=== PATIENT | male | born 1945 | race Caucasian/White ===

== ENCOUNTER 2017-09-19 03:04 | Emergency (ER) | payer MEDICARE, OTHER, SELFPAY ==
[2017-09-19 03:50] VITALS: BP 153/66; PULSE 75; RESP 16; TEMP 36.3; O2SAT 93
--- NOTE | 2017-09-19 04:20 | DI.RAD.S_ITS ---
PROCEDURE: XR ACUTE ABDOMEN SERIES INDICATIONS: constipation abdominal pain TECHNIQUE: One view chest and two views of the abdomen were acquired. COMPARISON: [facility], CHEST 2 VIEW, 12/18/2016, 10:14. [facility], , CHEST 1 VIEW, 12/16/2016, 21:53. FINDINGS: Surgical changes and devices: None. Chest: Lungs are clear. Scattered scarring/atelectasis which appears unchanged Heart size is normal. No pleural effusions. No pneumoperitoneum. Abdomen: Bowel gas pattern is nonobstructive however there is a moderate to large amount of stool. No suspicious calcifications. Visualized solid organ contours appear normal. Bones: No suspicious bony lesions. Thoracolumbar compression fractures as before IMPRESSION: Moderate to large amount of stool. No bowel obstruction. Dictated by: Jhonny Ochoa M.D. on 09/19/2017 at 7:36 Approved by: Jhonny Ochoa M.D. on 09/19/2017 at 7:39
[2017-09-19] MEDS: SODIUM CHLORIDE 0.9% 1,000 ML 1000 ML IV (04:30)
[2017-09-19 04:46] VITALS: BP 153/66; PULSE 75; RESP 16; TEMP 36.3; O2SAT 93
[2017-09-19 05:04] LABS: Add Manual Diff / Slide Review NO; Basophils Percent Auto 0.6 % (0-2); Eosinophils Percent Auto 2.8 % (2-4); Hematocrit 32.1 % (41-53); Lymphocytes Percent Auto 26.6 % (25-40); Mean Corpuscular HGB Conc 34.2 % (30-36); Mean Corpuscular Volume 102.4 fL (80-100); Monocytes Percent Auto 9.5 % (3-14); Neutrophils Absolute Auto 4400 /uL (3000-5900); Neutrophils Percent Auto 60.5 % (50-75); Platelet Count 168 X10^3/uL (150-400); Red Blood Cell Count 3.14 X10^6/uL (4.5-5.9); Red Cell Distribution Width 12.9 % (11.6-14.8); White Blood Cell Count 7.2 X10^3/uL (4.5-11.0)
[2017-09-19 05:16] LABS: Alanine Aminotransferase 14 IU/L (21-72); Albumin 4.2 g/dL (3.5-5.0); Albumin Globulin Ratio 1.5 (1.0-2.8); Alkaline Phosphatase 59 U/L (38-126); Aspartate Aminotransferase 24 IU/L (17-59); BUN Creatinine Ratio 18.3 (6-22); Bilirubin Total 0.6 mg/dL (0.2-1.3); Calcium 8.8 mg/dL (8.4-10.2); Estimated Glomerular Filt Rate 37.3 mL/min (>60); Globulin 2.8 g/dL (1.7-4.1); Glucose 103 mg/dL (80-110); HEMOLYSIS 17 (0-50); Lipase 240 U/L (23-300); Potassium 4.3 mmol/L (3.4-5.1); Sodium 139 mmol/L (137-145)
[2017-09-19 05:39] VITALS: BP 135/57; PULSE 61; RESP 21; O2SAT 93
--- NOTE | 2017-09-19 07:17 | ED_ITS ---
HPI - Abdominal Pain General Chief Complaint: Toxicology Problem Stated Complaint: THINKS HE HAS LEAD POISOINING Time Seen by Provider: 09/19/17 04:12 Source: patient and RN notes reviewed Mode of arrival: ambulatory Limitations: no limitations History of Present Illness HPI narrative: Patient is a 71-year-old male who is quite convinced that he has blood poisoning. He has been eating and melting lead over the past 1-2 months he has melted at least 100 lb and in healing it. He says since he started doing this his blood pressure scar rocket it. It was previously controlled on 1 medication and is now requiring multiple including hydralazine which has been doubled and tripled over the past 6 weeks. He also has some abdominal constipation but he is also on narcotic medications. His last bowel movement was 3 days ago. MD complaint: abdominal pain Related Data Home Medications Medication Instructions Recorded Confirmed azithromycin [Zithromax Z-Jeremy] 250 mg PO Q DAY #0 12/16/16 dapsone 50 mg PO BID #0 12/16/16 docusate sodium [Colace] 100 mg PO BID #0 12/16/16 metoprolol tartrate 12.5 mg PO BID #0 12/16/16 montelukast 10 mg PO Q DAY #0 12/16/16 pantoprazole [Protonix] 40 mg PO BID #0 12/16/16 pramipexole [Mirapex] 0.125 mg PO Q DAY PRN PRN #0 12/16/16 prednisone 5 mg PO Q DAY #0 12/16/16 selegiline HCl [Eldepryl] 5 mg PO BID #0 12/16/16 sennosides [senna] 2 tab PO Q DAY #0 12/16/16 tamsulosin [Flomax] 0.4 mg PO Q DAY #0 12/16/16 valacyclovir 500 mg PO Q DAY #0 12/16/16 aspirin 81 mg PO QDAY #0 12/17/16 calcitriol [Rocaltrol] 0.25 mcg PO QDAY #0 12/17/16 carbidopa-levodopa 1 tab PO TID #0 12/17/16 clobetasol [Temovate] 1 bradley TOPICAL PRN PRN #0 12/17/16 diltiazem HCl [Cartia XT] 120 mg PO QDAY #0 12/17/16 morphine 10 mg PO Q4HP PRN #0 12/17/16 ondansetron HCl 4 mg PO TIDP PRN #0 12/17/16 oxycodone [Roxicodone] 10 mg PO BIDP PRN #0 12/17/16 polyethylene glycol 3350 [Miralax] 17 gm PO QDAYP PRN #0 12/17/16 fluticasone-salmeterol [Advair HFA] 1 puff INH BID #0 12/19/16 Previous Rx's Medication Instructions Recorded amoxicillin-pot clavulanate 875 mg PO BID #20 tab 12/21/16 [Augmentin] prednisone 10 mg PO QAM #20 tab 12/21/16 Allergies Allergy/AdvReac Type Severity Reaction Status Date / Time bacitracin [BACITRACIN] Allergy Unknown SKIN Verified 09/19/17 03:57 IRRITATION chlorhexidine [CHLORHEXIDINE] Allergy Unknown SKIN Verified 09/19/17 03:57 IRRITATION rifampin [RIFAMPIN] Allergy Unknown HIVES Verified 09/19/17 03:57 acetaminophen [ACETAMINOPHEN] AdvReac Unknown ABD PAIN Verified 09/19/17 03:57 diphenhydramine AdvReac Unknown EXTREME Verified 09/19/17 03:57 [From BENADRYL] SEDATION Review of Systems Review of Systems All systems reviewed & are unremarkable except as noted in HPI and below Constitutional Denies chills, Denies fever(s), Denies lethargy and Denies weakness Cardiovascular Reports as per HPI, Denies chest pain, Denies irregular heart rhythm, Denies lightheadedness, Denies palpitations, Denies dyspnea, Denies dyspnea on exertion and Denies orthopnea Respiratory Denies cough, Denies dyspnea, Denies dyspnea on exertion and Denies wheezing Gastrointestinal Gastrointestinal: Denies abdominal pain, Denies change in bowel habits, Reports constipation, Denies diarrhea, Denies nausea and Denies vomiting Musculoskeletal Denies back pain, Denies muscle weakness, Denies numbness and Denies tingling Neurologic Denies numbness, Denies tingling and Denies weakness Endocrine Denies palpitations Allergic/Immunologic Denies wheezing PFSH Medical History Parkinson disease (Acute) Surgical History H/O stem cell transplant (Acute) Social History Smoking Status: Never smoker Exam Const General: cooperative and well developed Nutritional Appearance: well nourished Orientation: alert, awake, oriented x3 and not confused Resp Effort & Inspection: normal respiratory effort, able to speak in complete sentences, no respiratory distress and no use of accessory muscles Auscultation: clear to auscultation bilaterally, no rales, no rhonchi and no wheezes Cardio Rate: regular rate Rhythm: regular rhythm Heart Sounds: no click, no gallops, no murmurs and no rubs Pulses: normal peripheral pulses GI Inspection: normal to inspection Palpation: soft Percussion: normal to percussion Auscultation: normal bowel sounds Skin General: no rashes or lesions noted, No jaundice and No petechiae Neuro Other: Parkinsonian like movement Extrem General: full ROM, no clubbing, cyanosis or edema, no pedal edema and no calf tenderness MDM - Abdominal Pain MDM Narrative Medical decision making narrative: Is possible patient has on blood poisoning recently does have lead exposure. It has been ongoing for about 6 weeks no acute changes in his symptoms. His blood pressure initially he thought was high with a systolic of 150 has come down to under 120 in the ER. He understands that the lead level will not come back until next week it is a send out to [place]. He says he will discuss [facility] I recommended she call to see if they do the test. Lab Data Attestation: I reviewed the patient's lab results. Result diagrams: 09/19/17 04:35 09/19/17 04:35 Lab Results 09/19/17 09/19/17 Range/Units 04:35 04:35 WBC 7.2 (4.5-11.0) X10^3/uL RBC 3.14 L (4.5-5.9) X10^6/uL Hgb 11.0 L (13.5-17.5) g/dL Hct 32.1 L (41-53) % MCV 102.4 H (80-100) fL MCH 35.0 H (26-34) PG MCHC 34.2 (30-36) % RDW 12.9 (11.6-14.8) % Plt Count 168 (150-400) X10^3/uL Neut % (Auto) 60.5 (50-75) % Lymph % (Auto) 26.6 (25-40) % Greene % (Auto) 9.5 (3-14) % Eos % (Auto) 2.8 (2-4) % Baso % (Auto) 0.6 (0-2) % Neut # (Auto) 4400 (1225-8074) /uL Sodium 139 (137-145) mmol/L Potassium 4.3 (3.4-5.1) mmol/L Chloride 101.0 (98-107) mmol/L Carbon Dioxide 27.0 (22-32) mmol/L BUN 33.0 H (9-20) mg/dL Creatinine 1.80 H (0.66-1.25) mg/dL Estimated GFR 37.3 L (>60) mL/min BUN/Creatinine Ratio 18.3 (6-22) Glucose 103 (80-110) mg/dL Calcium 8.8 (8.4-10.2) mg/dL Total Bilirubin 0.6 (0.2-1.3) mg/dL AST 24 (17-59) IU/L ALT 14 L (21-72) IU/L Alkaline Phosphatase 59 (38-126) U/L Total Protein 7.0 (6.3-8.2) g/dL Albumin 4.2 (3.5-5.0) g/dL Globulin 2.8 (1.7-4.1) g/dL Albumin/Globulin Ratio 1.5 (1.0-2.8) Lipase 240 (23-300) U/L Imaging Data Abdominal x-ray: Attestation: I personally reviewed and interpreted this imaging study as follows: My impression: No acute process Course Orders Ordered: ED Orders 09/19/17 04:20 XR acute abdomen series Stat 09/19/17 04:35 Complete Blood Count AUTO DIFF Stat Comprehensive Metabolic Panel Stat Lead Stat Lipase Stat Sodium Chloride (Normal Saline 0.9%) 1,000 mls @ 1,000 mls/hr IV CONT BALDO Last Infusion: 09/19/17 06:03 Dose: 1,000 mls/hr Admin: 09/19/17 04:30 Dose: 1,000 mls/hr Last Vital Signs Temp 97.4 F L 09/19/17 04:46 Pulse 61 09/19/17 05:39 Resp 21 09/19/17 05:39 BP 135/57 H 09/19/17 05:39 Pulse Ox 93 09/19/17 05:39 Discharge Plan Departure Patient Disposition: Home, Self-Care Clinical Impression: Lead exposure, Constipation Instructions: DI for Lead Poisoning -- Adults Activity Restrictions/Additional Instructions: *You have been diagnosed with possible lead poisoning *What to do: lead level is a send out. Result won't be back until next week. If it is elevated we will call you. *Take medications as directed *Follow up with your primary care provider in 2-3 days *Return to ER if you should have any new, worsening or concerning symptoms Prescriptions: No Action valacyclovir 500 MG tablet 500 mg PO Q DAY Qty: 0 RF: 0 prednisone 5 MG tablets,dose pack 5 mg PO Q DAY Qty: 0 RF: 0 azithromycin [Zithromax Z-Jeremy] 250 MG tablet 250 mg PO Q DAY Qty: 0 RF: 0 dapsone 25 MG tablet 50 mg PO BID Qty: 0 RF: 0 montelukast 10 MG tablet 10 mg PO Q DAY Qty: 0 RF: 0 pantoprazole [Protonix] 40 MG tablet,delayed release (DR/EC) 40 mg PO BID Qty: 0 RF: 0 selegiline HCl [Eldepryl] 5 MG capsule 5 mg PO BID Qty: 0 RF: 0 metoprolol tartrate 25 MG tablet 12.5 mg PO BID Qty: 0 RF: 0 tamsulosin [Flomax] 0.4 MG capsule,extended release 24hr 0.4 mg PO Q DAY Qty: 0 RF: 0 pramipexole [Mirapex] 0.125 MG tablet 0.125 mg PO Q DAY PRN PRNQty: 0 RF: 0 sennosides [senna] 8.6 MG tablet 2 tab PO Q DAY Qty: 0 RF: 0 docusate sodium [Colace] 100 MG capsule 100 mg PO BID Qty: 0 RF: 0 carbidopa-levodopa 25 MG/100 MG tablet extended release 1 tab PO TID Qty: 0 RF: 0 calcitriol [Rocaltrol] 0.25 MCG capsule 0.25 mcg PO QDAY Qty: 0 RF: 0 aspirin 81 MG tablet,chewable 81 mg PO QDAY Qty: 0 RF: 0 diltiazem HCl [Cartia XT] 120 MG capsule,extended release 24hr 120 mg PO QDAY Qty: 0 RF: 0 clobetasol [Temovate] 0.05 % cream 1 bradley Topical PRN PRNQty: 0 RF: 0 oxycodone [Roxicodone] 5 MG tablet 10 mg PO BIDP PRNQty: 0 RF: 0 morphine 20 MG/5 ML solution 10 mg PO Q4HP PRNQty: 0 RF: 0 ondansetron HCl 4 MG tablet 4 mg PO TIDP PRNQty: 0 RF: 0 polyethylene glycol 3350 [Miralax] 119 GM powder 17 gm PO QDAYP PRNQty: 0 RF: 0 fluticasone-salmeterol [Advair HFA] 230 MCG/21 MCG HFA aerosol inhaler 1 puff INH BID Qty: 0 RF: 0 amoxicillin-pot clavulanate [Augmentin] 875 MG/125 MG tablet 875 mg PO BID Qty: 20 RF: 0 prednisone 10 MG tablet 10 mg PO QAM Qty: 20 RF: 0
[2017-09-19 07:22] VITALS: BP 129/61; PULSE 66; RESP 16; O2SAT 100
--- NOTE | 2017-09-22 16:35 | PC.NURSE ---
Pt called to f/u on his Lead level taken during this visit. Lead level was 2, (normal < 5). Encouraged to f/u w/ pcp as previously scheduled and planned and return for any needs or concerns.
== END 2017-09-19 07:39 | disposition home or self-care (01) ==
PROVIDERS: Emergency Provider Emergency Medicine
DX: K59.00 Constipation, unspecified (principal); Z77.011 Contact with and (suspected) exposure to lead
CPT/HCPCS: 36591; 74022; 80053; 83655; 83690; 85025; 99283; 99284

== ENCOUNTER 2018-01-18 09:16 | Emergency (ER) | payer MEDICARE, OTHER, SELFPAY ==
[2018-01-18] VITALS (7 sets, daily range): BP systolic 80–122; BP diastolic 43–58; PULSE 62–88; RESP 14–24; TEMP 36.3; O2SAT 96–99; BMI 26.5
--- NOTE | 2018-01-18 09:37 | ED_ITS ---
HPI - Weakness General Chief complaint: Weakness Stated complaint: weakness/hasn't been sleeping Time Seen by Provider: 01/18/18 09:36 Source: patient Mode of arrival: ambulatory Limitations: no limitations History of Present Illness HPI Narrative: Patient is a 72-year-old male with a history of leukemia and a distant history of a stem-cell transplant. Also has a history of multiple pneumonias and ?kidney issues ?also has a history of Parkinson's disease. Patient states that for the past several weeks/months he has had problems sleeping. Has discussed this with his primary doctor who is his oncologist down at the [facility]. Patient states that he was given a prescription for a sleep aid however secondary to issues with related to his other medications this had to be a ?hard prescription ?the patient's who is at bedside has an e-mail from their primary care doctor stating that there was a prescription for sonata that was placed however it can only be picked up in [place] and they have not had a chance to go down to [place] to pick it up. Patient states that last evening he again had problems sleeping. He states that he was downstairs in the kitchen and states that he lost his balance and fell. Did not hit his head. No loss of consciousness. He states that again during the evening he fell in his bathroom. Again did not hit his head had no loss of consciousness. Has multiple skin tears on his upper extremities. Denies any other pain. Related Data Home Medications Medication Instructions Recorded Confirmed azithromycin [Zithromax Z-Jeremy] 250 mg PO Q DAY #0 12/16/16 dapsone 50 mg PO BID #0 12/16/16 docusate sodium [Colace] 100 mg PO BID #0 12/16/16 metoprolol tartrate 12.5 mg PO BID #0 12/16/16 montelukast 10 mg PO Q DAY #0 12/16/16 pantoprazole [Protonix] 40 mg PO BID #0 12/16/16 pramipexole [Mirapex] 0.125 mg PO Q DAY PRN PRN #0 12/16/16 prednisone 5 mg PO Q DAY #0 12/16/16 selegiline HCl [Eldepryl] 5 mg PO BID #0 12/16/16 sennosides [senna] 2 tab PO Q DAY #0 12/16/16 tamsulosin [Flomax] 0.4 mg PO Q DAY #0 12/16/16 valacyclovir 500 mg PO Q DAY #0 12/16/16 aspirin 81 mg PO QDAY #0 12/17/16 calcitriol [Rocaltrol] 0.25 mcg PO QDAY #0 12/17/16 carbidopa-levodopa 1 tab PO TID #0 12/17/16 clobetasol [Temovate] 1 bradley TOPICAL PRN PRN #0 12/17/16 diltiazem HCl [Cartia XT] 120 mg PO QDAY #0 12/17/16 morphine 10 mg PO Q4HP PRN #0 12/17/16 ondansetron HCl 4 mg PO TIDP PRN #0 12/17/16 oxycodone [Roxicodone] 10 mg PO BIDP PRN #0 12/17/16 polyethylene glycol 3350 [Miralax] 17 gm PO QDAYP PRN #0 12/17/16 fluticasone-salmeterol [Advair HFA] 1 puff INH BID #0 12/19/16 Previous Rx's Medication Instructions Recorded amoxicillin-pot clavulanate 875 mg PO BID #20 tab 12/21/16 [Augmentin] prednisone 10 mg PO QAM #20 tab 12/21/16 zaleplon 5 mg PO .qhs PRN #7 cap 01/18/18 Allergies Allergy/AdvReac Type Severity Reaction Status Date / Time bacitracin [BACITRACIN] Allergy Unknown SKIN Verified 01/18/18 09:27 IRRITATION chlorhexidine [CHLORHEXIDINE] Allergy Unknown SKIN Verified 01/18/18 09:27 IRRITATION rifampin [RIFAMPIN] Allergy Unknown HIVES Verified 01/18/18 09:27 acetaminophen [ACETAMINOPHEN] AdvReac Unknown ABD PAIN Verified 01/18/18 09:27 diphenhydramine AdvReac Unknown EXTREME Verified 01/18/18 09:27 [From BENADRYL] SEDATION Review of Systems Constitutional Reports fatigue, Denies fever(s), Reports frequent falls, Reports lethargy and Reports malaise ENT Ears, Nose, Mouth, and Throat: Denies vertigo and Reports dizziness Cardiovascular Denies chest pain and Reports dyspnea (States that he always has problems breathing and is at his baseline) Respiratory Reports dyspnea (States that he always has problems breathing and is at his baseline) Gastrointestinal Gastrointestinal: Denies change in bowel habits, Denies cramping, Denies nausea and Denies vomiting Genitourinary Denies dysuria Musculoskeletal Reports abnormal gait, Denies myalgias and Denies arthralgias Integumentary/Breasts Comments: Multiple skin tears on his upper extremities Neurologic Reports abnormal gait, Denies confusion, Denies vertigo, Reports dizziness and Reports frequent falls Comments: Baseline Parkinson's tremor Psychiatric Denies confusion Endocrine Reports fatigue [facility] Medical History Parkinson disease (Acute) CLL (chronic lymphocytic leukemia) (Acute) Surgical History H/O stem cell transplant (Acute) Social History Smoking Status: Never smoker Exam Initial Vital Signs Initial Vital Signs: Vital Signs Temperature 97.4 F L 01/18/18 09:23 Pulse Rate 88 01/18/18 09:23 Respiratory Rate 14 01/18/18 09:23 Blood Pressure 80/43 L 01/18/18 09:23 Pulse Oximetry 97 01/18/18 09:23 Const General: cooperative, comfortable, well developed, well groomed and No acute distress Orientation: alert, awake and oriented x3 HENMT Head: normal to inspection and normocephalic Resp Effort & Inspection: normal respiratory effort Auscultation: clear to auscultation bilaterally Cardio Rate: regular rate Rhythm: regular rhythm Pulses: radial pulses present GI Inspection: non-distended Palpation: soft, No firm and No tender Back/Spine/Pelvis Back: No CVA tenderness Cervical Spine: cervical ROM normal, No cervical muscular tenderness and No step off deformity Thoracic/Lumbar Spine: thoracic and lumbar spine normal to inspection Skin Other: Patient with multiple skin tears mainly located on his right elbow which were all superficial. Has skin tears on the back of his right hand 1 of which is approximately 4 cm in length and does require suturing. Patient also with a skin tear superficial on his left elbow. Neuro General: alert, awake and oriented x3 Extrem Other: No gross deformities. Moves all 4 extremities Psych Appearance: grossly normal and well kempt Course Orders Ordered: ED Orders 01/18/18 09:31 EKG-12 Lead Stat 01/18/18 09:41 B Type Natriuretic Peptide Stat Complete Blood Count AUTO DIFF Stat Comprehensive Metabolic Panel Stat Lactate (Lactic Acid) Stat Lipase Stat Partial Thromboplastin Time Stat Procalcitonin Stat Prothrombin Time INR Stat Troponin I Stat 01/18/18 09:46 XR chest 1V Stat 01/18/18 10:20 Blood Culture Stat Discontinued Medications Sodium Chloride (Normal Saline 0.9%) 1,000 mls @ 500 mls/hr IV BOLUS ONE Stop: 01/18/18 11:36 Last Admin: 01/18/18 09:47 Dose: 500 mls/hr Sodium Chloride (Normal Saline 0.9%) 1,000 mls @ 1,000 mls/hr IV BOLUS ONE Stop: 01/18/18 10:45 Last Admin: 01/18/18 09:48 Dose: Vital Signs - 8 hr 01/18/18 09:23 01/18/18 09:35 01/18/18 10:00 Temperature 97.4 F L Pulse Rate 88 68 65 Pulse Rate [Orthostatic Lying] Pulse Rate [Orthostatic Sitting] Pulse Rate [Orthostatic Standing] Respiratory Rate 14 24 22 Blood Pressure 80/43 L Blood Pressure [Left Arm] 104/47 L 107/51 L Blood Pressure [Orthostatic Lying] Blood Pressure [Orthostatic Sitting] Blood Pressure [Orthostatic Standing] Pulse Oximetry 97 96 97 01/18/18 11:17 01/18/18 12:00 01/18/18 12:29 Temperature Pulse Rate 73 64 Pulse Rate [Orthostatic Lying] 62 Pulse Rate [Orthostatic Sitting] 64 Pulse Rate [Orthostatic Standing] 63 Respiratory Rate 20 18 Blood Pressure Blood Pressure [Left Arm] 92/46 L 105/48 L Blood Pressure [Orthostatic Lying] 102/57 L Blood Pressure [Orthostatic Sitting] 95/52 L Blood Pressure [Orthostatic Standing] 93/58 L Pulse Oximetry 98 MDM - Weakness Lab Data Attestation: I reviewed the patient's lab results. Result diagrams: 01/18/18 09:41 01/18/18 09:41 Lab Results 01/18/18 01/18/18 01/18/18 Range/Units 09:41 09:41 09:41 WBC 8.3 (4.5-11.0) X10^3/uL RBC 3.27 L (4.5-5.9) X10^6/uL Hgb 10.9 L (13.5-17.5) g/dL Hct 33.0 L (41-53) % MCV 100.9 H (80-100) fL MCH 33.3 (26-34) PG MCHC 33.0 (30-36) % RDW 13.4 (11.6-14.8) % Plt Count 194 (150-400) X10^3/uL Neut % (Auto) 71.8 (50-75) % Lymph % (Auto) 17.4 L (25-40) % Baker % (Auto) 8.5 (3-14) % Eos % (Auto) 1.7 L (2-4) % Baso % (Auto) 0.6 (0-2) % Neut # (Auto) 6000 H (5636-1851) /uL PT 11.0 (10.1-12.7) SECONDS INR 1.0 (0.9-1.3) APTT 30 (26.4-36.2) SECONDS Sodium Cancelled Potassium Cancelled Chloride Cancelled Carbon Dioxide Cancelled BUN Cancelled Creatinine Cancelled Estimated GFR Cancelled BUN/Creatinine Ratio Cancelled Glucose Cancelled Lactate (0.7-2.1) mmol/L Calcium Cancelled Total Bilirubin Cancelled AST Cancelled ALT Cancelled Alkaline Phosphatase Cancelled Troponin I Cancelled B-Natriuretic Peptide 123.0 H (<100) Total Protein Cancelled Albumin Cancelled Globulin Cancelled Albumin/Globulin Ratio Cancelled Lipase (23-300) U/L Procalcitonin (<0.5) ng/mL 01/18/18 01/18/18 01/18/18 Range/Units 09:41 09:41 09:41 WBC (4.5-11.0) X10^3/uL RBC (4.5-5.9) X10^6/uL Hgb (13.5-17.5) g/dL Hct (41-53) % MCV (80-100) fL MCH (26-34) PG MCHC (30-36) % RDW (11.6-14.8) % Plt Count (150-400) X10^3/uL Neut % (Auto) (50-75) % Lymph % (Auto) (25-40) % Baker % (Auto) (3-14) % Eos % (Auto) (2-4) % Baso % (Auto) (0-2) % Neut # (Auto) (1225-8031) /uL PT (10.1-12.7) SECONDS INR (0.9-1.3) APTT (26.4-36.2) SECONDS Sodium 140 Potassium 4.8 Chloride 104 Carbon Dioxide 25 BUN 37 H Creatinine 1.90 H Estimated GFR 34.9 L BUN/Creatinine Ratio 19.5 Glucose 104 Lactate 1.4 (0.7-2.1) mmol/L Calcium 8.8 Total Bilirubin 0.4 AST 63 H ALT 25 Alkaline Phosphatase 169 H Troponin I 0.030 B-Natriuretic Peptide (<100) Total Protein 6.9 Albumin 4.2 Globulin 2.7 Albumin/Globulin Ratio 1.6 Lipase 262 (23-300) U/L Procalcitonin < 0.05 (<0.5) ng/mL Imaging Data Chest x-ray: Radiologist's impression: [address] [address] XRay Report Signed Patient: Eleno Sol JMR#: [id number] : 5Acct:[id number] Age/Sex: 72 / MDate of Service: 01/18/18 Loc: ED Accession Number: [id number] Procedure: XR chest 1V Ordering Provider: Eleno Juares D.O. PROCEDURE: XR CHEST 1V INDICATIONS: suspected sepsis TECHNIQUE: One view of the chest was acquired. COMPARISON: [facility], CHEST 2 VIEW, 12/18/2016, 10:14. [facility], CHEST 1 VIEW, 12/16/2016, 21:53. FINDINGS: Surgical changes and devices: None. Lungs and pleura: No pleural effusions or pneumothorax. Lungs are abnormal with reduced inspiratory volume, no pneumonia found.. Mediastinum: Mediastinal contours appear normal. Heart size is normal. Bones and chest wall: No suspicious bony lesions. Overlying soft tissues appear unremarkable. IMPRESSION: Reduced inspiratory volume but no pneumonia found when this is taken into account. Dictated by: Vishal Junior M.D. on 01/18/2018 at 10:26 Approved by: Vishal Junior M.D. on 01/18/2018 at 10:26 ECG Data Attestation: I personally reviewed and interpreted this ECG as follows: Prior ECG tracings: available for review Interpretation: Previous EKG dated 12/2016 Sinus rhythm EKG dated today Sinus rhythm Ventricular rate is 76 Normal axis Normal QRS Normal QTC No ST T wave changes Unchanged from prior EKG MDM Narrative Medical decision making narrative: Patient's electrolytes unremarkable. Was alert and oriented x3. No emergent process found on chest x-ray or on labs or on his EKG. It appears that normally patient is very mobile at home and able to work outside and mow the grass however he does state that for the past 7-10 days he has only been able to sleep about 1 hr at night. I feel that his fatigue that has been progressing over this period of time is most likely secondary to his lack of sleep. He also has increased his Parkinson's disease medicines over the past couple days. He has been unable to obtain the prescription for the sonata that was prescribed by his primary doctor. Had a discussion with the patient and his regarding his symptoms. Feel that there is no need for an acute admission to the hospital. Will fill his prescription for sonata for the next couple days. He was given extensive instructions regarding this medication. He was instructed that he needed to be very careful at night this medicine does make him drowsy and that he needs to try to avoid falling at all cost especially given his other medical problems. Was also instructed that this evening he should take the pill just prior to going to sleep until he does exactly how his body reacts this medication. Patient also understands that there could be interactions with this medicine with his other medications. He understands that he could have the same reaction with this medicine that he did with the Ambien. He was given return precautions. He expressed understanding and agreement with plan. Discharge Plan Departure Patient Disposition: Home Clinical Impression: Fatigue, Parkinson disease, Insomnia Instructions: Insomnia (Alternative Therapy), DI for Insomnia Activity Restrictions/Additional Instructions: Recommend that tomorrow you contact your primary care doctor to discuss the symptoms that brought you to the emergency department today. Be sure you take care with taking the medication for sleep. This medication does make you drowsy. Return to the emergency department for any new or worsening symptoms Prescriptions: New zaleplon 5 mg capsule 5 mg PO .qhs PRN (Reason: insomnia) Qty: 7 RF: 0 No Action valacyclovir 500 MG tablet 500 mg PO Q DAY Qty: 0 RF: 0 prednisone 5 MG tablets,dose pack 5 mg PO Q DAY Qty: 0 RF: 0 azithromycin [Zithromax Z-Jeremy] 250 MG tablet 250 mg PO Q DAY Qty: 0 RF: 0 dapsone 25 MG tablet 50 mg PO BID Qty: 0 RF: 0 montelukast 10 MG tablet 10 mg PO Q DAY Qty: 0 RF: 0 pantoprazole [Protonix] 40 MG tablet,delayed release (DR/EC) 40 mg PO BID Qty: 0 RF: 0 selegiline HCl [Eldepryl] 5 MG capsule 5 mg PO BID Qty: 0 RF: 0 metoprolol tartrate 25 MG tablet 12.5 mg PO BID Qty: 0 RF: 0 tamsulosin [Flomax] 0.4 MG capsule,extended release 24hr 0.4 mg PO Q DAY Qty: 0 RF: 0 pramipexole [Mirapex] 0.125 MG tablet 0.125 mg PO Q DAY PRN PRNQty: 0 RF: 0 sennosides [senna] 8.6 MG tablet 2 tab PO Q DAY Qty: 0 RF: 0 docusate sodium [Colace] 100 MG capsule 100 mg PO BID Qty: 0 RF: 0 carbidopa-levodopa 25 MG/100 MG tablet extended release 1 tab PO TID Qty: 0 RF: 0 calcitriol [Rocaltrol] 0.25 MCG capsule 0.25 mcg PO QDAY Qty: 0 RF: 0 aspirin 81 MG tablet,chewable 81 mg PO QDAY Qty: 0 RF: 0 diltiazem HCl [Cartia XT] 120 MG capsule,extended release 24hr 120 mg PO QDAY Qty: 0 RF: 0 clobetasol [Temovate] 0.05 % cream 1 bradley Topical PRN PRNQty: 0 RF: 0 oxycodone [Roxicodone] 5 MG tablet 10 mg PO BIDP PRNQty: 0 RF: 0 morphine 20 MG/5 ML solution 10 mg PO Q4HP PRNQty: 0 RF: 0 ondansetron HCl 4 MG tablet 4 mg PO TIDP PRNQty: 0 RF: 0 polyethylene glycol 3350 [Miralax] 119 GM powder 17 gm PO QDAYP PRNQty: 0 RF: 0 fluticasone-salmeterol [Advair HFA] 230 MCG/21 MCG HFA aerosol inhaler 1 puff INH BID Qty: 0 RF: 0 amoxicillin-pot clavulanate [Augmentin] 875 MG/125 MG tablet 875 mg PO BID Qty: 20 RF: 0 prednisone 10 MG tablet 10 mg PO QAM Qty: 20 RF: 0
--- NOTE | 2018-01-18 09:46 | DI.RAD.S_ITS ---
PROCEDURE: XR CHEST 1V INDICATIONS: suspected sepsis TECHNIQUE: One view of the chest was acquired. COMPARISON: [facility], CHEST 2 VIEW, 12/18/2016, 10:14. [facility], , CHEST 1 VIEW, 12/16/2016, 21:53. FINDINGS: Surgical changes and devices: None. Lungs and pleura: No pleural effusions or pneumothorax. Lungs are abnormal with reduced inspiratory volume, no pneumonia found.. Mediastinum: Mediastinal contours appear normal. Heart size is normal. Bones and chest wall: No suspicious bony lesions. Overlying soft tissues appear unremarkable. IMPRESSION: Reduced inspiratory volume but no pneumonia found when this is taken into account. Dictated by: Vishal Junior M.D. on 01/18/2018 at 10:26 Approved by: Vishal Junior M.D. on 01/18/2018 at 10:26
[2018-01-18] MEDS: SODIUM CHLORIDE 0.9% 1,000 ML 500 ML IV (09:47)
[2018-01-18 09:54] LABS: Add Manual Diff / Slide Review NO; Basophils Percent Auto 0.6 % (0-2); Eosinophils Percent Auto 1.7 % (2-4); Hemoglobin 10.9 g/dL (13.5-17.5); Lymphocytes Percent Auto 17.4 % (25-40); Mean Corpuscular Hemoglobin 33.3 PG (26-34); Mean Corpuscular Volume 100.9 fL (80-100); Monocytes Percent Auto 8.5 % (3-14); Neutrophils Absolute Auto 6000 /uL (3000-5900); Neutrophils Percent Auto 71.8 % (50-75); Platelet Count 194 X10^3/uL (150-400); Red Blood Cell Count 3.27 X10^6/uL (4.5-5.9); Red Cell Distribution Width 13.4 % (11.6-14.8); White Blood Cell Count 8.3 X10^3/uL (4.5-11.0)
[2018-01-18 10:09] LABS: PTT Partial Thromboplastin Tim 30 SECONDS (26.4-36.2)
[2018-01-18 10:10] LABS: Lactate (Lactic Acid) 1.4 mmol/L (0.7-2.1)
[2018-01-18 10:13] LABS: Alanine Aminotransferase 25 IU/L (21-72); Albumin 4.2 g/dL (3.5-5.0); Albumin Globulin Ratio 1.6 (1.0-2.8); Alkaline Phosphatase 169 U/L (38-126); Aspartate Aminotransferase 63 IU/L (17-59); BUN Creatinine Ratio 19.5 (6-22); Bilirubin Total 0.4 mg/dL (0.2-1.3); Blood Urea Nitrogen 37 mg/dL (9-20); Calcium 8.8 mg/dL (8.4-10.2); Carbon Dioxide 25 mmol/L (22-32); Chloride 104 mmol/L (98-107); Estimated Glomerular Filt Rate 34.9 mL/min (>60); Globulin 2.7 g/dL (1.7-4.1); Glucose 104 mg/dL (80-110); HEMOLYSIS < 15 (0-50); Lipase 262 U/L (23-300); Potassium 4.8 mmol/L (3.4-5.1); Sodium 140 mmol/L (137-145); Total Protein 6.9 g/dL (6.3-8.2)
[2018-01-18 10:32] LABS: Procalcitonin < 0.05 ng/mL (<0.5)
== END 2018-01-18 13:20 | disposition home or self-care (01) ==
PROVIDERS: Emergency Provider Emergency Medicine
DX: G20 Parkinson's disease (principal); R53.83 Other fatigue; G47.00 Insomnia, unspecified
CPT/HCPCS: 36415; 36591; 71045; 80053; 83605; 83690; 83880; 84145; 84484; 85025; 85610; 85730; 87040; 93005; 93010; 96360; 96361; 99283; 99285

== ENCOUNTER 2018-07-10 09:12 | Emergency (ER) | payer MEDICARE, OTHER, SELFPAY ==
[2018-07-10] VITALS (10 sets, daily range): BP systolic 112–152; BP diastolic 39–78; PULSE 80–97; RESP 16–30; TEMP 37.4; O2SAT 89–99
--- NOTE | 2018-07-10 09:53 | DI.RAD.S_ITS ---
PROCEDURE: XR CHEST 2V INDICATIONS: cough sob TECHNIQUE: 2 views of the chest were acquired. COMPARISON: [facility], , CHEST 2 VIEW, 12/18/2016, 10:14. [facility], , CHEST 1 VIEW, 12/16/2016, 21:53. [facility], , XR CHEST 1V, 01/18/2018, 9:59. FINDINGS: Surgical changes and devices: None. Lungs and pleura: Again noted is mild chronic interstitial pulmonary fibrosis. No focal acute airspace consolidation. No pleural fluid. Mediastinum: Mediastinal contours are normal. Heart size is normal. Bones and chest wall: No suspicious acute bony abnormalities. There are 2 chronic compression fractures, involving approximately T11 and L1. Soft tissues appear unremarkable. IMPRESSION: 1. Stable chronic interstitial lung disease. 2. No acute pulmonary infiltrates. 3. Chronic osteoporotic compression fractures. Dictated by: Tu Bustillo M.D. on 07/10/2018 at 10:24 Approved by: Tu Bustillo M.D. on 07/10/2018 at 10:26
--- NOTE | 2018-07-10 10:10 | ED_ITS ---
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 He has since had complications including pulmonary fibrosis requiring oxygen, fungal pneumonia, CMV pneumonia and finally diagnosed with cryptogenic organizing pneumonia and treated with prednisone which he is still on and being tapered off of slowly. He is on oxygen but typically only at nighttime when he feels short of breath and wheezing. Over the last 3 days he has noticed increased shortness of breath and requiring 3 L of oxygen which is very atypical for him. He feels like he may have pneumonia again. He denies any fever. His no chills. He does have shakes but has Parkinson's he has not noted a change in that. MD Complaint: shortness of breath Severity: moderate Consistency/Duration: constant Relieving factors: oxygen Treatment prior to arrival: oxygen Related Data Home oxygen amount: as needed at night Home Medications Medication Instructions Recorded Confirmed dapsone 50 mg PO BID #0 12/16/16 07/10/18 docusate sodium [Colace] 100 mg PO BID #0 12/16/16 07/10/18 montelukast 10 mg PO BEDTIME #0 12/16/16 07/10/18 pantoprazole [Protonix] 40 mg PO BID #0 12/16/16 07/10/18 pramipexole [Mirapex] 0.125 mg PO BEDTIME #0 12/16/16 07/10/18 sennosides [senna] 17.2 tab PO BEDTIME #0 12/16/16 07/10/18 tamsulosin [Flomax] 0.4 mg PO BEDTIME #0 12/16/16 07/10/18 calcitriol [Rocaltrol] 0.25 mcg PO DAILY #0 12/17/16 07/10/18 carbidopa-levodopa 1 tab PO DIRECTED #0 12/17/16 07/10/18 clobetasol [Temovate] 1 bradley TOPICAL PRN PRN #0 12/17/16 07/10/18 morphine 10 mg PO Q4HP PRN #0 12/17/16 07/10/18 polyethylene glycol 3350 [Miralax] 17 gm PO DAILY PRN #0 12/17/16 07/10/18 Advair HFA 1 puff INH BID #0 12/19/16 07/10/18 albuterol sulfate 2 puff INHALATION Q4H PRN 01/19/18 07/10/18 fluorouracil [Efudex] 1 applic TOPICAL BID PRN 01/19/18 07/10/18 nystatin 5 ml PO Q6H PRN 01/19/18 07/10/18 selegiline HCl 5 mg PO BID 01/19/18 07/10/18 amitriptyline 10 mg PO BEDTIME 07/10/18 07/10/18 azithromycin 250 mg PO MOWEFR 07/10/18 07/10/18 fluocinonide See Rx Instructions .ROUTE .COMPLEX 07/10/18 07/10/18 furosemide 20 mg PO BID 07/10/18 07/10/18 guaifenesin 200 mg PO Q4H PRN 07/10/18 07/10/18 hydrocortisone 1 applic TOPICAL BID PRN 07/10/18 07/10/18 ketoconazole 1 applic TOPICAL PRN PRN 07/10/18 07/10/18 loratadine 10 mg PO DAILY PRN 07/10/18 07/10/18 metoprolol succinate 50 mg PO BEDTIME 07/10/18 07/10/18 mupirocin 1 applic TOPICAL BID PRN 07/10/18 07/10/18 nifedipine 30 mg PO QAM 07/10/18 07/10/18 oxycodone 10 mg PO 1-2XD PRN 07/10/18 07/10/18 prednisone 25 mg PO DAILY 07/10/18 07/10/18 prochlorperazine maleate 10 mg PO QID PRN 07/10/18 07/10/18 valacyclovir 500 mg PO BEDTIME 07/10/18 07/10/18 Allergies Allergy/AdvReac Type Severity Reaction Status Date / Time diltiazem Allergy Intermediate Hives Verified 01/19/18 15:33 bacitracin [BACITRACIN] Allergy Unknown SKIN Verified 01/18/18 09:27 IRRITATION chlorhexidine [CHLORHEXIDINE] Allergy Unknown SKIN Verified 01/18/18 09:27 IRRITATION rifampin [RIFAMPIN] Allergy Unknown HIVES Verified 01/18/18 09:27 acetaminophen [ACETAMINOPHEN] AdvReac Unknown ABD PAIN Verified 01/18/18 09:27 diphenhydramine AdvReac Unknown EXTREME Verified 01/18/18 09:27 [From BENADRYL] SEDATION Review of Systems Review of Systems ROS Unobtainable: All systems reviewed & are unremarkable except as noted in HPI and below Constitutional Denies chills, Denies fever(s), Denies lethargy and Denies weakness Cardiovascular Denies chest pain, Denies irregular heart rhythm, Denies lightheadedness, Denies palpitations and Denies orthopnea Respiratory Reports as per HPI Gastrointestinal Gastrointestinal: Denies abdominal pain, Denies change in bowel habits, Denies diarrhea, Denies nausea and Denies vomiting Musculoskeletal Denies back pain, Denies muscle weakness, Denies numbness and Denies tingling Integumentary/Breasts Denies pruritus, Denies erythema, Denies rash and Denies wounds Neurologic Denies numbness, Denies tingling and Denies weakness Endocrine Denies palpitations PFSH Medical History Parkinson disease (Chronic) CMV pneumonia (Acute) Chronic nbmgk-dykbue-erhe disease (Chronic) Cryptogenic organizing pneumonia (Resolved) CLL (chronic lymphocytic leukemia) (Acute) Surgical History H/O stem cell transplant (Acute) Social History Smoking Status: Never smoker Social History Smoking Status: Never smoker Exam Initial Vital Signs Initial Vital Signs: Vital Signs Temperature 99.3 F 07/10/18 09:15 Pulse Rate 82 07/10/18 09:15 Respiratory Rate 20 07/10/18 09:15 Blood Pressure 112/54 L 07/10/18 09:15 Pulse Oximetry 89 L 07/10/18 09:15 GENERAL: Cushingoid appearance, alert oriented x4 no acute distress HEENT: Head atraumatic,EOMI, pupils reactive, face symmetric, [moist] mucous membranes CARDIOVASCULAR: Regular rate and rhythm without murmurs, rubs or gallops. RESPIRATORY: Decreased breath sounds bilaterally no conversational dyspnea on 3 L mild rales at bases ABDOMEN: Soft, nontender. Normoactive bowel sounds all 4 quadrants. No guarding or rebound. EXTREMITIES: Normal range of motion, no clubbing or edema. Neurovascularly intact NEUROLOGICAL: Alert and oriented x4.Normal gait and speech. Cranial nerves II through XII grossly intact. Resting tremors no gross deficits SKIN: Warm, dry, no laceration, no petechiae, no rashes or lesions. Course Orders Ordered: ED Orders 07/10/18 10:50 B Type Natriuretic Peptide Stat Blood Culture Stat Complete Blood Count AUTO DIFF Stat Comprehensive Metabolic Panel Stat Lactate (Lactic Acid) Stat Partial Thromboplastin Time Stat Procalcitonin Stat Prothrombin Time INR Stat 07/10/18 12:45 Influenza A and B by PCR Rapid Stat Respiratory Panel (Film Array) Stat 07/10/18 13:39 CT chest wo con Stat 07/10/18 15:06 Lactate (Lactic Acid) Stat 07/10/18 17:15 Sputum Culture Stat Sodium Chloride (Normal Saline 0.9%) 1,000 mls @ 150 mls/hr IV CONT BALDO Last Infusion: 07/10/18 15:07 Dose: 0 mls/hr Admin: 07/10/18 11:00 Dose: 150 mls/hr Discontinued Medications Albuterol/Ipratropium (Duoneb) 3 ml INH NOW ONE Stop: 07/10/18 11:22 Last Admin: 07/10/18 11:34 Dose: 3 ml Levofloxacin (Levaquin) 750 mg in 150 mls @ 100 mls/hr IV NOW ONE Stop: 07/10/18 16:27 Last Infusion: 07/10/18 17:10 Dose: 0 mls/hr Admin: 07/10/18 15:07 Dose: 100 mls/hr Sodium Chloride (Normal Saline 0.9%) 1,000 mls @ 1,000 mls/hr IV BOLUS ONE Stop: 07/10/18 16:42 Last Infusion: 07/10/18 17:57 Dose: 0 mls/hr Admin: 07/10/18 15:54 Dose: 1,000 mls/hr Methylprednisolone (Solu-Medrol 125 Mg Vial) 125 mg IV NOW ONE Stop: 07/10/18 11:22 Last Admin: 07/10/18 11:29 Dose: 125 mg Morphine Sulfate (Morphine) 2 mg IV NOW ONE Stop: 07/10/18 11:23 Last Admin: 07/10/18 17:53 Dose: Not Given Voriconazole (Vfend) 200 mg PO NOW ONE Stop: 07/10/18 17:16 Last Admin: 07/10/18 17:53 Dose: 200 mg Consultations Consultation #1: Zeenat, practitioner in pulmonology Clinic at [facility] is quite familiar with patient. Recommend CT to look for new pneumonia or brvor-zlwzjw-xrrd inflammation. Time: 13:22 Consultation #2: Dr. engel commercial designer [facility] updated on patient's symptoms and test results. At this time if appearing well will arrange for close outpatient follow-up. Recommend p.o. Levaquin and p.o. voriconazole. Dr. engel again updated on patient's rising lactic acid and my concern for sepsis in need for inpatient hospitalization. I recommend admitting to Dr López Consultation #3: Dr. López, [facility] happily accepts patient for transfer. Time: 18:37 Vital Signs - 8 hr 07/10/18 11:32 07/10/18 11:35 07/10/18 12:35 Pulse Rate 81 80 90 Respiratory Rate 16 23 27 H Blood Pressure [Left Arm] 116/39 L 126/52 L Pulse Oximetry 99 99 99 07/10/18 13:50 07/10/18 16:46 07/10/18 16:53 Pulse Rate 89 94 H Respiratory Rate 30 H 25 H Blood Pressure [Left Arm] 141/60 H 145/75 H Pulse Oximetry 97 98 MDM - SOB/Dyspnea Medical Records Attestation: I reviewed the patient's medical records. Lab Data Attestation: I reviewed the patient's lab results. Result diagrams: 07/10/18 10:50 07/10/18 10:50 Lab Results 07/10/18 07/10/18 07/10/18 Range/Units 10:50 10:50 10:50 WBC 10.5 (4.5-11.0) X10^3/uL RBC 2.80 L (4.5-5.9) X10^6/uL Hgb 9.7 L (13.5-17.5) g/dL Hct 29.2 L (41-53) % MCV 104.3 H (80-100) fL MCH 34.8 H (26-34) PG MCHC 33.4 (30-36) % RDW 14.0 (11.6-14.8) % Plt Count 136 L (150-400) X10^3/uL Neut % (Auto) Not Reportable Lymph % (Auto) Not Reportable Burke % (Auto) Not Reportable Eos % (Auto) Not Reportable Baso % (Auto) Not Reportable Lymph # (Auto) Not Reportable Burke # (Auto) Not Reportable Baso # (Auto) Not Reportable Total Counted 100 Seg Neutrophils % 80.0 H (38-70) % Band Neutrophils % 4.0 (3-7) % Lymphocytes % (Manual) 6.0 L (25-45) % Atypical Lymphs % 1.0 H ( - 0) % Monocytes % (Manual) 4.0 (2-11) % Eosinophils % (Manual) 2.0 (2-4) % Metamyelocytes % 1.0 H (-0) % Myelocytes % 2.0 H (-0) % Neutrophils # (Manual) 8820 H (0174-3620) /uL RBC Morphology See below Anisocytosis 1+ H Macrocytosis 1+ H PT 11.1 (10.1-12.7) SECONDS INR 1.0 (0.9-1.3) APTT 28 D (26.4-36.2) SECONDS Sodium (137-145) mmol/L Potassium (3.4-5.1) mmol/L Chloride (98-107) mmol/L Carbon Dioxide (22-32) mmol/L BUN (9-20) mg/dL Creatinine (0.66-1.25) mg/dL Estimated GFR (>60) mL/min BUN/Creatinine Ratio (6-22) Glucose (80-110) mg/dL Lactate (0.7-2.1) mmol/L Calcium (8.4-10.2) mg/dL Total Bilirubin (0.2-1.3) mg/dL AST (17-59) IU/L ALT (21-72) IU/L Alkaline Phosphatase (38-126) U/L B-Natriuretic Peptide (<100) Total Protein (6.3-8.2) g/dL Albumin (3.5-5.0) g/dL Globulin (1.7-4.1) g/dL Albumin/Globulin Ratio (1.0-2.8) Procalcitonin 0.06 (<0.5) ng/mL Chlamy pneumoniae PCR (Not Detect) Adenovirus (PCR) (Not Detect) B.parapertussis DNA PCR (Not Detect) Coronavirus OC43 (PCR) (Not Detect) Coronavirus HKU1 (PCR) (Not Detect) Coronavirus 229E (PCR) (Not Detect) Coronavirus NL63 (PCR) (Not Detect) Human Metapneumovir PCR (Not Detect) Influenza Type A (PCR) (Not Detect) Influenza Type B (PCR) (Not Detect) Influenza A & B (PCR) (Negative) M. pneumoniae (PCR) (Not Detect) Parainfluenza 1 (PCR) (Not Detect) Parainfluenza 2 (PCR) (Not Detect) Parainfluenza 3 (PCR) (Not Detect) Parainfluenza 4 (PCR) (Not Detect) RSV (PCR) (Not Detect) Entero/Rhino (PCR) (Not Detect) 07/10/18 07/10/18 07/10/18 Range/Units 10:50 10:50 10:50 WBC (4.5-11.0) X10^3/uL RBC (4.5-5.9) X10^6/uL Hgb (13.5-17.5) g/dL Hct (41-53) % MCV (80-100) fL MCH (26-34) PG MCHC (30-36) % RDW (11.6-14.8) % Plt Count (150-400) X10^3/uL Neut % (Auto) Lymph % (Auto) Burke % (Auto) Eos % (Auto) Baso % (Auto) Lymph # (Auto) Burke # (Auto) Baso # (Auto) Total Counted Seg Neutrophils % (38-70) % Band Neutrophils % (3-7) % Lymphocytes % (Manual) (25-45) % Atypical Lymphs % ( - 0) % Monocytes % (Manual) (2-11) % Eosinophils % (Manual) (2-4) % Metamyelocytes % (-0) % Myelocytes % (-0) % Neutrophils # (Manual) (8125-3435) /uL RBC Morphology Anisocytosis Macrocytosis PT (10.1-12.7) SECONDS INR (0.9-1.3) APTT (26.4-36.2) SECONDS Sodium 137 (137-145) mmol/L Potassium 4.0 (3.4-5.1) mmol/L Chloride 94 L (98-107) mmol/L Carbon Dioxide 30 (22-32) mmol/L BUN 32 H (9-20) mg/dL Creatinine 1.80 H (0.66-1.25) mg/dL Estimated GFR 37.2 L (>60) mL/min BUN/Creatinine Ratio 17.8 (6-22) Glucose 153 H (80-110) mg/dL Lactate 3.0 H (0.7-2.1) mmol/L Calcium 9.2 (8.4-10.2) mg/dL Total Bilirubin 0.7 (0.2-1.3) mg/dL AST 21 (17-59) IU/L ALT 15 L (21-72) IU/L Alkaline Phosphatase 73 (38-126) U/L B-Natriuretic Peptide < 100 (<100) Total Protein 6.8 (6.3-8.2) g/dL Albumin 4.2 (3.5-5.0) g/dL Globulin 2.6 (1.7-4.1) g/dL Albumin/Globulin Ratio 1.6 (1.0-2.8) Procalcitonin (<0.5) ng/mL Chlamy pneumoniae PCR (Not Detect) Adenovirus (PCR) (Not Detect) B.parapertussis DNA PCR (Not Detect) Coronavirus OC43 (PCR) (Not Detect) Coronavirus HKU1 (PCR) (Not Detect) Coronavirus 229E (PCR) (Not Detect) Coronavirus NL63 (PCR) (Not Detect) Human Metapneumovir PCR (Not Detect) Influenza Type A (PCR) (Not Detect) Influenza Type B (PCR) (Not Detect) Influenza A & B (PCR) (Negative) M. pneumoniae (PCR) (Not Detect) Parainfluenza 1 (PCR) (Not Detect) Parainfluenza 2 (PCR) (Not Detect) Parainfluenza 3 (PCR) (Not Detect) Parainfluenza 4 (PCR) (Not Detect) RSV (PCR) (Not Detect) Entero/Rhino (PCR) (Not Detect) 07/10/18 07/10/18 07/10/18 Range/Units 12:45 12:45 15:06 WBC (4.5-11.0) X10^3/uL RBC (4.5-5.9) X10^6/uL Hgb (13.5-17.5) g/dL Hct (41-53) % MCV (80-100) fL MCH (26-34) PG MCHC (30-36) % RDW (11.6-14.8) % Plt Count (150-400) X10^3/uL Neut % (Auto) Lymph % (Auto) Burke % (Auto) Eos % (Auto) Baso % (Auto) Lymph # (Auto) Burke # (Auto) Baso # (Auto) Total Counted Seg Neutrophils % (38-70) % Band Neutrophils % (3-7) % Lymphocytes % (Manual) (25-45) % Atypical Lymphs % ( - 0) % Monocytes % (Manual) (2-11) % Eosinophils % (Manual) (2-4) % Metamyelocytes % (-0) % Myelocytes % (-0) % Neutrophils # (Manual) (1339-0654) /uL RBC Morphology Anisocytosis Macrocytosis PT (10.1-12.7) SECONDS INR (0.9-1.3) APTT (26.4-36.2) SECONDS Sodium (137-145) mmol/L Potassium (3.4-5.1) mmol/L Chloride (98-107) mmol/L Carbon Dioxide (22-32) mmol/L BUN (9-20) mg/dL Creatinine (0.66-1.25) mg/dL Estimated GFR (>60) mL/min BUN/Creatinine Ratio (6-22) Glucose (80-110) mg/dL Lactate 4.5 H (0.7-2.1) mmol/L Calcium (8.4-10.2) mg/dL Total Bilirubin (0.2-1.3) mg/dL AST (17-59) IU/L ALT (21-72) IU/L Alkaline Phosphatase (38-126) U/L B-Natriuretic Peptide (<100) Total Protein (6.3-8.2) g/dL Albumin (3.5-5.0) g/dL Globulin (1.7-4.1) g/dL Albumin/Globulin Ratio (1.0-2.8) Procalcitonin (<0.5) ng/mL Chlamy pneumoniae PCR Not detected (Not Detect) Adenovirus (PCR) Not detected (Not Detect) B.parapertussis DNA PCR Not detected (Not Detect) Coronavirus OC43 (PCR) Not detected (Not Detect) Coronavirus HKU1 (PCR) Not detected (Not Detect) Coronavirus 229E (PCR) Not detected (Not Detect) Coronavirus NL63 (PCR) Not detected (Not Detect) Human Metapneumovir PCR Not detected (Not Detect) Influenza Type A (PCR) Not detected (Not Detect) Influenza Type B (PCR) Not detected (Not Detect) Influenza A & B (PCR) Negative (Negative) M. pneumoniae (PCR) Not detected (Not Detect) Parainfluenza 1 (PCR) Not detected (Not Detect) Parainfluenza 2 (PCR) Not detected (Not Detect) Parainfluenza 3 (PCR) Not detected (Not Detect) Parainfluenza 4 (PCR) Not detected (Not Detect) RSV (PCR) Not detected (Not Detect) Entero/Rhino (PCR) Not detected (Not Detect) Urine Dip Bedside Urine Glucose Negative Bedside Urine Bilirubin - Negative Bedside Urine Ketone - Negative Urine Specific [place] 1.015 Bedside Urine Occult Blood - Negative Bedside Urine pH 6.0 Bedside Urine Protein - Negative Bedside Urine Urobilinogen - Negative Bedside Urine Nitrite - Negative Bedside Urine Leukocytes - Negative Esterase Imaging Data Chest x-ray: Radiologist's impression: PROCEDURE: XR CHEST 2V INDICATIONS: cough sob TECHNIQUE: 2 views of the chest were acquired. COMPARISON: [facility], , CHEST 2 VIEW, 12/18/2016, 10:14. [facility], CHEST 1 VIEW, 12/16/2016, 21:53. [facility], XR CHEST 1V, 01/18/2018, 9:59. FINDINGS: Surgical changes and devices: None. Lungs and pleura: Again noted is mild chronic interstitial pulmonary fibrosis. No focal acute airspace consolidation. No pleural fluid. Mediastinum: Mediastinal contours are normal. Heart size is normal. Bones and chest wall: No suspicious acute bony abnormalities. There are 2 chronic compression fractures, involving approximately T11 and L1. Soft tissues appear unremarkable. IMPRESSION: 1. Stable chronic interstitial lung disease. 2. No acute pulmonary infiltrates. 3. Chronic osteoporotic compression fractures. Dictated by: Tu Bustillo M.D. on 07/10/2018 at 10:24 CT scan - chest: Radiologist's impression: PROCEDURE: CT CHEST WO CON INDICATIONS: chronic lung diseas worse hypoxia TECHNIQUE: Noncontrast 5 mm thick sections acquired from the pulmonary apices to the posterior costophrenic angles. 7 mm thick coronal and sagittal MIP reformats were then acquired. For radiation dose reduction, the following was used: automated exposure control, adjustment of mA and/or kV according to patient size. COMPARISON: None. FINDINGS: Image quality: Excellent. Lungs and pleura: No acute air space opacities. Mild multifocal scarring. Subpleural nodules within the right upper lobe posteriorly, measuring 5 mm, 9 mm, and 11 mm. Central right apical nodule measuring 8 mm. 6 mm diameter nodule within the right upper lobe laterally. Ill-defined ground glass nodule within the left upper lobe posterior limb measuring 13 mm with a central solid component measuring 7 mm. 9 mm diameter nodule within the left apex posteriorly. No pleural effusions or pneumothorax. Central and peripheral airways are patent and normal in caliber. Mediastinum: Heart size is normal. There is calcification of the coronary vasculature. No pericardial effusion. No mediastinal adenopathy by size criteria. Thoracic aorta and central pulmonary arteries are normal in size. Esophagus is normal in caliber. No hiatal hernia. Bones and chest wall: No suspicious bony lesions. No vertebral body compression fractures. No axillary or supraclavicular adenopathy by size criteria. Thyroid gland demonstrates a 12 mm diameter nodule within the right lobe. Abdomen: Visualized upper abdominal solid organs and bowel loops appear normal in the absence of contrast. IMPRESSION: 1. Coronary artery disease. 2. Mild multifocal scarring. 3. Multifocal bilateral pulmonary nodules; followup is recommended as below. 4. Right thyroid nodule, which could be further assessed with ultrasound, if clinically indicated. Fleischner Society criteria for SOLID lung nodule followup. Nodule size (mm)Low-risk patientHigh-risk patient<6 (single or multiple)No routine followup.Optional CT at 12 months. 6-8 (single or multiple)CT at 6-12 months, then optional CT at 18-24 mo.CT at 6-12 months, then CT at 18-24 months. >8 (single)CT, PET-CT, or biopsy at 3 months. Same as for low-risk pts. >8 (multiple)CT at 3-6 months, then optional CT at 18-24 mo.CT at 3-6 months, then CT at 18-24 months. Recommendations do not apply to lung cancer screening, patients with immunosuppression, or patients with known primary cancer. Dictated by: López Gonzales M.D. on 07/10/2018 at 13:44 ECG Data Attestation: I personally reviewed and interpreted this ECG as follows: Prior ECG tracings: available for review Interpretation: Sinus rhythm rate [address] changes or T-wave inversions similar to prior EKG MDM Narrative Medical decision making narrative: Chest x-ray and chest CT were sent to [facility] in reviewed by physicians there. Compared to previous scans as it does appear patient has upper lobe pneumonia which would explain his is increased shortness of breath and cough of id this time has patient looks well Dr. engel, commercial designer who is quite familiar with the patient, recommend outpatient treatment with Levaquin in voriconazole. She is aware along sick at 3.0. Patient received 1 L of IV fluids he continues to remain normotensive and fall. However repeat lactic acid shows 4.5 which is increased. He does have p roductive sputum still requiring 3 L of oxygen. Patient is quite immunocompromised with complicated history, at this time with increasing lactic acid I do not feel comfortable sending patient home with antibiotics and antifungal medication. I think he needs to be inpatient closely watched. I have updated doctor maren is on test results and my recommendations. At this time she recommends admitting to hospitalist. And she will consult as needed. Currently waiting for [facility] to return phone call. 7pm repeat lactic acid pending. Discharge Plan Departure Patient Disposition: [facility] Clinical Impression: Lmhms-[id number]-dknt disease Sepsis Qualifiers: Sepsis type: sepsis due to unspecified organism Qualified Code(s): A41.9 - Sepsis, unspecified organism Pneumonia Qualifiers: Pneumonia type: due to unspecified organism Laterality: left Lung location: upper lobe of lung Qualified Code(s): J18.1 - Lobar pneumonia, unspecified organism Prescriptions: No Action dapsone 25 MG tablet 50 mg PO BID Qty: 0 RF: 0 montelukast 10 MG tablet 10 mg PO BEDTIME Qty: 0 RF: 0 pantoprazole [Protonix] 40 MG tablet,delayed release (DR/EC) 40 mg PO BID Qty: 0 RF: 0 tamsulosin [Flomax] 0.4 MG capsule,extended release 24hr 0.4 mg PO BEDTIME Qty: 0 RF: 0 pramipexole [Mirapex] 0.125 MG tablet 0.125 mg PO BEDTIME Qty: 0 RF: 0 sennosides [senna] 8.6 MG tablet 17.2 tab PO BEDTIME Qty: 0 RF: 0 docusate sodium [Colace] 100 MG capsule 100 mg PO BID Qty: 0 RF: 0 carbidopa-levodopa 25 MG/100 MG tablet extended release 1 tab PO DIRECTED Qty: 0 RF: 0 calcitriol [Rocaltrol] 0.25 MCG capsule 0.25 mcg PO DAILY Qty: 0 RF: 0 clobetasol [Temovate] 0.05 % cream 1 bradley Topical PRN PRN (Reason: as directed) Qty: 0 RF: 0 morphine 20 MG/5 ML solution 10 mg PO Q4HP PRN (Reason: Pain, Severe) Qty: 0 RF: 0 polyethylene glycol 3350 [Miralax] 119 GM powder 17 gm PO DAILY PRN (Reason: Constipation) Qty: 0 RF: 0 Advair HFA 230 MCG/21 MCG HFA aerosol inhaler 1 puff INH BID Qty: 0 RF: 0 nystatin 100,000 unit/mL Suspension 5 ml PO Q6H PRN (Reason: thrush) RF: 0 fluorouracil [Efudex] 5 % Cream 1 applic TOPICAL BID PRN (Reason: skin changes) RF: 0 selegiline HCl 5 mg Tablet 5 mg PO BID RF: 0 albuterol sulfate 90 mcg/actuation Hfa Aerosol Inhaler 2 puff INHALATION Q4H PRN (Reason: Shortness Of Breath) RF: 0 metoprolol succinate 50 mg tablet extended release 24 hr 50 mg PO BEDTIME RF: 0 nifedipine 30 mg tablet extended release 30 mg PO QAM RF: 0 prochlorperazine maleate 10 mg tablet 10 mg PO QID PRN (Reason: Nausea And Vomiting) RF: 0 valacyclovir 500 mg tablet 500 mg PO BEDTIME RF: 0 amitriptyline 10 mg tablet 10 mg PO BEDTIME RF: 0 hydrocortisone 2.5 % cream 1 applic topical BID PRN (Reason: skin) RF: 0 furosemide 20 mg tablet 20 mg PO BID RF: 0 fluocinonide 0.05 % solution See Rx Instructions .ROUTE .COMPLEX RF: 0 oxycodone 10 mg tablet 10 mg PO 1-2XD PRN (Reason: chronic pain) RF: 0 azithromycin 250 mg tablet 250 mg PO MOWEFR RF: 0 ketoconazole 2 % shampoo 1 applic topical PRN PRN (Reason: as directed) RF: 0 prednisone 5 mg tablet 25 mg PO DAILY RF: 0 mupirocin 2 % Ointment 1 applic TOPICAL BID PRN (Reason: skin) RF: 0 loratadine 10 mg Tablet 10 mg PO DAILY PRN (Reason: Allergy Symptoms) RF: 0 guaifenesin 200 mg/5 mL Liquid 200 mg PO Q4H PRN (Reason: Congestion) RF: 0
[2018-07-10] MEDS: SODIUM CHLORIDE 0.9% 1,000 ML 150 ML IV (11:00)
[2018-07-10 11:12] LABS: Hematocrit 29.2 % (41-53); Hemoglobin 9.7 g/dL (13.5-17.5); Mean Corpuscular HGB Conc 33.4 % (30-36); Mean Corpuscular Hemoglobin 34.8 PG (26-34); Mean Corpuscular Volume 104.3 fL (80-100); Platelet Count 136 X10^3/uL (150-400); White Blood Cell Count 10.5 X10^3/uL (4.5-11.0)
[2018-07-10 11:18] LABS: Prothrombin Time 11.1 SECONDS (10.1-12.7)
[2018-07-10 11:19] LABS: Add Manual Diff / Slide Review YES
[2018-07-10 11:21] LABS: PTT Partial Thromboplastin Tim 28 SECONDS (26.4-36.2)
[2018-07-10 11:24] LABS: Alanine Aminotransferase 15 IU/L (21-72); Albumin 4.2 g/dL (3.5-5.0); Albumin Globulin Ratio 1.6 (1.0-2.8); Alkaline Phosphatase 73 U/L (38-126); Aspartate Aminotransferase 21 IU/L (17-59); BUN Creatinine Ratio 17.8 (6-22); Bilirubin Total 0.7 mg/dL (0.2-1.3); Blood Urea Nitrogen 32 mg/dL (9-20); Calcium 9.2 mg/dL (8.4-10.2); Carbon Dioxide 30 mmol/L (22-32); Chloride 94 mmol/L (98-107); Estimated Glomerular Filt Rate 37.2 mL/min (>60); Globulin 2.6 g/dL (1.7-4.1); Glucose 153 mg/dL (80-110); HEMOLYSIS < 15 (0-50); Sodium 137 mmol/L (137-145); Total Protein 6.8 g/dL (6.3-8.2)
[2018-07-10] MEDS: methylPREDNISolone 125 MG/2 ML VIAL IV (11:29)
[2018-07-10 11:32] LABS: B Type Natriuretic Peptide < 100 (<100)
[2018-07-10] MEDS: ALBUTEROL/IPRATROPIUM 3 ML AMPUL INH (11:34)
[2018-07-10 11:40] LABS: Neutrophils Absolute Manual 8820 /uL (3000-5900); Procalcitonin 0.06 ng/mL (<0.5); Total Cells Counted 100
[2018-07-10 11:42] LABS: Anisocytosis 1+; Macrocytosis 1+
[2018-07-10 13:07] LABS: Influenza A and B by PCR Rapid Negative (Negative)
--- NOTE | 2018-07-10 13:39 | DI.CT.S_ITS ---
PROCEDURE: CT CHEST WO CON INDICATIONS: chronic lung diseas worse hypoxia TECHNIQUE: Noncontrast 5 mm thick sections acquired from the pulmonary apices to the posterior costophrenic angles. 7 mm thick coronal and sagittal MIP reformats were then acquired. For radiation dose reduction, the following was used: automated exposure control, adjustment of mA and/or kV according to patient size. COMPARISON: None. FINDINGS: Image quality: Excellent. Lungs and pleura: No acute air space opacities. Mild multifocal scarring. Subpleural nodules within the right upper lobe posteriorly, measuring 5 mm, 9 mm, and 11 mm. Central right apical nodule measuring 8 mm. 6 mm diameter nodule within the right upper lobe laterally. Ill-defined ground glass nodule within the left upper lobe posterior limb measuring 13 mm with a central solid component measuring 7 mm. 9 mm diameter nodule within the left apex posteriorly. No pleural effusions or pneumothorax. Central and peripheral airways are patent and normal in caliber. Mediastinum: Heart size is normal. There is calcification of the coronary vasculature. No pericardial effusion. No mediastinal adenopathy by size criteria. Thoracic aorta and central pulmonary arteries are normal in size. Esophagus is normal in caliber. No hiatal hernia. Bones and chest wall: No suspicious bony lesions. No vertebral body compression fractures. No axillary or supraclavicular adenopathy by size criteria. Thyroid gland demonstrates a 12 mm diameter nodule within the right lobe. Abdomen: Visualized upper abdominal solid organs and bowel loops appear normal in the absence of contrast. IMPRESSION: 1. Coronary artery disease. 2. Mild multifocal scarring. 3. Multifocal bilateral pulmonary nodules; followup is recommended as below. 4. Right thyroid nodule, which could be further assessed with ultrasound, if clinically indicated. Fleischner Society criteria for SOLID lung nodule followup. Nodule size (mm)Low-risk patientHigh-risk patient<6 (single or multiple)No routine followup.Optional CT at 12 months. 6-8 (single or multiple)CT at 6-12 months, then optional CT at 18-24 mo.CT at 6-12 months, then CT at 18-24 months. >8 (single)CT, PET-CT, or biopsy at 3 months. Same as for low-risk pts. >8 (multiple)CT at 3-6 months, then optional CT at 18-24 mo.CT at 3-6 months, then CT at 18-24 months. Recommendations do not apply to lung cancer screening, patients with immunosuppression, or patients with known primary cancer. Dictated by: López Gonzales M.D. on 07/10/2018 at 13:44 Approved by: López Gonzales M.D. on 07/10/2018 at 13:47
[2018-07-10 14:20] LABS: Adenovirus Not Detected (Not Detect); Bordetella pertussis Not Detected (Not Detect); Chlamydophila pneumoniae Not Detected (Not Detect); Coronavirus 229E Not Detected (Not Detect); Coronavirus HKU1 Not Detected (Not Detect); Coronavirus NL 63 Not Detected (Not Detect); Coronavirus OC43 Not Detected (Not Detect); Human Metapneumovirus Not Detected (Not Detect); Human Rhinovirus/Enterovirus Not Detected (Not Detect); Influenza A Not Detected (Not Detect); Influenza B Not Detected (Not Detect); Mycoplasma pneumoniae Not Detected (Not Detect); Parainfluenza Virus 1 Not Detected (Not Detect); Parainfluenza Virus 2 Not Detected (Not Detect); Parainfluenza Virus 3 Not Detected (Not Detect); Parainfluenza Virus 4 Not Detected (Not Detect); Respiratory Syncytial Virus Not Detected (Not Detect)
[2018-07-10] MEDS: levoFLOXacin 750 MG/150 ML PIGGYBACK 100 MG IV (15:07)
[2018-07-10 15:30] LABS: Reflexed Lactate in 2 Hours Y
[2018-07-10 15:32] LABS: Lactate (Lactic Acid) 4.5 mmol/L (0.7-2.1)
[2018-07-10] MEDS: SODIUM CHLORIDE 0.9% 1,000 ML 1000 ML IV (15:54)
[2018-07-10] MEDS: VORICONAZOLE 200 MG TABLET PO (17:53)
[2018-07-10 19:10] LABS: Reflexed Lactate in 2 Hours Y
[2018-07-10] MEDS: SODIUM CHLORIDE 0.9% 1,000 ML 200 ML IV (19:21)
[2018-07-10 19:55] LABS: Lactate (Lactic Acid) 2.1 mmol/L (0.7-2.1)
== END 2018-07-10 19:55 | disposition short-term general hospital (02) ==
PROVIDERS: Emergency Provider Emergency Medicine
DX: D89.813 Graft-versus-host disease, unspecified (principal)
CPT/HCPCS: 36415; 36591; 71046; 71250; 80053; 81003; 83605; 83880; 84145; 85025; 85610; 85730; 87040; 87070; 87205; 87400; 87633; 93005; 93010; 94640; 96361; 96365; 96366; 96375; 99285; J1956; J2930

== ENCOUNTER 2018-07-15 09:05 | Emergency (ER) | payer MEDICARE, OTHER, SELFPAY ==
[2018-07-15] VITALS (19 sets, daily range): BP systolic 92–133; BP diastolic 41–81; PULSE 76–103; RESP 10–40; TEMP 0–37.4; O2SAT 88–100
--- NOTE | 2018-07-15 09:13 | ED_ITS ---
HPI - SOB/Dyspnea General Chief Complaint: Shortness of Breath/Dyspnea Stated Complaint: sob Time Seen by Provider: 07/15/18 09:10 Source: patient Mode of arrival: EMS Limitations: no limitations History of Present Illness 72-year-old male here in this emergency department a couple days ago with complicated medical history. Was transported to the [facility] secondary to presumed sepsis from a pneumonia. Patient returns again today for worsening shortness of breath. He was just discharged from [facility] 3 days ago. It is difficult to obtain an exact history of how long he has been short of breath. He states that it has been going on for ?some time now ?it appears that before this morning he was at his baseline shortness of breath but then he states that he got up to go to the bathroom and became a cutely short of breath. Patient feels like it was brought on by anxiety. Unknown as to why he was anxious. It does appear that he has had some problems urinating over the past couple days. He was receiving nebulizer treatments upon my evaluation he states that he feels like these are improving his symptoms. He is currently being treated for a fungal pneumonia. His medication list from discharge from [facility] has azithromycin and Levaquin and Voriconazole. Related Data Home Medications Medication Instructions Recorded Confirmed dapsone 50 mg PO BID #0 12/16/16 07/15/18 montelukast 10 mg PO QPM #0 12/16/16 07/15/18 pantoprazole [Protonix] 40 mg PO BID #0 12/16/16 07/15/18 pramipexole [Mirapex] 0.125 mg PO BEDTIME #0 12/16/16 07/15/18 sennosides [senna] 17.2 tab PO BEDTIME #0 12/16/16 07/15/18 tamsulosin [Flomax] 0.4 mg PO BEDTIME #0 12/16/16 07/15/18 calcitriol [Rocaltrol] 0.25 mcg PO DAILY #0 12/17/16 07/15/18 carbidopa-levodopa 1 - 2 tab PO TID #0 12/17/16 07/15/18 clobetasol [Temovate] 1 bradley TOPICAL PRN PRN #0 12/17/16 07/15/18 polyethylene glycol 3350 [Miralax] 17 gm PO DAILY PRN #0 12/17/16 07/15/18 Advair HFA 1 puff INH BID #0 12/19/16 07/15/18 albuterol sulfate 2 puff INHALATION Q4H PRN 01/19/18 07/15/18 fluorouracil [Efudex] 1 applic TOPICAL BID PRN 01/19/18 07/15/18 selegiline HCl 5 mg PO BID 01/19/18 07/15/18 amitriptyline 10 mg PO BEDTIME 07/10/18 07/15/18 azithromycin 250 mg PO MOWEFR 07/10/18 07/15/18 furosemide 40 mg PO QAM 07/10/18 07/15/18 loratadine 10 mg PO DAILY PRN 07/10/18 07/15/18 metoprolol succinate 50 mg PO BEDTIME 07/10/18 07/15/18 mupirocin 1 applic TOPICAL BID PRN 07/10/18 07/15/18 nifedipine 30 mg PO QAM 07/10/18 07/15/18 oxycodone 10 mg PO 1-2XD PRN MDD 20 mg 07/10/18 07/15/18 prednisone 40 mg PO DAILY 07/10/18 07/15/18 prochlorperazine maleate 10 mg PO QID PRN 07/10/18 07/15/18 valacyclovir 500 mg PO BEDTIME 07/10/18 07/15/18 fluoride (sodium) 1 applic DENTAL BEDTIME 07/15/18 07/15/18 hydrocortisone 1 applic TOPICAL TID PRN 07/15/18 07/15/18 levofloxacin 750 mg PO Q OTHER DAY 07/15/18 07/15/18 voriconazole 300 mg PO Q12H 07/15/18 07/15/18 Allergies Allergy/AdvReac Type Severity Reaction Status Date / Time diltiazem Allergy Intermediate Hives Verified 07/15/18 09:17 bacitracin [BACITRACIN] Allergy Unknown SKIN Verified 07/15/18 09:17 IRRITATION chlorhexidine [CHLORHEXIDINE] Allergy Unknown SKIN Verified 07/15/18 09:17 IRRITATION rifampin [RIFAMPIN] Allergy Unknown HIVES Verified 07/15/18 09:17 acetaminophen [ACETAMINOPHEN] AdvReac Unknown ABD PAIN Verified 07/15/18 09:17 diphenhydramine AdvReac Unknown EXTREME Verified 07/15/18 09:17 [From BENADRYL] SEDATION Review of Systems Review of Systems ROS Unobtainable: All systems reviewed & are unremarkable except as noted in HPI and below Constitutional Denies fatigue Cardiovascular Denies chest pain and Reports dyspnea Respiratory Reports chest congestion, Reports dyspnea and Reports wheezing Gastrointestinal Gastrointestinal: Denies abdominal pain, Denies nausea and Denies vomiting Genitourinary Comments: Decreased urine output Musculoskeletal Denies myalgias and Denies arthralgias Comments: Bilateral edema Integumentary/Breasts Denies rash Neurologic Denies behavioral changes Psychiatric Denies behavioral changes Endocrine Denies fatigue Hematologic/Lymphatic Denies easy bleeding and Denies easy bruising Allergic/Immunologic Reports wheezing PFSH Medical History Parkinson disease (Chronic) CLL (chronic lymphocytic leukemia) (Acute) CMV pneumonia (Acute) Chronic [id number] disease (Chronic) Cryptogenic organizing pneumonia (Resolved) Social History Smoking Status: Never smoker Exam Initial Vital Signs Initial Vital Signs: Vital Signs Pulse Rate 86 07/15/18 09:00 Respiratory Rate 40 H 07/15/18 09:00 Blood Pressure 98/69 07/15/18 09:00 Pulse Oximetry 88 L 07/15/18 09:00 Const General: in distress, diaphoretic and ill appearing Orientation: alert, awake and oriented x3 HENMT Head: normal to inspection and normocephalic Neck Neck: No tracheal deviation Resp Effort & Inspection: cough, labored, respiratory distress, no retractions and tachypneic Auscultation: rhonchi and wheezes Cardio Rate: regular rate Pulses: radial pulses present GI Palpation: soft Skin Lesions: no lesions Rashes: no rashes Neuro General: alert, awake and oriented x3 Cognition: normal cognition Speech: speech normal Extrem General: normal to inspection, capillary refill normal and edema Psych Appearance: grossly normal and well kempt Scores GCS Silex coma scale eye opening: Spontaneous Silex coma scale verbal response: Orientated Silex coma scale motor response: Obey commands Carlin coma scale total score: 15 Course Orders Ordered: ED Orders 07/15/18 09:12 XR chest 1V Stat EKG-12 Lead Stat RT Consult Eval and Treat Now 07/15/18 09:20 B Type Natriuretic Peptide Stat Basic Metabolic Panel Stat Complete Blood Count AUTO DIFF Stat Comprehensive Metabolic Panel Stat Lactate (Lactic Acid) Stat Lipase Stat Procalcitonin Stat Troponin I Stat 07/15/18 09:35 Arterial Blood Gas Stat 07/15/18 09:42 Influenza A and B by PCR Rapid Stat Sputum Culture Stat 07/15/18 12:34 Arterial Blood Gas Stat Albuterol (Ventolin) 2.5 mg INH NOW PRN PRN Reason: Shortness Of Breath Or Wheezing Last Admin: 07/15/18 09:50 Dose: 2.5 mg Admin: 07/15/18 09:46 Dose: 2.5 mg Admin: 07/15/18 09:45 Dose: 2.5 mg Levofloxacin (Levaquin) 750 mg in 150 mls @ 100 mls/hr IV NOW ONE Stop: 07/15/18 13:47 Last Admin: 07/15/18 12:52 Dose: 100 mls/hr Sodium Chloride (Normal Saline 0.9%) 1,000 mls @ 100 mls/hr IV CONT BALDO Discontinued Medications Albuterol (Ventolin) 2.5 mg INH NOW ONE Stop: 07/15/18 09:11 Last Admin: 07/15/18 09:18 Dose: 2.5 mg Albuterol/Ipratropium (Duoneb) 3 ml INH NOW ONE Stop: 07/15/18 09:18 Last Admin: 07/15/18 09:18 Dose: 3 ml Aspirin (Aspirin Supp) 600 mg TX NOW ONE Stop: 07/15/18 12:19 Last Admin: 07/15/18 12:52 Dose: 600 mg Sodium Chloride (Normal Saline 0.9%) 1,000 mls @ 125 mls/hr IV CONT BALDO Last Infusion: 07/15/18 12:52 Dose: 0 mls/hr Admin: 07/15/18 09:32 Dose: 125 mls/hr Sodium Bicarbonate (Sodium Bicarbonate 8.4% Syringe) 50 meq IV NOW ONE Stop: 07/15/18 12:57 Last Admin: 07/15/18 13:09 Dose: 50 meq Vital Signs - 8 hr 07/15/18 09:00 07/15/18 09:19 07/15/18 09:21 Temperature Pulse Rate 86 85 85 Respiratory Rate 40 H 18 18 Blood Pressure 98/69 Blood Pressure [Right Arm] Pulse Oximetry 88 L 96 96 07/15/18 09:22 07/15/18 09:30 07/15/18 09:39 Temperature Pulse Rate 84 84 88 Respiratory Rate 30 H 32 H 26 H Blood Pressure Blood Pressure [Right Arm] 96/41 L 122/41 L 122/41 L Pulse Oximetry 97 98 07/15/18 10:05 07/15/18 10:16 07/15/18 10:30 Temperature 99.4 F Pulse Rate 84 86 85 Respiratory Rate 37 H 27 H 23 Blood Pressure Blood Pressure [Right Arm] 112/58 L 102/47 L 96/55 L Pulse Oximetry 96 98 07/15/18 11:00 07/15/18 11:30 07/15/18 12:00 Temperature Pulse Rate 76 76 77 Respiratory Rate 13 10 L 11 L Blood Pressure Blood Pressure [Right Arm] 95/46 L 99/59 L 98/47 L Pulse Oximetry 96 97 97 07/15/18 12:05 07/15/18 12:32 Temperature Pulse Rate 76 103 H Respiratory Rate 15 14 Blood Pressure Blood Pressure [Right Arm] 98/47 L 133/81 Pulse Oximetry 95 98 MDM - SOB/Dyspnea Medical Records Attestation: I reviewed the patient's medical records. Lab Data Attestation: I reviewed the patient's lab results. Result diagrams: 07/15/18 09:20 07/15/18 09:20 Lab Results 07/15/18 07/15/18 07/15/18 Range/Units 09:20 09:20 09:20 WBC 16.4 H (4.5-11.0) X10^3/uL RBC 2.65 L (4.5-5.9) X10^6/uL Hgb 9.0 L (13.5-17.5) g/dL Hct 27.8 L (41-53) % MCV 105.0 H (80-100) fL MCH 33.9 (26-34) PG MCHC 32.3 (30-36) % RDW 14.5 (11.6-14.8) % Plt Count 237 (150-400) X10^3/uL Neut % (Auto) Not Reportable Lymph % (Auto) Not Reportable [place] % (Auto) Not Reportable Eos % (Auto) Not Reportable Baso % (Auto) Not Reportable Lymph # (Auto) Not Reportable [place] # (Auto) Not Reportable Baso # (Auto) Not Reportable Total Counted 100 Seg Neutrophils % 90.0 H (38-70) % Band Neutrophils % 4.0 (3-7) % Lymphocytes % (Manual) 3.0 L (25-45) % Atypical Lymphs % 1.0 H ( - 0) % Monocytes % (Manual) 2.0 (2-11) % Neutrophils # (Manual) 79352 H (1699-4307) /uL RBC Morphology Not Reportable Polychromasia 1+ H Macrocytosis 2+ H ABG pH (7.35-7.45) ABG pCO2 (35-45) mmHg ABG pO2 (80-100) mmHg ABG HCO3 (22-26) mmol/L ABG Total CO2 (21-31) mmol/L ABG O2 Saturation (95-100) % ABG Base Excess (-2-2) mmol/L FiO2 Sodium 134 L (137-145) mmol/L Potassium 6.4 H* D (3.4-5.1) mmol/L Chloride 94 L (98-107) mmol/L Carbon Dioxide 22 (22-32) mmol/L BUN 93 H (9-20) mg/dL Creatinine 4.60 H (0.66-1.25) mg/dL Estimated GFR 12.6 L (>60) mL/min BUN/Creatinine Ratio 20.2 (6-22) Glucose 86 (80-110) mg/dL Lactate (0.7-2.1) mmol/L Calcium 8.8 (8.4-10.2) mg/dL Total Bilirubin 0.7 (0.2-1.3) mg/dL AST 36 (17-59) IU/L ALT 17 L (21-72) IU/L Alkaline Phosphatase 74 (38-126) U/L Troponin I (0.01-0.034) ng/mL B-Natriuretic Peptide 134 H (<100) Total Protein 7.1 (6.3-8.2) g/dL Albumin 4.4 (3.5-5.0) g/dL Globulin 2.7 (1.7-4.1) g/dL Albumin/Globulin Ratio 1.6 (1.0-2.8) Lipase 117 (23-300) U/L Procalcitonin 0.45 (<0.5) ng/mL Influenza A & B (PCR) (Negative) 07/15/18 07/15/18 07/15/18 Range/Units 09:20 09:20 09:35 WBC (4.5-11.0) X10^3/uL RBC (4.5-5.9) X10^6/uL Hgb (13.5-17.5) g/dL Hct (41-53) % MCV (80-100) fL MCH (26-34) PG MCHC (30-36) % RDW (11.6-14.8) % Plt Count (150-400) X10^3/uL Neut % (Auto) Lymph % (Auto) [place] % (Auto) Eos % (Auto) Baso % (Auto) Lymph # (Auto) [place] # (Auto) Baso # (Auto) Total Counted Seg Neutrophils % (38-70) % Band Neutrophils % (3-7) % Lymphocytes % (Manual) (25-45) % Atypical Lymphs % ( - 0) % Monocytes % (Manual) (2-11) % Neutrophils # (Manual) (2064-8031) /uL RBC Morphology Polychromasia Macrocytosis ABG pH 7.23 L* (7.35-7.45) ABG pCO2 56.6 H (35-45) mmHg ABG pO2 135 H (80-100) mmHg ABG HCO3 24 (22-26) mmol/L ABG Total CO2 25 (21-31) mmol/L ABG O2 Saturation 98 (95-100) % ABG Base Excess -4.0 L (-2-2) mmol/L FiO2 52 Sodium (137-145) mmol/L Potassium (3.4-5.1) mmol/L Chloride (98-107) mmol/L Carbon Dioxide (22-32) mmol/L BUN (9-20) mg/dL Creatinine (0.66-1.25) mg/dL Estimated GFR (>60) mL/min BUN/Creatinine Ratio (6-22) Glucose (80-110) mg/dL Lactate 3.2 H (0.7-2.1) mmol/L Calcium (8.4-10.2) mg/dL Total Bilirubin (0.2-1.3) mg/dL AST (17-59) IU/L ALT (21-72) IU/L Alkaline Phosphatase (38-126) U/L Troponin I 0.044 H (0.01-0.034) ng/mL B-Natriuretic Peptide (<100) Total Protein (6.3-8.2) g/dL Albumin (3.5-5.0) g/dL Globulin (1.7-4.1) g/dL Albumin/Globulin Ratio (1.0-2.8) Lipase (23-300) U/L Procalcitonin (<0.5) ng/mL Influenza A & B (PCR) (Negative) 07/15/18 Range/Units 09:42 WBC (4.5-11.0) X10^3/uL RBC (4.5-5.9) X10^6/uL Hgb (13.5-17.5) g/dL Hct (41-53) % MCV (80-100) fL MCH (26-34) PG MCHC (30-36) % RDW (11.6-14.8) % Plt Count (150-400) X10^3/uL Neut % (Auto) Lymph % (Auto) [place] % (Auto) Eos % (Auto) Baso % (Auto) Lymph # (Auto) [place] # (Auto) Baso # (Auto) Total Counted Seg Neutrophils % (38-70) % Band Neutrophils % (3-7) % Lymphocytes % (Manual) (25-45) % Atypical Lymphs % ( - 0) % Monocytes % (Manual) (2-11) % Neutrophils # (Manual) (5538-3657) /uL RBC Morphology Polychromasia Macrocytosis ABG pH (7.35-7.45) ABG pCO2 (35-45) mmHg ABG pO2 (80-100) mmHg ABG HCO3 (22-26) mmol/L ABG Total CO2 (21-31) mmol/L ABG O2 Saturation (95-100) % ABG Base Excess (-2-2) mmol/L FiO2 Sodium (137-145) mmol/L Potassium (3.4-5.1) mmol/L Chloride (98-107) mmol/L Carbon Dioxide (22-32) mmol/L BUN (9-20) mg/dL Creatinine (0.66-1.25) mg/dL Estimated GFR (>60) mL/min BUN/Creatinine Ratio (6-22) Glucose (80-110) mg/dL Lactate (0.7-2.1) mmol/L Calcium (8.4-10.2) mg/dL Total Bilirubin (0.2-1.3) mg/dL AST (17-59) IU/L ALT (21-72) IU/L Alkaline Phosphatase (38-126) U/L Troponin I (0.01-0.034) ng/mL B-Natriuretic Peptide (<100) Total Protein (6.3-8.2) g/dL Albumin (3.5-5.0) g/dL Globulin (1.7-4.1) g/dL Albumin/Globulin Ratio (1.0-2.8) Lipase (23-300) U/L Procalcitonin (<0.5) ng/mL Influenza A & B (PCR) Negative (Negative) ABG Data ABG results: PH 7.225 PCO2 56.6 PO2 135 Base excess -4 Bicarb 23.5 Oxygen saturation 98% Attestation: I personally reviewed and interpreted this ABG as follows: Interpretation: Respiratory acidosis Imaging Data Chest x-ray: Radiologist's impression: [address] [address] XRay Report Signed Patient: Eleno Sol PETE#: [id number] : 5Acct:[id number] Age/Sex: 72 / MDate of Service: 07/15/18 Loc: ED Accession Number: [id number] Procedure: XR chest 1V Ordering Provider: Eleno Juares D.O. PROCEDURE: XR CHEST 1V INDICATIONS: Shortness of breath TECHNIQUE: One view of the chest was acquired. COMPARISON: [facility], CR, XR CHEST 2V, 07/10/2018, 10:01. [facility], CR, XR CHEST 1V, 01/18/2018, 9:59. FINDINGS: Surgical changes and devices: None. Lungs and pleura: Moderate patchy bilateral perihilar density. No pleural effusions or pneumothorax. Mediastinum: Mediastinal contours appear normal. Heart size is normal. Bones and chest wall: No suspicious bony lesions. Overlying soft tissues appear unremarkable. IMPRESSION: Moderate atypical pneumonia. Dictated by: López Gonzales M.D. on 07/15/2018 at 9:42 Approved by: López Gonzales M.D. on 07/15/2018 at 9:42 ECG Data Attestation: I personally reviewed and interpreted this ECG as follows: Prior ECG tracings: not available for review Interpretation: Sinus rhythm Ventricular rate 89 Occasional PAC Normal QRS Normal QTC Nonspecific ST T wave changes MDM Narrative Medical decision making narrative: Patient reported improvement in his respiratory status after nebulizer treatments however clinically he was still tachypneic and retracting in seem to have quite a bit of discomfort and a prolonged expiratory phase. We attempted high-flow nasal cannula to see if this did not improve his symptoms however he did not tolerate it. We did place him on BiPAP. He seemed to tolerate this very well. He actually became less distressed with his respirations. He actually slept for a while. His states that this seemed to be the most comfortable he has been in several weeks. He was acidotic on his ABG. Repeat ABG shows an improved CO2 to 44 however his pH remained 7.2, PO2 62, base excess -9, bicarb 18, O2 86%. This was on 30% FiO2. His FiO2 was increased. Given his persistent acidosis he was given bicarb. I discussed the case with and then with and Dr. Reid at the [facility]. He was given his Levaquin here in the emergency department. Had other abnormalities today. Potassium was elevated. A repeat BMP was ordered after his nebulizer treatments. He had no EKG changes consistent with hyperkalemia. Does have a elevation in his creatinine today. This could be secondary to outlet obstruction has he stated that he was unable to urinate for the past several hours when a Laurent was placed here in the emergency department we got greater than 600 cc of urine output. Also has a slight elevation in his troponin. He was never complaining of any chest pain in his EKG was negative for ST elevation ID. He was given rectal aspirin. Given his chronic medical problems will transport to [facility]. Dr. Reid will accept. Discussed the transport with the patient and his . They both expressed understanding and agreement. Patient is stable for transport. Discharge Plan Departure Patient Disposition: [facility] Clinical Impression: Acute respiratory distress, Parkinson's disease, Hyperkalemia, Acute kidney injury, Hypoxia Pneumonia Qualifiers: Pneumonia type: due to unspecified organism Laterality: unspecified laterality Lung location: unspecified part of lung Qualified Code(s): J18.9 - Pneumonia, unspecified organism Prescriptions: No Action dapsone 25 MG tablet 50 mg PO BID Qty: 0 RF: 0 montelukast 10 MG tablet 10 mg PO QPM Qty: 0 RF: 0 pantoprazole [Protonix] 40 MG tablet,delayed release (DR/EC) 40 mg PO BID Qty: 0 RF: 0 tamsulosin [Flomax] 0.4 MG capsule,extended release 24hr 0.4 mg PO BEDTIME Qty: 0 RF: 0 pramipexole [Mirapex] 0.125 MG tablet 0.125 mg PO BEDTIME Qty: 0 RF: 0 sennosides [senna] 8.6 MG tablet 17.2 tab PO BEDTIME Qty: 0 RF: 0 carbidopa-levodopa 25 MG/100 MG tablet extended release 1 - 2 tab PO TID Qty: 0 RF: 0 calcitriol [Rocaltrol] 0.25 MCG capsule 0.25 mcg PO DAILY Qty: 0 RF: 0 clobetasol [Temovate] 0.05 % cream 1 bradley Topical PRN PRN (Reason: as directed) Qty: 0 RF: 0 polyethylene glycol 3350 [Miralax] 119 GM powder 17 gm PO DAILY PRN (Reason: Constipation) Qty: 0 RF: 0 Advair HFA 230 MCG/21 MCG HFA aerosol inhaler 1 puff INH BID Qty: 0 RF: 0 fluorouracil [Efudex] 5 % Cream 1 applic TOPICAL BID PRN (Reason: skin changes) RF: 0 selegiline HCl 5 mg Tablet 5 mg PO BID RF: 0 albuterol sulfate 90 mcg/actuation Hfa Aerosol Inhaler 2 puff INHALATION Q4H PRN (Reason: Shortness Of Breath) RF: 0 hydrocortisone 1 % Cream 1 applic TOPICAL TID PRN (Reason: skin) RF: 0 levofloxacin 750 mg Tablet 750 mg PO Q OTHER DAY RF: 0 fluoride (sodium) 1.1 % Gel 1 applic Dental BEDTIME RF: 0 voriconazole 200 mg Tablet 300 mg PO Q12H RF: 0 metoprolol succinate 50 mg tablet extended release 24 hr 50 mg PO BEDTIME RF: 0 nifedipine 30 mg tablet extended release 30 mg PO QAM RF: 0 prochlorperazine maleate 10 mg tablet 10 mg PO QID PRN (Reason: Nausea And Vomiting) RF: 0 valacyclovir 500 mg tablet 500 mg PO BEDTIME RF: 0 amitriptyline 10 mg tablet 10 mg PO BEDTIME RF: 0 furosemide 20 mg tablet 40 mg PO QAM RF: 0 oxycodone 10 mg tablet 10 mg PO 1-2XD MDD 20 mg PRN (Reason: chronic pain) RF: 0 azithromycin 250 mg tablet 250 mg PO MOWEFR RF: 0 prednisone 5 mg tablet 40 mg PO DAILY RF: 0 mupirocin 2 % Ointment 1 applic TOPICAL BID PRN (Reason: skin) RF: 0 loratadine 10 mg Tablet 10 mg PO DAILY PRN (Reason: Allergy Symptoms) RF: 0
[2018-07-15] MEDS: ALBUTEROL/IPRATROPIUM 3 ML AMPUL INH (09:18)
[2018-07-15] MEDS: ALBUTEROL 2.5 MG/3 ML NEB (ADULT) INH ×4 (09:18→09:50)
[2018-07-15] MEDS: SODIUM CHLORIDE 0.9% 1,000 ML 125 ML IV (09:32)
[2018-07-15 09:40] LABS: Add Manual Diff / Slide Review YES; Hematocrit 27.8 % (41-53); Mean Corpuscular HGB Conc 32.3 % (30-36); Mean Corpuscular Hemoglobin 33.9 PG (26-34); Platelet Count 237 X10^3/uL (150-400); Red Blood Cell Count 2.65 X10^6/uL (4.5-5.9); Red Cell Distribution Width 14.5 % (11.6-14.8); White Blood Cell Count 16.4 X10^3/uL (4.5-11.0)
[2018-07-15 09:41] LABS: Lactate (Lactic Acid) 3.2 mmol/L (0.7-2.1)
[2018-07-15 09:44] LABS: Alanine Aminotransferase 17 IU/L (21-72); Albumin 4.4 g/dL (3.5-5.0); Albumin Globulin Ratio 1.6 (1.0-2.8); Alkaline Phosphatase 74 U/L (38-126); Aspartate Aminotransferase 36 IU/L (17-59); BUN Creatinine Ratio 20.2 (6-22); Bilirubin Total 0.7 mg/dL (0.2-1.3); Blood Urea Nitrogen 93 mg/dL (9-20); Calcium 8.8 mg/dL (8.4-10.2); Carbon Dioxide 22 mmol/L (22-32); Chloride 94 mmol/L (98-107); Estimated Glomerular Filt Rate 12.6 mL/min (>60); Globulin 2.7 g/dL (1.7-4.1); Glucose 86 mg/dL (80-110); HEMOLYSIS < 15 (0-50); Lipase 117 U/L (23-300); Sodium 134 mmol/L (137-145); Total Protein 7.1 g/dL (6.3-8.2)
[2018-07-15 09:52] LABS: Potassium 6.4 mmol/L (3.4-5.1)
[2018-07-15 09:53] LABS: Troponin I 0.044 ng/mL (0.01-0.034)
[2018-07-15 09:54] LABS: B Type Natriuretic Peptide 134 (<100)
[2018-07-15 09:58] LABS: Macrocytosis 2+; Neutrophils Absolute Manual 15416 /uL (3000-5900); Polychromasia 1+; Total Cells Counted 100
[2018-07-15 10:02] LABS: Procalcitonin 0.45 ng/mL (<0.5)
[2018-07-15 10:03] LABS: Influenza A and B by PCR Rapid Negative (Negative)
--- NOTE | 2018-07-15 11:08 | PC.NURSE ---
bipap settings 14/9 rate 23, fio2 30%,
[2018-07-15 11:44] LABS: HCO3 ABG 24 mmol/L (22-26); Oxygen Saturation ABG 98 % (95-100); PCO2 ABG 56.6 mmHg (35-45); PO2 ABG 135 mmHg (80-100); TCO2 ABG 25 mmol/L (21-31); pH ABG 7.23 (7.35-7.45)
[2018-07-15 11:46] LABS: Fractionated Inspired Oxygen 52
[2018-07-15] MEDS: ASPIRIN SUPP 600 MG SUPP.RECT PR (12:52)
[2018-07-15] MEDS: levoFLOXacin 750 MG/150 ML PIGGYBACK 100 MG IV (12:52)
[2018-07-15] MEDS: SODIUM BICARB 8.4% SYRINGE 50 MEQ IV (13:09)
[2018-07-15 13:32] LABS: Reflexed Lactate in 2 Hours Y
[2018-07-15 13:52] LABS: Fractionated Inspired Oxygen 30; HCO3 ABG 18 mmol/L (22-26); Oxygen Saturation ABG 86 % (95-100); PCO2 ABG 44.5 mmHg (35-45); PO2 ABG 62 mmHg (80-100); TCO2 ABG 20 mmol/L (21-31); pH ABG 7.22 (7.35-7.45)
--- NOTE | 2018-07-15 14:26 | PC.NURSE ---
1300 fio2 increased to 40%, rate 28.
[2018-07-15] MEDS: MORPHINE 4 MG/ML INJ IV (14:43)
[2018-07-15 15:35] LABS: Lactate 2HR (Lactic Acid Rflx) 1.7 mmol/L (0.7-2.1)
[2018-07-15 15:36] LABS: BUN Creatinine Ratio 21.1 (6-22); Blood Urea Nitrogen 97 mg/dL (9-20); Carbon Dioxide 21 mmol/L (22-32); Chloride 95 mmol/L (98-107); Estimated Glomerular Filt Rate 12.6 mL/min (>60); Glucose 132 mg/dL (80-110); HEMOLYSIS < 15 (0-50); Sodium 133 mmol/L (137-145)
[2018-07-15 15:41] LABS: Potassium 5.4 mmol/L (3.4-5.1)
== END 2018-07-15 15:29 | disposition short-term general hospital (02) ==
PROVIDERS: Emergency Provider Emergency Medicine
DX: J18.9 Pneumonia, unspecified organism (principal); G20 Parkinson's disease; E87.5 Hyperkalemia; N17.9 Acute kidney failure, unspecified
CPT/HCPCS: 36415; 36591; 36600; 71045; 80048; 80053; 82805; 83605; 83690; 83880; 84145; 84484; 85025; 87070; 87205; 87400; 93005; 93010; 94640; 94660; 96361; 96365; 96366; 96375; 99285; J1956; J2270; J7613

== ENCOUNTER 2018-09-20 17:02 | Emergency (ER) | payer MEDICARE, OTHER, SELFPAY ==
[2018-07-15 14:30] VITALS: PULSE 81; RESP 31; O2SAT 98
--- NOTE | 2018-09-20 17:19 | DI.RAD.S_ITS ---
PROCEDURE: XR ANKLE LT MIN 3V INDICATIONS: large laceration from 90# studded snow tire falling on leg TECHNIQUE: 3 views of the ankle were acquired. COMPARISON: None. FINDINGS: Bones: No fractures or dislocations. Ankle mortise is normally aligned. No suspicious bony lesions. Soft tissues: Soft tissue injury with bandaging material can be seen. No radiopaque foreign bodies are seen. IMPRESSION: Soft tissue injury, without an acute bony abnormality identified. Dictated by: Fab Vital M.D. on 09/20/2018 at 16:50 Approved by: Fab Vital M.D. on 09/20/2018 at 16:51
[2018-09-20 17:21] VITALS: BP 150/64; PULSE 78; RESP 19; TEMP 36.7; O2SAT 91
--- NOTE | 2018-09-20 18:08 | ED_ITS ---
HPI - Wound/Laceration General Chief Complaint: Wound/Laceration Stated Complaint: Deep cut on lt ankle Time Seen by Provider: 09/20/18 18:07 Source: patient Mode of arrival: ambulatory Limitations: no limitations History of Present Illness HPI narrative: 72-year-old male here for evaluation of a laceration to his left leg. He was lifting car tires when 1 of them fell and hit his leg. He bandaged it. Last tetanus shot was 2014. Came to the emergency department for evaluation Related Data Home Medications Medication Instructions Recorded Confirmed dapsone 50 mg PO BID #0 12/16/16 07/15/18 montelukast 10 mg PO QPM #0 12/16/16 07/15/18 pantoprazole [Protonix] 40 mg PO BID #0 12/16/16 07/15/18 pramipexole [Mirapex] 0.125 mg PO BEDTIME #0 12/16/16 07/15/18 sennosides [senna] 17.2 tab PO BEDTIME #0 12/16/16 07/15/18 tamsulosin [Flomax] 0.4 mg PO BEDTIME #0 12/16/16 07/15/18 calcitriol [Rocaltrol] 0.25 mcg PO DAILY #0 12/17/16 07/15/18 carbidopa-levodopa 1 - 2 tab PO TID #0 12/17/16 07/15/18 clobetasol [Temovate] 1 bradley TOPICAL PRN PRN #0 12/17/16 07/15/18 polyethylene glycol 3350 [Miralax] 17 gm PO DAILY PRN #0 12/17/16 07/15/18 Advair HFA 1 puff INH BID #0 12/19/16 07/15/18 albuterol sulfate 2 puff INHALATION Q4H PRN 01/19/18 07/15/18 fluorouracil [Efudex] 1 applic TOPICAL BID PRN 01/19/18 07/15/18 selegiline HCl 5 mg PO BID 01/19/18 07/15/18 amitriptyline 10 mg PO BEDTIME 07/10/18 07/15/18 azithromycin 250 mg PO MOWEFR 07/10/18 07/15/18 furosemide 40 mg PO QAM 07/10/18 07/15/18 loratadine 10 mg PO DAILY PRN 07/10/18 07/15/18 metoprolol succinate 50 mg PO BEDTIME 07/10/18 07/15/18 mupirocin 1 applic TOPICAL BID PRN 07/10/18 07/15/18 nifedipine 30 mg PO QAM 07/10/18 07/15/18 oxycodone 10 mg PO 1-2XD PRN MDD 20 mg 07/10/18 07/15/18 prednisone 40 mg PO DAILY 07/10/18 07/15/18 prochlorperazine maleate 10 mg PO QID PRN 07/10/18 07/15/18 valacyclovir 500 mg PO BEDTIME 07/10/18 07/15/18 fluoride (sodium) 1 applic DENTAL BEDTIME 07/15/18 07/15/18 hydrocortisone 1 applic TOPICAL TID PRN 07/15/18 07/15/18 levofloxacin 750 mg PO Q OTHER DAY 07/15/18 07/15/18 voriconazole 300 mg PO Q12H 07/15/18 07/15/18 Allergies Allergy/AdvReac Type Severity Reaction Status Date / Time diltiazem Allergy Intermediate Hives Verified 09/20/18 17:29 bacitracin [BACITRACIN] Allergy Unknown SKIN Verified 09/20/18 17:29 IRRITATION chlorhexidine [CHLORHEXIDINE] Allergy Unknown SKIN Verified 09/20/18 17:29 IRRITATION rifampin [RIFAMPIN] Allergy Unknown HIVES Verified 09/20/18 17:29 acetaminophen [ACETAMINOPHEN] AdvReac Unknown ABD PAIN Verified 09/20/18 17:29 diphenhydramine AdvReac Unknown EXTREME Verified 09/20/18 17:29 [From BENADRYL] SEDATION Review of Systems Constitutional Denies fever(s) Cardiovascular Denies chest pain and Denies dyspnea Respiratory Denies dyspnea Gastrointestinal Gastrointestinal: Denies abdominal pain Musculoskeletal Comments: No knee or ankle pain Integumentary/Breasts Comments: Laceration to left santiago Neurologic Denies confusion Psychiatric Denies confusion Hematologic/Lymphatic Comments: Not on blood thinners [facility] Medical History Parkinson disease (Chronic) CLL (chronic lymphocytic leukemia) (Acute) CMV pneumonia (Acute) Chronic 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) Social History Smoking Status: Never smoker Exam Initial Vital Signs Initial Vital Signs: Vital Signs Temperature 98.0 F 09/20/18 17:21 Pulse Rate 78 09/20/18 17:21 Respiratory Rate 19 09/20/18 17:21 Blood Pressure 150/64 H 09/20/18 17:21 Pulse Oximetry 91 09/20/18 17:21 Const General: cooperative, comfortable, well developed, well groomed and No acute distress Orientation: alert, awake and oriented x3 Resp Effort & Inspection: normal respiratory effort Cardio Rate: regular rate Pulses: dorsalis pedis present on the left Skin Other: 8 cm laceration to the anterior aspect of the left santiago. Neuro General: alert, awake and oriented x3 Extrem General: normal to inspection and capillary refill normal Other: Full range of motion left knee and left ankle. Psych Appearance: grossly normal Procedures Laceration Repair Laceration 1: Site: lower extremity Side (If applicable): left Size (cm): 8 Description: flap and other (?L? shaped) Depth: simple, single layer Local Anesthetic: lidocaine 1% and with epi Amount of anesthesia used (mL): 8 Pre-repair: wound explored, irrigated extensively and deep structures intact Skin layer closed with: nylon Size (cm): 4-0 Number of sutures: 12 Technique: simple, interrupted Course Orders Ordered: ED Orders 09/20/18 17:19 XR ankle LT min 3V Stat Vital Signs - 8 hr 09/20/18 17:21 Temperature 98.0 F Pulse Rate 78 Respiratory Rate 19 Blood Pressure 150/64 H Pulse Oximetry 91 MDM - Wound/Laceration Imaging Data X-ray: Radiologist's impression: [address] [address] XRay Report Signed Patient: Eleno Sol JMR#: [id number] : 5Acct:[id number] Age/Sex: 72 / MDate of Service: 09/20/18 Loc: ED Accession Number: [id number] Procedure: XR ankle LT min 3V Ordering Provider: Nguyen Gonzalez D.O. PROCEDURE: XR ANKLE LT MIN 3V INDICATIONS: large laceration from 90# studded snow tire falling on leg TECHNIQUE: 3 views of the ankle were acquired. COMPARISON: None. FINDINGS: Bones: No fractures or dislocations. Ankle mortise is normally aligned. No suspicious bony lesions. Soft tissues: Soft tissue injury with bandaging material can be seen. No radiopaque foreign bodies are seen. IMPRESSION: Soft tissue injury, without an acute bony abnormality identified. Dictated by: Fab Vital M.D. on 09/20/2018 at 16:50 Approved by: Fab Vital M.D. on 09/20/2018 at 16:51 [facility] Narrative Medical decision making narrative: He is up-to-date on his tetanus. Wound was closed as described above. Patient was given care instructions return precautio ns. He expressed understanding and agreement plan. Discharge Plan Departure Patient Disposition: Home Clinical Impression: Laceration Instructions: DI for Laceration Repair Activity Restrictions/Additional Instructions: Keep the bandage on for the next 24 hours. After that you can take it off and shower like normal. Cover with another bandage like we discussed. The stitches do need to be removed in 10 days. You can contact your primary provider or return to the emergency department. Continue all of her medications as directed. Prescriptions: No Action dapsone 25 MG tablet 50 mg PO BID Qty: 0 RF: 0 montelukast 10 MG tablet 10 mg PO QPM Qty: 0 RF: 0 pantoprazole [Protonix] 40 MG tablet,delayed release (DR/EC) 40 mg PO BID Qty: 0 RF: 0 tamsulosin [Flomax] 0.4 MG capsule,extended release 24hr 0.4 mg PO BEDTIME Qty: 0 RF: 0 pramipexole [Mirapex] 0.125 MG tablet 0.125 mg PO BEDTIME Qty: 0 RF: 0 sennosides [senna] 8.6 MG tablet 17.2 tab PO BEDTIME Qty: 0 RF: 0 carbidopa-levodopa 25 MG/100 MG tablet extended release 1 - 2 tab PO TID Qty: 0 RF: 0 calcitriol [Rocaltrol] 0.25 MCG capsule 0.25 mcg PO DAILY Qty: 0 RF: 0 clobetasol [Temovate] 0.05 % cream 1 bradley Topical PRN PRN (Reason: as directed) Qty: 0 RF: 0 polyethylene glycol 3350 [Miralax] 119 GM powder 17 gm PO DAILY PRN (Reason: Constipation) Qty: 0 RF: 0 Advair HFA 230 MCG/21 MCG HFA aerosol inhaler 1 puff INH BID Qty: 0 RF: 0 fluorouracil [Efudex] 5 % Cream 1 applic TOPICAL BID PRN (Reason: skin changes) RF: 0 selegiline HCl 5 mg Tablet 5 mg PO BID RF: 0 albuterol sulfate 90 mcg/actuation Hfa Aerosol Inhaler 2 puff INHALATION Q4H PRN (Reason: Shortness Of Breath) RF: 0 hydrocortisone 1 % Cream 1 applic TOPICAL TID PRN (Reason: skin) RF: 0 levofloxacin 750 mg Tablet 750 mg PO Q OTHER DAY RF: 0 fluoride (sodium) 1.1 % Gel 1 applic Dental BEDTIME RF: 0 voriconazole 200 mg Tablet 300 mg PO Q12H RF: 0 metoprolol succinate 50 mg tablet extended release 24 hr 50 mg PO BEDTIME RF: 0 nifedipine 30 mg tablet extended release 30 mg PO QAM RF: 0 prochlorperazine maleate 10 mg tablet 10 mg PO QID PRN (Reason: Nausea And Vomiting) RF: 0 valacyclovir 500 mg tablet 500 mg PO BEDTIME RF: 0 amitriptyline 10 mg tablet 10 mg PO BEDTIME RF: 0 furosemide 20 mg tablet 40 mg PO QAM RF: 0 oxycodone 10 mg tablet 10 mg PO 1-2XD MDD 20 mg PRN (Reason: chronic pain) RF: 0 azithromycin 250 mg tablet 250 mg PO MOWEFR RF: 0 prednisone 5 mg tablet 40 mg PO DAILY RF: 0 mupirocin 2 % Ointment 1 applic TOPICAL BID PRN (Reason: skin) RF: 0 loratadine 10 mg Tablet 10 mg PO DAILY PRN (Reason: Allergy Symptoms) RF: 0
[2018-09-20 19:02] VITALS: BP 116/56; PULSE 74; RESP 22; O2SAT 95
== END 2018-09-20 19:22 | disposition home or self-care (01) ==
PROVIDERS: Emergency Provider Emergency Medicine
DX: S91.012A Laceration without foreign body, left ankle, initial encounter (principal); W18.30XA Fall on same level, unspecified, initial encounter
CPT/HCPCS: 12004; 73610; 99283

== ENCOUNTER 2018-09-28 19:47 | Inpatient (IN) | payer MEDICARE, OTHER, SELFPAY ==
[2018-07-15 14:30] VITALS: PULSE 81; RESP 31; O2SAT 98
[2018-09-28 19:55] VITALS: BP 140/73; PULSE 102; RESP 24; TEMP 36.7; O2SAT 89
--- NOTE | 2018-09-28 20:04 | DI.RAD.S_ITS ---
PROCEDURE: XR CHEST 1V INDICATIONS: shortness of breath, cough, fever TECHNIQUE: One view of the chest was acquired. COMPARISON: [facility], CR, XR CHEST 1V, 07/15/2018, 9:20. FINDINGS: Surgical changes and devices: None. Lungs and pleura: Moderate bilateral perihilar opacity. No pleural effusions or pneumothorax. Mediastinum: Mediastinal contours appear normal. Heart size is normal. Bones and chest wall: No suspicious bony lesions. Overlying soft tissues appear unremarkable. IMPRESSION: Moderate atypical pneumonia. Dictated by: López Gonzales M.D. on 09/28/2018 at 20:20 Approved by: López Gonzales M.D. on 09/28/2018 at 20:21
[2018-09-28 20:06] VITALS: BP 151/68; PULSE 103; RESP 19; O2SAT 97
--- NOTE | 2018-09-28 20:13 | ED.SOB ---
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 He has an extensive history of episodes of community-acquired pneumonia, most recently in July which resulted in prolonged hospitalization, intubation and acute renal failure. Patient denies any chest pain and is not dizzy or weak or lightheaded. He states that he is increasingly short of breath with any exertion. Room air SpO2 in mid 80s Related Data Home Medications Medication Instructions Recorded Confirmed dapsone 50 mg PO BID #0 12/16/16 09/28/18 montelukast 10 mg PO QPM #0 12/16/16 09/28/18 pramipexole [Mirapex] 0.125 mg PO BEDTIME #0 12/16/16 09/28/18 sennosides [senna] 17.2 tab PO BEDTIME #0 12/16/16 09/28/18 tamsulosin [Flomax] 0.4 mg PO BEDTIME #0 12/16/16 09/28/18 calcitriol [Rocaltrol] 0.25 mcg PO DAILY #0 12/17/16 09/28/18 carbidopa-levodopa 1 - 2 tab PO TID #0 12/17/16 09/28/18 polyethylene glycol 3350 [Miralax] 17 gm PO DAILY PRN #0 12/17/16 09/28/18 Advair HFA 1 puff INH BID #0 12/19/16 09/28/18 albuterol sulfate 2 puff INHALATION Q4H PRN 01/19/18 09/28/18 fluorouracil [Efudex] 1 applic TOPICAL BID PRN 01/19/18 09/28/18 selegiline HCl 5 mg PO BID 01/19/18 09/28/18 azithromycin 250 mg PO MOWEFR 07/10/18 09/28/18 furosemide 40 mg PO QAM 07/10/18 09/28/18 loratadine 10 mg PO DAILY PRN 07/10/18 09/28/18 metoprolol succinate 50 mg PO BEDTIME 03/01/19 05/20/19 nifedipine 30 mg PO QAM 07/10/18 09/28/18 oxycodone 10 mg PO 1-2XD PRN MDD 20 mg 07/10/18 09/28/18 prednisone 15 mg PO DAILY 07/10/18 09/28/18 prochlorperazine maleate 10 mg PO QID PRN 07/10/18 09/28/18 valacyclovir 500 mg PO BEDTIME 07/10/18 09/28/18 fluoride (sodium) 1 applic DENTAL BEDTIME 07/15/18 09/28/18 ipratropium-albuterol 3 ml INHALATION Q6-8H PRN 09/28/18 09/28/18 Allergies Allergy/AdvReac Type Severity Reaction Status Date / Time diltiazem Allergy Intermediate Hives Verified 09/20/18 17:29 bacitracin [BACITRACIN] Allergy Unknown SKIN Verified 09/20/18 17:29 IRRITATION chlorhexidine [CHLORHEXIDINE] Allergy Unknown SKIN Verified 09/20/18 17:29 IRRITATION rifampin [RIFAMPIN] Allergy Unknown HIVES Verified 09/20/18 17:29 acetaminophen [ACETAMINOPHEN] AdvReac Unknown ABD PAIN Verified 09/20/18 17:29 diphenhydramine AdvReac Unknown EXTREME Verified 09/20/18 17:29 [From BENADRYL] SEDATION Review of Systems Constitutional Denies chills, Denies fever(s) and Denies lethargy Eyes Denies change in vision, Denies eye discharge, Denies irritation and Denies loss of vision ENT Ears, Nose, Mouth, and Throat: Denies change in voice, Denies neck pain and Denies sore throat Cardiovascular Denies chest pain, Denies irregular heart rhythm, Denies lightheadedness, Denies palpitations, Denies dyspnea, Reports dyspnea on exertion and Denies orthopnea Respiratory Reports cough, Denies dyspnea, Reports dyspnea on exertion and Denies wheezing Gastrointestinal Gastrointestinal: Denies abdominal pain, Denies change in bowel habits, Denies diarrhea, Denies nausea and Denies vomiting Genitourinary Denies hematuria, Denies flank pain, Denies urinary incontinence and Denies urinary urgency Musculoskeletal Denies neck pain Integumentary/Breasts Denies pruritus, Denies erythema, Denies rash and Denies wounds Neurologic Denies confusion and Denies loss of vision Psychiatric Denies anxiety, Denies confusion, Denies depression, Denies homicidal ideation and Denies suicidal ideation Endocrine Denies palpitations Hematologic/Lymphatic Denies easy bruising Allergic/Immunologic Denies wheezing [facility] Medical History Parkinson disease (Chronic) Atrial fibrillation (Acute) Atrial flutter (Acute) Chronic kidney disease, stage III (moderate) (Acute) Elevated PSA (Acute) Fungal pneumonia (Acute) Skin cancer (Acute) CLL (chronic lymphocytic leukemia) (Acute) CMV pneumonia (Acute) 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 Normocephalic. No temporal or scalp tenderness. EYES: Pupils equal round and reactive. Extraocular motions intact. No scleral icterus. No injection or drainage. ENT: Nose without bleeding, purulent drainage or septal hematoma. Throat without erythema, tonsillar hypertrophy or exudate. Uvula midline. Airway patent. NECK: Trachea midline. No JVD or lymphadenopathy. Supple, nontender, no meningeal signs. CARDIOVASCULAR: Regular rate and rhythm without murmurs, gallops, or rubs. RESPIRATORY: decreased breathsounds B/L, faint crackles in B/L bases GASTROINTESTINAL: Abdomen soft, non-tender, nondistended. No hepato-splenomegaly, or palpable masses. No guarding. EXTREMITIES: No clubbing, cyanosis, or edema. No joint tenderness, effusion, or edema noted. BACK: Nontender without deformity or crepitance. No flank tenderness. NEURO: AOx3. SKIN: No rash or erythema. Initial Vital Signs Initial Vital Signs: Vital Signs Temperature 98.1 F 05/20/19 19:55 Pulse Rate 102 H 09/28/18 19:55 Respiratory Rate 24 09/28/18 19:55 Blood Pressure 140/73 09/28/18 19:55 Pulse Oximetry 89 L 09/28/18 19:55 Course Orders Ordered: ED Orders 09/28/18 20:04 XR chest 1V Stat 09/28/18 20:35 B Type Natriuretic Peptide Stat Complete Blood Count AUTO DIFF Stat Comprehensive Metabolic Panel Stat Lactate (Lactic Acid) Stat Partial Thromboplastin Time Stat Procalcitonin Stat Prothrombin Time INR Stat 09/28/18 21:00 Arterial Blood Gas Stat 09/28/18 21:05 Blood Culture Stat 09/28/18 22:48 Consult to Discharge Planning Routine Consult to Occupational Therapy Evaluate & Treat 09/28/18 22:49 Consult to Physical Therapy Evaluate & Treat Consult to Respiratory Therapy Evaluate & Treat 09/29/18 Basic Metabolic Panel Routine Complete Blood Count AUTO DIFF Routine Procalcitonin Routine Sputum Culture Routine 09/29/18 00:18 Urinalysis and Microscopic Routine 09/29/18 00:35 Respiratory Panel (Film Array) Stat Al Hydrox/Mg Hydrox/Simethicone (Maalox Plus) 30 ml PO Q6HR PRN PRN Reason: Dyspepsia Albuterol (Ventolin) 2.5 mg INH [id number] PRN PRN Reason: Shortness Of Breath Albuterol/Ipratropium (Duoneb) 3 ml INH RTQ6HR PRN PRN Reason: Shortness Of Breath Calcitriol (Rocaltrol) 0.25 mcg PO DAILY [facility] Calcium Carbonate (Tums) 1,000 mg PO Q4HR PRN PRN Reason: Dyspepsia Carbidopa/Levodopa (Sinemet 25-100 Tab) 1.5 each PO TID [facility] Dapsone (Dapsone) 50 mg PO BID [facility] Last Admin: 09/29/18 00:58 Dose: Not Given Enoxaparin Sodium (Lovenox) 40 mg SUBCUT DAILY [facility] Furosemide (Lasix) 40 mg PO DAILY [facility] Last Admin: 09/29/18 00:59 Dose: Not Given Azithromycin 500 mg/ Dextrose 250 mls @ 250 mls/hr IV Q24H BALDO Stop: 09/30/18 11:01 Levofloxacin (Levaquin) 750 mg in 150 mls @ 100 mls/hr IV Q48H [facility] Stop: 10/06/18 23:29 Sodium Chloride (Normal Saline 0.9%) 250 mls @ 21 mls/hr IV Q24H PRN PRN Reason: Flush Loratadine (Claritin) 10 mg PO DAILY PRN PRN Reason: Allergic Symptoms Metoprolol Succinate (Toprol Xl) 50 mg PO BEDTIME [facility] Last Admin: 09/29/18 00:59 Dose: Not Given Montelukast Sodium (Singulair) 10 mg PO QPM [facility] Nifedipine (Procardia Xl) 30 mg PO DAILY [facility] Last Admin: 09/29/18 00:59 Dose: Not Given Non-Formulary Medication (Fluticasone Propion-Salmeterol [Advair Hfa]) 1 puff INH BID [facility] Oxycodone HCl (Percolone) 10 mg PO Q12H PRN PRN Reason: chronic pain Polyethylene Glycol (Miralax) 17 gm PO DAILY PRN PRN Reason: Constipation Pramipexole Dihydrochloride (Mirapex) 0.125 mg PO BEDTIME [facility] Last Admin: 09/29/18 00:57 Dose: 0.125 mg Prednisone (Deltasone) 15 mg PO DAILY [facility] Prochlorperazine (Compazine) 10 mg PO QID PRN PRN Reason: Nausea And Vomiting Promethazine HCl (Phenadoz) 12.5 mg [place] Q6HR PRN PRN Reason: Nausea And Vomiting Selegiline (Eldepryl) 5 mg PO 0800,1400 [facility] Sennosides (Senna) 17.2 mg PO BEDTIME [facility] Last Admin: 09/29/18 01:00 Dose: Not Given Sodium Chloride (Normal Saline 0.9% Flush) 10 ml IV BID [facility] Sodium Chloride (Normal Saline 0.9% Flush) 10 ml IV PRN PRN PRN Reason: Flush Tamsulosin HCl (Flomax) 0.4 mg PO BEDTIME [facility] Last Admin: 09/29/18 01:00 Dose: Not Given Valacyclovir HCl (Valtrex) 500 mg PO BEDTIME [facility] Last Admin: 09/29/18 01:00 Dose: Not Given Discontinued Medications Levofloxacin (Levaquin) 750 mg in 150 mls @ 100 mls/hr IV NOW ONE Stop: 09/28/18 22:25 Last Infusion: 09/28/18 22:36 Dose: 0 mls/hr Admin: 09/28/18 21:11 Dose: 100 mls/hr Sodium Chloride (Normal Saline 0.9%) 1,000 mls @ 1,000 mls/hr IV BOLUS ONE Stop: 09/28/18 22:31 Last Infusion: 09/28/18 22:41 Dose: 0 mls/hr Admin: 09/28/18 21:44 Dose: 1,000 mls/hr Azithromycin 250 mg/ Dextrose 250 mls @ 250 mls/hr IV NOW ONE Stop: 09/28/18 23:56 Last Infusion: 09/29/18 02:09 Dose: 0 mls/hr Admin: 09/29/18 00:45 Dose: 250 mls/hr Pramipexole Dihydrochloride (Mirapex) 0.125 mg PO BEDTIME [facility] Last Admin: 09/29/18 01:23 Dose: Not Given Selegiline (Eldepryl) 5 mg PO BID [facility] Last Admin: 09/29/18 00:59 Dose: Not Given Vital Signs - 8 hr 09/28/18 19:55 09/28/18 20:06 09/28/18 20:17 Temperature 98.1 F Pulse Rate 102 H 103 H Respiratory Rate 24 19 Blood Pressure 140/73 Blood Pressure [Right Arm] 151/68 H Pulse Oximetry 89 L 97 96 09/28/18 22:45 09/29/18 00:00 09/29/18 00:28 Temperature 98.4 F 97.5 F L Pulse Rate 93 H 86 92 H Respiratory Rate 20 19 20 Blood Pressure 144/65 H 151/74 H Blood Pressure [Right Arm] Pulse Oximetry 98 95 98 MDM - SOB/Dyspnea Lab Data Result diagrams: 09/28/18 20:35 09/28/18 20:35 Lab Results 09/28/18 09/28/18 09/28/18 Range/Units 20:35 20:35 20:35 WBC 6.5 (4.5-11.0) X10^3/uL RBC 2.74 L (4.5-5.9) X10^6/uL Hgb 9.3 L (13.5-17.5) g/dL Hct 28.0 L (41-53) % MCV 102.2 H (80-100) fL MCH 34.0 (26-34) PG MCHC 33.3 (30-36) % RDW 14.2 (11.6-14.8) % Plt Count 160 (150-400) X10^3/uL Neut % (Auto) 80.0 H (50-75) % Lymph % (Auto) 12.2 L (25-40) % Trinity % (Auto) 7.4 (3-14) % Eos % (Auto) 0.1 L (2-4) % Baso % (Auto) 0.3 (0-2) % Neut # (Auto) 5200 (9597-5997) /uL Lymph # (Auto) 800 L (4375-7531) /uL Trinity # (Auto) 500 (0-900) /uL Eos # (Auto) 0 (0-450) /uL Baso # (Auto) 0 (0-100) /uL PT 10.7 (10.1-12.7) SECONDS INR 0.9 (0.9-1.3) APTT 28 (26.4-36.2) SECONDS ABG pH (7.35-7.45) ABG pCO2 (35-45) mmHg ABG pO2 (80-100) mmHg ABG HCO3 (22-26) mmol/L ABG Total CO2 (21-31) mmol/L ABG O2 Saturation (95-100) % ABG Base Excess (-2-2) mmol/L FiO2 Sodium (137-145) mmol/L Potassium (3.4-5.1) mmol/L Chloride (98-107) mmol/L Carbon Dioxide (22-32) mmol/L BUN (9-20) mg/dL Creatinine (0.66-1.25) mg/dL Estimated GFR (>60) mL/min BUN/Creatinine Ratio (6-22) Glucose (80-110) mg/dL Lactate (0.7-2.1) mmol/L Calcium (8.4-10.2) mg/dL Total Bilirubin (0.2-1.3) mg/dL AST (17-59) IU/L ALT (21-72) IU/L Alkaline Phosphatase (38-126) U/L B-Natriuretic Peptide < 100 (<100) Total Protein (6.3-8.2) g/dL Albumin (3.5-5.0) g/dL Globulin (1.7-4.1) g/dL Albumin/Globulin Ratio (1.0-2.8) Procalcitonin (<0.5) ng/mL Urine Color Urine Appearance Urine pH (4.5-8.0) Ur Specific Francis (1.000-1.035) Urine Protein (Negative) Urine Glucose (UA) (Negative) g/dL Urine Ketones (NEGATIVE) Urine Occult Blood (Negative) Urine Nitrate (Negative) Urine Bilirubin (NEGATIVE) Urine Urobilinogen (0.2) E.U./dL Ur Leukocyte Esterase (NEGATIVE) Urine RBC (0-5/HPF) Urine WBC (0-5/HPF) Urine Bacteria (None) Ur Culture Indicated? Micro UA Comment Chlamy pneumoniae PCR (Not Detect) Adenovirus (PCR) (Not Detect) B.parapertussis DNA PCR (Not Detect) Coronavirus OC43 (PCR) (Not Detect) Coronavirus HKU1 (PCR) (Not Detect) Coronavirus 229E (PCR) (Not Detect) Coronavirus NL63 (PCR) (Not Detect) Human Metapneumovir PCR (Not Detect) Influenza Type A (PCR) (Not Detect) Influenza Type B (PCR) (Not Detect) M. pneumoniae (PCR) (Not Detect) Parainfluenza 1 (PCR) (Not Detect) Parainfluenza 2 (PCR) (Not Detect) Parainfluenza 3 (PCR) (Not Detect) Parainfluenza 4 (PCR) (Not Detect) RSV (PCR) (Not Detect) Entero/Rhino (PCR) (Not Detect) 09/28/18 09/28/18 09/28/18 Range/Units 20:35 20:35 20:35 WBC (4.5-11.0) X10^3/uL RBC (4.5-5.9) X10^6/uL Hgb (13.5-17.5) g/dL Hct (41-53) % MCV (80-100) fL MCH (26-34) PG MCHC (30-36) % RDW (11.6-14.8) % Plt Count (150-400) X10^3/uL Neut % (Auto) (50-75) % Lymph % (Auto) (25-40) % Trinity % (Auto) (3-14) % Eos % (Auto) (2-4) % Baso % (Auto) (0-2) % Neut # (Auto) (3708-8960) /uL Lymph # (Auto) (7809-6057) /uL Trinity # (Auto) (0-900) /uL Eos # (Auto) (0-450) /uL Baso # (Auto) (0-100) /uL PT (10.1-12.7) SECONDS INR (0.9-1.3) APTT (26.4-36.2) SECONDS ABG pH (7.35-7.45) ABG pCO2 (35-45) mmHg ABG pO2 (80-100) mmHg ABG HCO3 (22-26) mmol/L ABG Total CO2 (21-31) mmol/L ABG O2 Saturation (95-100) % ABG Base Excess (-2-2) mmol/L FiO2 Sodium 138 (137-145) mmol/L Potassium 4.0 (3.4-5.1) mmol/L Chloride 97 L (98-107) mmol/L Carbon Dioxide 31 (22-32) mmol/L BUN 37 H (9-20) mg/dL Creatinine 1.50 H (0.66-1.25) mg/dL Estimated GFR 45.9 L (>60) mL/min BUN/Creatinine Ratio 24.7 H (6-22) Glucose 104 (80-110) mg/dL Lactate 2.7 H (0.7-2.1) mmol/L Calcium 9.3 (8.4-10.2) mg/dL Total Bilirubin 0.6 (0.2-1.3) mg/dL AST 24 (17-59) IU/L ALT 10 L (21-72) IU/L Alkaline Phosphatase 66 (38-126) U/L B-Natriuretic Peptide (<100) Total Protein 7.0 (6.3-8.2) g/dL Albumin 4.3 (3.5-5.0) g/dL Globulin 2.7 (1.7-4.1) g/dL Albumin/Globulin Ratio 1.6 (1.0-2.8) Procalcitonin 0.05 (<0.5) ng/mL Urine Color Urine Appearance Urine pH (4.5-8.0) Ur Specific Francis (1.000-1.035) Urine Protein (Negative) Urine Glucose (UA) (Negative) g/dL Urine Ketones (NEGATIVE) Urine Occult Blood (Negative) Urine Nitrate (Negative) Urine Bilirubin (NEGATIVE) Urine Urobilinogen (0.2) E.U./dL Ur Leukocyte Esterase (NEGATIVE) Urine RBC (0-5/HPF) Urine WBC (0-5/HPF) Urine Bacteria (None) Ur Culture Indicated? Micro UA Comment Chlamy pneumoniae PCR (Not Detect) Adenovirus (PCR) (Not Detect) B.parapertussis DNA PCR (Not Detect) Coronavirus OC43 (PCR) (Not Detect) Coronavirus HKU1 (PCR) (Not Detect) Coronavirus 229E (PCR) (Not Detect) Coronavirus NL63 (PCR) (Not Detect) Human Metapneumovir PCR (Not Detect) Influenza Type A (PCR) (Not Detect) Influenza Type B (PCR) (Not Detect) M. pneumoniae (PCR) (Not Detect) Parainfluenza 1 (PCR) (Not Detect) Parainfluenza 2 (PCR) (Not Detect) Parainfluenza 3 (PCR) (Not Detect) Parainfluenza 4 (PCR) (Not Detect) RSV (PCR) (Not Detect) Entero/Rhino (PCR) (Not Detect) 09/28/18 09/28/18 09/29/18 Range/Units 21:00 23:00 00:18 WBC (4.5-11.0) X10^3/uL RBC (4.5-5.9) X10^6/uL Hgb (13.5-17.5) g/dL Hct (41-53) % MCV (80-100) fL MCH (26-34) PG MCHC (30-36) % RDW (11.6-14.8) % Plt Count (150-400) X10^3/uL Neut % (Auto) (50-75) % Lymph % (Auto) (25-40) % Trinity % (Auto) (3-14) % Eos % (Auto) (2-4) % Baso % (Auto) (0-2) % Neut # (Auto) (8870-3581) /uL Lymph # (Auto) (5389-5050) /uL Trinity # (Auto) (0-900) /uL Eos # (Auto) (0-450) /uL Baso # (Auto) (0-100) /uL PT (10.1-12.7) SECONDS INR (0.9-1.3) APTT (26.4-36.2) SECONDS ABG pH 7.42 (7.35-7.45) ABG pCO2 43.5 (35-45) mmHg ABG pO2 61 L (80-100) mmHg ABG HCO3 28 H (22-26) mmol/L ABG Total CO2 30 (21-31) mmol/L ABG O2 Saturation 91 L (95-100) % ABG Base Excess 4.0 H (-2-2) mmol/L FiO2 21 Sodium (137-145) mmol/L Potassium (3.4-5.1) mmol/L Chloride (98-107) mmol/L Carbon Dioxide (22-32) mmol/L BUN (9-20) mg/dL Creatinine (0.66-1.25) mg/dL Estimated GFR (>60) mL/min BUN/Creatinine Ratio (6-22) Glucose (80-110) mg/dL Lactate 2.0 (0.7-2.1) mmol/L Calcium (8.4-10.2) mg/dL Total Bilirubin (0.2-1.3) mg/dL AST (17-59) IU/L ALT (21-72) IU/L Alkaline Phosphatase (38-126) U/L B-Natriuretic Peptide (<100) Total Protein (6.3-8.2) g/dL Albumin (3.5-5.0) g/dL Globulin (1.7-4.1) g/dL Albumin/Globulin Ratio (1.0-2.8) Procalcitonin (<0.5) ng/mL Urine Color Yellow Urine Appearance Clear Urine pH 6.0 (4.5-8.0) Ur Specific Francis 1.015 (1.000-1.035) Urine Protein Negative (Negative) Urine Glucose (UA) Negative (Negative) g/dL Urine Ketones Negative (NEGATIVE) Urine Occult Blood Negative (Negative) Urine Nitrate Negative (Negative) Urine Bilirubin Negative (NEGATIVE) Urine Urobilinogen 0.2 (0.2) E.U./dL Ur Leukocyte Esterase Negative (NEGATIVE) Urine RBC None seen (0-5/HPF) Urine WBC None seen (0-5/HPF) Urine Bacteria None seen (None) Ur Culture Indicated? Cult not indicated Micro UA Comment Microscopic normal Chlamy pneumoniae PCR (Not Detect) Adenovirus (PCR) (Not Detect) B.parapertussis DNA PCR (Not Detect) Coronavirus OC43 (PCR) (Not Detect) Coronavirus HKU1 (PCR) (Not Detect) Coronavirus 229E (PCR) (Not Detect) Coronavirus NL63 (PCR) (Not Detect) Human Metapneumovir PCR (Not Detect) Influenza Type A (PCR) (Not Detect) Influenza Type B (PCR) (Not Detect) M. pneumoniae (PCR) (Not Detect) Parainfluenza 1 (PCR) (Not Detect) Parainfluenza 2 (PCR) (Not Detect) Parainfluenza 3 (PCR) (Not Detect) Parainfluenza 4 (PCR) (Not Detect) RSV (PCR) (Not Detect) Entero/Rhino (PCR) (Not Detect) 09/29/18 Range/Units 00:35 WBC (4.5-11.0) X10^3/uL RBC (4.5-5.9) X10^6/uL Hgb (13.5-17.5) g/dL Hct (41-53) % MCV (80-100) fL MCH (26-34) PG MCHC (30-36) % RDW (11.6-14.8) % Plt Count (150-400) X10^3/uL Neut % (Auto) (50-75) % Lymph % (Auto) (25-40) % Trinity % (Auto) (3-14) % Eos % (Auto) (2-4) % Baso % (Auto) (0-2) % Neut # (Auto) (1835-9272) /uL Lymph # (Auto) (1488-0724) /uL Trinity # (Auto) (0-900) /uL Eos # (Auto) (0-450) /uL Baso # (Auto) (0-100) /uL PT (10.1-12.7) SECONDS INR (0.9-1.3) APTT (26.4-36.2) SECONDS ABG pH (7.35-7.45) ABG pCO2 (35-45) mmHg ABG pO2 (80-100) mmHg ABG HCO3 (22-26) mmol/L ABG Total CO2 (21-31) mmol/L ABG O2 Saturation (95-100) % ABG Base Excess (-2-2) mmol/L FiO2 Sodium (137-145) mmol/L Potassium (3.4-5.1) mmol/L Chloride (98-107) mmol/L Carbon Dioxide (22-32) mmol/L BUN (9-20) mg/dL Creatinine (0.66-1.25) mg/dL Estimated GFR (>60) mL/min BUN/Creatinine Ratio (6-22) Glucose (80-110) mg/dL Lactate (0.7-2.1) mmol/L Calcium (8.4-10.2) mg/dL Total Bilirubin (0.2-1.3) mg/dL AST (17-59) IU/L ALT (21-72) IU/L Alkaline Phosphatase (38-126) U/L B-Natriuretic Peptide (<100) Total Protein (6.3-8.2) g/dL Albumin (3.5-5.0) g/dL Globulin (1.7-4.1) g/dL Albumin/Globulin Ratio (1.0-2.8) Procalcitonin (<0.5) ng/mL Urine Color Urine Appearance Urine pH (4.5-8.0) Ur Specific Francis (1.000-1.035) Urine Protein (Negative) Urine Glucose (UA) (Negative) g/dL Urine Ketones (NEGATIVE) Urine Occult Blood (Negative) Urine Nitrate (Negative) Urine Bilirubin (NEGATIVE) Urine Urobilinogen (0.2) E.U./dL Ur Leukocyte Esterase (NEGATIVE) Urine RBC (0-5/HPF) Urine WBC (0-5/HPF) Urine Bacteria (None) Ur Culture Indicated? Micro UA Comment Chlamy pneumoniae PCR Not detected (Not Detect) Adenovirus (PCR) Not detected (Not Detect) B.parapertussis DNA PCR Not detected (Not Detect) Coronavirus OC43 (PCR) Not detected (Not Detect) Coronavirus HKU1 (PCR) Not detected (Not Detect) Coronavirus 229E (PCR) Not detected (Not Detect) Coronavirus NL63 (PCR) Not detected (Not Detect) Human Metapneumovir PCR Not detected (Not Detect) Influenza Type A (PCR) Not detected (Not Detect) Influenza Type B (PCR) Not detected (Not Detect) M. pneumoniae (PCR) Not detected (Not Detect) Parainfluenza 1 (PCR) Not detected (Not Detect) Parainfluenza 2 (PCR) Not detected (Not Detect) Parainfluenza 3 (PCR) Not detected (Not Detect) Parainfluenza 4 (PCR) Not detected (Not Detect) RSV (PCR) Not detected (Not Detect) Entero/Rhino (PCR) Not detected (Not Detect) Urine Dip Bedside Urine Glucose Negative Bedside Urine Bilirubin - Negative Bedside Urine Ketone - Negative Urine Specific Francis 1.020 Bedside Urine Occult Blood - Negative Bedside Urine pH 6.0 Bedside Urine Protein - Negative Bedside Urine Urobilinogen - Negative Bedside Urine Nitrite - Negative Bedside Urine Leukocytes - Negative Esterase Imaging Data Chest x-ray: Radiologist's impression: [address] [address] XRay Report Signed Patient: Eleno Sol R#: [id number] : 5Acct:[id number] Age/Sex: 72 / MDate of Service: 09/28/18 Loc: ED Accession Number: [id number] Procedure: XR chest 1V Ordering Provider: Robel Chen D.O. PROCEDURE: XR CHEST 1V INDICATIONS: shortness of breath, cough, fever TECHNIQUE: One view of the chest was acquired. COMPARISON: [facility], , XR CHEST 1V, 07/15/2018, 9:20. FINDINGS: Surgical changes and devices: None. Lungs and pleura: Moderate bilateral perihilar opacity. No pleural effusions or pneumothorax. Mediastinum: Mediastinal contours appear normal. Heart size is normal. Bones and chest wall: No suspicious bony lesions. Overlying soft tissues appear unremarkable. IMPRESSION: Moderate atypical pneumonia. Dictated by: López Gonzales M.D. on 09/28/2018 at 20:20 Approved by: López Gonzales M.D. on 09/28/2018 at 20:21 Discharge Plan Departure Patient Disposition: Admitted As Inpatient Clinical Impression: Acute and chronic respiratory failure with hypoxia Community acquired pneumonia Qualifiers: Laterality: unspecified laterality Qualified Code(s): J18.9 - Pneumonia, unspecified organism Discharge Date/Time: 05/20/19 22:43 Interventions: ED Discharge Assessment Last Done: 09/28/18 22:42 Admit Date/Time: 09/28/18 21:51 Admit Provider: Francisco Rodgers
[2018-09-28 20:17] VITALS: O2SAT 96
--- NOTE | 2018-09-28 20:17 | PC.NURSE ---
pt o2 sats at 88 or room air, placed on 2l NC, sats now at 95
--- NOTE | 2018-09-28 20:34 | ED_ITS ---
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 He has an extensive history of episodes of community-acquired pneumonia, most recently in July which resulted in prolonged hospitalization, intubation and acute renal failure. Patient denies any chest pain and is not dizzy or weak or lightheaded. He states that he is increasingly short of breath with any exertion. Room air SpO2 in mid 80s Related Data Home Medications Medication Instructions Recorded Confirmed dapsone 50 mg PO BID #0 12/16/16 09/28/18 montelukast 10 mg PO QPM #0 12/16/16 09/28/18 pramipexole [Mirapex] 0.125 mg PO BEDTIME #0 12/16/16 09/28/18 sennosides [senna] 17.2 tab PO BEDTIME #0 12/16/16 09/28/18 tamsulosin [Flomax] 0.4 mg PO BEDTIME #0 12/16/16 09/28/18 calcitriol [Rocaltrol] 0.25 mcg PO DAILY #0 12/17/16 09/28/18 carbidopa-levodopa 1 - 2 tab PO TID #0 12/17/16 09/28/18 polyethylene glycol 3350 [Miralax] 17 gm PO DAILY PRN #0 12/17/16 09/28/18 Advair HFA 1 puff INH BID #0 12/19/16 09/28/18 albuterol sulfate 2 puff INHALATION Q4H PRN 01/19/18 09/28/18 fluorouracil [Efudex] 1 applic TOPICAL BID PRN 01/19/18 09/28/18 selegiline HCl 5 mg PO BID 01/19/18 09/28/18 azithromycin 250 mg PO MOWEFR 07/10/18 09/28/18 furosemide 40 mg PO QAM 07/10/18 09/28/18 loratadine 10 mg PO DAILY PRN 07/10/18 09/28/18 metoprolol succinate 50 mg PO BEDTIME 03/01/19 05/20/19 nifedipine 30 mg PO QAM 07/10/18 09/28/18 oxycodone 10 mg PO 1-2XD PRN MDD 20 mg 07/10/18 09/28/18 prednisone 15 mg PO DAILY 07/10/18 09/28/18 prochlorperazine maleate 10 mg PO QID PRN 07/10/18 09/28/18 valacyclovir 500 mg PO BEDTIME 07/10/18 09/28/18 fluoride (sodium) 1 applic DENTAL BEDTIME 07/15/18 09/28/18 ipratropium-albuterol 3 ml INHALATION Q6-8H PRN 09/28/18 09/28/18 Allergies Allergy/AdvReac Type Severity Reaction Status Date / Time diltiazem Allergy Intermediate Hives Verified 09/20/18 17:29 bacitracin [BACITRACIN] Allergy Unknown SKIN Verified 09/20/18 17:29 IRRITATION chlorhexidine [CHLORHEXIDINE] Allergy Unknown SKIN Verified 09/20/18 17:29 IRRITATION rifampin [RIFAMPIN] Allergy Unknown HIVES Verified 09/20/18 17:29 acetaminophen [ACETAMINOPHEN] AdvReac Unknown ABD PAIN Verified 09/20/18 17:29 diphenhydramine AdvReac Unknown EXTREME Verified 09/20/18 17:29 [From BENADRYL] SEDATION Review of Systems Constitutional Denies chills, Denies fever(s) and Denies lethargy Eyes Denies change in vision, Denies eye discharge, Denies irritation and Denies loss of vision ENT Ears, Nose, Mouth, and Throat: Denies change in voice, Denies neck pain and Denies sore throat Cardiovascular Denies chest pain, Denies irregular heart rhythm, Denies lightheadedness, Denies palpitations, Denies dyspnea, Reports dyspnea on exertion and Denies orthopnea Respiratory Reports cough, Denies dyspnea, Reports dyspnea on exertion and Denies wheezing Gastrointestinal Gastrointestinal: Denies abdominal pain, Denies change in bowel habits, Denies diarrhea, Denies nausea and Denies vomiting Genitourinary Denies hematuria, Denies flank pain, Denies urinary incontinence and Denies urinary urgency Musculoskeletal Denies neck pain Integumentary/Breasts Denies pruritus, Denies erythema, Denies rash and Denies wounds Neurologic Denies confusion and Denies loss of vision Psychiatric Denies anxiety, Denies confusion, Denies depression, Denies homicidal ideation and Denies suicidal ideation Endocrine Denies palpitations Hematologic/Lymphatic Denies easy bruising Allergic/Immunologic Denies wheezing [facility] Medical History Parkinson disease (Chronic) Atrial fibrillation (Acute) Atrial flutter (Acute) Chronic kidney disease, stage III (moderate) (Acute) Elevated PSA (Acute) Fungal pneumonia (Acute) Skin cancer (Acute) CLL (chronic lymphocytic leukemia) (Acute) CMV pneumonia (Acute) Chronic zqllg-ptqevy-vefo disease (Chronic) Cryptogenic organizing pneumonia (Resolved) Surgical History H/O stem cell transplant (Acute) History of partial colectomy (Acute) History of radiofrequency ablation procedure for cardiac arrhythmia (Acute) Social History household members: spouse Smoking Status: Former smoker alcohol intake: current Social History household members: spouse Smoking Status: Former smoker alcohol intake: current Exam Narrative Exam Narrative: GENERAL: 72-year-old male ill-appearing HEAD: Atraumatic. Normocephalic. No temporal or scalp tenderness. EYES: Pupils equal round and reactive. Extraocular motions intact. No scleral icterus. No injection or drainage. ENT: Nose without bleeding, purulent drainage or septal hematoma. Throat without erythema, tonsillar hypertrophy or exudate. Uvula midline. Airway patent. NECK: Trachea midline. No JVD or lymphadenopathy. Supple, nontender, no meningeal signs. CARDIOVASCULAR: Regular rate and rhythm without murmurs, gallops, or rubs. RESPIRATORY: decreased breathsounds B/L, faint crackles in B/L bases GASTROINTESTINAL: Abdomen soft, non-tender, nondistended. No hepato- splenomegaly, or palpable masses. No guarding. EXTREMITIES: No clubbing, cyanosis, or edema. No joint tenderness, effusion, or edema noted. BACK: Nontender without deformity or crepitance. No flank tenderness. NEURO: AOx3. SKIN: No rash or erythema. Initial Vital Signs Initial Vital Signs: Vital Signs Temperature 98.1 F 05/20/19 19:55 Pulse Rate 102 H 09/28/18 19:55 Respiratory Rate 24 09/28/18 19:55 Blood Pressure 140/73 09/28/18 19:55 Pulse Oximetry 89 L 09/28/18 19:55 Course Orders Ordered: ED Orders 09/28/18 20:04 XR chest 1V Stat 09/28/18 20:35 B Type Natriuretic Peptide Stat Complete Blood Count AUTO DIFF Stat Comprehensive Metabolic Panel Stat Lactate (Lactic Acid) Stat Partial Thromboplastin Time Stat Procalcitonin Stat Prothrombin Time INR Stat 09/28/18 21:00 Arterial Blood Gas Stat 09/28/18 21:05 Blood Culture Stat 09/28/18 22:48 Consult to Discharge Planning Routine Consult to Occupational Therapy Evaluate & Treat 09/28/18 22:49 Consult to Physical Therapy Evaluate & Treat Consult to Respiratory Therapy Evaluate & Treat 09/29/18 Basic Metabolic Panel Routine Complete Blood Count AUTO DIFF Routine Procalcitonin Routine Sputum Culture Routine 09/29/18 00:18 Urinalysis and Microscopic Routine 09/29/18 00:35 Respiratory Panel (Film Array) Stat Al Hydrox/Mg Hydrox/Simethicone (Maalox Plus) 30 ml PO Q6HR PRN PRN Reason: Dyspepsia Albuterol (Ventolin) 2.5 mg INH [id number] PRN PRN Reason: Shortness Of Breath Albuterol/Ipratropium (Duoneb) 3 ml INH RTQ6HR PRN PRN Reason: Shortness Of Breath Calcitriol (Rocaltrol) 0.25 mcg PO DAILY [facility] Calcium Carbonate (Tums) 1,000 mg PO Q4HR PRN PRN Reason: Dyspepsia Carbidopa/Levodopa (Sinemet 25-100 Tab) 1.5 each PO TID [facility] Dapsone (Dapsone) 50 mg PO BID [facility] Last Admin: 09/29/18 00:58 Dose: Not Given Enoxaparin Sodium (Lovenox) 40 mg SUBCUT DAILY [facility] Furosemide (Lasix) 40 mg PO DAILY [facility] Last Admin: 09/29/18 00:59 Dose: Not Given Azithromycin 500 mg/ Dextrose 250 mls @ 250 mls/hr IV Q24H BALDO Stop: 09/30/18 11:01 Levofloxacin (Levaquin) 750 mg in 150 mls @ 100 mls/hr IV Q48H [facility] Stop: 10/06/18 23:29 Sodium Chloride (Normal Saline 0.9%) 250 mls @ 21 mls/hr IV Q24H PRN PRN Reason: Flush Loratadine (Claritin) 10 mg PO DAILY PRN PRN Reason: Allergic Symptoms Metoprolol Succinate (Toprol Xl) 50 mg PO BEDTIME [facility] Last Admin: 09/29/18 00:59 Dose: Not Given Montelukast Sodium (Singulair) 10 mg PO QPM BALDO Nifedipine (Procardia Xl) 30 mg PO DAILY [facility] Last Admin: 09/29/18 00:59 Dose: Not Given Non-Formulary Medication (Fluticasone Propion-Salmeterol [Advair Hfa]) 1 puff INH BID [facility] Oxycodone HCl (Percolone) 10 mg PO Q12H PRN PRN Reason: chronic pain Polyethylene Glycol (Miralax) 17 gm PO DAILY PRN PRN Reason: Constipation Pramipexole Dihydrochloride (Mirapex) 0.125 mg PO BEDTIME [facility] Last Admin: 09/29/18 00:57 Dose: 0.125 mg Prednisone (Deltasone) 15 mg PO DAILY [facility] Prochlorperazine (Compazine) 10 mg PO QID PRN PRN Reason: Nausea And Vomiting Promethazine HCl (Phenadoz) 12.5 mg [place] Q6HR PRN PRN Reason: Nausea And Vomiting Selegiline (Eldepryl) 5 mg PO 0800,1400 [facility] Sennosides (Senna) 17.2 mg PO BEDTIME [facility] Last Admin: 09/29/18 01:00 Dose: Not Given Sodium Chloride (Normal Saline 0.9% Flush) 10 ml IV BID [facility] Sodium Chloride (Normal Saline 0.9% Flush) 10 ml IV PRN PRN PRN Reason: Flush Tamsulosin HCl (Flomax) 0.4 mg PO BEDTIME [facility] Last Admin: 09/29/18 01:00 Dose: Not Given Valacyclovir HCl (Valtrex) 500 mg PO BEDTIME [facility] Last Admin: 09/29/18 01:00 Dose: Not Given Discontinued Medications Levofloxacin (Levaquin) 750 mg in 150 mls @ 100 mls/hr IV NOW ONE Stop: 09/28/18 22:25 Last Infusion: 09/28/18 22:36 Dose: 0 mls/hr Admin: 09/28/18 21:11 Dose: 100 mls/hr Sodium Chloride (Normal Saline 0.9%) 1,000 mls @ 1,000 mls/hr IV BOLUS ONE Stop: 09/28/18 22:31 Last Infusion: 09/28/18 22:41 Dose: 0 mls/hr Admin: 09/28/18 21:44 Dose: 1,000 mls/hr Azithromycin 250 mg/ Dextrose 250 mls @ 250 mls/hr IV NOW ONE Stop: 09/28/18 23:56 Last Infusion: 09/29/18 02:09 Dose: 0 mls/hr Admin: 09/29/18 00:45 Dose: 250 mls/hr Pramipexole Dihydrochloride (Mirapex) 0.125 mg PO BEDTIME [facility] Last Admin: 09/29/18 01:23 Dose: Not Given Selegiline (Eldepryl) 5 mg PO BID [facility] Last Admin: 09/29/18 00:59 Dose: Not Given Vital Signs - 8 hr 09/28/18 19:55 09/28/18 20:06 09/28/18 20:17 Temperature 98.1 F Pulse Rate 102 H 103 H Respiratory Rate 24 19 Blood Pressure 140/73 Blood Pressure [Right Arm] 151/68 H Pulse Oximetry 89 L 97 96 09/28/18 22:45 09/29/18 00:00 09/29/18 00:28 Temperature 98.4 F 97.5 F L Pulse Rate 93 H 86 92 H Respiratory Rate 20 19 20 Blood Pressure 144/65 H 151/74 H Blood Pressure [Right Arm] Pulse Oximetry 98 95 98 MDM - SOB/Dyspnea Lab Data Result diagrams: 09/28/18 20:35 09/28/18 20:35 Lab Results 09/28/18 09/28/18 09/28/18 Range/Units 20:35 20:35 20:35 WBC 6.5 (4.5-11.0) X10^3/uL RBC 2.74 L (4.5-5.9) X10^6/uL Hgb 9.3 L (13.5-17.5) g/dL Hct 28.0 L (41-53) % MCV 102.2 H (80-100) fL MCH 34.0 (26-34) PG MCHC 33.3 (30-36) % RDW 14.2 (11.6-14.8) % Plt Count 160 (150-400) X10^3/uL Neut % (Auto) 80.0 H (50-75) % Lymph % (Auto) 12.2 L (25-40) % Cottle % (Auto) 7.4 (3-14) % Eos % (Auto) 0.1 L (2-4) % Baso % (Auto) 0.3 (0-2) % Neut # (Auto) 5200 (1548-4303) /uL Lymph # (Auto) 800 L (6633-1960) /uL Cottle # (Auto) 500 (0-900) /uL Eos # (Auto) 0 (0-450) /uL Baso # (Auto) 0 (0-100) /uL PT 10.7 (10.1-12.7) SECONDS INR 0.9 (0.9-1.3) APTT 28 (26.4-36.2) SECONDS ABG pH (7.35-7.45) ABG pCO2 (35-45) mmHg ABG pO2 (80-100) mmHg ABG HCO3 (22-26) mmol/L ABG Total CO2 (21-31) mmol/L ABG O2 Saturation (95-100) % ABG Base Excess (-2-2) mmol/L FiO2 Sodium (137-145) mmol/L Potassium (3.4-5.1) mmol/L Chloride (98-107) mmol/L Carbon Dioxide (22-32) mmol/L BUN (9-20) mg/dL Creatinine (0.66-1.25) mg/dL Estimated GFR (>60) mL/min BUN/Creatinine Ratio (6-22) Glucose (80-110) mg/dL Lactate (0.7-2.1) mmol/L Calcium (8.4-10.2) mg/dL Total Bilirubin (0.2-1.3) mg/dL AST (17-59) IU/L ALT (21-72) IU/L Alkaline Phosphatase (38-126) U/L B-Natriuretic Peptide < 100 (<100) Total Protein (6.3-8.2) g/dL Albumin (3.5-5.0) g/dL Globulin (1.7-4.1) g/dL Albumin/Globulin Ratio (1.0-2.8) Procalcitonin (<0.5) ng/mL Urine Color Urine Appearance Urine pH (4.5-8.0) Ur Specific [place] (1.000-1.035) Urine Protein (Negative) Urine Glucose (UA) (Negative) g/dL Urine Ketones (NEGATIVE) Urine Occult Blood (Negative) Urine Nitrate (Negative) Urine Bilirubin (NEGATIVE) Urine Urobilinogen (0.2) E.U./dL Ur Leukocyte Esterase (NEGATIVE) Urine RBC (0-5/HPF) Urine WBC (0-5/HPF) Urine Bacteria (None) Ur Culture Indicated? Micro UA Comment Chlamy pneumoniae PCR (Not Detect) Adenovirus (PCR) (Not Detect) B.parapertussis DNA PCR (Not Detect) Coronavirus OC43 (PCR) (Not Detect) Coronavirus HKU1 (PCR) (Not Detect) Coronavirus 229E (PCR) (Not Detect) Coronavirus NL63 (PCR) (Not Detect) Human Metapneumovir PCR (Not Detect) Influenza Type A (PCR) (Not Detect) Influenza Type B (PCR) (Not Detect) M. pneumoniae (PCR) (Not Detect) Parainfluenza 1 (PCR) (Not Detect) Parainfluenza 2 (PCR) (Not Detect) Parainfluenza 3 (PCR) (Not Detect) Parainfluenza 4 (PCR) (Not Detect) RSV (PCR) (Not Detect) Entero/Rhino (PCR) (Not Detect) 09/28/18 09/28/18 09/28/18 Range/Units 20:35 20:35 20:35 WBC (4.5-11.0) X10^3/uL RBC (4.5-5.9) X10^6/uL Hgb (13.5-17.5) g/dL Hct (41-53) % MCV (80-100) fL MCH (26-34) PG MCHC (30-36) % RDW (11.6-14.8) % Plt Count (150-400) X10^3/uL Neut % (Auto) (50-75) % Lymph % (Auto) (25-40) % Cottle % (Auto) (3-14) % Eos % (Auto) (2-4) % Baso % (Auto) (0-2) % Neut # (Auto) (0111-5008) /uL Lymph # (Auto) (4716-9978) /uL Cottle # (Auto) (0-900) /uL Eos # (Auto) (0-450) /uL Baso # (Auto) (0-100) /uL PT (10.1-12.7) SECONDS INR (0.9-1.3) APTT (26.4-36.2) SECONDS ABG pH (7.35-7.45) ABG pCO2 (35-45) mmHg ABG pO2 (80-100) mmHg ABG HCO3 (22-26) mmol/L ABG Total CO2 (21-31) mmol/L ABG O2 Saturation (95-100) % ABG Base Excess (-2-2) mmol/L FiO2 Sodium 138 (137-145) mmol/L Potassium 4.0 (3.4-5.1) mmol/L Chloride 97 L (98-107) mmol/L Carbon Dioxide 31 (22-32) mmol/L BUN 37 H (9-20) mg/dL Creatinine 1.50 H (0.66-1.25) mg/dL Estimated GFR 45.9 L (>60) mL/min BUN/Creatinine Ratio 24.7 H (6-22) Glucose 104 (80-110) mg/dL Lactate 2.7 H (0.7-2.1) mmol/L Calcium 9.3 (8.4-10.2) mg/dL Total Bilirubin 0.6 (0.2-1.3) mg/dL AST 24 (17-59) IU/L ALT 10 L (21-72) IU/L Alkaline Phosphatase 66 (38-126) U/L B-Natriuretic Peptide (<100) Total Protein 7.0 (6.3-8.2) g/dL Albumin 4.3 (3.5-5.0) g/dL Globulin 2.7 (1.7-4.1) g/dL Albumin/Globulin Ratio 1.6 (1.0-2.8) Procalcitonin 0.05 (<0.5) ng/mL Urine Color Urine Appearance Urine pH (4.5-8.0) Ur Specific [place] (1.000-1.035) Urine Protein (Negative) Urine Glucose (UA) (Negative) g/dL Urine Ketones (NEGATIVE) Urine Occult Blood (Negative) Urine Nitrate (Negative) Urine Bilirubin (NEGATIVE) Urine Urobilinogen (0.2) E.U./dL Ur Leukocyte Esterase (NEGATIVE) Urine RBC (0-5/HPF) Urine WBC (0-5/HPF) Urine Bacteria (None) Ur Culture Indicated? Micro UA Comment Chlamy pneumoniae PCR (Not Detect) Adenovirus (PCR) (Not Detect) B.parapertussis DNA PCR (Not Detect) Coronavirus OC43 (PCR) (Not Detect) Coronavirus HKU1 (PCR) (Not Detect) Coronavirus 229E (PCR) (Not Detect) Coronavirus NL63 (PCR) (Not Detect) Human Metapneumovir PCR (Not Detect) Influenza Type A (PCR) (Not Detect) Influenza Type B (PCR) (Not Detect) M. pneumoniae (PCR) (Not Detect) Parainfluenza 1 (PCR) (Not Detect) Parainfluenza 2 (PCR) (Not Detect) Parainfluenza 3 (PCR) (Not Detect) Parainfluenza 4 (PCR) (Not Detect) RSV (PCR) (Not Detect) Entero/Rhino (PCR) (Not Detect) 09/28/18 09/28/18 09/29/18 Range/Units 21:00 23:00 00:18 WBC (4.5-11.0) X10^3/uL RBC (4.5-5.9) X10^6/uL Hgb (13.5-17.5) g/dL Hct (41-53) % MCV (80-100) fL MCH (26-34) PG MCHC (30-36) % RDW (11.6-14.8) % Plt Count (150-400) X10^3/uL Neut % (Auto) (50-75) % Lymph % (Auto) (25-40) % Cottle % (Auto) (3-14) % Eos % (Auto) (2-4) % Baso % (Auto) (0-2) % Neut # (Auto) (6891-4994) /uL Lymph # (Auto) (9453-0080) /uL Cottle # (Auto) (0-900) /uL Eos # (Auto) (0-450) /uL Baso # (Auto) (0-100) /uL PT (10.1-12.7) SECONDS INR (0.9-1.3) APTT (26.4-36.2) SECONDS ABG pH 7.42 (7.35-7.45) ABG pCO2 43.5 (35-45) mmHg ABG pO2 61 L (80-100) mmHg ABG HCO3 28 H (22-26) mmol/L ABG Total CO2 30 (21-31) mmol/L ABG O2 Saturation 91 L (95-100) % ABG Base Excess 4.0 H (-2-2) mmol/L FiO2 21 Sodium (137-145) mmol/L Potassium (3.4-5.1) mmol/L Chloride (98-107) mmol/L Carbon Dioxide (22-32) mmol/L BUN (9-20) mg/dL Creatinine (0.66-1.25) mg/dL Estimated GFR (>60) mL/min BUN/Creatinine Ratio (6-22) Glucose (80-110) mg/dL Lactate 2.0 (0.7-2.1) mmol/L Calcium (8.4-10.2) mg/dL Total Bilirubin (0.2-1.3) mg/dL AST (17-59) IU/L ALT (21-72) IU/L Alkaline Phosphatase (38-126) U/L B-Natriuretic Peptide (<100) Total Protein (6.3-8.2) g/dL Albumin (3.5-5.0) g/dL Globulin (1.7-4.1) g/dL Albumin/Globulin Ratio (1.0-2.8) Procalcitonin (<0.5) ng/mL Urine Color Yellow Urine Appearance Clear Urine pH 6.0 (4.5-8.0) Ur Specific [place] 1.015 (1.000-1.035) Urine Protein Negative (Negative) Urine Glucose (UA) Negative (Negative) g/dL Urine Ketones Negative (NEGATIVE) Urine Occult Blood Negative (Negative) Urine Nitrate Negative (Negative) Urine Bilirubin Negative (NEGATIVE) Urine Urobilinogen 0.2 (0.2) E.U./dL Ur Leukocyte Esterase Negative (NEGATIVE) Urine RBC None seen (0-5/HPF) Urine WBC None seen (0-5/HPF) Urine Bacteria None seen (None) Ur Culture Indicated? Cult not indicated Micro UA Comment Microscopic normal Chlamy pneumoniae PCR (Not Detect) Adenovirus (PCR) (Not Detect) B.parapertussis DNA PCR (Not Detect) Coronavirus OC43 (PCR) (Not Detect) Coronavirus HKU1 (PCR) (Not Detect) Coronavirus 229E (PCR) (Not Detect) Coronavirus NL63 (PCR) (Not Detect) Human Metapneumovir PCR (Not Detect) Influenza Type A (PCR) (Not Detect) Influenza Type B (PCR) (Not Detect) M. pneumoniae (PCR) (Not Detect) Parainfluenza 1 (PCR) (Not Detect) Parainfluenza 2 (PCR) (Not Detect) Parainfluenza 3 (PCR) (Not Detect) Parainfluenza 4 (PCR) (Not Detect) RSV (PCR) (Not Detect) Entero/Rhino (PCR) (Not Detect) 09/29/18 Range/Units 00:35 WBC (4.5-11.0) X10^3/uL RBC (4.5-5.9) X10^6/uL Hgb (13.5-17.5) g/dL Hct (41-53) % MCV (80-100) fL MCH (26-34) PG MCHC (30-36) % RDW (11.6-14.8) % Plt Count (150-400) X10^3/uL Neut % (Auto) (50-75) % Lymph % (Auto) (25-40) % Cottle % (Auto) (3-14) % Eos % (Auto) (2-4) % Baso % (Auto) (0-2) % Neut # (Auto) (3891-9502) /uL Lymph # (Auto) (9279-0498) /uL Cottle # (Auto) (0-900) /uL Eos # (Auto) (0-450) /uL Baso # (Auto) (0-100) /uL PT (10.1-12.7) SECONDS INR (0.9-1.3) APTT (26.4-36.2) SECONDS ABG pH (7.35-7.45) ABG pCO2 (35-45) mmHg ABG pO2 (80-100) mmHg ABG HCO3 (22-26) mmol/L ABG Total CO2 (21-31) mmol/L ABG O2 Saturation (95-100) % ABG Base Excess (-2-2) mmol/L FiO2 Sodium (137-145) mmol/L Potassium (3.4-5.1) mmol/L Chloride (98-107) mmol/L Carbon Dioxide (22-32) mmol/L BUN (9-20) mg/dL Creatinine (0.66-1.25) mg/dL Estimated GFR (>60) mL/min BUN/Creatinine Ratio (6-22) Glucose (80-110) mg/dL Lactate (0.7-2.1) mmol/L Calcium (8.4-10.2) mg/dL Total Bilirubin (0.2-1.3) mg/dL AST (17-59) IU/L ALT (21-72) IU/L Alkaline Phosphatase (38-126) U/L B-Natriuretic Peptide (<100) Total Protein (6.3-8.2) g/dL Albumin (3.5-5.0) g/dL Globulin (1.7-4.1) g/dL Albumin/Globulin Ratio (1.0-2.8) Procalcitonin (<0.5) ng/mL Urine Color Urine Appearance Urine pH (4.5-8.0) Ur Specific [place] (1.000-1.035) Urine Protein (Negative) Urine Glucose (UA) (Negative) g/dL Urine Ketones (NEGATIVE) Urine Occult Blood (Negative) Urine Nitrate (Negative) Urine Bilirubin (NEGATIVE) Urine Urobilinogen (0.2) E.U./dL Ur Leukocyte Esterase (NEGATIVE) Urine RBC (0-5/HPF) Urine WBC (0-5/HPF) Urine Bacteria (None) Ur Culture Indicated? Micro UA Comment Chlamy pneumoniae PCR Not detected (Not Detect) Adenovirus (PCR) Not detected (Not Detect) B.parapertussis DNA PCR Not detected (Not Detect) Coronavirus OC43 (PCR) Not detected (Not Detect) Coronavirus HKU1 (PCR) Not detected (Not Detect) Coronavirus 229E (PCR) Not detected (Not Detect) Coronavirus NL63 (PCR) Not detected (Not Detect) Human Metapneumovir PCR Not detected (Not Detect) Influenza Type A (PCR) Not detected (Not Detect) Influenza Type B (PCR) Not detected (Not Detect) M. pneumoniae (PCR) Not detected (Not Detect) Parainfluenza 1 (PCR) Not detected (Not Detect) Parainfluenza 2 (PCR) Not detected (Not Detect) Parainfluenza 3 (PCR) Not detected (Not Detect) Parainfluenza 4 (PCR) Not detected (Not Detect) RSV (PCR) Not detected (Not Detect) Entero/Rhino (PCR) Not detected (Not Detect) Urine Dip Bedside Urine Glucose Negative Bedside Urine Bilirubin - Negative Bedside Urine Ketone - Negative Urine Specific [place] 1.020 Bedside Urine Occult Blood - Negative Bedside Urine pH 6.0 Bedside Urine Protein - Negative Bedside Urine Urobilinogen - Negative Bedside Urine Nitrite - Negative Bedside Urine Leukocytes - Negative Esterase Imaging Data Chest x-ray: Radiologist's impression: [address] [address] XRay Report Signed Patient: Eleno Sol R#: [id number] : 5Acct:[id number] Age/Sex: 72 / MDate of Service: 09/28/18 Loc: ED Accession Number: [id number] Procedure: XR chest 1V Ordering Provider: Robel Chen D.O. PROCEDURE: XR CHEST 1V INDICATIONS: shortness of breath, cough, fever TECHNIQUE: One view of the chest was acquired. COMPARISON: [facility], , XR CHEST 1V, 07/15/2018, 9:20. FINDINGS: Surgical changes and devices: None. Lungs and pleura: Moderate bilateral perihilar opacity. No pleural effusions or pneumothorax. Mediastinum: Mediastinal contours appear normal. Heart size is normal. Bones and chest wall: No suspicious bony lesions. Overlying soft tissues appear unremarkable. IMPRESSION: Moderate atypical pneumonia. Dictated by: López Gonzales M.D. on 09/28/2018 at 20:20 Approved by: López Gonzales M.D. on 09/28/2018 at 20:21 Discharge Plan Departure Patient Disposition: Admitted As Inpatient Clinical Impression: Acute and chronic respiratory failure with hypoxia Community acquired pneumonia Qualifiers: Laterality: unspecified laterality Qualified Code(s): J18.9 - Pneumonia, unspecified organism Discharge Date/Time: 05/20/19 22:43 Interventions: ED Discharge Assessment Last Done: 09/28/18 22:42 Admit Date/Time: 09/28/18 21:51 Admit Provider: Francisco Rodgers
[2018-09-28 20:49] LABS: Add Manual Diff / Slide Review NO; Basophils Absolute Auto 0 /uL (0-100); Basophils Percent Auto 0.3 % (0-2); Eosinophils Absolute Auto 0 /uL (0-450); Eosinophils Percent Auto 0.1 % (2-4); Hemoglobin 9.3 g/dL (13.5-17.5); Lymphocytes Absolute Auto 800 /uL (1100-4500); Lymphocytes Percent Auto 12.2 % (25-40); Mean Corpuscular HGB Conc 33.3 % (30-36); Mean Corpuscular Volume 102.2 fL (80-100); Monocytes Absolute Auto 500 /uL (0-900); Monocytes Percent Auto 7.4 % (3-14); Neutrophils Absolute Auto 5200 /uL (1500-7000); Platelet Count 160 X10^3/uL (150-400); Red Blood Cell Count 2.74 X10^6/uL (4.5-5.9); Red Cell Distribution Width 14.2 % (11.6-14.8); White Blood Cell Count 6.5 X10^3/uL (4.5-11.0)
[2018-09-28 20:53] LABS: INR 0.9 (0.9-1.3); Prothrombin Time 10.7 SECONDS (10.1-12.7)
[2018-09-28 20:56] LABS: PTT Partial Thromboplastin Tim 28 SECONDS (26.4-36.2)
[2018-09-28 20:58] LABS: Lactate (Lactic Acid) 2.7 mmol/L (0.7-2.1)
[2018-09-28 21:01] LABS: Albumin 4.3 g/dL (3.5-5.0); Albumin Globulin Ratio 1.6 (1.0-2.8); Alkaline Phosphatase 66 U/L (38-126); Aspartate Aminotransferase 24 IU/L (17-59); BUN Creatinine Ratio 24.7 (6-22); Bilirubin Total 0.6 mg/dL (0.2-1.3); Blood Urea Nitrogen 37 mg/dL (9-20); Calcium 9.3 mg/dL (8.4-10.2); Carbon Dioxide 31 mmol/L (22-32); Chloride 97 mmol/L (98-107); Estimated Glomerular Filt Rate 45.9 mL/min (>60); Globulin 2.7 g/dL (1.7-4.1); Glucose 104 mg/dL (80-110); HEMOLYSIS < 15 (0-50); Sodium 138 mmol/L (137-145)
[2018-09-28 21:05] LABS: B Type Natriuretic Peptide < 100 (<100)
[2018-09-28 21:11] LABS: Alanine Aminotransferase 10 IU/L (21-72)
[2018-09-28] MEDS: levoFLOXacin 750 MG/150 ML PIGGYBACK 100 MG IV (21:11)
[2018-09-28 21:14] LABS: Fractionated Inspired Oxygen 21; HCO3 ABG 28 mmol/L (22-26); Oxygen Saturation ABG 91 % (95-100); PCO2 ABG 43.5 mmHg (35-45); PO2 ABG 61 mmHg (80-100); TCO2 ABG 30 mmol/L (21-31); pH ABG 7.42 (7.35-7.45)
--- NOTE | 2018-09-28 21:16 | PC.NURSE ---
drawn by kelly howard
--- NOTE | 2018-09-28 21:16 | PC.NURSE ---
abg drawn by RT.
[2018-09-28 21:18] LABS: Procalcitonin 0.05 ng/mL (<0.5)
[2018-09-28] MEDS: SODIUM CHLORIDE 0.9% 1,000 ML 1000 ML IV (21:44)
[2018-09-28 22:43] LABS: Reflexed Lactate in 2 Hours Y
[2018-09-28 22:45] VITALS: BP 144/65; PULSE 93; RESP 20; TEMP 36.9; O2SAT 98; BMI 28.4
[2018-09-29] VITALS (12 sets, daily range): BP systolic 119–151; BP diastolic 47–84; PULSE 64–92; RESP 17–20; TEMP 36.3–36.6; O2SAT 94–100
[2018-09-29 00:21] LABS: Bacteria Urine None Seen; RBC Urine None Seen (0-5/HPF); WBC Urine None Seen (0-5/HPF)
[2018-09-29 00:33] LABS: Appearance Urine UA CLEAR; Bilirubin Urine UA NEGATIVE (NEGATIVE); Color Urine UA YELLOW; Glucose Urine UA NEGATIVE (Negative); Ketones Urine UA NEGATIVE (NEGATIVE); Leukocyte Esterase Urine UA NEGATIVE (NEGATIVE); Nitrite Urine UA NEGATIVE (Negative); Occult Blood Urine UA NEGATIVE (Negative); Protein Urine UA NEGATIVE (Negative); Specific Gravity Urine UA 1.015 (1.000-1.035); Urobilinogen Urine UA 0.2 E.U./dL (0.2)
[2018-09-29 00:38] LABS: Culture Indicated Urine Cult Not Indicated; Urine Comments Microscopic Normal
[2018-09-29] MEDS: AZITHROMYCIN 250 MG in DEXTROSE 5% IN WATER 250 ML IV (00:45)
[2018-09-29] MEDS: PRAMIPEXOLE 0.25 MG TABLET 0.125 MG PO (00:57)
--- NOTE | 2018-09-29 01:13 | PC.NURSE ---
Addendum entered by Kassie Gallardo R.N. 09/29/18 06:15: Assisted to bathroom with oxygen on. When back to bed and O2 sat monitor replaced O2 sat only 81% but quickly rebounded back to 97%. Addendum entered by Kassie Gallardo R.N. 09/29/18 04:03: Medicated with Oxycodone for complaint of 5/10 chronic back pain. Addendum entered by Kassie Gallardo R.N. 09/29/18 02:45: 0200 Patient requests oxygen be increased to 3L/min per NC as feeling SOB. Had been up to urinate using urinal at bedside and initially O2 sat was 91% but quickly improved to 98% on just 2L/min but increased as per patient request. Original Note: Patient is alert and oriented. Breath sounds diminished bilaterally with inspiratory crackles in right mid/lower lobes and expiratory wheeze in right upper lobe. Oxygen at 2L/min with sat of 98%. HRR; was ST on telemetry at 0000 but HR currently is 88. BP elevated at 151/74. Denies nausea. BT present; has not had BM since 09/25. Senna ordered but unavailable at this time. Has urinary frequency/urgency related to diuretic use but is continent and using urinal at beside. Has Parkinson's with abnormal movements of all extremities related to disease. States he has had no falls and is steady but weak. Fall risk is moderate; patient not happy about being unable to get up by himself to use bathroom but verbalizes understanding. Is able to move self in bed. Noted bruising on all extremities related to use of Prednisone. Has laceration on anterior left lower leg which is stitched and steristripped; no redness or drainage noted. Refused ordered Mayra and Vishal VILLARREAL made aware. Bed alarm is activated.
--- NOTE | 2018-09-29 01:16 | PM.HP.1 ---
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 He has experienced pulmonary complications including pulmonary fibrosis requiring oxygen at night, fungal pneumonia, CMV pneumonia and was diagnosed at [facility] with cryptogenic organizing pneumonia on his last admission on July 10, 2018. At that time he was treated with prednisone which is currently being tapered and azithromycin 250 mg Mondays, Wednesdays and Fridays. He also has a history of Parkinson's, spinal compression fractures related to steroid therapy, perforated 6 sigmoid diverticulum in 2008 resulting in a partial sigmoid resection. At home the patient is typically independent and ambulatory and had progressive dyspnea on exertion with increasing weakness indicating that he has been immobile for the last 2 days. He is on nocturnal oxygen that he has been using continuously at 3 L stating that without oxygen his saturation is in the 80s on pulse ox. The patient is on Lasix 40 mg daily and took an extra 80 mg today related to concern for his dyspnea. He reports having a productive cough with green and clear sputum. He reports he he has had no fevers or chills nasal congestion or sore throat. Margareth sources a history of chronic pleuritic chest pain and has occasional nausea dated to medications but denies abdominal pain. He has no diarrhea instead has constipation related to opiates for which he has some status bowel regimen. On arrival in the ER the patient is found to be afebrile with temperature of 98.1?, tachycardic at 102, blood pressure 140/73, respiratory rate increased at 24 an oxygen saturation of 89% on room air. Chest x-ray reveals moderate atypical pneumonia. His arterial blood gas shows a pH of 7.42, pCO2 of 43.5, PO2 of 61, bicarb 28 with a base excess 4.0. He has an Ellik date that is elevated at 2.7 however is a procalcitonin is 0.05. His BNP is less than 100. His white count is within normal range at 6.5 and anemic with a hemoglobin of 9.3 and hematocrit of 28 with a macrocytic normochromic anemia. Note chemistry is electrolytes are within normal limits every has a BUN of 37 and creatinine of 1.5 which is apparently his baseline with a creatinine clearance level of 48.7. The patient is admitted to the hospital for acute hypoxemic respiratory failure in an immunocompromised patient. Patient History Medical History (Updated 09/29/18 @ 02:37 by CHERELLE Pedroza) Parkinson disease (Chronic) Atrial fibrillation (Acute) Atrial flutter (Acute) Chronic kidney disease, stage III (moderate) (Acute) Elevated PSA (Acute) Fungal pneumonia (Acute) Skin cancer (Acute) CLL (chronic lymphocytic leukemia) (Acute) CMV pneumonia (Acute) Chronic ictdx-mzynpe-nlol disease (Chronic) Cryptogenic organizing pneumonia (Resolved) Surgical History (Updated 09/29/18 @ 02:25 by CHERELLE Pedroza) H/O stem cell transplant (Acute) History of partial colectomy (Acute) History of radiofrequency ablation procedure for cardiac arrhythmia (Acute) Social History household members: spouse Smoking Status: Former smoker alcohol intake: current Family & Social History Social History: household members spouse Prior Living Arrangements House Safety & Behavioral: Feels Safe in Current Yes Environment Been Physically Hurt or No Threatened By a Person Suicidal Ideation Description None Suicide Plan Description No Plan Tobacco & Substance use: Smoking Status Former smoker alcohol intake current alcohol intake frequency a few times a month Substance Use Type does not use Comment: The patient lives in a single-level single family home with his of 50 years. His father also had leukemia and was a smoker and from lung cancer. His mother was healthy but from complications of C difficile. He has a sister who is healthy. Smoking: Patient is a past smoker having quit 35 years ago. Alcohol: Patient endorses 1 glass of wine per month. Substance use: Patient denies recreation pharmaceuticals, verbal or cannabis products. Advanced directive: In direct discussion with the patient he states he wishes to be FULL CODE. He designates his Lilian to be his surrogate decision maker. Meds Home Medications Medication Instructions Recorded Confirmed Type dapsone 50 mg PO BID #0 12/16/16 09/28/18 History montelukast 10 mg PO QPM #0 12/16/16 09/28/18 History pramipexole [Mirapex] 0.125 mg PO BEDTIME #0 12/16/16 09/28/18 History sennosides [senna] 17.2 tab PO BEDTIME #0 12/16/16 09/28/18 History tamsulosin [Flomax] 0.4 mg PO BEDTIME #0 12/16/16 09/28/18 History calcitriol [Rocaltrol] 0.25 mcg PO DAILY #0 12/17/16 09/28/18 History carbidopa-levodopa 1 - 2 tab PO TID #0 12/17/16 09/28/18 History polyethylene glycol 3350 [Miralax] 17 gm PO DAILY PRN #0 12/17/16 09/28/18 History Advair HFA 1 puff INH BID #0 12/19/16 09/28/18 History albuterol sulfate 2 puff INHALATION Q4H PRN 01/19/18 09/28/18 History fluorouracil [Efudex] 1 applic TOPICAL BID PRN 01/19/18 09/28/18 History selegiline HCl 5 mg PO BID 01/19/18 09/28/18 History azithromycin 250 mg PO MOWEFR 07/10/18 09/28/18 History furosemide 40 mg PO QAM 07/10/18 09/28/18 History loratadine 10 mg PO DAILY PRN 07/10/18 09/28/18 History metoprolol succinate 50 mg PO BEDTIME 07/10/18 09/28/18 History nifedipine 30 mg PO QAM 07/10/18 09/28/18 History oxycodone 10 mg PO 1-2XD PRN MDD 20 mg 07/10/18 09/28/18 History prednisone 15 mg PO DAILY 07/10/18 09/28/18 History prochlorperazine maleate 10 mg PO QID PRN 07/10/18 09/28/18 History valacyclovir 500 mg PO BEDTIME 07/10/18 09/28/18 History fluoride (sodium) 1 applic DENTAL BEDTIME 07/15/18 09/28/18 History ipratropium-albuterol 3 ml INHALATION Q6-8H PRN 09/28/18 09/28/18 History Allergies Allergy/AdvReac Type Severity Reaction Status Date / Time diltiazem Allergy Intermediate Hives Verified 09/20/18 17:29 bacitracin [BACITRACIN] Allergy Unknown SKIN Verified 09/20/18 17:29 IRRITATION chlorhexidine [CHLORHEXIDINE] Allergy Unknown SKIN Verified 09/20/18 17:29 IRRITATION rifampin [RIFAMPIN] Allergy Unknown HIVES Verified 09/20/18 17:29 acetaminophen [ACETAMINOPHEN] AdvReac Unknown ABD PAIN Verified 09/20/18 17:29 diphenhydramine AdvReac Unknown EXTREME Verified 09/20/18 17:29 [From BENADRYL] SEDATION Review of Systems Review of Systems All systems reviewed & are unremarkable except as noted in HPI and below Exam Vital Signs (past 8 hours): - 09/28/18 19:55 09/28/18 20:06 09/28/18 20:17 Temperature 98.1 F Pulse Rate 102 H 103 H Respiratory Rate 24 19 Blood Pressure 140/73 Blood Pressure [Right Arm] 151/68 H Pulse Oximetry 89 L 97 96 09/28/18 22:45 09/29/18 00:00 09/29/18 00:28 Temperature 98.4 F 97.5 F L Pulse Rate 93 H 86 92 H Respiratory Rate 20 19 20 Blood Pressure 144/65 H 151/74 H Blood Pressure [Right Arm] Pulse Oximetry 98 95 98 Oxygen Delivery Method Nasal Cannula Oxygen Flow Rate 2 Narrative Exam Narrative: GENERAL APPEARANCE: well developed, well nourished, afebrile and in no acute distress. HEAD: Involuntary head movements, symmetrical facies, reduced facial expressions. EYES: pupils equal, round, reactive to light and accommodation, sclera non-icteric, extraocular movement intact without nystagmus. EARS: normal external structures, no ear pain NOSE: sinuses non tender to percussion, no rhinorrhea ORAL CAVITY: mucosa moist without lesions or exudate, palate normal, tongue in midline. THROAT: normal, no erythema, no exudate, pharynx normal, uvula midline. NECK/THYROID: neck supple, no jugular venous distention, no carotid bruit, no thyromegaly, trachea midline. LYMPH NODES: no cervical or supraclavicular lymphadenopathy. SKIN: warm and dry, no suspicious lesions, no rashes, good turgor. HEART: regular rate and rhythm, S1-S2, 1/6 systolic murmur, no rubs or gallops, brisk capillary refill, no pedal edema. LUNGS: Breath sounds with bilateral coarseness and faint crackles without wheezing, no cough present with deep inspirations. CHEST: Symmetrical movement, shallow respirations, no retractions or accessory muscle use, mild right chest wall pain on lateral compression. ABDOMEN: Soft, round, tympanic to percussion, no epigastric or abdominal tenderness on palpation, no guarding or peritoneal signs, no organomegaly, no flank or suprapubic tenderness, active bowel tones. BACK: Kyphotic, no palpable muscle spasms EXTREMITIES: Frequent gross motor involuntary movements, moves all extremities, strength is 5/5 and symmetrical, well perfused. NEUROLOGIC: AAO x4, involuntary movements of head, trunk and extremities, cranial nerves II-XII grossly intact , motor strength normal upper and lower extremities, sensory exam intact to light touch, hearing grossly normal to speech. PSYCH: alert, cooperative and cognitive function intact, good eye contact, stable mood with congruent affect Objective Labs Result Diagrams: 09/28/18 20:35 09/28/18 20:35 Labs: Laboratory Results - last 24 hr 09/28/18 09/28/18 09/28/18 20:35 20:35 20:35 WBC 6.5 RBC 2.74 L Hgb 9.3 L Hct 28.0 L MCV 102.2 H MCH 34.0 MCHC 33.3 RDW 14.2 Plt Count 160 Neut % (Auto) 80.0 H Lymph % (Auto) 12.2 L [place] % (Auto) 7.4 Eos % (Auto) 0.1 L Baso % (Auto) 0.3 Neut # (Auto) 5200 Lymph # (Auto) 800 L [place] # (Auto) 500 Eos # (Auto) 0 Baso # (Auto) 0 PT 10.7 INR 0.9 APTT 28 ABG pH ABG pCO2 ABG pO2 ABG HCO3 ABG Total CO2 ABG O2 Saturation ABG Base Excess FiO2 Sodium Potassium Chloride Carbon Dioxide BUN Creatinine Estimated GFR BUN/Creatinine Ratio Glucose Lactate Calcium Total Bilirubin AST ALT Alkaline Phosphatase B-Natriuretic Peptide < 100 Total Protein Albumin Globulin Albumin/Globulin Ratio Procalcitonin Urine Color Urine Appearance Urine pH Ur Specific [place] Urine Protein Urine Glucose (UA) Urine Ketones Urine Occult Blood Urine Nitrate Urine Bilirubin Urine Urobilinogen Ur Leukocyte Esterase Urine RBC Urine WBC Urine Bacteria Ur Culture Indicated? Micro UA Comment 09/28/18 09/28/18 09/28/18 20:35 20:35 20:35 WBC RBC Hgb Hct MCV MCH MCHC RDW Plt Count Neut % (Auto) Lymph % (Auto) [place] % (Auto) Eos % (Auto) Baso % (Auto) Neut # (Auto) Lymph # (Auto) [place] # (Auto) Eos # (Auto) Baso # (Auto) PT INR APTT ABG pH ABG pCO2 ABG pO2 ABG HCO3 ABG Total CO2 ABG O2 Saturation ABG Base Excess FiO2 Sodium 138 Potassium 4.0 Chloride 97 L Carbon Dioxide 31 BUN 37 H Creatinine 1.50 H Estimated GFR 45.9 L BUN/Creatinine Ratio 24.7 H Glucose 104 Lactate 2.7 H Calcium 9.3 Total Bilirubin 0.6 AST 24 ALT 10 L Alkaline Phosphatase 66 B-Natriuretic Peptide Total Protein 7.0 Albumin 4.3 Globulin 2.7 Albumin/Globulin Ratio 1.6 Procalcitonin 0.05 Urine Color Urine Appearance Urine pH Ur Specific [place] Urine Protein Urine Glucose (UA) Urine Ketones Urine Occult Blood Urine Nitrate Urine Bilirubin Urine Urobilinogen Ur Leukocyte Esterase Urine RBC Urine WBC Urine Bacteria Ur Culture Indicated? Micro UA Comment 09/28/18 09/28/18 09/29/18 21:00 23:00 00:18 WBC RBC Hgb Hct MCV MCH MCHC RDW Plt Count Neut % (Auto) Lymph % (Auto) [place] % (Auto) Eos % (Auto) Baso % (Auto) Neut # (Auto) Lymph # (Auto) [place] # (Auto) Eos # (Auto) Baso # (Auto) PT INR APTT ABG pH 7.42 ABG pCO2 43.5 ABG pO2 61 L ABG HCO3 28 H ABG Total CO2 30 ABG O2 Saturation 91 L ABG Base Excess 4.0 H FiO2 21 Sodium Potassium Chloride Carbon Dioxide BUN Creatinine Estimated GFR BUN/Creatinine Ratio Glucose Lactate 2.0 Calcium Total Bilirubin AST ALT Alkaline Phosphatase B-Natriuretic Peptide Total Protein Albumin Globulin Albumin/Globulin Ratio Procalcitonin Urine Color Yellow Urine Appearance Clear Urine pH 6.0 Ur Specific [place] 1.015 Urine Protein Negative Urine Glucose (UA) Negative Urine Ketones Negative Urine Occult Blood Negative Urine Nitrate Negative Urine Bilirubin Negative Urine Urobilinogen 0.2 Ur Leukocyte Esterase Negative Urine RBC None seen Urine WBC None seen Urine Bacteria None seen Ur Culture Indicated? Cult not indicated Micro UA Comment Microscopic normal Assessment & Plan Assessment & Plan narrative: The patient is admitted to the hospital for acute respiratory failure with findings of atypical pneumonia in an immunocompromised patient. 1. Acute respiratory failure. -acute respiratory failure manifested by pulse oximetry of 89% and respiratory rate of 24 upon arrival to the emergency room. -patient with progressive symptoms over the previous 3 days, pulse oximetry at home his off oxygen has been in the mid 80s per patient report -he is typically on nocturnal oxygen at 2 L but has been using oxygen nasal cannula at 3 L continuously. -progressive weakness and debility related to dyspnea on exertion. -respiratory therapy to evaluate and treat, oxygen to maintain saturation greater than 92%. -DuoNeb every 6 hours as needed with albuterol every 2 hours as needed. 2. Acute pneumonia, present on admission. -chest x-ray identifies atypical pneumonia. -patient with elevated lactate at 2.7 and procalcitonin negative at 0.05. -patient started on Levaquin 750 mg which will be renally dosed every 48 hours due to reduced creatinine clearance of 48.7 -patient has previously been on azithromycin 250 mg Wednesdays, will dose azithromycin 500 mg daily for 3 days. -will continue patient's prednisone 15 mg daily and valacyclovir 500 mg daily. -will recheck CBC and procalcitonin, recheck lactic per protocol until less than 2. -will obtain respiratory panel related to patient's complex pulmonary history. 3. Chronic Gwpgw-enmsiu-aqpm disease -previous complications involving mouth, esophagus, GI and skin symptoms, no complaints in evidence on exam. -patient has been previously had been treated with tacrolimus which was DC due to toxicities, previously on methotrexate which tapered off in 2014. -continue current prednisone dose of 15 mg daily. -continue prophylaxis with valacyclovir 500 mg nightly and dapsone 50 mg twice daily 4. Chronic kidney disease, stage 3, present on admission. -BUN is 37 with creatinine level at 1.5 which according to records is approximately patient's baseline renal function. -patient is on furosemide 40 mg daily and took extra dose of 80 mg today. -medications are renally dosed as needed -will monitor renal function. 5. Parkinson's disease, active -patient with frequent gross motor involuntary movement of head and extremities -patient denies difficulty chewing or swallowing. -continue carbidopa levodopa 25/100 mg 1-1/2 tablets 3 times daily. -continue Mirapex 0.125 mg at bedtime. -continue selegiline 5 mg twice daily. -will consider swallow evaluation for occult microaspiration. 6. Chronic Atrial flutter, active -patient is status post ablation on 06/25/2017. -regular rhythm on exam -continue nifedipine 30 mg daily The patient is admitted to the hospital due to severity symptoms and risk for complications and adverse events. The patient is admitted as an inpatient with expected length of stay greater than 2 midnights. Quality VTE Deep Vein Thrombosis/Pulmonary Embolism Present on Admission: No
[2018-09-29 01:51] LABS: Adenovirus Not Detected (Not Detect); Bordetella pertussis Not Detected (Not Detect); Chlamydophila pneumoniae Not Detected (Not Detect); Coronavirus 229E Not Detected (Not Detect); Coronavirus HKU1 Not Detected (Not Detect); Coronavirus NL 63 Not Detected (Not Detect); Coronavirus OC43 Not Detected (Not Detect); Human Metapneumovirus Not Detected (Not Detect); Human Rhinovirus/Enterovirus Not Detected (Not Detect); Influenza A Not Detected (Not Detect); Influenza B Not Detected (Not Detect); Mycoplasma pneumoniae Not Detected (Not Detect); Parainfluenza Virus 1 Not Detected (Not Detect); Parainfluenza Virus 2 Not Detected (Not Detect); Parainfluenza Virus 3 Not Detected (Not Detect); Parainfluenza Virus 4 Not Detected (Not Detect); Respiratory Syncytial Virus Not Detected (Not Detect)
[2018-09-29] MEDS: OXYCODONE IR 10 MG TABLET PO ×3 (03:56→20:27)
[2018-09-29 06:05] LABS: Hematocrit 27.4 % (41-53); Hemoglobin 9.1 g/dL (13.5-17.5); Mean Corpuscular Hemoglobin 33.9 PG (26-34); Mean Corpuscular Volume 102.6 fL (80-100); Platelet Count 132 X10^3/uL (150-400); Red Blood Cell Count 2.67 X10^6/uL (4.5-5.9); Red Cell Distribution Width 14.3 % (11.6-14.8); White Blood Cell Count 5.6 X10^3/uL (4.5-11.0)
[2018-09-29 06:07] LABS: Blood Urea Nitrogen 33 mg/dL (9-20); Calcium 8.8 mg/dL (8.4-10.2); Carbon Dioxide 34 mmol/L (22-32); Chloride 97 mmol/L (98-107); Estimated Glomerular Filt Rate 45.9 mL/min (>60); Glucose 85 mg/dL (80-110); HEMOLYSIS < 15 (0-50); Potassium 3.8 mmol/L (3.4-5.1); Sodium 137 mmol/L (137-145)
[2018-09-29 06:09] LABS: Add Manual Diff / Slide Review YES
[2018-09-29 06:26] LABS: Neutrophils Absolute Manual 3584 /uL (3000-5900); Total Cells Counted 100
[2018-09-29 06:28] LABS: Macrocytosis 1+; Procalcitonin 0.06 ng/mL (<0.5)
[2018-09-29] MEDS: DAPSONE 100 MG TABLET 50 MG PO ×2 (09:31→20:13)
[2018-09-29] MEDS: NIFEdipine 30 MG TAB ER PO (09:32)
[2018-09-29] MEDS: FUROSEMIDE 40 MG TABLET PO (09:32)
[2018-09-29] MEDS: predniSONE 5 MG TABLET 15 MG PO (09:32)
[2018-09-29] MEDS: SODIUM CHLORIDE 0.9% FLUSH 10 ML IV ×3 (09:33→20:15)
[2018-09-29] MEDS: POLYETHYLENE GLYCOL 3350 17 GM POWD.PACK PO (09:35)
[2018-09-29] MEDS: PROCHLORPERAZINE 5 MG TABLET 10 MG PO (09:38)
--- NOTE | 2018-09-29 10:24 | CM.DANOTE ---
DCP: Case received, EMR reviewed and met with patient. Introduced self and role. Obtained baseline information regarding baseline living conditions and health from patient. DCP template updated with information currently available. Patient is a 72 year old male who admitted yesterday evening to the care of the hospitalist team. PCP: Dr. Elias Payer: confirmed: Medicare/[facility]. Patient came to hospital with complaints of increased shortness of breath, and congestion, a well as acute hypoxemic resp. failure. Patient holds diagnosis of Pneumonia. Patient is immunocompromised, and was recently at hospital in [place]. He has history of bone marrow stem cell transplant, as well as Parkinsons. Met with patient in room. Alert and oriented. Some tremors noted. He resides in [place] with his spouse, Constance. He stated that he still drives, and is independent at home. He has seen other specialist doctors, he has complex medical history. P: DCP to follow closely. Will see how he progresses here in hospital. He does not have P.T. orders at this time, but if needed, will consult with hospitalist, before discharging home. Macrina Castellon RN/Loan Teller
[2018-09-29] MEDS: AZITHROMYCIN 500 MG in DEXTROSE 5% IN WATER 250 ML IV (11:27)
[2018-09-29] MEDS: SODIUM CHLORIDE 0.9% 250 ML 21 ML IV (11:30)
--- NOTE | 2018-09-29 12:11 | PT.IIE ---
Surgical History (Last Reviewed 09/29/18 @ 04:01 by Robel Chen DO) H/O stem cell transplant (Acute) History of partial colectomy (Acute) History of radiofrequency ablation procedure for cardiac arrhythmia (Acute) Medical History (Last Reviewed 09/29/18 @ 04:01 by Robel Chen DO) Parkinson disease (Chronic) Atrial fibrillation (Acute) Atrial flutter (Acute) Chronic kidney disease, stage III (moderate) (Acute) Elevated PSA (Acute) Fungal pneumonia (Acute) Skin cancer (Acute) CLL (chronic lymphocytic leukemia) (Acute) CMV pneumonia (Acute) Chronic tniti-etyfzb-niir disease (Chronic) Cryptogenic organizing pneumonia (Resolved) Physical Therapy Inpatient Evaluation/Re-Eval M1 PT/OT-IP Prior Functional Status Start: 09/29/18 10:28 Freq: NEEDED Status: Active Protocol: Document 09/29/18 10:28 WYATT (Rec: 09/29/18 11:17 WYATT [id number]) Medical Review Prior Functional Status Medical History Reviewed Yes Diet/Fluid Consistency Regular Communication Normal Mobility and Gait Independent in all indoor and few distance for outdoor with no used of AD. No fall in the past six months Activities of Daily Living and IADL's Indep in all personal care Prior Functional Level (Other details) Lives with his on single level house. Social History Household Members spouse Living Arrangements House Number of Floors (Floors) One Floor Number of Stairs To Enter/Railing? No stairs Home Environment Standard Height Toilet M2 PT-IP Current Condition Start: 09/29/18 10:28 Freq: NEEDED Status: Active Protocol: Document 09/29/18 10:28 EA (Rec: 09/29/18 11:17 WYATT [id number]) Physical Therapy Current Condition Weight Bearing Status Weight Bearing Status Full Weight Bearing M3 PT-IP Subjective Start: 09/29/18 10:28 Freq: NEEDED Status: Active Protocol: Document 09/29/18 10:28 EA (Rec: 09/29/18 11:17 EA [id number]) Subjective Physical Therapy Visit Type Type Initial Evaluation Visit Start Time 09:00 Visit Stop Time 09:45 Total Visit Minutes 40 Physical Therapy Visit Comments Patient Comments I am pretty much independent a week ago. Patient Goals Patient would like to get back previous level of independence. Therapy Pain Assessment Pain When Pain Assessed At Rest Pain Present Pain Present Pain Reported Location Left Medial Distal Foot Intensity 4 Scale Used Numeric (1 - 10) Description Acute Pressure Lower Back Intensity 4 Description Acute M4 PT-IP Mobility and Gait Start: 09/29/18 10:28 Freq: NEEDED Status: Active Protocol: Document 09/29/18 10:28 EA (Rec: 09/29/18 11:17 EA [id number]) PT-Bed Mobility Assessment Supine to Sit Supine to Sit Standby Assistance Sit to Supine Sit to Supine Standby Assistance Scooting Scooting to Edge of Bed Standby Assistance PT-Transfer Assessment Sit to and From Stand Sit to and from Stand Standby Assistance Equipment Transfer Assistive Device Gait Belt Transfers Transfer Destination Bed Toilet Transfer Technique stepping Transfer Ability Level of Assist Standby Assistance Contact Guard Assistance Gait Assessment Gait Gait Assistance Required: Contact Guard Assist Distance (Feet) 20 Able to Maintain Weight Bearing Status Yes During Gait Assistive Devices Assistive Device Gait Belt Gait Deviations General Gait Pattern Wide Based Gait Factors Limiting Gait Function Factors Limiting Gait Function Decreased Activity Tolerance Incoordination Pain Poor Balance Comments Gait Comments Requires frequent rests due to SOB. PT-Balance Assessment Sitting Balance and Reactions Static Sitting Balance Ability Good Dynamic Sitting Balance Ability Good Standing Balance and Reactions Static Standing Balance Ability Good Dynamic Standing Balance Ability Fair M5 PT-IP Objective Assessments Start: 09/29/18 10:28 Freq: NEEDED Status: Active Protocol: Document 09/29/18 10:28 EA (Rec: 09/29/18 11:17 EA [id number]) Orientation Orientation/Cognition Level of Alertness Alert Orientation Name Age Month Language Function Ability No Deficits Noted Safety Awareness Understands Safety Issues Memory Description No Deficits Noted Gross Range of Motion Upper Extremity ROM Assessment Within Functional Limits Lower Extremity ROM Assessment Within Functional Limits Strength Upper Extremity Strength Assessment Within Functional Limits Lower Extremity Strength Assessment Left Impaired Ankle Wound with good healing just above medial ankle joint. Ankle pain Coordination Assessment Gross Coordination Gross Coordination Impaired Assessment Finger to Nose Test Minimal Impairment Pronation/Supination Test Minimal Impairment Foot Tapping Test Minimal Impairment Heel on Hutchins Test Minimal Impairment Coordination Comments generalized involuntary movements Sensation Assessment Sensation Gross Sensation WNL Light Touch Intact M6 PT-IP Treatment Start: 09/29/18 10:28 Freq: NEEDED Status: Active Protocol: Document 09/29/18 10:28 EA (Rec: 09/29/18 11:17 EA [id number]) Physical Therapy Treatment Education Education Provided Precautions Safety M7 PT-IP Assessment and Plan Start: 09/29/18 10:28 Freq: NEEDED Status: Active Protocol: Document 09/29/18 10:28 WYATT (Rec: 09/29/18 11:17 EA [id number]) PT Summary Assessment and Plan Potential Rehabilitation Potential Good Status of Condition at Evaluation Stable Summary Impairments Pain Strength Balance Coordination Bed Mobility Transfers Gait Activity Tolerance Assessment Summary Pt demonstrates slight decreased level of independence as to transfers and ambulation due to generalized weakness, left ankle pain and respiratory issues and that requires assistance at this time for safety. Pt demonstrates good potential for recovery and will benefit with skilled PT. Goals Bed Mobility Goal Independent Transfer Goal Independent Gait Goal Independent Gait Distance 200 ft level surfaces Days to Meet Goals 3 Frequency of Treatment Frequency Of Treatment Twice a Day Treatment Plan Physical Therapy Treatment Plan Bed Mobility Training Transfer Training Gait Training Therapeutic Exercise Balance Retraining Neuromuscular Re-ed Coordination Retraining Other Recommendations and Next Treatment Distance ambulation with O@ Focus support or as needed. AD during ambulation as needed Recommendations To Nursing Amount of Assist Needed Standby Assistance Discharge Recommendations PT Discharge Recommendations Home with Assistance
[2018-09-29] MEDS: SELEGILINE 5 MG CAPSULE PO (14:21)
[2018-09-29] MEDS: CARBIDOPA-LEVODOPA 25/100 TABLET 1.5 EACH PO ×2 (14:21→20:13)
--- NOTE | 2018-09-29 15:00 | OT.IP.EVAL ---
Current Diagnoses Pneumonia, unspecified organism (09/28/18) Past Medical History (Last Reviewed 09/29/18 @ 04:01 by Robel Chen DO) Parkinson disease (Chronic) Atrial fibrillation (Acute) Atrial flutter (Acute) Chronic kidney disease, stage III (moderate) (Acute) Elevated PSA (Acute) Fungal pneumonia (Acute) Skin cancer (Acute) CLL (chronic lymphocytic leukemia) (Acute) CMV pneumonia (Acute) Chronic [id number]-erie disease (Chronic) Cryptogenic organizing pneumonia (Resolved) Surgical History (Last Reviewed 09/29/18 @ 04:01 by Robel Chen DO) H/O stem cell transplant (Acute) History of partial colectomy (Acute) History of radiofrequency ablation procedure for cardiac arrhythmia (Acute) Occupational Therapy Inpatient Evaluation/Re-Eval M1 PT/OT-IP Prior Functional Status Start: 09/29/18 10:28 Freq: NEEDED Status: Active Protocol: Document 09/29/18 15:00 LYLE (Rec: 09/30/18 08:33 GITA [id number]) Medical Review Prior Functional Status Medical History Reviewed Yes Diet/Fluid Consistency Regular Communication WNL Mobility and Gait Pt states he is independent in all indoor and few distance for outdoor with no used of AD . Pt denies falls in the past six months; confirms this . Activities of Daily Living and IADL's Pt independent with all self care, except occasionally assists with buttons and socks if dyskinesia worse than usual. does all IADLS and manages pt's medications and finances. Prior Functional Level (Other details) Pt drives when feeling well, but has not driven for past 6 weeks due to illness. drives. Social History Household Members spouse Living Arrangements House Number of Floors (Floors) One Floor Number of Stairs To Enter/Railing? None Home Environment Standard Height Toilet Walk in Shower Built-In Shower Seat Home Equipment Front Wheel Walker Straight Cane Hand Held Shower Black Belt Sock Aid Grab Bars In Shower Employment Status Retired Additional Social History Comment pt plans to install grab bar by toilet M2 OT-IP Current Condition Start: 09/30/18 08:10 Freq: Status: Active Protocol: Document 09/29/18 15:00 PJFlor (Rec: 09/30/18 08:33 [facility] [id number]) Occupational Therapy Current Condition Current Condition Evaluation Date 09/29/18 Treatment Diagnosis decreased act dane,self care, mobility w/ DX: atypical pneumonia Diagnosis Onset Date 09/28/18 Post Operative Precautions Other Precautions fall risk due to Parkinsons M3 OT- IP Subjective and Pain Start: 09/30/18 08:10 Freq: Status: Active Protocol: Document 09/29/18 15:00 PJM (Rec: 09/30/18 08:33 PJ [id number]) OT- Subjective Occupational Therapy Visit Type Type Initial Evaluation Visit Start Time 14:24 Visit Stop Time 15:00 Total Visit Minutes 36 Notes Pt's here this session. Occupational Therapy Visit Comments Patient Comments I want to be able to walk to bathroom by myself, especially with all this Lasix I am taking. Patient/Caregiver Goals to go home OT Pain Assessment Pain When Pain Assessed After Treatment Pain Present Pain Present Pain Reported Location Lower Back Intensity 4 Description Chronic Management Techniques Distraction Timing of Activity with Medications M4 OT- IP ADL's Start: 09/30/18 08:10 Freq: Status: Active Protocol: Document 09/29/18 15:00 PJM (Rec: 09/30/18 08:33 PJ [id number]) OT [id number] General Evaluation Self-Feeding Ability Independent OT ADL-Grooming General Evaluation Grooming Ability Independent Comments OT Grooming Comments standing at sink to wash hands OT ADL-Oral Care Comments Oral Care Comments pt declined this session OT ADL-Dressing General Eval Upper Body Dressing Ability Independent Lower Body Dressing Ability Minimal Assistance Areas Needing Assistance Socks Comments OT Dressing Comments Pt normally stands leaning against wall in bathroom to don socks and get pants over feet, has sock aid but has not been using it recently. Provided education re: high fall risk with this activity and recommend to pt/ that he sit for donning socks and to get pants over feet. Pt wants to try hard sock aid as his is a flexible one. OT ADL-Toileting General Evaluation Toileting Ability Independent Devices Toileting Assistive Devices Urinal OT ADL-Bathing Devices Bathing Equipment Hand Held Shower Sprayer Shower Chair without Arms Grab Bars Comments OT Bathing Comments did not occur; pt has appropriate safety equipt for showering at home M5 OT- IP IADL's Start: 09/30/18 08:10 Freq: Status: Active Protocol: Document 09/29/18 15:00 PJM (Rec: 09/30/18 08:33 [facility] [id number]) OT-Instrumental Activities of Daily Living Home Safety Awareness Awareness of Need for Assistance at Home Good Awareness Ability to Problem Solve Emergency Able to Problem Solve Situations Medication Management Medication Management Caregiver Administers Medication Management Comments assists pt Money Management Money Management Caregiver Provides Assistance Money Management Comments assists pt Meal Preparation Meal Preparation Caregiver Provides Assist Culture Room Worker Culture Room Worker Caregiver Provides Assist Driving Driving Caregiver Provides Assist M6 OT- IP Functional Cognition Start: 09/30/18 08:10 Freq: Status: Active Protocol: Document 09/29/18 15:00 PJM (Rec: 09/30/18 08:33 [facility] [id number]) Cognitive Factors Limiting Selfcare Function Cognitive Ability Level of Alertness Alert Patient Orientation Name Year Place Situation Attention Span Ability Capable of Focused Attention Capable of Sustained Attention Ability to Follow Commands Able to Follow One Step Commands Memory Description Short Term Impaired Safety Awareness Decreased Recall of Precautions Cognitive Comments Cognitive Assessment Comments Pt needed cues for month and date; reports pt has very mild short term memory deficits. Pt very motivated to regain independence. OT- Vision and Hearing OT- Hearing Assessment OT- Hearing Assessment WFL OT- Vision Assessment Visual Acuity Glasses For Reading Vision Assessment Comments Pt denies any recent vision changes. M7 OT- IP Mobility and Balance Start: 09/30/18 08:10 Freq: Status: Active Protocol: Document 09/29/18 15:00 PJM (Rec: 09/30/18 08:33 [facility] [id number]) OT-Transfer Assessment Sit to and From Stand Sit to and from Stand Standby Assistance Transfers Transfer Ability Standby Assistance Technique Transfer Destination Chair Transfer Technique Stand Step Pivot Devices Transfer Assistive Devices None Comments Mobility Comments Pt declines gait belt and ambulates without a device at home. Provided education at pt request re: recommendations for grab bar installation near toilet at home OT- Gait Assessment Gait Gait Assistance Required: Standby Assistance Distance (Feet) 25 Assistive Devices Assistive Device None Comments Gait Ability Comments wide based rolling gait noted, but no loss of balance without a device OT- Balance Assessment Sitting Balance and Reactions Static Sitting Balance Ability Good Dynamic Sitting Balance Ability Good Standing Balance and Reactions Static Standing Balance Ability Good M8 OT- IP Objective Assessments Start: 09/30/18 08:10 Freq: Status: Active Protocol: Document 09/29/18 15:00 PJM (Rec: 05/22/19 08:33 PJM [id number]) OT Gross Range of Motion Upper Extremity Range of Motion Assessment Within Functional Limits OT Strength Upper Extremity Strength Assessment Within Functional Limits OT- Coordination Assessment Comments Coordination Comments BUE WFL for self care tasks this session with only slight dyskinesia noted OT-Muscle Tone Assessment Comments Muscle Tone Comments variable BUE dyskinesia per pt and OT Sensation Assessment Comments Summary Comments Pt denies deficits. M9 OT- IP Assessment and Plan Start: 09/30/18 08:10 Freq: Status: Active Protocol: Document 09/29/18 15:00 PJM (Rec: 09/30/18 08:33 PJM [id number]) OT Summary Assessment and Plan Potential Rehabilitation Potential Good Analytic Complexity at Evaluation Low Summary OT Impairments Coordination Dressing Assessment Summary Low complexity OT assessment completed on this 72 yr old male admitted with atypical pneumonia after recent hospitalization at from 07/10 -07/27/18 for cryptogenic organizing pneumonia. Pt appears to be close to his baseline level of self care function except is currently on 3L O2 and normally only uses 3L O2 at night. Pt will Pt will benefit from 1-2 additional OT visits here to try different sock aid, increase safety of lower body dressing technique and increase activity tolerance. Anticipate pt will d/c home with when medically stable. Goals Dressing Goal Independent Black Belt Sock Aid Bathing Goal Independent Toilet Transfer Goal Independent Shower Transfer Goal Independent Patient/Caregiver Education Goal Demonstrate Energy Conservation and Pacing Days to Meet Goals 2 Frequency of Treatment Frequency Of Treatment Once a Day Treatment Plan OT Treatment Plan ADL Training Functional Mobility Patient/Family Education Discharge Planning Discharge Recommendations OT Discharge Recommendations Home with Assistance Home Equipment Needs grab bar by toilet
--- NOTE | 2018-09-29 15:31 | PT.IPTN ---
Current Diagnoses Pneumonia, unspecified organism (09/28/18) Physical Therapy Treatment Note M2 PT-IP Current Condition Start: 09/29/18 10:28 Freq: NEEDED Status: Active Protocol: Document 09/29/18 10:28 EA (Rec: 09/29/18 11:17 EA [id number]) Physical Therapy Current Condition Weight Bearing Status Weight Bearing Status Full Weight Bearing M3 PT-IP Subjective Start: 09/29/18 10:28 Freq: NEEDED Status: Active Protocol: Document 09/29/18 15:29 CLB (Rec: 09/29/18 15:31 CLB [id number]) Subjective Physical Therapy Visit Type Type Patient Refusal Notes Pt refused, he wanted to wait until tomorrow due to his frequent urination due to the Lasix he is taking. Encouraged pt to ambulate in room but he respectfully refused. Assisted pt with pulling out foot stool from under recliner . M4 PT-IP Mobility and Gait Start: 09/29/18 10:28 Freq: NEEDED Status: Active Protocol: Document 09/29/18 10:28 EA (Rec: 09/29/18 11:17 EA [id number]) PT-Bed Mobility Assessment Supine to Sit Supine to Sit Standby Assistance Sit to Supine Sit to Supine Standby Assistance Scooting Scooting to Edge of Bed Standby Assistance PT-Transfer Assessment Sit to and From Stand Sit to and from Stand Standby Assistance Equipment Transfer Assistive Device Gait Belt Transfers Transfer Destination Bed Toilet Transfer Technique stepping Transfer Ability Level of Assist Standby Assistance Contact Guard Assistance Gait Assessment Gait Gait Assistance Required: Contact Guard Assist Distance (Feet) 20 Able to Maintain Weight Bearing Status Yes During Gait Assistive Devices Assistive Device Gait Belt Gait Deviations General Gait Pattern Wide Based Gait Factors Limiting Gait Function Factors Limiting Gait Function Decreased Activity Tolerance Incoordination Pain Poor Balance Comments Gait Comments Requires frequent rests due to SOB. PT-Balance Assessment Sitting Balance and Reactions Static Sitting Balance Ability Good Dynamic Sitting Balance Ability Good Standing Balance and Reactions Static Standing Balance Ability Good Dynamic Standing Balance Ability Fair M5 PT-IP Objective Assessments Start: 09/29/18 10:28 Freq: NEEDED Status: Active Protocol: Document 09/29/18 10:28 EA (Rec: 09/29/18 11:17 EA [id number]) Orientation Orientation/Cognition Level of Alertness Alert Orientation Name Age Month Language Function Ability No Deficits Noted Safety Awareness Understands Safety Issues Memory Description No Deficits Noted Gross Range of Motion Upper Extremity ROM Assessment Within Functional Limits Lower Extremity ROM Assessment Within Functional Limits Strength Upper Extremity Strength Assessment Within Functional Limits Lower Extremity Strength Assessment Left Impaired Ankle Wound with good healing just above medial ankle joint. Ankle pain Coordination Assessment Gross Coordination Gross Coordination Impaired Assessment Finger to Nose Test Minimal Impairment Pronation/Supination Test Minimal Impairment Foot Tapping Test Minimal Impairment Heel on [place] Test Minimal Impairment Coordination Comments generalized involuntary movements Sensation Assessment Sensation Gross Sensation WNL Light Touch Intact M6 PT-IP Treatment Start: 09/29/18 10:28 Freq: NEEDED Status: Active Protocol: Document 09/29/18 10:28 EA (Rec: 09/29/18 11:17 EA [id number]) Physical Therapy Treatment Education Education Provided Precautions Safety M7 PT-IP Assessment and Plan Start: 09/29/18 10:28 Freq: NEEDED Status: Active Protocol: Document 09/29/18 10:28 EA (Rec: 09/29/18 11:17 EA [id number]) PT Summary Assessment and Plan Potential Rehabilitation Potential Good Status of Condition at Evaluation Stable Summary Impairments Pain Strength Balance Coordination Bed Mobility Transfers Gait Activity Tolerance Assessment Summary Pt demonstrates slight decreased level of independence as to transfers and ambulation due to generalized weakness, left ankle pain and respiratory issues and that requires assistance at this time for safety. Pt demonstrates good potential for recovery and will benefit with skilled PT. Goals Bed Mobility Goal Independent Transfer Goal Independent Gait Goal Independent Gait Distance 200 ft level surfaces Days to Meet Goals 3 Frequency of Treatment Frequency Of Treatment Twice a Day Treatment Plan Physical Therapy Treatment Plan Bed Mobility Training Transfer Training Gait Training Therapeutic Exercise Balance Retraining Neuromuscular Re-ed Coordination Retraining Other Recommendations and Next Treatment Distance ambulation with O@ Focus support or as needed. AD during ambulation as needed Recommendations To Nursing Amount of Assist Needed Standby Assistance Discharge Recommendations PT Discharge Recommendations Home with Assistance
[2018-09-29] MEDS: MONTELUKAST 10 MG TABLET PO (16:12)
[2018-09-29] MEDS: PIPERACILLIN-TAZO 3.375 GM/50 ML FROZ.PIGGY IV (16:12)
--- NOTE | 2018-09-29 17:28 | PM.PN.1 ---
Exam Vital Signs (past 8 hours): - 09/29/18 12:10 09/29/18 13:10 09/29/18 15:23 Temperature 97.9 F Pulse Rate 73 67 66 Respiratory Rate 20 17 Blood Pressure 133/69 123/84 Pulse Oximetry 97 97 97 Oxygen Delivery Method Nasal Cannula Oxygen Flow Rate 3 Objective Labs Result Diagrams: 09/29/18 05:45 09/29/18 05:45 Labs: Laboratory Results - last 24 hr 09/28/18 09/28/18 09/28/18 20:35 20:35 20:35 WBC 6.5 RBC 2.74 L Hgb 9.3 L Hct 28.0 L MCV 102.2 H MCH 34.0 MCHC 33.3 RDW 14.2 Plt Count 160 Neut % (Auto) 80.0 H Lymph % (Auto) 12.2 L [place] % (Auto) 7.4 Eos % (Auto) 0.1 L Baso % (Auto) 0.3 Neut # (Auto) 5200 Lymph # (Auto) 800 L [place] # (Auto) 500 Eos # (Auto) 0 Baso # (Auto) 0 Total Counted Seg Neutrophils % Band Neutrophils % Lymphocytes % (Manual) Monocytes % (Manual) Eosinophils % (Manual) Metamyelocytes % Neutrophils # (Manual) RBC Morphology Macrocytosis PT 10.7 INR 0.9 APTT 28 ABG pH ABG pCO2 ABG pO2 ABG HCO3 ABG Total CO2 ABG O2 Saturation ABG Base Excess FiO2 Sodium Potassium Chloride Carbon Dioxide BUN Creatinine Estimated GFR BUN/Creatinine Ratio Glucose Lactate Calcium Total Bilirubin AST ALT Alkaline Phosphatase B-Natriuretic Peptide < 100 Total Protein Albumin Globulin Albumin/Globulin Ratio Procalcitonin Urine Color Urine Appearance Urine pH Ur Specific [place] Urine Protein Urine Glucose (UA) Urine Ketones Urine Occult Blood Urine Nitrate Urine Bilirubin Urine Urobilinogen Ur Leukocyte Esterase Urine RBC Urine WBC Urine Bacteria Ur Culture Indicated? Micro UA Comment Chlamy pneumoniae PCR Adenovirus (PCR) B.parapertussis DNA PCR Coronavirus OC43 (PCR) Coronavirus HKU1 (PCR) Coronavirus 229E (PCR) Coronavirus NL63 (PCR) Human Metapneumovir PCR Influenza Type A (PCR) Influenza Type B (PCR) M. pneumoniae (PCR) Parainfluenza 1 (PCR) Parainfluenza 2 (PCR) Parainfluenza 3 (PCR) Parainfluenza 4 (PCR) RSV (PCR) Entero/Rhino (PCR) 09/28/18 09/28/18 09/28/18 20:35 20:35 20:35 WBC RBC Hgb Hct MCV MCH MCHC RDW Plt Count Neut % (Auto) Lymph % (Auto) [place] % (Auto) Eos % (Auto) Baso % (Auto) Neut # (Auto) Lymph # (Auto) [place] # (Auto) Eos # (Auto) Baso # (Auto) Total Counted Seg Neutrophils % Band Neutrophils % Lymphocytes % (Manual) Monocytes % (Manual) Eosinophils % (Manual) Metamyelocytes % Neutrophils # (Manual) RBC Morphology Macrocytosis PT INR APTT ABG pH ABG pCO2 ABG pO2 ABG HCO3 ABG Total CO2 ABG O2 Saturation ABG Base Excess FiO2 Sodium 138 Potassium 4.0 Chloride 97 L Carbon Dioxide 31 BUN 37 H Creatinine 1.50 H Estimated GFR 45.9 L BUN/Creatinine Ratio 24.7 H Glucose 104 Lactate 2.7 H Calcium 9.3 Total Bilirubin 0.6 AST 24 ALT 10 L Alkaline Phosphatase 66 B-Natriuretic Peptide Total Protein 7.0 Albumin 4.3 Globulin 2.7 Albumin/Globulin Ratio 1.6 Procalcitonin 0.05 Urine Color Urine Appearance Urine pH Ur Specific [place] Urine Protein Urine Glucose (UA) Urine Ketones Urine Occult Blood Urine Nitrate Urine Bilirubin Urine Urobilinogen Ur Leukocyte Esterase Urine RBC Urine WBC Urine Bacteria Ur Culture Indicated? Micro UA Comment Chlamy pneumoniae PCR Adenovirus (PCR) B.parapertussis DNA PCR Coronavirus OC43 (PCR) Coronavirus HKU1 (PCR) Coronavirus 229E (PCR) Coronavirus NL63 (PCR) Human Metapneumovir PCR Influenza Type A (PCR) Influenza Type B (PCR) M. pneumoniae (PCR) Parainfluenza 1 (PCR) Parainfluenza 2 (PCR) Parainfluenza 3 (PCR) Parainfluenza 4 (PCR) RSV (PCR) Entero/Rhino (PCR) 09/28/18 09/28/18 09/29/18 21:00 23:00 00:18 WBC RBC Hgb Hct MCV MCH MCHC RDW Plt Count Neut % (Auto) Lymph % (Auto) [place] % (Auto) Eos % (Auto) Baso % (Auto) Neut # (Auto) Lymph # (Auto) [place] # (Auto) Eos # (Auto) Baso # (Auto) Total Counted Seg Neutrophils % Band Neutrophils % Lymphocytes % (Manual) Monocytes % (Manual) Eosinophils % (Manual) Metamyelocytes % Neutrophils # (Manual) RBC Morphology Macrocytosis PT INR APTT ABG pH 7.42 ABG pCO2 43.5 ABG pO2 61 L ABG HCO3 28 H ABG Total CO2 30 ABG O2 Saturation 91 L ABG Base Excess 4.0 H FiO2 21 Sodium Potassium Chloride Carbon Dioxide BUN Creatinine Estimated GFR BUN/Creatinine Ratio Glucose Lactate 2.0 Calcium Total Bilirubin AST ALT Alkaline Phosphatase B-Natriuretic Peptide Total Protein Albumin Globulin Albumin/Globulin Ratio Procalcitonin Urine Color Yellow Urine Appearance Clear Urine pH 6.0 Ur Specific [place] 1.015 Urine Protein Negative Urine Glucose (UA) Negative Urine Ketones Negative Urine Occult Blood Negative Urine Nitrate Negative Urine Bilirubin Negative Urine Urobilinogen 0.2 Ur Leukocyte Esterase Negative Urine RBC None seen Urine WBC None seen Urine Bacteria None seen Ur Culture Indicated? Cult not indicated Micro UA Comment Microscopic normal Chlamy pneumoniae PCR Adenovirus (PCR) B.parapertussis DNA PCR Coronavirus OC43 (PCR) Coronavirus HKU1 (PCR) Coronavirus 229E (PCR) Coronavirus NL63 (PCR) Human Metapneumovir PCR Influenza Type A (PCR) Influenza Type B (PCR) M. pneumoniae (PCR) Parainfluenza 1 (PCR) Parainfluenza 2 (PCR) Parainfluenza 3 (PCR) Parainfluenza 4 (PCR) RSV (PCR) Entero/Rhino (PCR) 09/29/18 09/29/18 09/29/18 00:35 05:45 05:45 WBC 5.6 RBC 2.67 L Hgb 9.1 L Hct 27.4 L MCV 102.6 H MCH 33.9 MCHC 33.0 RDW 14.3 Plt Count 132 L Neut % (Auto) Not Reportable Lymph % (Auto) Not Reportable [place] % (Auto) Not Reportable Eos % (Auto) Not Reportable Baso % (Auto) Not Reportable Neut # (Auto) Lymph # (Auto) Not Reportable [place] # (Auto) Not Reportable Eos # (Auto) Baso # (Auto) Not Reportable Total Counted 100 Seg Neutrophils % 60.0 Band Neutrophils % 4.0 Lymphocytes % (Manual) 28.0 Monocytes % (Manual) 6.0 Eosinophils % (Manual) 1.0 L Metamyelocytes % 1.0 H Neutrophils # (Manual) 3584 RBC Morphology See below Macrocytosis 1+ H PT INR APTT ABG pH ABG pCO2 ABG pO2 ABG HCO3 ABG Total CO2 ABG O2 Saturation ABG Base Excess FiO2 Sodium Potassium Chloride Carbon Dioxide BUN Creatinine Estimated GFR BUN/Creatinine Ratio Glucose Lactate Calcium Total Bilirubin AST ALT Alkaline Phosphatase B-Natriuretic Peptide Total Protein Albumin Globulin Albumin/Globulin Ratio Procalcitonin 0.06 Urine Color Urine Appearance Urine pH Ur Specific [place] Urine Protein Urine Glucose (UA) Urine Ketones Urine Occult Blood Urine Nitrate Urine Bilirubin Urine Urobilinogen Ur Leukocyte Esterase Urine RBC Urine WBC Urine Bacteria Ur Culture Indicated? Micro UA Comment Chlamy pneumoniae PCR Not detected Adenovirus (PCR) Not detected B.parapertussis DNA PCR Not detected Coronavirus OC43 (PCR) Not detected Coronavirus HKU1 (PCR) Not detected Coronavirus 229E (PCR) Not detected Coronavirus NL63 (PCR) Not detected Human Metapneumovir PCR Not detected Influenza Type A (PCR) Not detected Influenza Type B (PCR) Not detected M. pneumoniae (PCR) Not detected Parainfluenza 1 (PCR) Not detected Parainfluenza 2 (PCR) Not detected Parainfluenza 3 (PCR) Not detected Parainfluenza 4 (PCR) Not detected RSV (PCR) Not detected Entero/Rhino (PCR) Not detected 09/29/18 05:45 WBC RBC Hgb Hct MCV MCH MCHC RDW Plt Count Neut % (Auto) Lymph % (Auto) [place] % (Auto) Eos % (Auto) Baso % (Auto) Neut # (Auto) Lymph # (Auto) [place] # (Auto) Eos # (Auto) Baso # (Auto) Total Counted Seg Neutrophils % Band Neutrophils % Lymphocytes % (Manual) Monocytes % (Manual) Eosinophils % (Manual) Metamyelocytes % Neutrophils # (Manual) RBC Morphology Macrocytosis PT INR APTT ABG pH ABG pCO2 ABG pO2 ABG HCO3 ABG Total CO2 ABG O2 Saturation ABG Base Excess FiO2 Sodium 137 Potassium 3.8 Chloride 97 L Carbon Dioxide 34 H BUN 33 H Creatinine 1.50 H Estimated GFR 45.9 L BUN/Creatinine Ratio 22.0 Glucose 85 Lactate Calcium 8.8 Total Bilirubin AST ALT Alkaline Phosphatase B-Natriuretic Peptide Total Protein Albumin Globulin Albumin/Globulin Ratio Procalcitonin Urine Color Urine Appearance Urine pH Ur Specific [place] Urine Protein Urine Glucose (UA) Urine Ketones Urine Occult Blood Urine Nitrate Urine Bilirubin Urine Urobilinogen Ur Leukocyte Esterase Urine RBC Urine WBC Urine Bacteria Ur Culture Indicated? Micro UA Comment Chlamy pneumoniae PCR Adenovirus (PCR) B.parapertussis DNA PCR Coronavirus OC43 (PCR) Coronavirus HKU1 (PCR) Coronavirus 229E (PCR) Coronavirus NL63 (PCR) Human Metapneumovir PCR Influenza Type A (PCR) Influenza Type B (PCR) M. pneumoniae (PCR) Parainfluenza 1 (PCR) Parainfluenza 2 (PCR) Parainfluenza 3 (PCR) Parainfluenza 4 (PCR) RSV (PCR) Entero/Rhino (PCR) Assessment & Plan Assessment & Plan narrative: Brief progress note: Patient seen and examined. Physical exam unchanged. Agree with assessment and plan. In addition, discontinued levofloxacin, continued azithromycin and added Zosyn and consulted Wound Care. Quality VTE Deep Vein Thrombosis/Pulmonary Embolism Present on Admission: No
--- NOTE | 2018-09-29 19:04 | PC.NURSE ---
Evening note: Eleno is sitting in recliner finishing meal. He denies any chest pain, does report SOB with rest, exacerbates with activity. 3L O2 sat 98% at rest, 92-94% during activity. Lung sounds are tight & coarse to his left upper lobe, diminished and fine crackles to bilateral bases. RT in to assess/treat. Dr Guzman in to consult, new order for IV Zosyn infused, IV patent with no redness or swelling. Patient has crescent-shaped wound to left anterior santiago/ankle which is sutured. Sutures are intact, incision well approximated, dull purple/pink erythema surround incision and area appears slightly concaved compared to rest of lower leg. Dr Guzman stated she would order wound care consult, PT and ST to see this patient.
[2018-09-29] MEDS: METOPROLOL ER 50 MG TABLET PO (20:13)
[2018-09-29] MEDS: valACYclovir 500 MG TABLET PO (20:13)
[2018-09-29] MEDS: TAMSULOSIN 0.4 MG CAPSULE PO (20:13)
[2018-09-29] MEDS: SENNOSIDES 8.6 MG TABLET 17.2 MG PO (20:15)
[2018-09-29] MEDS: PRAMIPEXOLE 0.125 MG TABLET PO (22:10)
[2018-09-30] VITALS (13 sets, daily range): BP systolic 86–140; BP diastolic 44–69; PULSE 68–78; RESP 18–20; TEMP 36.4–37; O2SAT 94–100
[2018-09-30] MEDS: PIPERACILLIN-TAZO 3.375 GM/50 ML FROZ.PIGGY IV ×4 (00:21→23:44)
[2018-09-30] MEDS: SODIUM CHLORIDE 0.9% FLUSH 10 ML IV ×4 (00:21→23:44)
--- NOTE | 2018-09-30 00:40 | PC.NURSE ---
Addendum entered by Kassie Gallardo R.N. 09/30/18 06:24: Complains of 5/10 back pain so medicated with Oxycodone. Complained earlier of increasing chest congestion even though O2 sat was 100% so CHERELLE Strong, examined patient and stated lungs sounding improved from last night admission with only crackles auscultated in right LL. Discussed benefit of nebulizer vs inhaler as patient wanting Albuterol inhaler ordered. RT called to provide Duoneb Rx per discussion with CHERELLE. Still states he is feeling more congested and when reiterated BAKERY DECORATOR's examination results, patient states I don't feel better. Original Note: Patient is alert and oriented. Breath sounds diminished with inspiratory crackles bilateral mid/lower lobes; louder in lower lobes. States he feels he is breathing easier tonight. On oxygen (per home regimen) at 3L/min per NC with sat of 99%. Continuous pulse oximeter in place. HRR and was SR on 0000 telemetry reading. Denies nausea. BT present and is passing flatus but has not had BM since 09/25. Voiding either using urinal or getting up to bathroom. Receiving SBA when up due to tremoring from Parkinson's. Fall risk score is moderate; chair alarm is being used as is sitting up in recliner. Currently denies any pain but has hx of chronic back pain. Bruising of all extremities noted. Laceration on left lower leg with intact stitches and steristrips; no signs of redness, swelling or drainage. Refuses SCD's.
[2018-09-30] MEDS: ALBUTEROL 2.5 MG/3 ML NEB (ADULT) INH (03:48)
--- NOTE | 2018-09-30 04:27 | RT ---
Could not give patient advair due to med not being available.
[2018-09-30] MEDS: ALBUTEROL/IPRATROPIUM 3 ML AMPUL INH ×2 (06:00→11:30)
[2018-09-30 06:05] LABS: Alanine Aminotransferase 11 IU/L (21-72); Albumin 3.8 g/dL (3.5-5.0); Albumin Globulin Ratio 1.5 (1.0-2.8); Alkaline Phosphatase 62 U/L (38-126); Aspartate Aminotransferase 21 IU/L (17-59); BUN Creatinine Ratio 19.4 (6-22); Bilirubin Total 0.7 mg/dL (0.2-1.3); Blood Urea Nitrogen 31 mg/dL (9-20); Carbon Dioxide 34 mmol/L (22-32); Chloride 95 mmol/L (98-107); Estimated Glomerular Filt Rate 42.6 mL/min (>60); Globulin 2.5 g/dL (1.7-4.1); Glucose 100 mg/dL (80-110); HEMOLYSIS < 15 (0-50); Magnesium 2.1 mg/dL (1.6-2.3); Potassium 3.6 mmol/L (3.4-5.1); Sodium 136 mmol/L (137-145); Total Protein 6.3 g/dL (6.3-8.2)
[2018-09-30 06:09] LABS: Mean Corpuscular HGB Conc 33.2 % (30-36); Mean Corpuscular Hemoglobin 34.1 PG (26-34); Mean Corpuscular Volume 102.5 fL (80-100); Platelet Count 123 X10^3/uL (150-400); Red Blood Cell Count 2.64 X10^6/uL (4.5-5.9); Red Cell Distribution Width 13.9 % (11.6-14.8); White Blood Cell Count 5.3 X10^3/uL (4.5-11.0)
[2018-09-30] MEDS: SELEGILINE 5 MG CAPSULE PO ×2 (06:18→12:48)
[2018-09-30] MEDS: OXYCODONE IR 10 MG TABLET PO ×3 (06:18→21:00)
[2018-09-30] MEDS: CARBIDOPA-LEVODOPA 25/100 TABLET 1.5 EACH PO ×3 (06:18→20:10)
[2018-09-30 06:26] LABS: Add Manual Diff / Slide Review YES
[2018-09-30 06:29] LABS: Neutrophils Absolute Manual 3339 /uL (3000-5900); Total Cells Counted 100
[2018-09-30 06:30] LABS: Macrocytosis 1+
[2018-09-30 06:32] LABS: Procalcitonin < 0.05 ng/mL (<0.5)
[2018-09-30] MEDS: DAPSONE 100 MG TABLET 50 MG PO ×2 (08:09→20:14)
[2018-09-30] MEDS: predniSONE 5 MG TABLET 15 MG PO (08:10)
[2018-09-30] MEDS: FUROSEMIDE 40 MG TABLET PO (08:10)
[2018-09-30] MEDS: PROCHLORPERAZINE 5 MG TABLET 10 MG PO (08:16)
--- NOTE | 2018-09-30 10:28 | PT.IPTN ---
Current Diagnoses Pneumonia, unspecified organism (09/28/18) Physical Therapy Treatment Note M2 PT-IP Current Condition Start: 09/29/18 10:28 Freq: NEEDED Status: Active Protocol: Document 09/29/18 10:28 EA (Rec: 09/29/18 11:17 EA [id number]) Physical Therapy Current Condition Weight Bearing Status Weight Bearing Status Full Weight Bearing M3 PT-IP Subjective Start: 09/29/18 10:28 Freq: NEEDED Status: Active Protocol: Document 09/30/18 10:28 AB (Rec: 09/30/18 13:10 AB [id number]) Subjective Physical Therapy Visit Type Type Treatment Note Visit Start Time 10:28 Visit Stop Time 10:47 Total Visit Minutes 19 Number of WAREHOUSE ADMINISTRATOR Visits 0 Physical Therapy Visit Comments Patient Comments i want to use the toilet by myself M4 PT-IP Mobility and Gait Start: 09/29/18 10:28 Freq: NEEDED Status: Active Protocol: Document 09/30/18 10:28 AB (Rec: 09/30/18 13:10 AB [id number]) PT-Transfer Assessment Sit to and From Stand Sit to and from Stand Standby Assistance Equipment Transfer Assistive Device None Gait Belt Orthotic/Prosthetic Devices or Brace: No Transfers Transfer Destination Toilet Transfer Technique pt ambulated to the toilet Transfer Ability Level of Assist Standby Assistance Comments Mobility Comments pt ambulated towards the toilet SBA and was ablet o complete with SBA. ambulated towards the sink without AD SBA and completed handwashing. Gait Assessment Gait Gait Assistance Required: Standby Assistance Distance (Feet) 100 Able to Maintain Weight Bearing Status Yes During Gait Assistive Devices Assistive Device None Gait Belt Orthotic/Prosthetic Devices or Brace: No Gait Deviations General Gait Pattern Antalgic Decreased Stride Length Decreased Feet Clearance Flexed Trunk Factors Limiting Gait Function Factors Limiting Gait Function Abnormal Tonal Influences Decreased Activity Tolerance Decreased Strength Poor Balance Poor Safety Awareness Respiratory Distress Comments Gait Comments O2 sat maintained at 94 to 96 % with 3L/min O2 pt completed ambulation in the the hallway ~ 100 ft without AD SBA. M5 PT-IP Objective Assessments Start: 09/29/18 10:28 Freq: NEEDED Status: Active Protocol: Document 09/29/18 10:28 EA (Rec: 09/29/18 11:17 EA [id number]) Orientation Orientation/Cognition Level of Alertness Alert Orientation Name Age Month Language Function Ability No Deficits Noted Safety Awareness Understands Safety Issues Memory Description No Deficits Noted Gross Range of Motion Upper Extremity ROM Assessment Within Functional Limits Lower Extremity ROM Assessment Within Functional Limits Strength Upper Extremity Strength Assessment Within Functional Limits Lower Extremity Strength Assessment Left Impaired Ankle Wound with good healing just above medial ankle joint. Ankle pain Coordination Assessment Gross Coordination Gross Coordination Impaired Assessment Finger to Nose Test Minimal Impairment Pronation/Supination Test Minimal Impairment Foot Tapping Test Minimal Impairment Heel on Hutchins Test Minimal Impairment Coordination Comments generalized involuntary movements Sensation Assessment Sensation Gross Sensation WNL Light Touch Intact M6 PT-IP Treatment Start: 09/29/18 10:28 Freq: NEEDED Status: Active Protocol: Document 09/30/18 10:28 AB (Rec: 09/30/18 13:10 AB [email or web address]) Physical Therapy Treatment Education Education Provided Safety M7 PT-IP Assessment and Plan Start: 09/29/18 10:28 Freq: NEEDED Status: Active Protocol: Document 09/30/18 10:28 AB (Rec: 09/30/18 13:10 AB [email or web address]) PT Summary Assessment and Plan Potential Rehabilitation Potential Good Summary Impairments Pain ROM Strength Balance Coordination Sensation Tone Cognition Bed Mobility Transfers Gait Activity Tolerance Progress Towards Goals Progressing Toward Goals Assessment Summary pt requiring SBA with mobility and cleared to ambulate in his room mod I. PT to continue to improve pt's activity tolerance, standing balance and long distance ambulation and safety awareness. Goals Bed Mobility Goal Independent Transfer Goal Independent Gait Goal Independent Gait Distance 200 ft level surfaces Days to Meet Goals 3 Frequency of Treatment Frequency Of Treatment Once a Day Treatment Plan Physical Therapy Treatment Plan Bed Mobility Training Transfer Training Gait Training Therapeutic Exercise Balance Retraining Neuromuscular Re-ed Coordination Retraining Other Recommendations and Next Treatment long distance ambulation Focus without AD standing balance Recommendations To Nursing Amount of Assist Needed Standby Assistance Discharge Recommendations PT Discharge Recommendations Home with Assistance
--- NOTE | 2018-09-30 11:19 | SLP.IPNOTE ---
Order received order a swallow evaluation. Interview with pt and his in his room. Pt has a complicated hx including: dysphagi, esophageal dysfunction, reflux, etc. Pt has had 2 MBSs in the past at [facility] with diagnosis of aspiration (per ). The last MBS was noted by to be 2-3 years ago. Recommending MBS at this time.
[2018-09-30] MEDS: AZITHROMYCIN 500 MG in DEXTROSE 5% IN WATER 250 ML IV (11:49)
--- NOTE | 2018-09-30 15:57 | P.PN_ITS ---
Subjective Date Patient Seen: 10/01/18 Interval history: Eleno Sol is a 72-year-old male with a complex past medical history significant for CLL status post bone marrow transplant with complication of hwwkt-jkcyqc-osji disease, and Parkinson's who presented to the ED with progressive shortness of breath, cough, generalized weakness and fever. The patient resting in bedside chair comfortably. He reports he felt significantly congested this morning but that has improved. He reports his breathing has mildly improved since yesterday but continues to reports subjective shortness of breath. He continues to be on 3 L supplemental oxygen during the daytime. Oxygen saturation goal is 88-92%. He denies headache, cough, chest pain, abdominal pain, nausea, vomiting, fever, chills, dysuria, diarrhea or constipation. He is voiding and eliminating without difficulty. He is up ambulating without assistance. Exam Vital Signs (past 8 hours): - 09/30/18 08:00 09/30/18 08:25 09/30/18 09:45 Temperature 97.6 F Pulse Rate 73 Respiratory Rate 20 Blood Pressure 90/51 L Pulse Oximetry 94 100 97 09/30/18 11:39 09/30/18 12:00 09/30/18 15:35 Temperature 98.2 F 97.9 F Pulse Rate 70 73 71 Respiratory Rate 20 20 20 Blood Pressure 119/59 L 86/44 L Pulse Oximetry 96 95 Fraction of Inspired Oxygen 32 Oxygen Delivery Method Nasal Cannula Oxygen Flow Rate 2 Narrative Exam Narrative: General: Older gentleman sitting in bedside chair and in no acute distress, well-developed, well-nourished, parkinsonian tremor with masked facies, appropriately interactive. HEENT: Normocephalic, atraumatic. External ears without defect. Pupils equal, round, and reactive to light. Anicteric sclerae, moist conjunctivae, and no lid lag. Oropharynx free of erythema and cobble stoning with moist mucosa. Neck: Supple with full range of motion. No lymphadenopathy or thyromegaly. Cardiovascular: Regular rate and rhythm without murmurs, rubs, or gallops appreciated Pulmonary: Diminished air movement and very tight throughout with scattered crackles. Normal respiratory effort with no use of accessory muscles. Kendall pplemental oxygen with nasal cannula in place. Abdomen: Bowel tones present. Soft, nontender, nondistended. No hepatosplenomegaly or masses appreciated. Extremities: No clubbing, cyanosis, or edema. Wound on left leg with sutures that is mildly dusky. Skin: Normal temperature, turgor, and texture; no rash, ulcers, or subcutaneous nodules appreciated. Neurological: Cranial nerves grossly intact. Parkinsonian tremor R>L, and masked facies. Psychiatric: Anxious mood and normal affect. Alert and oriented to person, place, and time. Objective Labs Result Diagrams: 10/01/18 05:40 10/01/18 05:40 Labs: Laboratory Results - last 24 hr 09/30/18 09/30/18 09/30/18 05:35 05:35 05:35 WBC 5.3 RBC 2.64 L Hgb 9.0 L Hct 27.0 L MCV 102.5 H MCH 34.1 H MCHC 33.2 RDW 13.9 Plt Count 123 L Neut % (Auto) Not Reportable Lymph % (Auto) Not Reportable Mobile % (Auto) Not Reportable Eos % (Auto) Not Reportable Baso % (Auto) Not Reportable Lymph # (Auto) Not Reportable Mobile # (Auto) Not Reportable Baso # (Auto) Not Reportable Total Counted 100 Seg Neutrophils % 62.0 Band Neutrophils % 1.0 L Lymphocytes % (Manual) 26.0 Atypical Lymphs % 1.0 H Monocytes % (Manual) 6.0 Eosinophils % (Manual) 2.0 Metamyelocytes % 2.0 H Neutrophils # (Manual) 3339 RBC Morphology See below Macrocytosis 1+ H Sodium 136 L Potassium 3.6 Chloride 95 L Carbon Dioxide 34 H BUN 31 H Creatinine 1.60 H Estimated GFR 42.6 L BUN/Creatinine Ratio 19.4 Glucose 100 Calcium 9.0 Magnesium 2.1 Total Bilirubin 0.7 AST 21 ALT 11 L Alkaline Phosphatase 62 Total Protein 6.3 Albumin 3.8 Globulin 2.5 Albumin/Globulin Ratio 1.5 Procalcitonin < 0.05 Assessment & Plan Assessment & Plan narrative: Eleno Sol is a 72-year-old male with a complex past medical history significant for CLL status post bone marrow transplant with complication of btppf-zvbhol-xwbm disease, and Parkinson's who presented to the ED with progressive shortness of breath, cough, generalized weakness and fever. 1. Acute on chronic hypoxemic respiratory failure, present on admission. Active. -Patient presented with progressive shortness of breath, cough, generalized weakness and fever with reported oxygen saturations at home in the 80's on room air. -Patient is typically on nocturnal oxygen at 2 L but has been using supplemental oxygen continuously at 3 L via nasal cannula. -Patient has history of svjqm-illvic-suro disease with upper airway strictures and pneumonitis. -Ordered respiratory therapy to evaluation and treat. Continue supplemental daytime oxygen as needed with oxygen saturation 88-92%. Continue nocturnal oxygen at 3 L. Continue DuoNeb every 6 hours as needed with albuterol every 2 hours as needed. 2. Acute bilateral atypical pneumonia, present on admission. -Suspect aspiration pneumonia as patient has history of dysphagia and aspiration due to upper airway strictures. Patient was recently hospitalized at the [facility] july for [address] [facility] on maximum vasopressor support and ventilator. -Chest x-ray demonstrated moderate bilateral atypical pneumonia R>L. -Complete pneumonia workup ordered including: Respiratory viral PCR negative. Strep pneumonia and Legionella urine antigens, pending. Sputum culture which has not been collected as patient does not have productive cough. Blood culture x2 has no growth to date. -Patient was previously on azithromycin 250 mg M/W/ for WARE CLEANER. Continue azithromycin 500 mg x3 doses for atypical coverage and then consider going back to chronic dose. Continue Zosyn for broad-spectrum coverage including gram- positive, gram negative and anaerobes. Discontinued levofloxacin as -Continue patient's prednisone 15 mg daily and valacyclovir 500 mg daily. 3. Recent left leg laceration status post sutures, not healing well, present on admission. Active. -Consulted wound care who recommended General surgery consultation. -Continue antibiotics as above. 4. Chronic eueai-dnhgap-ndus disease, present on admission. Stable. -Previous complications involving mouth, esophagus, GI and skin symptoms, no complaints in evidence on exam. -Patient has been previously had been treated with tacrolimus which was DC due to toxicities, previously on methotrexate which tapered off in 2015. -Continue current prednisone dose of 15 mg daily. -Continue prophylaxis with valacyclovir 500 mg nightly and dapsone 50 mg twice daily 5. Chronic kidney disease stage III, present on admission. Stable. -Baseline creatinine between 1.5-1.7. Patient is currently at his baseline. -Patient took an extra 80 mg dose of furosemide on day of admission. Continue home furosemide 40 mg daily. Otherwise avoid nephrotoxic agents and dose adjust medications. -Continue to monitor renal function closely. 6. Parkinson's disease, present on admission. Stable. -Patient with frequent gross motor involuntary movement of head and extremities -Continue carbidopa levodopa 25/100 mg 1-1/2 tablets 3 times daily, mirapex 0.125 mg at bedtime and selegiline 5 mg twice daily. -Ordered speech therapy evaluation and treatment. An MBS was pursued and patient declined as he reported he was unable to perform steps due to his Parkinson's and per ST due to anxiety. 7. Chronic atrial fibrillation/flutter, status post cardiac ablation, not present on admission. Stable. -Status post ablation on 06/25/2017. 8. Hypertension, present on admission. Stable. -Continue nifedipine 30 mg daily. Disposition: Patient to likely discharge in several days depending on improvement in pneumonia. Quality VTE Deep Vein Thrombosis/Pulmonary Embolism Present on Admission: No
[2018-09-30] MEDS: SODIUM CHLORIDE 0.9% 250 ML 21 ML IV (16:00)
--- NOTE | 2018-09-30 16:09 | OT.IP.TRT ---
Current Diagnoses Pneumonia, unspecified organism (09/28/18) Occupational Therapy Treatment Note M2 OT-IP Current Condition Start: 09/30/18 08:10 Freq: Status: Active Protocol: Document 09/29/18 15:00 PJM (Rec: 09/30/18 08:33 PJM [id number]) Occupational Therapy Current Condition Current Condition Evaluation Date 09/29/18 Treatment Diagnosis decreased act dane,self care, mobilityw DX: atypicla pneumonia Diagnosis Onset Date 09/28/18 Post Operative Precautions Other Precautions fall risk due to Parkinsons M3 OT- IP Subjective and Pain Start: 09/30/18 08:10 Freq: Status: Active Protocol: Document 09/30/18 16:08 PJM (Rec: 09/30/18 16:09 PJM [id number]) OT- Subjective Occupational Therapy Visit Type Type Administrative Note Notes Attempted to see pt x3, pt with P.T., then at barium swallow, then having increased dyskinesia and declined tx. Will see pt in AM to try wide sock aid which is last OT goal with pt prior to d/c. No charge.
[2018-09-30] MEDS: SODIUM CHLORIDE 0.9% 500 ML 1000 ML IV (16:10)
[2018-09-30] MEDS: MONTELUKAST 10 MG TABLET PO (16:50)
--- NOTE | 2018-09-30 17:58 | ST.IPIE ---
Care Team Visit Care Team Role Provider Type Kimberly Carpenter DPM Other Providers Non-Staff Specialty: Podiatry Address: [address] [place] [address], [facility] Email: Padmini Hernandez MD Other Providers Physician Specialty: General Surgery Address: [address] [place] [address], [facility] Email: Gamaliel Acevedo MD Other Providers Physician Specialty: Wound Care Address: [address] [place] [address] Email: Robel Chen DO Emergency Provider Physician Specialty: Emergency Medicine Address: [address] [place] [address] Email: [email or web address] Pedroza Admit Provider Physician Attending Provider Specialty: Internal Medicine Address: [address] [place] [address] Email: Current Diagnoses Pneumonia, unspecified organism (09/28/18) Past Medical History (Last Reviewed 09/29/18 @ 04:01 by Robel Chen DO) Parkinson disease (Chronic Medical) Atrial fibrillation (Acute Medical) Atrial flutter (Acute Medical) Chronic kidney disease, stage III (moderate) (Acute Medical) Elevated PSA (Acute Medical) Fungal pneumonia (Acute Medical) Skin cancer (Acute Medical) CLL (chronic lymphocytic leukemia) (Acute Medical) CMV pneumonia (Acute Medical) Chronic htcet-wqbscs-ffye disease (Chronic Medical) Cryptogenic organizing pneumonia (Resolved Medical) ST IP Initial Evaulation 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 Guzman Reason for Referral Possible aspiration pneumonia Setting Assessment Location Acute Care Visit Type Note Type Initial Evaluation Next Note Type Next Note Type Treatment Note Patient Information Identification Type Name ID Card History 72-year-old male with acute respiratory failure and acute pneumonia considered likely to be from aspiration. The pt has a complex medical history significant for chronic xgiya-ipxrmc-rrpl disease is after stem cell transplant for treatment CLL 10 years ago who presented to the hospital after 3 days of progressive dyspnea and cough, weakness and fevers. He has experienced pulmonary complications including pulmonary fibrosis requiring oxygen at night, fungal pneumonia, CMV pneumonia and was diagnosed at [facility] with cryptogenic organizing pneumonia on his last admission on July 10, 2018. He also has a history of Parkinson's, spinal compression fractures related to steroid therapy, perforated 6 sigmoid diverticulum in 2008 resulting in a partial sigmoid resection. The pt and his also report a history of dysphagia and esophageal dismotility. He states he had 2 barium swallow studies at with the most recent being ~3 yrs ago. Based on his description, it is difficult to determine if these were barium (esophagram) or modified barium (with Speech Pathology) swallow studies. He reports he was found to aspirate and to have esophageal dysmotility requiring dilation. He does not appear to have had dysphagia therapy or to have worked with a Speech Pathologist outside of hospital stays. He reportedly has had 3 episodes of pneumonia in the last year, which he believed were caused by aspiration. Subjective Observations The pt was seen this morning after he had had his breakfast when additional case history was obtained. The pt declined trials of intake for clinical swallow evaluation. MBS was then ordered for thorough evaluation of his swallow. This was attempted at 12:30, but in the radiology room the pt felt he would not be able to tolerate the study d/t back pain, generally not feeling well, concern he could not swallow the barium, and feelings of claustrophobia. The study was discontinued but the pt was agreeable to a bedside evaluation when he returned to his room. His , Lilian, was present throughout that evaluation. The pt repeatedly stated that he was not willing to participate in Modified Barium Swallow Study during this hospital stay. He also reported that he was allergic to barium, and his confirmed that he was allergic to contrast. Consulted pt's medical records and consulted with his Nurse. No indication of allergy to barium or contrast was found in the pt's medical records. Nsg discussed this further with the couple, explaining there are different types of contrast. The pt's stated, Whenever a CT scan needs to be done, it has to be done without contrast. The pt expressed concern of the effects consumption of barium would have on his kidney function. The pt's reported that at home the pt eats soft foods secondary to dentition and drinks thin liquids. The pt c/ o occasional sticking sensation with pill taking as well as a history of coughing with intake. He was receiving 2 liters of oxygen via nasal cannula during the evaluation. Evaluation Liquids Trialed Thin Solids Trialed Dysphagia Mechanical Dysphagia Advanced Mechanical Soft Administration Type Cup Single Sip Straw Self-Feeding Oral Impairment Mildly Impaired Oral Strategies Upright at 90 degrees Oral Phase Comments Oral peripheral exam: Pt has natural dentition with damaged lower molars bilaterally. These impact his ability to chew and he stated I can only chew on the right side. Mild lingual tremor present upon protraction. Generalized weakness, reduced coordination and ROM was noted with all structures, consistent with effects of Parkinson's disease . Visualization of soft palate was difficult d/t interference of tongue; however, it appeared to elevate at least somewhat with phonation. Hyolaryngeal elevation/excursion was WFL via palpation. The pt was able to produce speech and sustained phonation with loudness levels WFL with exception of occasional dropping off of words at ends of sentences when he appeared to run out of breath. He did independently recognize this and repeat words that had not been intelligible. Oral Phase: The pt was able to masticate diced peaches with moderate effort, time and discomfort. No struggle with soft cookie. Otherwise oral prep and swallow phases were WNL. Pharyngeal Strategies Sitting Upright (90 deg) Small Bites and Sips Pharyngeal Phase Comments The pt exhibited no overt s/sx of aspiration with single and consecutive sips of thin liquids and consumption of mixed texture (diced peaches in juice) and soft cookie. However, given his complex medical history, including dysphagia, documented aspiration (per pt/spouse report) and recurring pneumonia, silent aspiration cannot be ruled out and severity of pharyngeal impairment cannot be confidently determined. Findings Dysphagia Type Mild to moderate oropharyngeal dysphagia Rehabilitation Potential Fair Impressions Oropharyngeal dysphagia is secondary to Parkinson's disease, scarring within the pharyngeal cavity (per pt report) and complicated by esophageal dysfunction, GERD, and multiple comorbidities. Oral dysphagia is characterized by poor dentition and reduced strength , coordination and ROM of oral structures. Instrumental evaluation is necessary for accurate diagnosis and characterization of pharyngeal dysphagia; however, it is thought to be mild to moderate in nature given the pt's history of coughing with intake, evidence of aspiration in previous instrumental assessments, and recurring pneumonia. The pt adamantly refused to participate in MBSS secondary to many concerns, including possible allergy to barium. Based on bedside swallow evaluation, the diet recommendations listed below are made with strict aspiration precautions. The pt and his were educated extensively (orally and in writing) on aspiration risks and precautions, as well as recommendation for initiation of swallow exercises and continued dysphagia treatment after hospital discharge. The pt acknowledged he often eats/ drinks in reclined position and verbalized understanding of the risk this presented. He and his intend to obtain a bed with elevating head for home use to reduce risk of aspiration while the pt sleeps . The couple was very enthusiastic about the idea of outpatient therapy. Diet Recommendations Liquids Order Thin Diet Order Mechanical Soft Medication Recommendations As Tolerated Additional Dietary Needs Reminders to Use Strategies Aspiration Precautions Recommended Precautions Upright at 90 Degrees Small Bites/Sips Effortful Swallow Additional Precautions Strict aspiration precautions. Upright 30+ min after meals Treatment Plan Placement Recommendations after Home Discharge Other Appropriate for Therapy Yes: + Outpatient Speech Therapy after DC Therapy Recommendations Ongoing swallow assessment and education to pt/spouse, swallow exercises to reduce risk of aspiration. Dysphagia Goals Pt will follow safe swallow strategies with min v/v cues to reduce risk of aspiration. Pt will perform swallow exercises to increase strength , coordination and ROM of swallow musculature and reduce risk of aspiration. Pt/Spouse will verbalize understanding of GERD risks and precautions. Pt will tolerate least restricted diet to meet his nutrition and hydration needs. 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 Continue with outpatient therapy after DC.
[2018-09-30] MEDS: guaiFENesin ER 600 MG TAB 1200 MG PO (20:13)
[2018-09-30] MEDS: PRAMIPEXOLE 0.125 MG TABLET PO (20:14)
[2018-09-30] MEDS: PANTOPRAZOLE 40 MG TABLET PO (20:16)
[2018-09-30] MEDS: TAMSULOSIN 0.4 MG CAPSULE PO (20:16)
[2018-09-30] MEDS: valACYclovir 500 MG TABLET PO (20:16)
--- NOTE | 2018-09-30 21:26 | PC.NURSE ---
At the beginning of the shift, pt had a low BP 86/44, pt felt dizzy and c/o head ache. infused 500cc bolus, BP improved 124/61.
[2018-10-01] VITALS (11 sets, daily range): BP systolic 104–147; BP diastolic 54–79; PULSE 71–86; RESP 16–20; TEMP 36.5–37; O2SAT 92–100
--- NOTE | 2018-10-01 00:01 | PC.NURSE ---
Addendum entered by Kassie Gallardo R.N. 10/01/18 06:06: Complaining of 6/10 back pain this morning but has been sitting up in recliner all night. States that chair isn't made for sleeping. Discussed having him lie in bed during night to better rest but is afraid he will get weak and lose mobility if he spends too much time in bed. Assured him sleeping in bed at night would not be enough inactivity to significantly impair mobility. Medicated with Oxycodone. Original Note: Patient is alert and oriented. Breath sounds diminished with inspiratory crackles in bilateral mid/lower lobes posteriorly. Oxygen at 3L/min per NC with sat of 95% and remains on continuous pulse oximetry. States he is feeling less congested since starting on Mucinex. HRR and last recorded telemetry reading was SR. Denies nausea. BT present and states he had 2 stools earlier. Voiding without difficulty. Moving by himself and states he has been cleared by PT to be up independent but since earlier had low BP and with Parkinson tremors requested patient ask for SBA when up in room/tracey; patient verbalizes agreement. Stitches/steristrips removed earlier from laceration on left lower leg. Wound is well approximated but dark bruised skin surrounding and patient states surgeon expressed some fluid from it when removing stitches. Prednisone type skin noted. Denies current pain. Fall risk score is moderate. Refusing SCD's.
[2018-10-01] MEDS: SELEGILINE 5 MG CAPSULE PO ×2 (05:59→13:22)
[2018-10-01] MEDS: PANTOPRAZOLE 40 MG TABLET PO ×2 (05:59→21:16)
[2018-10-01] MEDS: CARBIDOPA-LEVODOPA 25/100 TABLET 1.5 EACH PO ×3 (05:59→19:26)
[2018-10-01] MEDS: OXYCODONE IR 10 MG TABLET PO ×2 (06:03→21:16)
[2018-10-01 06:05] LABS: BUN Creatinine Ratio 17.6 (6-22); Blood Urea Nitrogen 30 mg/dL (9-20); Calcium 8.6 mg/dL (8.4-10.2); Carbon Dioxide 33 mmol/L (22-32); Chloride 98 mmol/L (98-107); Estimated Glomerular Filt Rate 39.7 mL/min (>60); Glucose 89 mg/dL (80-110); HEMOLYSIS < 15 (0-50); Potassium 3.4 mmol/L (3.4-5.1); Sodium 137 mmol/L (137-145)
[2018-10-01 06:14] LABS: Add Manual Diff / Slide Review YES; Hematocrit 26.2 % (41-53); Hemoglobin 8.6 g/dL (13.5-17.5); Mean Corpuscular HGB Conc 32.9 % (30-36); Mean Corpuscular Hemoglobin 33.6 PG (26-34); Mean Corpuscular Volume 102.3 fL (80-100); Platelet Count 118 X10^3/uL (150-400); Red Blood Cell Count 2.56 X10^6/uL (4.5-5.9); Red Cell Distribution Width 13.9 % (11.6-14.8); White Blood Cell Count 4.9 X10^3/uL (4.5-11.0)
[2018-10-01 06:37] LABS: Neutrophils Absolute Manual 2548 /uL (3000-5900); Total Cells Counted 100
[2018-10-01 06:38] LABS: Platelet Estimate Decreased on smear; Procalcitonin < 0.05 ng/mL (<0.5)
[2018-10-01 06:39] LABS: Macrocytosis 1+
[2018-10-01 06:55] LABS: Vitamin B12 474 pg/mL (239-931)
[2018-10-01] MEDS: guaiFENesin ER 600 MG TAB 1200 MG PO ×2 (08:40→21:17)
[2018-10-01] MEDS: predniSONE 5 MG TABLET 15 MG PO (08:40)
[2018-10-01] MEDS: DAPSONE 100 MG TABLET 50 MG PO ×2 (08:40→21:16)
[2018-10-01] MEDS: PIPERACILLIN-TAZO 3.375 GM/50 ML FROZ.PIGGY IV ×2 (08:41→16:53)
[2018-10-01] MEDS: SODIUM CHLORIDE 0.9% FLUSH 10 ML IV ×3 (08:43→21:17)
--- NOTE | 2018-10-01 08:44 | PM.CN ---
History of Present Illness Date Patient Seen: 10/01/18 Time Patient Seen: 07:47 Chief complaint: CONGESTION Reason for consult: leg wound Narrative: 72yo M with complex chronic co-morbid conditions admitted currently for PNA. Concern is for aspiration PNA and he has a history of esophageal strictures which he has previously had dilated. Has Parkinson's, CKD, CLL, odkie-doyjlt-gxep disease, and a fib s/p ablation so no anti-coagulants. He is chronically on steroids. Surgery is asked to evaluate an anterior left santiago leg wound received 10 days ago when a tire cart fell on his leg. He had it seen and it was closed with stitches. Pain is improving. He says is bled quite a bit initially. Has not had erythema or drainage since. Was given abx. Concern now is that the skin is dark in color and wound care team is concerned for necrosis. [facility] Medical History Parkinson disease (Chronic) Atrial fibrillation (Acute) Atrial flutter (Acute) Chronic kidney disease, stage III (moderate) (Acute) Elevated PSA (Acute) Fungal pneumonia (Acute) Skin cancer (Acute) CLL (chronic lymphocytic leukemia) (Acute) CMV pneumonia (Acute) Chronic rkspk-nupphz-eelg disease (Chronic) Cryptogenic organizing pneumonia (Resolved) Surgical History H/O stem cell transplant (Acute) History of partial colectomy (Acute) History of radiofrequency ablation procedure for cardiac arrhythmia (Acute) Social History household members: spouse Smoking Status: Former smoker alcohol intake: current Social History household members: spouse Smoking Status: Former smoker alcohol intake: current Meds Home Medications Medication Instructions Recorded Confirmed Type dapsone 50 mg PO BID #0 12/16/16 09/28/18 History montelukast 10 mg PO QPM #0 12/16/16 09/28/18 History pramipexole [Mirapex] 0.125 mg PO BEDTIME #0 12/16/16 09/28/18 History sennosides [senna] 17.2 tab PO BEDTIME #0 12/16/16 09/28/18 History tamsulosin [Flomax] 0.4 mg PO BEDTIME #0 12/16/16 09/28/18 History calcitriol [Rocaltrol] 0.25 mcg PO DAILY #0 12/17/16 09/28/18 History carbidopa-levodopa 1 - 2 tab PO TID #0 12/17/16 09/28/18 History polyethylene glycol 3350 [Miralax] 17 gm PO DAILY PRN #0 12/17/16 09/28/18 History Advair HFA 1 puff INH BID #0 12/19/16 09/28/18 History albuterol sulfate 2 puff INHALATION Q4H PRN 01/19/18 09/28/18 History fluorouracil [Efudex] 1 applic TOPICAL BID PRN 01/19/18 09/28/18 History selegiline HCl 5 mg PO BID 01/19/18 09/28/18 History azithromycin 250 mg PO MOWEFR 07/10/18 09/28/18 History furosemide 40 mg PO QAM 07/10/18 09/28/18 History loratadine 10 mg PO DAILY PRN 07/10/18 09/28/18 History metoprolol succinate 50 mg PO BEDTIME 07/10/18 09/28/18 History nifedipine 30 mg PO QAM 07/10/18 09/28/18 History oxycodone 10 mg PO 1-2XD PRN MDD 20 mg 07/10/18 09/28/18 History prednisone 15 mg PO DAILY 07/10/18 09/28/18 History prochlorperazine maleate 10 mg PO QID PRN 07/10/18 09/28/18 History valacyclovir 500 mg PO BEDTIME 07/10/18 09/28/18 History fluoride (sodium) 1 applic DENTAL BEDTIME 07/15/18 09/28/18 History ipratropium-albuterol 3 ml INHALATION Q6-8H PRN 09/28/18 09/28/18 History pantoprazole 40 mg PO BID 09/29/18 09/29/18 History Allergies Allergy/AdvReac Type Severity Reaction Status Date / Time diltiazem Allergy Intermediate Hives Verified 09/20/18 17:29 bacitracin [BACITRACIN] Allergy Unknown SKIN Verified 09/20/18 17:29 IRRITATION chlorhexidine [CHLORHEXIDINE] Allergy Unknown SKIN Verified 09/20/18 17:29 IRRITATION rifampin [RIFAMPIN] Allergy Unknown HIVES Verified 09/20/18 17:29 acetaminophen [ACETAMINOPHEN] AdvReac Unknown ABD PAIN Verified 09/20/18 17:29 diphenhydramine AdvReac Unknown EXTREME Verified 09/20/18 17:29 [From BENADRYL] SEDATION Review of Systems Constitutional Constitutional: Reports as per HPI Exam Vital Signs (past 8 hours): - 10/01/18 04:35 10/01/18 07:40 10/01/18 08:13 Temperature 97.7 F 97.7 F Pulse Rate 76 74 Respiratory Rate 16 18 Blood Pressure 145/71 H 122/61 Pulse Oximetry 98 96 98 Fraction of Inspired Oxygen 32 Oxygen Delivery Method Nasal Cannula Oxygen Flow Rate 3 Narrative Exam Narrative: AAO, NAD, fe/male of healthy weight EOMI, MMM, no scleral icterus unlabored soft, nt/nd RENO; uncontrolled constant movement due to neurologic d/o L anterior santiago with 5cm curved wound, stitched closed, some redness near tight sutures but no cellulitis or drianage, epidermis dark but dermis well seated with gentle pressure Objective Labs Result Diagrams: 10/01/18 05:40 10/01/18 05:40 Labs: Laboratory Results - last 24 hr 10/01/18 10/01/18 10/01/18 05:40 05:40 05:40 WBC 4.9 RBC 2.56 L Hgb 8.6 L Hct 26.2 L MCV 102.3 H MCH 33.6 MCHC 32.9 RDW 13.9 Plt Count 118 L Neut % (Auto) Not Reportable Lymph % (Auto) Not Reportable [place] % (Auto) Not Reportable Eos % (Auto) Not Reportable Baso % (Auto) Not Reportable Lymph # (Auto) Not Reportable [place] # (Auto) Not Reportable Baso # (Auto) Not Reportable Total Counted 100 Seg Neutrophils % 48.0 Band Neutrophils % 4.0 Lymphocytes % (Manual) 25.0 Atypical Lymphs % 3.0 H Monocytes % (Manual) 15.0 H Eosinophils % (Manual) 4.0 Metamyelocytes % 1.0 H Neutrophils # (Manual) 2548 L Platelet Estimate Decreased on smear RBC Morphology See below Macrocytosis 1+ H Sodium 137 Potassium 3.4 Chloride 98 Carbon Dioxide 33 H BUN 30 H Creatinine 1.70 H Estimated GFR 39.7 L BUN/Creatinine Ratio 17.6 Glucose 89 Calcium 8.6 Vitamin B12 Procalcitonin < 0.05 10/01/18 05:40 WBC RBC Hgb Hct MCV MCH MCHC RDW Plt Count Neut % (Auto) Lymph % (Auto) [place] % (Auto) Eos % (Auto) Baso % (Auto) Lymph # (Auto) [place] # (Auto) Baso # (Auto) Total Counted Seg Neutrophils % Band Neutrophils % Lymphocytes % (Manual) Atypical Lymphs % Monocytes % (Manual) Eosinophils % (Manual) Metamyelocytes % Neutrophils # (Manual) Platelet Estimate RBC Morphology Macrocytosis Sodium Potassium Chloride Carbon Dioxide BUN Creatinine Estimated GFR BUN/Creatinine Ratio Glucose Calcium Vitamin B12 474 Procalcitonin Assessment & Plan Assessment & Plan narrative: - Laceration: dark epidermis appears ischemic but dermis is well rooted and applying good coverage --> no signs of yas necrosis or infection so no need for debridement currently --> epidermis will likely slough and may need local attention but dermis seems to have taken hold so would not want to disrupt this and provide this otherwise ill and steroid-dependant gentleman with a larger wound --> will monitor and should infection or deeper necrosis develop will debride as needed - Aspiration PNA --> per medicine --> recommend FU with GI for eval if need for new scope and/ or dilations, would not be advisable currently with compromised respiratory system and he is awake and alert and clearing secretions well
--- NOTE | 2018-10-01 11:20 | PT.IPTN ---
Current Diagnoses Pneumonia, unspecified organism (09/28/18) Physical Therapy Treatment Note M2 PT-IP Current Condition Start: 09/29/18 10:28 Freq: NEEDED Status: Active Protocol: Document 09/29/18 10:28 EA (Rec: 09/29/18 11:17 EA [id number]) Physical Therapy Current Condition Weight Bearing Status Weight Bearing Status Full Weight Bearing M3 PT-IP Subjective Start: 09/29/18 10:28 Freq: NEEDED Status: Active Protocol: Document 10/01/18 11:20 GGD (Rec: 10/01/18 11:43 GGD [id number]) Subjective Physical Therapy Visit Type Type Treatment Note Visit Start Time 11:05 Visit Stop Time 11:20 Total Visit Minutes 15 Number of CHANGE CONTROL COORDINATOR Visits 1 Physical Therapy Visit Comments Patient Comments pt willing to work [employer] theap[employer]. M4 PT-IP Mobility and Gait Start: 09/29/18 10:28 Freq: NEEDED Status: Active Protocol: Document 10/01/18 11:20 GGD (Rec: 10/01/18 11:43 GGD [id number]) PT-Transfer Assessment Sit to and From Stand Sit to and from Stand Standby Assistance Equipment Transfer Assistive Device None Gait Belt Orthotic/Prosthetic Devices or Brace: No Transfers Transfer Destination Chair Transfer Technique pt ambulated to the toilet Transfer Ability Level of Assist Standby Assistance Gait Assessment Gait Gait Assistance Required: Standby Assistance Distance (Feet) 140 Able to Maintain Weight Bearing Status Yes During Gait Assistive Devices Assistive Device None Gait Belt Orthotic/Prosthetic Devices or Brace: No Gait Deviations General Gait Pattern Antalgic Decreased Stride Length Decreased Feet Clearance Flexed Trunk Factors Limiting Gait Function Factors Limiting Gait Function Abnormal Tonal Influences Decreased Activity Tolerance Decreased Strength Poor Balance Poor Safety Awareness Respiratory Distress Comments Gait Comments Pt ambulated 50 feet with SBA on RA and then 90 feet with SBA and 1 L. O2 on RA 88% after 25 feet and 87% after 50 feet. on 1L 90% after 90 feet . M5 PT-IP Objective Assessments Start: 09/29/18 10:28 Freq: NEEDED Status: Active Protocol: Document 09/29/18 10:28 EA (Rec: 09/29/18 11:17 EA [id number]) Orientation Orientation/Cognition Level of Alertness Alert Orientation Name Age Month Language Function Ability No Deficits Noted Safety Awareness Understands Safety Issues Memory Description No Deficits Noted Gross Range of Motion Upper Extremity ROM Assessment Within Functional Limits Lower Extremity ROM Assessment Within Functional Limits Strength Upper Extremity Strength Assessment Within Functional Limits Lower Extremity Strength Assessment Left Impaired Ankle Wound with good healing just above medial ankle joint. Ankle pain Coordination Assessment Gross Coordination Gross Coordination Impaired Assessment Finger to Nose Test Minimal Impairment Pronation/Supination Test Minimal Impairment Foot Tapping Test Minimal Impairment Heel on Hutchins Test Minimal Impairment Coordination Comments generalized involuntary movements Sensation Assessment Sensation Gross Sensation WNL Light Touch Intact M6 PT-IP Treatment Start: 09/29/18 10:28 Freq: NEEDED Status: Active Protocol: Document 09/30/18 10:28 AB (Rec: 09/30/18 13:10 AB [id number]) Physical Therapy Treatment Education Education Provided Safety M7 PT-IP Assessment and Plan Start: 09/29/18 10:28 Freq: NEEDED Status: Active Protocol: Document 10/01/18 11:20 GGD (Rec: 10/01/18 11:43 GGD [id number]) PT Summary Assessment and Plan Summary Assessment Summary Pt SBA with mobililty. His gait was limited by C/O of SOB on RA. He had improve tolerance with gait on 1L. O2. He has mild unsteadiness with gait, but no LOB. Frequency of Treatment Frequency Of Treatment Once a Day Treatment Plan Physical Therapy Treatment Plan Bed Mobility Training Transfer Training Gait Training Therapeutic Exercise Balance Retraining Neuromuscular Re-ed Coordination Retraining Other Recommendations and Next Treatment long distance ambulation Focus without AD standing balance Recommendations To Nursing Amount of Assist Needed Standby Assistance Discharge Recommendations PT Discharge Recommendations Home with Assistance
--- NOTE | 2018-10-01 11:25 | PM.PN.1 ---
Subjective Date Patient Seen: 10/01/18 Interval history: Eleno Sol is a 72-year-old male with a complex past medical history significant for CLL status post bone marrow transplant with complication of ibhqd-orxqsf-awpj disease, and Parkinson's who presented to the ED with progressive shortness of breath, cough, generalized weakness and fever. The patient resting in bedside chair comfortably. He continues to report his breathing has improved. He continues to be on supplemental oxygen during the daytime. Oxygen saturation goal is 88-92%. He headache, cough, chest pain, abdominal pain, nausea, vomiting, fever, chills, dysuria, diarrhea or constipation. He is voiding and eliminating without difficulty. He is up ambulating without assistance. Exam Vital Signs (past 8 hours): - 10/01/18 14:00 10/01/18 15:36 10/01/18 18:45 Temperature 98.3 F Pulse Rate 86 86 Respiratory Rate 20 Blood Pressure 113/61 104/54 L 128/64 Pulse Oximetry 93 10/01/18 20:21 Temperature 98.4 F Pulse Rate 76 Respiratory Rate 18 Blood Pressure 147/79 H Pulse Oximetry 100 Fraction of Inspired Oxygen 32 Oxygen Delivery Method Nasal Cannula Oxygen Flow Rate 1 Narrative Exam Narrative: General: Older gentleman sitting in bedside chair and in no acute distress, well-developed, well-nourished, parkinsonian tremor with masked facies, appropriately interactive. HEENT: Normocephalic, atraumatic. External ears without defect. Pupils equal, round, and reactive to light. Anicteric sclerae, moist conjunctivae, and no lid lag. Neck: Supple with full range of motion. No lymphadenopathy or thyromegaly. Cardiovascular: Regular rate and rhythm without murmurs, rubs, or gallops appreciated Pulmonary: Diminished air movement and very tight throughout with mild improvement. Scattered crackles. Normal respiratory effort with no use of accessory muscles. Supplemental oxygen with nasal cannula in place. Abdomen: Soft, bowel sounds present, nontender, nondistended. No hepatosplenomegaly or masses appreciated. Extremities: No clubbing, cyanosis, or edema. Wound on left leg with sutures that is mildly dusky. Skin: Normal temperature, turgor, and texture; no rash, ulcers, or subcutaneous nodules appreciated. Neurological: Cranial nerves grossly intact. Parkinsonian tremor R>L, and masked facies. Psychiatric: Normal mood and affect. Alert and oriented to person, place, and time. Objective Labs Result Diagrams: 10/01/18 05:40 10/01/18 05:40 Labs: Laboratory Results - last 24 hr 10/01/18 10/01/18 10/01/18 05:40 05:40 05:40 WBC 4.9 RBC 2.56 L Hgb 8.6 L Hct 26.2 L MCV 102.3 H MCH 33.6 MCHC 32.9 RDW 13.9 Plt Count 118 L Neut % (Auto) Not Reportable Lymph % (Auto) Not Reportable [place] % (Auto) Not Reportable Eos % (Auto) Not Reportable Baso % (Auto) Not Reportable Lymph # (Auto) Not Reportable [place] # (Auto) Not Reportable Baso # (Auto) Not Reportable Total Counted 100 Seg Neutrophils % 48.0 Band Neutrophils % 4.0 Lymphocytes % (Manual) 25.0 Atypical Lymphs % 3.0 H Monocytes % (Manual) 15.0 H Eosinophils % (Manual) 4.0 Metamyelocytes % 1.0 H Neutrophils # (Manual) 2548 L Platelet Estimate Decreased on smear RBC Morphology See below Macrocytosis 1+ H Sodium 137 Potassium 3.4 Chloride 98 Carbon Dioxide 33 H BUN 30 H Creatinine 1.70 H Estimated GFR 39.7 L BUN/Creatinine Ratio 17.6 Glucose 89 Calcium 8.6 Vitamin B12 Procalcitonin < 0.05 10/01/18 05:40 WBC RBC Hgb Hct MCV MCH MCHC RDW Plt Count Neut % (Auto) Lymph % (Auto) [place] % (Auto) Eos % (Auto) Baso % (Auto) Lymph # (Auto) [place] # (Auto) Baso # (Auto) Total Counted Seg Neutrophils % Band Neutrophils % Lymphocytes % (Manual) Atypical Lymphs % Monocytes % (Manual) Eosinophils % (Manual) Metamyelocytes % Neutrophils # (Manual) Platelet Estimate RBC Morphology Macrocytosis Sodium Potassium Chloride Carbon Dioxide BUN Creatinine Estimated GFR BUN/Creatinine Ratio Glucose Calcium Vitamin B12 474 Procalcitonin Assessment & Plan Assessment & Plan narrative: Eleno Sol is a 72-year-old male with a complex past medical history significant for CLL status post bone marrow transplant with complication of jivaa-svjann-ibag disease, and Parkinson's who presented to the ED with progressive shortness of breath, cough, generalized weakness and fever. 1. Acute on chronic hypoxemic respiratory failure, present on admission. Active. -Patient presented with progressive shortness of breath, cough, generalized weakness and fever with reported oxygen saturations at home in the 80's on room air. -Patient is typically on nocturnal oxygen at 2 L but has been using supplemental oxygen continuously at 3 L via nasal cannula. -Patient has history of worhb-sznlxz-cjim disease with upper airway strictures and pneumonitis. -Ordered respiratory therapy to evaluation and treat. Continue supplemental daytime oxygen as needed with oxygen saturation 88-92%. Continue nocturnal oxygen at 3 L. Continue DuoNeb every 6 hours as needed with albuterol every 2 hours as needed. 2. Acute bilateral atypical pneumonia, present on admission. -Suspect aspiration pneumonia as patient has history of dysphagia and aspiration due to upper airway strictures. Patient was recently hospitalized at the beginning of July for 18 days at the [facility] on maximum vasopressor support and ventilator. -Chest x-ray demonstrated moderate bilateral atypical pneumonia R>L. -Complete pneumonia workup ordered including: Respiratory viral PCR negative. Strep pneumonia and Legionella urine antigens, pending. Sputum culture which has not been collected as patient does not have productive cough. Blood culture x2 has no growth to date. 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 Continue azithromycin 500 mg x 3 doses for atypical coverage and then consider going back to chronic dose. Continue Zosyn for broad-spectrum coverage including gram-positive, gram negative and anaerobes. Discontinued levofloxacin as -Continue patient's prednisone 15 mg daily and valacyclovir 500 mg daily. 3. Recent left leg laceration status post sutures, not healing well, present on admission. Active. -Consulted wound care who recommended General surgery consultation. -General surgery, Dr. Hernandez, consulted and plans to keep a watchful eye as the wound is not healing well but skin is intact. -Continue antibiotics as above. 4. Chronic jfosi-lutlyh-kutg disease, present on admission. Stable. -Previous complications involving mouth, esophagus, GI and skin symptoms, no complaints in evidence on exam. -Patient has been previously had been treated with tacrolimus which was DC due to toxicities, previously on methotrexate which tapered off in 2014. -Continue current prednisone dose of 15 mg daily. -Continue prophylaxis with valacyclovir 500 mg nightly and dapsone 50 mg twice daily 5. Chronic kidney disease stage III, present on admission. Stable. -Baseline creatinine between 1.5-1.7. Patient is currently at his baseline. -Patient took an extra 80 mg dose of furosemide on day of admission. Continue home furosemide 40 mg daily. Otherwise avoid nephrotoxic agents and dose adjust medications. -Continue to monitor renal function closely. 6. Parkinson's disease, present on admission. Stable. -Patient with frequent gross motor involuntary movement of head and extremities -Continue carbidopa levodopa 25/100 mg 1-1/2 tablets 3 times daily, mirapex 0.125 mg at bedtime and selegiline 5 mg twice daily. -Ordered speech therapy evaluation and treatment. An MBS was pursued and patient declined as he reported he was unable to perform steps due to his Parkinson's and per ST due to anxiety. 7. Chronic atrial fibrillation/flutter, status post cardiac ablation, not present on admission. Stable. -Status post ablation on 06/25/2017. Currently SR. 8. Hypertension, present on admission. Stable. -Continue nifedipine 30 mg daily. Disposition: Patient to likely discharge in several days depending on improvement in pneumonia. Quality VTE Deep Vein Thrombosis/Pulmonary Embolism Present on Admission: No
--- NOTE | 2018-10-01 13:23 | OT.IP.TRT ---
Current Diagnoses Pneumonia, unspecified organism (09/28/18) Occupational Therapy Treatment Note M2 OT-IP Current Condition Start: 09/30/18 08:10 Freq: Status: Active Protocol: Document 09/29/18 15:00 PJM (Rec: 09/30/18 08:33 PJM [id number]) Occupational Therapy Current Condition Current Condition Evaluation Date 09/29/18 Treatment Diagnosis decreased act dane,self care, mobility w DX: atypical pneumonia Diagnosis Onset Date 09/28/18 Post Operative Precautions Other Precautions fall risk due to Parkinsons M3 OT- IP Subjective and Pain Start: 09/30/18 08:10 Freq: Status: Active Protocol: Document 10/01/18 13:23 PJM (Rec: 10/01/18 15:50 PJM [id number]) OT- Subjective Occupational Therapy Visit Type Type Treatment Note Visit Start Time 13:15 Visit Stop Time 13:23 Total Visit Minutes 8 Notes Pt's here for education. Occupational Therapy Visit Comments Patient Comments This machine doesn't read the same has my home oxygen meter . RN in to reassure pt re: current O2 sats which are in mid 90's on room air. Patient/Caregiver Goals to go home tomorrow OT Pain Assessment Pain When Pain Assessed After Treatment Pain Present Pain Present Denied Pain M4 OT- IP ADL's Start: 09/30/18 08:10 Freq: Status: Active Protocol: Document 10/01/18 13:23 PJM (Rec: 10/01/18 15:50 PJM [id number]) OT ADL-Grooming General Evaluation Grooming Ability Independent Comments OT Grooming Comments Pt has been cleared for indep ambulation in room by P.T. and has been standing at sink for grooming. OT ADL-Dressing Comments OT Dressing Comments Pt/ seen for education re: hard sock aid as pt does not like his soft sock aid he uses at home. Provided education re: pros/cons and resources to obtain equipment. OT ADL-Toileting General Evaluation Toileting Ability Independent Comments OT Toileting Comments Pt cleared for independent ambulation to bathroom and has been toileting independently. OT ADL-Bathing Bathing Type Bathing Type Shower Comments OT Bathing Comments Pt reports indep after set up with shower here. Pt has all necessary bathroom safety equipt at home. M9 OT- IP Assessment and Plan Start: 09/30/18 08:10 Freq: Status: Active Protocol: Document 10/01/18 13:23 PJM (Rec: 10/01/18 15:50 PJM [id number]) OT Summary Assessment and Plan Summary Progress Towards Goals Goals Met Assessment Summary Pt/ verbalize understanding of hard sock aid use. Pt needs wide sock aid to accommodate size of foot. Recommend pt not use hard sock aid until wound on L medial distal santiago area completely healed as pt may inadvertently bump this wound with sock aid and reopen it. Pt/ verbalize understanding. Supportive, capable willing to assist pt PRN with socks at home. All OT goals achieved for this admission. Pt appears to be at his self care baseline. No further acute care OT services needed. Frequency of Treatment Frequency Of Treatment Discharge Discharge Recommendations OT Discharge Recommendations Home with Assistance
[2018-10-01] MEDS: PROCHLORPERAZINE 5 MG TABLET 10 MG PO (14:00)
--- NOTE | 2018-10-01 14:50 | ST.IPDYTX ---
Care Team Visit Care Team Role Provider Type Kimberly Carpenter DPM Other Providers Non-Staff Specialty: Podiatry Address: [address] [place] [address] Email: Padmini Hernandez MD Other Providers Physician Specialty: General Surgery Address: [address] [place] [address] Email: Gamaliel Acevedo MD Other Providers Physician Specialty: Wound Care Address: [address] [place] [address] Email: Robel Chen DO Emergency Provider Physician Specialty: Emergency Medicine Address: [address] [place] [address] Email: [email or web address] Pedroza Admit Provider Physician Attending Provider Specialty: Internal Medicine Address: [address] [place] [address] Email: SUPERVISOR DRY CELL ASSEMBLY Dysphagia Treatment SUPERVISOR DRY CELL ASSEMBLY Dysphagia Treatment Start: 10/01/18 14:12 Freq: Status: Active Protocol: Document 10/01/18 14:12 LNK (Rec: 10/01/18 14:49 LNK [id number]) Dysphagia Treatment Session Time Visit Start Time 10:30 Visit Stop Time 11:15 Total Visit Minutes 45 Setting Assessment Location Acute Care Visit Type Note Type Treatment Note Next Note Type Next Note Type Treatment Note Patient Information Identification Type Name ID Wristband Subjective Observations Pt was seated in the bedside chair in his room. His was present in the room with him. pt reported that he had not eaten breakfast as he was busy with other staff. Treatment Treatment Activities The patient's , Lilian, had been able to obtain a copy of the pt's MBS reports from [facility] . The pt and his were educated extensively (orally and in writing) on anatomy and physiology of the swallow mechanism, silent aspiration, aspiration risks and precautions. Recommendation for initiation of swallow exercises and continued dysphagia treatment after hospital discharge were discussed. Written descriptions of swallow exercises was provided to the pt and his . The pt refused to practice the exercises indicating he was tired. He was demonstrating more dyskinetic movements today that he was yesterday. The pt acknowledged he often will aspirate when eating/ drinking. Additionally, he eats/drinks in reclined position and verbalized understanding of the risk this presented. He and his intend to obtain a bed with elevating head for home use to reduce risk of aspiration while the pt sleeps. [ End ] Assessment Patient Response to Treatment Excellent Rehab Potential Fair Diet Recommendations Recommendations Continue Current Diet Medication Recommendations Whole in Carrier Crushed in Carrier Additional Dietary Needs No Straws Reminders to Use Strategies Aspiration Precautions Recommended Precautions Upright at 90 Degrees Small Bites/Sips Supraglottic Swallow Sandeep Maneuvor Liquids from Cup Treatment Plan Placement Recommendation after Discharge Outpatient Therapy Dysphagia Goals Pt will follow safe swallow strategies with min v/v cues to reduce risk of aspiration. Pt will perform swallow exercises to increase strength , coordination and ROM of swallow musculature and reduce risk of aspiration. Pt/Spouse will verbalize understanding of GERD risks and precautions. Pt will tolerate least restricted diet to meet his nutrition and hydration needs. [ End ] Follow Up Plan 1-2x/day
[2018-10-01] MEDS: MONTELUKAST 10 MG TABLET PO (16:53)
--- NOTE | 2018-10-01 20:25 | P.PN_ITS ---
Subjective Date Patient Seen: 10/01/18 Interval history: Eleno Sol is a 72-year-old male with a complex past medical history significant for CLL status post bone marrow transplant with complication of hpzfv-pqhlob-ukqw disease, and Parkinson's who presented to the ED with progressive shortness of breath, cough, generalized weakness and fever. The patient resting in bedside chair comfortably. He continues to report his breathing has improved. He continues to be on supplemental oxygen during the daytime. Oxygen saturation goal is 88-92%. He headache, cough, chest pain, abdominal pain, nausea, vomiting, fever, chills, dysuria, diarrhea or constipation. He is voiding and eliminating without difficulty. He is up ambulating without assistance. Exam Vital Signs (past 8 hours): - 10/01/18 14:00 10/01/18 15:36 10/01/18 18:45 Temperature 98.3 F Pulse Rate 86 86 Respiratory Rate 20 Blood Pressure 113/61 104/54 L 128/64 Pulse Oximetry 93 10/01/18 20:21 Temperature 98.4 F Pulse Rate 76 Respiratory Rate 18 Blood Pressure 147/79 H Pulse Oximetry 100 Fraction of Inspired Oxygen 32 Oxygen Delivery Method Nasal Cannula Oxygen Flow Rate 1 Narrative Exam Narrative: General: Older gentleman sitting in bedside chair and in no acute distress, well-developed, well-nourished, parkinsonian tremor with masked facies, appropriately interactive. HEENT: Normocephalic, atraumatic. External ears without defect. Pupils equal, round, and reactive to light. Anicteric sclerae, moist conjunctivae, and no lid lag. Neck: Supple with full range of motion. No lymphadenopathy or thyromegaly. Cardiovascular: Regular rate and rhythm without murmurs, rubs, or gallops appreciated Pulmonary: Diminished air movement and very tight throughout with mild improvement. Scattered crackles. Normal respiratory effort with no use of accessory muscles. Supplemental oxygen with nasal cannula in place. Abdomen: Soft, bowel sounds present, nontender, nondistended. No hepatosplenomegaly or masses appreciated. Extremities: No clubbing, cyanosis, or edema. Wound on left leg with sutures that is mildly dusky. Skin: Normal temperature, turgor, and texture; no rash, ulcers, or subcutaneous nodules appreciated. Neurological: Cranial nerves grossly intact. Parkinsonian tremor R>L, and masked facies. Psychiatric: Normal mood and affect. Alert and oriented to person, place, and time. Objective Labs Result Diagrams: 10/01/18 05:40 10/01/18 05:40 Labs: Laboratory Results - last 24 hr 10/01/18 10/01/18 10/01/18 05:40 05:40 05:40 WBC 4.9 RBC 2.56 L Hgb 8.6 L Hct 26.2 L MCV 102.3 H MCH 33.6 MCHC 32.9 RDW 13.9 Plt Count 118 L Neut % (Auto) Not Reportable Lymph % (Auto) Not Reportable [place] % (Auto) Not Reportable Eos % (Auto) Not Reportable Baso % (Auto) Not Reportable Lymph # (Auto) Not Reportable [place] # (Auto) Not Reportable Baso # (Auto) Not Reportable Total Counted 100 Seg Neutrophils % 48.0 Band Neutrophils % 4.0 Lymphocytes % (Manual) 25.0 Atypical Lymphs % 3.0 H Monocytes % (Manual) 15.0 H Eosinophils % (Manual) 4.0 Metamyelocytes % 1.0 H Neutrophils # (Manual) 2548 L Platelet Estimate Decreased on smear RBC Morphology See below Macrocytosis 1+ H Sodium 137 Potassium 3.4 Chloride 98 Carbon Dioxide 33 H BUN 30 H Creatinine 1.70 H Estimated GFR 39.7 L BUN/Creatinine Ratio 17.6 Glucose 89 Calcium 8.6 Vitamin B12 Procalcitonin < 0.05 10/01/18 05:40 WBC RBC Hgb Hct MCV MCH MCHC RDW Plt Count Neut % (Auto) Lymph % (Auto) [place] % (Auto) Eos % (Auto) Baso % (Auto) Lymph # (Auto) [place] # (Auto) Baso # (Auto) Total Counted Seg Neutrophils % Band Neutrophils % Lymphocytes % (Manual) Atypical Lymphs % Monocytes % (Manual) Eosinophils % (Manual) Metamyelocytes % Neutrophils # (Manual) Platelet Estimate RBC Morphology Macrocytosis Sodium Potassium Chloride Carbon Dioxide BUN Creatinine Estimated GFR BUN/Creatinine Ratio Glucose Calcium Vitamin B12 474 Procalcitonin Assessment & Plan Assessment & Plan narrative: Eleno Sol is a 72-year-old male with a complex past medical history significant for CLL status post bone marrow transplant with complication of nxggv-vkcmuu-bcki disease, and Parkinson's who presented to the ED with progressive shortness of breath, cough, generalized weakness and fever. 1. Acute on chronic hypoxemic respiratory failure, present on admission. Active. -Patient presented with progressive shortness of breath, cough, generalized weakness and fever with reported oxygen saturations at home in the 80's on room air. -Patient is typically on nocturnal oxygen at 2 L but has been using supplemental oxygen continuously at 3 L via nasal cannula. -Patient has history of gfoeb-pdxvrg-anap disease with upper airway strictures and pneumonitis. -Ordered respiratory therapy to evaluation and treat. Continue supplemental daytime oxygen as needed with oxygen saturation 88-92%. Continue nocturnal oxygen at 3 L. Continue DuoNeb every 6 hours as needed with albuterol every 2 hours as needed. 2. Acute bilateral atypical pneumonia, present on admission. -Suspect aspiration pneumonia as patient has history of dysphagia and aspiration due to upper airway strictures. Patient was recently hospitalized at the beginning of July for 18 days at the [facility] on maximum vasopressor support and ventilator. -Chest x-ray demonstrated moderate bilateral atypical pneumonia R>L. -Complete pneumonia workup ordered including: Respiratory viral PCR negative. Strep pneumonia and Legionella urine antigens, pending. Sputum culture which has not been collected as patient does not have productive cough. Blood culture x2 has no growth to date. 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 Continue azithromycin 500 mg x 3 doses for atypical coverage and then consider going back to chronic dose. Continue Zosyn for broad-spectrum coverage including gram- positive, gram negative and anaerobes. Discontinued levofloxacin as -Continue patient's prednisone 15 mg daily and valacyclovir 500 mg daily. 3. Recent left leg laceration status post sutures, not healing well, present on admission. Active. -Consulted wound care who recommended General surgery consultation. -General surgery, Dr. Hernandez, consulted and plans to keep a watchful eye as the wound is not healing well but skin is intact. -Continue antibiotics as above. 4. Chronic gbvlb-hgwwrm-mdra disease, present on admission. Stable. -Previous complications involving mouth, esophagus, GI and skin symptoms, no complaints in evidence on exam. -Patient has been previously had been treated with tacrolimus which was DC due to toxicities, previously on methotrexate which tapered off in 2014. -Continue current prednisone dose of 15 mg daily. -Continue prophylaxis with valacyclovir 500 mg nightly and dapsone 50 mg twice daily 5. Chronic kidney disease stage III, present on admission. Stable. -Baseline creatinine between 1.5-1.7. Patient is currently at his baseline. -Patient took an extra 80 mg dose of furosemide on day of admission. Continue home furosemide 40 mg daily. Otherwise avoid nephrotoxic agents and dose adjust medications. -Continue to monitor renal function closely. 6. Parkinson's disease, present on admission. Stable. -Patient with frequent gross motor involuntary movement of head and extremities -Continue carbidopa levodopa 25/100 mg 1-1/2 tablets 3 times daily, mirapex 0.125 mg at bedtime and selegiline 5 mg twice daily. -Ordered speech therapy evaluation and treatment. An MBS was pursued and patient declined as he reported he was unable to perform steps due to his Parkinson's and per ST due to anxiety. 7. Chronic atrial fibrillation/flutter, status post cardiac ablation, not present on admission. Stable. -Status post ablation on 06/25/2017. Currently SR. 8. Hypertension, present on admission. Stable. -Continue nifedipine 30 mg daily. Disposition: Patient to likely discharge in several days depending on improvement in pneumonia. Quality VTE Deep Vein Thrombosis/Pulmonary Embolism Present on Admission: No
[2018-10-01] MEDS: TAMSULOSIN 0.4 MG CAPSULE PO (21:15)
[2018-10-01] MEDS: valACYclovir 500 MG TABLET PO (21:16)
[2018-10-01] MEDS: PRAMIPEXOLE 0.125 MG TABLET PO (21:18)
[2018-10-02] VITALS (9 sets, daily range): BP systolic 119–145; BP diastolic 57–77; PULSE 74–93; RESP 16–21; TEMP 36.5–36.8; O2SAT 89–99
[2018-10-02] MEDS: SODIUM CHLORIDE 0.9% FLUSH 10 ML IV ×4 (00:11→20:28)
[2018-10-02] MEDS: PIPERACILLIN-TAZO 3.375 GM/50 ML FROZ.PIGGY IV ×3 (00:11→15:58)
--- NOTE | 2018-10-02 02:18 | PC.NURSE ---
Pt. oxygen was decreased by 3-11 RN, during shift report. Pt. called & reported @ home at night when I'm sleeping, I normally used 3 liters of oxygen. Increased O2 to 3 liter, will cont. POC & monitor.
[2018-10-02] MEDS: ALBUTEROL/IPRATROPIUM 3 ML AMPUL INH ×2 (03:15→19:11)
[2018-10-02] MEDS: OXYCODONE IR 10 MG TABLET PO ×2 (06:00→22:17)
[2018-10-02 06:12] LABS: BUN Creatinine Ratio 14.4 (6-22); Blood Urea Nitrogen 23 mg/dL (9-20); Calcium 8.9 mg/dL (8.4-10.2); Carbon Dioxide 33 mmol/L (22-32); Chloride 97 mmol/L (98-107); Estimated Glomerular Filt Rate 42.6 mL/min (>60); Glucose 87 mg/dL (80-110); HEMOLYSIS 16 (0-50); Magnesium 2.2 mg/dL (1.6-2.3); Potassium 3.8 mmol/L (3.4-5.1); Sodium 137 mmol/L (137-145)
[2018-10-02] MEDS: CARBIDOPA-LEVODOPA 25/100 TABLET 1.5 EACH PO ×3 (06:34→19:36)
[2018-10-02] MEDS: PANTOPRAZOLE 40 MG TABLET PO ×2 (06:34→20:27)
[2018-10-02] MEDS: SELEGILINE 5 MG CAPSULE PO ×2 (06:35→13:42)
--- NOTE | 2018-10-02 08:53 | CM.DPC ---
Addendum entered by Holli Muniz LPN 10/02/18 13:12: Case discussed in Team Rounds. Dr. Ruiz states that pt is not yet medically stable for d/c but is improving. P: at this point: home when stable for same with spouse support. Pt at this point not wanting to consider HH. He is on home 02 at baseline, using it at night: 3 L. Original Note: DCP: continued: Case received, EMR reviewed and met now with pt with intent to discuss ? HH. Introduced self and role. The complexities of pt's comorbidities are noted. Pt says he has heard that he may d/c today. PT and OT have cleared him for the home setting and MOLDED GOODS EMBOSSING PRESS OPERATOR has worked extensively with him and his on swallow stategies. She is recommending OUTPT MOLDED GOODS EMBOSSING PRESS OPERATOR. Asked if having MOLDED GOODS EMBOSSING PRESS OPERATOR see pt at home (in setting of HH orders for RN and MOLDED GOODS EMBOSSING PRESS OPERATOR) would be helpful. Pt stated quickly that he did not want HH and is unsure if he will go to OUTPT. My and I will think about it once we get home. Pt says he has heard that he may go home today. Dr. Guzman's note of yesterday indicates he may be here for a few days more. Dr. Ruiz is taking over for hospitalist team today. Will follow.
[2018-10-02] MEDS: guaiFENesin ER 600 MG TAB 1200 MG PO ×2 (09:49→20:26)
[2018-10-02] MEDS: predniSONE 5 MG TABLET 15 MG PO (09:49)
[2018-10-02] MEDS: DAPSONE 100 MG TABLET 50 MG PO ×2 (09:54→20:26)
--- NOTE | 2018-10-02 11:46 | PM.PN.1 ---
Subjective Date Patient Seen: 10/02/18 Time Patient Seen: 11:46 Interval history: Follow-up on aspiration pneumonia Patient seen at bedside. He is doing well this morning. However, when oxygen is taken off, patient becomes hypoxic while talking to 89%. There seems to be slight anxiety related to discontinuation of oxygen. Otherwise, patient denies any chest pain. He states that his aspiration is improving, and he is not coughing as much with p.o. intake. Patient was unable to undergo barium swallow, as he was too anxious. No acute overnight events. Patient denies any headache, cough, chest pain, nausea, vomiting, diarrhea, abdominal pain, chills, fevers, dysuria. Exam Vital Signs (past 8 hours): - 10/02/18 05:47 10/02/18 08:12 10/02/18 11:21 Temperature 98.2 F 98.1 F Pulse Rate 79 78 Respiratory Rate 18 17 Blood Pressure 135/71 139/68 Pulse Oximetry 99 98 93 Fraction of Inspired Oxygen 32 Oxygen Delivery Method Nasal Cannula Oxygen Flow Rate 3 Narrative Exam Narrative: General: No acute distress, sitting comfortably in the chair having breakfast. Parkinsonian tremor with masked facies, appropriately interactive. HEENT: Normocephalic, atraumatic. PERRLA and EOMI bilaterally. Neck: Supple with full range of motion. No lymphadenopathy or thyromegaly. Cardiovascular: Regular rate and rhythm without murmurs, rubs, or gallops appreciated Pulmonary: Expiratory wheezes appreciated bilaterally with diminished air movement. Supplemental oxygen with nasal cannula in place. Abdomen: Bowel sounds present. Soft, nontender, nondistended. No hepatosplenomegaly or masses appreciated. Extremities: No clubbing, cyanosis, or edema. Left lower extremity wound remained mildly dusky, but does not seem to be worsening. Skin: Normal temperature, turgor, and texture; no rash, ulcers, or subcutaneous nodules appreciated. Neurological: Cranial nerves grossly intact. Parkinsonian tremor R>L, and masked facies. Psychiatric: Anxious mood and normal affect. Alert and oriented to person, place, and time. Objective Labs Result Diagrams: 10/01/18 05:40 10/02/18 05:20 Labs: Laboratory Results - last 24 hr 10/02/18 05:20 Sodium 137 Potassium 3.8 Chloride 97 L Carbon Dioxide 33 H BUN 23 H Creatinine 1.60 H Estimated GFR 42.6 L BUN/Creatinine Ratio 14.4 Glucose 87 Calcium 8.9 Magnesium 2.2 Assessment & Plan Assessment & Plan narrative: 72-year-old male with a complex past medical history significant for CLL status post bone marrow transplant with complication of dvony-lgocre-eyum disease, CKD III, Afib, and Parkinson's who presented to the ED with progressive shortness of breath, cough, generalized weakness and fever. He was found to have acute on chronic respiratory failure due to aspiration pneumonia and admitted for further therapy. 1. Acute on chronic hypoxemic respiratory failure, present on admission. Improving. -Likely due to BL pneumonia -Patient presented with progressive shortness of breath, cough, generalized weakness and fever with reported oxygen saturations at home in the 80's on room air. -Patient is typically on nocturnal oxygen at 2 L but has been using supplemental oxygen continuously at 3 L via nasal cannula. -Patient has history of aidje-qijyfh-zsep disease with upper airway strictures and pneumonitis. -RT on board. Continue supplemental daytime oxygen as needed with oxygen saturation 88-92% and titrate off as needed. Continue DuoNeb every 6 hours as needed with albuterol every 2 hours as needed. 2. Acute bilateral atypical pneumonia, present on admission. -Suspect aspiration pneumonia as patient has history of dysphagia and aspiration due to upper airway strictures and parkinson's disease. Patient was recently hospitalized at the beginning of July for 18 days at the [facility] on maximum vasopressor support and ventilator due to same reason. -Chest x-ray demonstrated moderate bilateral atypical pneumonia R>L. -Complete pneumonia workup ordered including: Respiratory viral PCR negative. Strep pneumonia and Legionella urine antigens, pending. Sputum culture which has not been collected as patient does not have productive cough. Blood culture x2 has no growth to date. -Continue Zosyn for broad-spectrum coverage including gram-positive, gram negative and anaerobes and restart Azithromycin 500mg PO Daily x5 more dose to complete therapy. Will transition Zosyn to PO appropriate coverage tomorrow -Continue patient's prednisone 15 mg daily and valacyclovir 500 mg daily. 3. Recent left leg laceration status post sutures, not healing well, present on admission. Active. -Consulted wound care who recommended General surgery consultation. -Per surgery sutures were removed and wound is being monitored. No evidence of necrosis yet -Continue antibiotics as above. 4. Chronic gbebg-wsnigw-jzkb disease, present on admission. Stable. -Previous complications involving mouth, esophagus, GI and skin symptoms, no complaints in evidence on exam. -Patient has been previously had been treated with tacrolimus which was DC due to toxicities, previously on methotrexate which tapered off in 2014. -Continue current prednisone dose of 15 mg daily. -Continue prophylaxis with valacyclovir 500 mg nightly and dapsone 50 mg twice daily 5. Chronic kidney disease stage III, present on admission. Stable. -Baseline creatinine between 1.5-1.7. Patient is currently at his baseline. -Patient took an extra 80 mg dose of furosemide on day of admission. Continue home furosemide 40 mg daily. Otherwise avoid nephrotoxic agents and dose adjust medications. -Continue to monitor renal function closely. 6. Parkinson's disease, present on admission. Stable. -With likely complications of aspiration -Patient with frequent gross motor involuntary movement of head and extremities -Continue carbidopa levodopa 25/100 mg 1-1/2 tablets 3 times daily, mirapex 0.125 mg at bedtime and selegiline 5 mg twice daily. -Modified Barium swallow was pursued but patient declined as he reported he was unable to perform steps due to his Parkinson's and per ST due to anxiety. Patient will need outpatient follow up for repeat of swallow study. 7. Chronic atrial fibrillation/flutter, not present on admission. Stable. -Status post ablation on 06/25/2017. 8. Hypertension, present on admission. Stable. -Continue nifedipine 30 mg daily. Disposition: Titrate oxygen if possible. Potential discharge home tomorrow with outpatient follow-up for barium swallow Quality VTE Deep Vein Thrombosis/Pulmonary Embolism Present on Admission: No
--- NOTE | 2018-10-02 11:52 | P.PN_ITS ---
Subjective Date Patient Seen: 10/02/18 Time Patient Seen: 11:46 Interval history: Follow-up on aspiration pneumonia Patient seen at bedside. He is doing well this morning. However, when oxygen is taken off, patient becomes hypoxic while talking to 89%. There seems to be slight anxiety related to discontinuation of oxygen. Otherwise, patient denies any chest pain. He states that his aspiration is improving, and he is not coughing as much with p.o. intake. Patient was unable to undergo barium swallow, as he was too anxious. No acute overnight events. Patient denies any headache, cough, chest pain, nausea, vomiting, diarrhea, abdominal pain, chills, fevers, dysuria. Exam Vital Signs (past 8 hours): - 10/02/18 05:47 10/02/18 08:12 10/02/18 11:21 Temperature 98.2 F 98.1 F Pulse Rate 79 78 Respiratory Rate 18 17 Blood Pressure 135/71 139/68 Pulse Oximetry 99 98 93 Fraction of Inspired Oxygen 32 Oxygen Delivery Method Nasal Cannula Oxygen Flow Rate 3 Narrative Exam Narrative: General: No acute distress, sitting comfortably in the chair having breakfast. Parkinsonian tremor with masked facies, appropriately interactive. HEENT: Normocephalic, atraumatic. PERRLA and EOMI bilaterally. Neck: Supple with full range of motion. No lymphadenopathy or thyromegaly. Cardiovascular: Regular rate and rhythm without murmurs, rubs, or gallops appreciated Pulmonary: Expiratory wheezes appreciated bilaterally with diminished air movement. Supplemental oxygen with nasal cannula in place. Abdomen: Bowel sounds present. Soft, nontender, nondistended. No hepatosplenomegaly or masses appreciated. Extremities: No clubbing, cyanosis, or edema. Left lower extremity wound remained mildly dusky, but does not seem to be worsening. Skin: Normal temperature, turgor, and texture; no rash, ulcers, or subcutaneous nodules appreciated. Neurological: Cranial nerves grossly intact. Parkinsonian tremor R>L, and masked facies. Psychiatric: Anxious mood and normal affect. Alert and oriented to person, place, and time. Objective Labs Result Diagrams: 10/01/18 05:40 10/02/18 05:20 Labs: Laboratory Results - last 24 hr 10/02/18 05:20 Sodium 137 Potassium 3.8 Chloride 97 L Carbon Dioxide 33 H BUN 23 H Creatinine 1.60 H Estimated GFR 42.6 L BUN/Creatinine Ratio 14.4 Glucose 87 Calcium 8.9 Magnesium 2.2 Assessment & Plan Assessment & Plan narrative: 72-year-old male with a complex past medical history significant for CLL status post bone marrow transplant with complication of kvekr-sfhiee-inoq disease, CKD III, Afib, and Parkinson's who presented to the ED with progressive shortness of breath, cough, generalized weakness and fever. He was found to have acute on chronic respiratory failure due to aspiration pneumonia and admitted for further therapy. 1. Acute on chronic hypoxemic respiratory failure, present on admission. Improving. -Likely due to BL pneumonia -Patient presented with progressive shortness of breath, cough, generalized weakness and fever with reported oxygen saturations at home in the 80's on room air. -Patient is typically on nocturnal oxygen at 2 L but has been using supplemental oxygen continuously at 3 L via nasal cannula. -Patient has history of wegvy-npzkwj-aprl disease with upper airway strictures and pneumonitis. -RT on board. Continue supplemental daytime oxygen as needed with oxygen saturation 88-92% and titrate off as needed. Continue DuoNeb every 6 hours as needed with albuterol every 2 hours as needed. 2. Acute bilateral atypical pneumonia, present on admission. -Suspect aspiration pneumonia as patient has history of dysphagia and aspiration due to upper airway strictures and parkinson's disease. Patient was recently hospitalized at the beginning of July for 18 days at the [facility] on maximum vasopressor support and ventilator due to same reason. -Chest x-ray demonstrated moderate bilateral atypical pneumonia R>L. -Complete pneumonia workup ordered including: Respiratory viral PCR negative. Strep pneumonia and Legionella urine antigens, pending. Sputum culture which has not been collected as patient does not have productive cough. Blood culture x2 has no growth to date. -Continue Zosyn for broad-spectrum coverage including gram-positive, gram negative and anaerobes and restart Azithromycin 500mg PO Daily x5 more dose to complete therapy. Will transition Zosyn to PO appropriate coverage tomorrow -Continue patient's prednisone 15 mg daily and valacyclovir 500 mg daily. 3. Recent left leg laceration status post sutures, not healing well, present on admission. Active. -Consulted wound care who recommended General surgery consultation. -Per surgery sutures were removed and wound is being monitored. No evidence of n ecrosis yet -Continue antibiotics as above. 4. Chronic wdocb-ylgeqq-dmdq disease, present on admission. Stable. -Previous complications involving mouth, esophagus, GI and skin symptoms, no complaints in evidence on exam. -Patient has been previously had been treated with tacrolimus which was DC due to toxicities, previously on methotrexate which tapered off in 2014. -Continue current prednisone dose of 15 mg daily. -Continue prophylaxis with valacyclovir 500 mg nightly and dapsone 50 mg twice daily 5. Chronic kidney disease stage III, present on admission. Stable. -Baseline creatinine between 1.5-1.7. Patient is currently at his baseline. -Patient took an extra 80 mg dose of furosemide on day of admission. Continue home furosemide 40 mg daily. Otherwise avoid nephrotoxic agents and dose adjust medications. -Continue to monitor renal function closely. 6. Parkinson's disease, present on admission. Stable. -With likely complications of aspiration -Patient with frequent gross motor involuntary movement of head and extremities -Continue carbidopa levodopa 25/100 mg 1-1/2 tablets 3 times daily, mirapex 0.125 mg at bedtime and selegiline 5 mg twice daily. -Modified Barium swallow was pursued but patient declined as he reported he was unable to perform steps due to his Parkinson's and per ST due to anxiety. Patient will need outpatient follow up for repeat of swallow study. 7. Chronic atrial fibrillation/flutter, not present on admission. Stable. -Status post ablation on 06/25/2017. 8. Hypertension, present on admission. Stable. -Continue nifedipine 30 mg daily. Disposition: Titrate oxygen if possible. Potential discharge home tomorrow with outpatient follow-up for barium swallow Quality VTE Deep Vein Thrombosis/Pulmonary Embolism Present on Admission: No
--- NOTE | 2018-10-02 12:03 | PT.IPTN ---
Current Diagnoses Pneumonia, unspecified organism (09/28/18) Physical Therapy Treatment Note M2 PT-IP Current Condition Start: 09/29/18 10:28 Freq: NEEDED Status: Active Protocol: Document 09/29/18 10:28 WYATT (Rec: 09/29/18 11:17 EA [id number]) Physical Therapy Current Condition Weight Bearing Status Weight Bearing Status Full Weight Bearing M3 PT-IP Subjective Start: 09/29/18 10:28 Freq: NEEDED Status: Active Protocol: Document 10/02/18 12:02 GGD (Rec: 10/02/18 12:02 GGD [id number]) Subjective Physical Therapy Visit Type Type Administrative Note Notes Pt states he been walking and had no needs for PT. Pt at baseline for gait and balance, D/C from PT. M4 PT-
--- NOTE | 2018-10-02 15:23 | ST.IPDYTX ---
Care Team Visit Care Team Role Provider Type Kimberly Carpenter DPM Other Providers Non-Staff Specialty: Podiatry Address: [address] [place] [address], [id number] Email: Padmini Hernandez MD Other Providers Physician Specialty: General Surgery Address: [address] [place] [address], [facility] Email: Gamaliel Acevedo MD Other Providers Physician Specialty: Wound Care Address: [address] [place] [address], [facility] Email: Robel Chen DO Emergency Provider Physician Specialty: Emergency Medicine Address: [address] [place] [address] Email: [email or web address] Pedroza Admit Provider Physician Attending Provider Specialty: Internal Medicine Address: [address] [place] [address] Email: PAINTING DEPARTMENT SUPERVISOR Dysphagia Treatment PAINTING DEPARTMENT SUPERVISOR Dysphagia Treatment Start: 10/01/18 14:12 Freq: Status: Active Protocol: Document 10/02/18 15:11 LNK (Rec: 10/02/18 15:23 [email or web address] [id number]) Dysphagia Treatment Session Time Visit Start Time 13:00 Visit Stop Time 13:25 Total Visit Minutes 25 Setting Assessment Location Acute Care Visit Type Note Type Treatment Note Patient Information Identification Type Name ID Wristband Subjective Observations Pt was up in bedside chair dressed in street clothes. pt remarked he wanted to get out of bed clothes. Less dyskinetic movement today. Pt' s was not in room today. Treatment Liquids Trialed Thin Solids Trialed Mechanical Soft Administration Type Self-Feeding Oral Strategies Upright at 90 degrees Double Swallow Pharyngeal Strategies Sitting Upright (90 deg) Effortful Swallow Mendelsonn Maneuver Treatment Activities Reviewed paperwork/educational information provided to pt and his yesterday. Reviewed lingua-pharyngeal exercises and safe swallow strategies with the pt: effortful swallow, double swallow, remain upright following PO intake 30+ minutes, Sandeep exercises to increase pharyngeal strength, etc. Also discussed and recommended out patient swallowing therapy to continue with increasing lingua- pharyngeal strength and aid bolus control through pharnx. Pt noted they are thinking strongly about therapy after discharge. Assessment Patient Response to Treatment Good Rehab Potential Good Diet Recommendations Recommendations Continue Current Diet Liquids Order Thin Diet Order Mechanical Soft Medication Recommendations As Tolerated Whole in Carrier Crushed in Carrier Additional Dietary Needs Reminders to Use Strategies Aspiration Precautions Recommended Precautions Upright at 90 Degrees Effortful Swallow Double Swallow Sandeep Maneuvor Additional Precautions Pt will eat reclined in a chair. Encouraged sitting straight up Treatment Plan Placement Recommendation after Discharge Home Appropriate for Continued Therapy Yes Therapy Recommendations Outpatient swallow therapy
--- NOTE | 2018-10-02 16:14 | PC.NURSE ---
Addendum entered by Isela Martinez R.N. 10/02/18 21:14: Pt reports prefers to sleep in recliner. Has BL LE's elevated in recliner. Silvadene cream applied to left medial LE wound as per Dr. Yang's orders. Covered with telfa pad, 4 x 4 (x2) and secured with kerlix. 02 2L nc sats 97% per continuous monitor. Addendum entered by Isela Martinez R.N. 10/02/18 19:51: Pt reports to this rewriter got up without oxygen and checked own oxygen level and pt reports was 84%. Informed pt this is too low and encouraged oxygen use when up. Pt replaced @ 2L per NC with continuous monitor in place and 02 saturation level 97%. Addendum entered by Isela Martinez R.N. 10/02/18 19:25: Provided with R.T. treatment per request. Original Note: Pt up in recliner fully dressed, awake, alert, conversant. 02 2L per nc sats 94%. Admits to productive cough with juarez sputum. This was unwitnessed. Reports feeling better than upon arrival to hospital. Coarse breath sounds throughout all posterior taylor. Faint inspiratory wheeze right posterior taylor. Spouse is present, attentive and involved in pt's care. Parkinsonian movements present. Pt denies h/o falls and reports cautionary when ambulating.
[2018-10-02] MEDS: MONTELUKAST 10 MG TABLET PO (16:58)
--- NOTE | 2018-10-02 19:41 | PM.PN.1 ---
Subjective Date Patient Seen: 10/02/18 Time Patient Seen: 19:21 Interval history: Patient is a gentleman with an and trauma to his left distal leg medially. He had a wound stitch tented apparently blistered and has drained. We have been monitoring it. 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 This was in the distant past. Having no real pain at this time. Exam Vital Signs (past 8 hours): - 10/02/18 12:00 10/02/18 16:14 10/02/18 19:11 Temperature 98.3 F 97.7 F Pulse Rate 82 93 H 83 Respiratory Rate 16 21 20 Blood Pressure 123/57 L 127/77 Pulse Oximetry 99 94 89 L Fraction of Inspired Oxygen 32 Oxygen Delivery Method Room Air Oxygen Flow Rate 2 Narrative Exam Narrative: The skin over the ulcer apparently blistered from what I can see and has drained. The tissues appeared to be intact. I did not remove the blister. There is no cellulitis. There is no significant edema immediately around this wound. Objective Labs Result Diagrams: 10/01/18 05:40 10/02/18 05:20 Labs: Laboratory Results - last 24 hr 10/02/18 05:20 Sodium 137 Potassium 3.8 Chloride 97 L Carbon Dioxide 33 H BUN 23 H Creatinine 1.60 H Estimated GFR 42.6 L BUN/Creatinine Ratio 14.4 Glucose 87 Calcium 8.9 Magnesium 2.2 Assessment & Plan Assessment & Plan narrative: Recommend that he have an antibiotic coverage now to this wound. He was using mucopiricin at home. He is allergic to Neosporin. Therefore at this time I would recommend perhaps the use of a thick layer of Silvadene daily. He can remove the dressing prior to a shower shower it off and then reapply a bandage. It would probably be best if he did not use tape on his skin at that level. The dressing should be held in place with something like a Kerlix that is not going to constrict his leg and cause edema beneath it. Elevation is important. Quality VTE Deep Vein Thrombosis/Pulmonary Embolism Present on Admission: No
[2018-10-02] MEDS: SILVER SULFADIAZINE 1% CREAM 25 GM 1 APPLIC TOP (20:25)
[2018-10-02] MEDS: PRAMIPEXOLE 0.125 MG TABLET PO (20:27)
[2018-10-02] MEDS: valACYclovir 500 MG TABLET PO (20:28)
[2018-10-02] MEDS: TAMSULOSIN 0.4 MG CAPSULE PO (20:28)
[2018-10-03] MEDS: PIPERACILLIN-TAZO 3.375 GM/50 ML FROZ.PIGGY IV ×2 (00:08→09:04)
[2018-10-03 00:35] VITALS: BP 94/56; PULSE 99; RESP 16; TEMP 36.6; O2SAT 95
--- NOTE | 2018-10-03 02:14 | PC.NURSE ---
2300- Pt admit for pneumonia acute on chronic resp failure, on 3L w/ sats in low 90's, lung sounds coarse in the posterior lower lobes. Moving around indep/SBA in room w/ FWW. Pt has hx of parkinson's but states he does not have difficulty walking, verified by this RN. Cont SpO2 in place, IV saline locked. Dysphasia diet w/ thin liquids 0000- IV Zosyn hung per orders. Noted pt's left leg has blistered from when he states a tire fell on my leg. WIll pass onto dayshift
[2018-10-03 04:20] VITALS: BP 161/82; PULSE 78; RESP 18; TEMP 36.3; O2SAT 98
[2018-10-03 06:37] LABS: BUN Creatinine Ratio 14.3 (6-22); Blood Urea Nitrogen 20 mg/dL (9-20); Calcium 8.6 mg/dL (8.4-10.2); Carbon Dioxide 29 mmol/L (22-32); Chloride 99 mmol/L (98-107); Estimated Glomerular Filt Rate 49.7 mL/min (>60); Glucose 83 mg/dL (80-110); HEMOLYSIS < 15 (0-50); Hematocrit 25.2 % (41-53); Hemoglobin 8.2 g/dL (13.5-17.5); Mean Corpuscular HGB Conc 32.7 % (30-36); Mean Corpuscular Hemoglobin 33.5 PG (26-34); Mean Corpuscular Volume 102.4 fL (80-100); Platelet Count 116 X10^3/uL (150-400); Potassium 3.3 mmol/L (3.4-5.1); Red Blood Cell Count 2.46 X10^6/uL (4.5-5.9); Sodium 137 mmol/L (137-145); White Blood Cell Count 5.6 X10^3/uL (4.5-11.0)
[2018-10-03 06:41] LABS: Add Manual Diff / Slide Review YES
[2018-10-03] MEDS: CARBIDOPA-LEVODOPA 25/100 TABLET 1.5 EACH PO (06:55)
[2018-10-03] MEDS: PANTOPRAZOLE 40 MG TABLET PO (06:56)
[2018-10-03] MEDS: SELEGILINE 5 MG CAPSULE PO (06:56)
[2018-10-03 06:59] LABS: Neutrophils Absolute Manual 3584 /uL (3000-5900); Total Cells Counted 100
[2018-10-03 07:00] LABS: Anisocytosis 1+; Macrocytosis 2+; Platelet Estimate Decreased on smear; Poikilocytosis 1+
[2018-10-03 08:47] VITALS: BP 121/64; PULSE 76; RESP 20; TEMP 36.6; O2SAT 93
[2018-10-03] MEDS: DAPSONE 100 MG TABLET 50 MG PO (09:04)
[2018-10-03] MEDS: SODIUM CHLORIDE 0.9% FLUSH 10 ML IV (09:05)
[2018-10-03] MEDS: guaiFENesin ER 600 MG TAB 1200 MG PO (09:05)
[2018-10-03] MEDS: AZITHROMYCIN 250 MG TABLET 500 MG PO (09:05)
[2018-10-03] MEDS: OXYCODONE IR 10 MG TABLET PO (09:05)
[2018-10-03] MEDS: predniSONE 5 MG TABLET 15 MG PO (09:05)
--- NOTE | 2018-10-03 10:58 | PM.DS.1 ---
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 He has experienced pulmonary complications including pulmonary fibrosis requiring oxygen at night, fungal pneumonia, CMV pneumonia and was diagnosed at [facility] with cryptogenic organizing pneumonia on his last admission on July 10, 2018. At that time he was treated with prednisone which is currently being tapered and azithromycin 250 mg Mondays, Wednesdays and Fridays. He also has a history of Parkinson's, spinal compression fractures related to steroid therapy, perforated sigmoid diverticulum in 2008 resulting in a partial sigmoid resection. At home the patient is typically independent and ambulatory and had progressive dyspnea on exertion with increasing weakness indicating that he has been immobile for the last 2 days. He is on nocturnal oxygen that he has been using continuously at 3 L stating that without oxygen his saturation is in the 80s on pulse ox. The patient is on Lasix 40 mg daily and took an extra 80 mg today related to concern for his dyspnea. He reported having a productive cough with green and clear sputum. He reported he has had no fevers or chills nasal congestion or sore throat. He endorsed a history of chronic pleuritic chest pain and had occasional nausea dated to medications but denies abdominal pain. He denied diarrhea instead has constipation related to opiates for which he has some status bowel regimen. Discharge Providers Date of admission: 09/28/18 21:51 Discharge Date: 10/03/18 Consults: 09/28/18 22:48 Consult to Discharge Planning Routine Comment: Consult to Occupational Therapy Evaluate & Treat Comment: Weakness, Parkinsons Physician Instructions: Evaluate and treat 09/28/18 22:49 Consult to Physical Therapy Evaluate & Treat Comment: Weakness, Parkinsons Physician Instructions: Evaluate and Treat Consult to Respiratory Therapy Evaluate & Treat Comment: Pneumonia, CLL Physician Instructions: Evaluate and treat 09/29/18 15:31 Consult to Speech Therapy Evaluate & Treat Comment: Physician Instructions: Evaluate and treat Consult to Wound Care Routine Comment: Consulting Provider: [facility] 09/30/18 14:52 Consult to General Surgery Routine Comment: Consulting Provider: Padmini Hernandez Reason for consultation: Wound not healing well Has provider been notified: Yes Discharge provider: Raven Ruiz MD Summary Discharge Diagnosis: Acute on chronic hypoxic respiratory failure, improving Acute bilateral atypical pneumonia, likely due to aspiration versus less likely hospital-acquired, improving Left leg laceration, stable Chronic kpvbc-lwmdom-vcqg disease, stable Chronic kidney disease stage 3, stable Parkinson's disease, stable Chronic atrial fibrillation/flutter, stable Hypertension, stable Chronic aspiration due to esophageal strictures and Parkinson's disease Hospital Course: In ED the patient is found to be afebrile with temperature of 98.1?, tachycardic at 102, blood pressure 140/73, respiratory rate increased at 24 an oxygen saturation of 89% on room air. Chest x-ray revealed moderate atypical pneumonia. His arterial blood gas shows a pH of 7.42, pCO2 of 43.5, PO2 of 61, bicarb 28 with a base excess 4.0. Lactate was elevated at 2.7 however is a procalcitonin is 0.05. His BNP was less than 100. His white count was within normal range at 6.5 and anemic with a hemoglobin of 9.3 and hematocrit of 28 with a macrocytic normochromic anemia. Note chemistry is electrolytes are within normal limits every has a BUN of 37 and creatinine of 1.5 which is apparently his baseline with a creatinine clearance level of 48.7. The patient is admitted to the hospital for acute hypoxemic respiratory failure in an immunocompromised patient due to BL pneumonia, likely aspiration. Once admitted, patient was placed on supplemental oxygen, and successfully was titrated off over the next 4 days: He was able to be off oxygen while at rest but needed 1-2 L oxygen with ambulation. He continued home oxygen therapy at night. He was started on Zosyn and azithromycin IV for broad spectrum coverage for gram positive, gram negative bacteria, as well as anaerobes and atypical bacteria. His home regimen of Galvez acyclovir has been continued as well. PCR panel came back negative, sputum cultures revealed mixed normal anastasiia. Blood cultures were negative. Legionella and strep pneumoniae antigens were still pending on the day of the discharge. Patient was switched to Augmentin 875 mg b.i.d. and metronidazole 500 mg q.8 hours for 5 more days of therapy. Home regimen of azithromycin Friday will be resumed as well for his [employer]. Patient was evaluated by speech therapy who attempted to do a modified barium swallow however patient was too anxious and refused. He did have evidence of aspiration on evaluation, however patient was aware of it and refused to make diet alterations, as he said he is chronically aspirating from his esophageal stricture and Parkinson's. He did however state that he will get a repeat modified barium swallow when he goes to follow up at [facility]. Patient was advised to use oxygen on a as needed basis with ambulation. While in-patient patient was noted to have left leg laceration that had sutures present on admission. Per patient the sutures were performed on his previous hospitalization. Surgery was consulted and sutures were removed. There was no evidence of necrosis on the lesion. As per surgery, patient was recommended to apply Silvadene cream daily with leg elevation and follow up with wound care. While hospitalized, patient was also noted to have macrocytic anemia. B12 levels were checked and found to be normal. Patient did not however get folate levels, and will need to follow up with his primary care doctor for further diagnosis of his anemia. Status at Discharge Cognitive/behavioral status at discharge: oriented Functional status at discharge: uses cane/walker Overall status at discharge: patient is progressing back to baseline Time Spent with Patient Greater than 30 minutes Exam Vital Signs (past 8 hours): - 10/03/18 04:20 10/03/18 08:47 Temperature 97.4 F L 97.8 F Pulse Rate 78 76 Respiratory Rate 18 20 Blood Pressure 161/82 H 121/64 Pulse Oximetry 98 93 Fraction of Inspired Oxygen 32 Oxygen Delivery Method Room Air Oxygen Flow Rate 1 Narrative Exam Narrative: General: No acute distress, sitting comfortably in the chair having breakfast. Parkinsonian tremor with masked facies, appropriately interactive. HEENT: Normocephalic, atraumatic. PERRLA and EOMI bilaterally. Neck: Supple with full range of motion. No lymphadenopathy or thyromegaly. Cardiovascular: Regular rate and rhythm without murmurs, rubs, or gallops appreciated Pulmonary: Mild crackles heard throughout. No more wheezes. Abdomen: Bowel sounds present. Soft, nontender, nondistended. No hepatosplenomegaly or masses appreciated. Extremities: No clubbing, cyanosis, or edema. Left lower extremity wound remained mildly dusky, but does not seem to be worsening. Skin: Normal temperature, turgor, and texture; no rash, ulcers, or subcutaneous nodules appreciated. Neurological: Cranial nerves grossly intact. Parkinsonian tremor R>L, and masked facies. Psychiatric: Anxious mood and normal affect. Alert and oriented to person, place, and time. Objective Labs Result Diagrams: 10/03/18 05:22 10/03/18 05:22 Labs: Laboratory Results - last 24 hr 10/03/18 10/03/18 05:22 05:22 WBC 5.6 RBC 2.46 L Hgb 8.2 L Hct 25.2 L MCV 102.4 H MCH 33.5 MCHC 32.7 RDW 14.0 Plt Count 116 L Neut % (Auto) Not Reportable Lymph % (Auto) Not Reportable [place] % (Auto) Not Reportable Eos % (Auto) Not Reportable Baso % (Auto) Not Reportable Lymph # (Auto) Not Reportable [place] # (Auto) Not Reportable Baso # (Auto) Not Reportable Total Counted 100 Seg Neutrophils % 62.0 Band Neutrophils % 2.0 L Lymphocytes % (Manual) 25.0 Monocytes % (Manual) 6.0 Eosinophils % (Manual) 3.0 Metamyelocytes % 1.0 H Myelocytes % 1.0 H Neutrophils # (Manual) 3584 Platelet Estimate Decreased on smear RBC Morphology See below Poikilocytosis 1+ H Anisocytosis 1+ H Macrocytosis 2+ H Sodium 137 Potassium 3.3 L Chloride 99 Carbon Dioxide 29 BUN 20 Creatinine 1.40 H Estimated GFR 49.7 L BUN/Creatinine Ratio 14.3 Glucose 83 Calcium 8.6 Discharge Plan Discharge Plan Patient Disposition: Home Discharge Med Rec/Prescriptions Prescriptions: New silver sulfadiazine [Silvadene] 1 % Cream 1 applic topical DAILY 30 Days RF: 0 metronidazole 500 mg tablet 500 mg PO TID Qty: 15 RF: 0 amoxicillin 875 mg tablet 875 mg PO BID Qty: 10 RF: 0 Continued dapsone 25 MG tablet 50 mg PO BID Qty: 0 RF: 0 montelukast 10 MG tablet 10 mg PO QPM Qty: 0 RF: 0 tamsulosin [Flomax] 0.4 MG capsule,extended release 24hr 0.4 mg PO BEDTIME Qty: 0 RF: 0 pramipexole [Mirapex] 0.125 MG tablet 0.125 mg PO BEDTIME Qty: 0 RF: 0 sennosides [senna] 8.6 MG tablet 17.2 tab PO BEDTIME Qty: 0 RF: 0 carbidopa-levodopa 25 MG/100 MG tablet extended release 1 - 2 tab PO TID Qty: 0 RF: 0 calcitriol [Rocaltrol] 0.25 MCG capsule 0.25 mcg PO DAILY Qty: 0 RF: 0 polyethylene glycol 3350 [Miralax] 119 GM powder 17 gm PO DAILY PRN (Reason: Constipation) Qty: 0 RF: 0 Advair HFA 230 MCG/21 MCG HFA aerosol inhaler 1 puff INH BID Qty: 0 RF: 0 fluorouracil [Efudex] 5 % Cream 1 applic TOPICAL BID PRN (Reason: skin changes) RF: 0 selegiline HCl 5 mg Tablet 5 mg PO BID RF: 0 albuterol sulfate 90 mcg/actuation Hfa Aerosol Inhaler 2 puff INHALATION Q4H PRN (Reason: Shortness Of Breath) RF: 0 fluoride (sodium) 1.1 % Gel 1 applic Dental BEDTIME RF: 0 metoprolol succinate 50 mg tablet extended release 24 hr 50 mg PO BEDTIME RF: 0 nifedipine 30 mg tablet extended release 30 mg PO QAM RF: 0 prochlorperazine maleate 10 mg tablet 10 mg PO QID PRN (Reason: Nausea And Vomiting) RF: 0 valacyclovir 500 mg tablet 500 mg PO BEDTIME RF: 0 furosemide 20 mg tablet 40 mg PO QAM RF: 0 oxycodone 10 mg tablet 10 mg PO 1-2XD MDD 20 mg PRN (Reason: chronic pain) RF: 0 azithromycin 250 mg tablet 250 mg PO MOWEFR RF: 0 prednisone 5 mg tablet 15 mg PO DAILY RF: 0 loratadine 10 mg Tablet 10 mg PO DAILY PRN (Reason: Allergy Symptoms) RF: 0 ipratropium-albuterol 0.5 mg-3 mg(2.5 mg base)/3 mL Solution For Nebulization 3 ml INHALATION Q6-8H PRN (Reason: SOB) RF: 0 pantoprazole 40 mg Tablet,Delayed Release (Dr/Ec) 40 mg PO BID RF: 0 Provider Discharge Instructions Diet: Diet as Tolerated and Low-sodium Diet comment: Moisten solid foods Oxygen: 1-2L while ambulating...titrate as appropriate. 3L at night Skin/Wound/Dressing Care Skin care: Elevate LLE, apply silvadene cream and wrap it with kerlix Other wound treatment: Outpatient wound care Discharge Data Attending Provider: Francisco Rodgers Admit Date/Time: 09/28/18 21:51 Quality VTE Deep Vein Thrombosis/Pulmonary Embolism Present on Admission: No
--- NOTE | 2018-10-03 13:36 | PC.NURSE ---
discharge d/c instructions provided to pt and his . Dressing change performed with present and able to ask questions. afterwards, she stated she understood plan for dressing and was ok changing it. Aware to contact wound clinic on friday to make apt for f/u. pt took all belongings with him. left in w/c with [employer] escort. brought pt's home O2 with her for pt's transport home.
== END 2018-10-03 13:30 | disposition home or self-care (01) | DRG 177 ==
LOC: ED 21:48 → AC 21:51
PROVIDERS: Internal Medicine; Admitting Provider Nurse Practitioner Adult Health; Emergency Provider Emergency Medicine; Visit Provider Nurse Practitioner Adult Health
DX: J69.0 Pneumonitis due to inhalation of food and vomit (principal); J96.21 Acute and chronic respiratory failure with hypoxia; T86.5 Complications of stem cell transplant; D89.811 Chronic graft-versus-host disease; I48.92 Unspecified atrial flutter; J84.10 Pulmonary fibrosis, unspecified; Z99.81 Dependence on supplemental oxygen; G20 Parkinson's disease; N18.3 Chronic kidney disease, stage 3 (moderate); S81.812A Laceration without foreign body, left lower leg, initial encounter; K22.2 Esophageal obstruction; I12.9 Hypertensive chronic kidney disease with stage 1 through stage 4 chronic kidney disease, or unspecified chronic kidney disease; Z85.6 Personal history of leukemia; Z87.891 Personal history of nicotine dependence
CPT/HCPCS: 36415; 36591; 36592; 36600; 71045; 74230; 80048; 80053; 81001; 81003; 82607; 82805; 83605; 83735; 83880; 84145; 85025; 85610; 85730; 87040; 87070; 87205; 87449; 87633; 92526; 92610; 94640; 94667; 94760; 94762; 96365; 97116; 97161; 97165; 97530; 97535; 99231; 99232; 99284; J1650; J1956; J2543; J7613

== ENCOUNTER → 2018-10-09 13:46 | Outpatient (CLI) | payer MEDICARE, OTHER, SELFPAY ==
[2018-07-15 14:30] VITALS: PULSE 81; RESP 31; O2SAT 98
[2018-09-28 22:45] VITALS: BMI 28.4
== END ==
PROVIDERS: PCP Internal Medicine; Referring Provider Specialist; Visit Provider Family Medicine
DX: S81.802A Unspecified open wound, left lower leg, initial encounter (principal); D89.813 Graft-versus-host disease, unspecified; G20 Parkinson's disease; Z79.52 Long term (current) use of systemic steroids
CPT/HCPCS: 11042; 87070; 87075; 87205; 93922; 99213

== ENCOUNTER → 2018-10-13 12:11 | Outpatient (CLI) | payer MEDICARE, OTHER, SELFPAY ==
[2018-07-15 14:30] VITALS: PULSE 81; RESP 31; O2SAT 98
[2018-09-28 22:45] VITALS: BMI 28.4
[2018-10-13 12:53] LABS: Add Manual Diff / Slide Review NO; Basophils Absolute Auto 100 /uL (0-100); Basophils Percent Auto 0.8 % (0-2); Eosinophils Absolute Auto 200 /uL (0-450); Eosinophils Percent Auto 1.4 % (2-4); Hematocrit 27.8 % (41-53); Hemoglobin 9.1 g/dL (13.5-17.5); Lymphocytes Absolute Auto 1100 /uL (1100-4500); Lymphocytes Percent Auto 9.7 % (25-40); Mean Corpuscular HGB Conc 32.8 % (30-36); Mean Corpuscular Hemoglobin 33.7 PG (26-34); Mean Corpuscular Volume 102.9 fL (80-100); Monocytes Absolute Auto 400 /uL (0-900); Monocytes Percent Auto 3.7 % (3-14); Neutrophils Absolute Auto 9800 /uL (1500-7000); Neutrophils Percent Auto 84.4 % (50-75); Platelet Count 196 X10^3/uL (150-400); Red Cell Distribution Width 14.1 % (11.6-14.8); White Blood Cell Count 11.6 X10^3/uL (4.5-11.0)
== END ==
PROVIDERS: PCP Internal Medicine
DX: D89.811 Chronic graft-versus-host disease (principal)
CPT/HCPCS: 36415; 85025

== ENCOUNTER → 2018-10-15 15:19 | Outpatient (CLI) | payer MEDICARE, OTHER, SELFPAY ==
[2018-07-15 14:30] VITALS: PULSE 81; RESP 31; O2SAT 98
[2018-09-28 22:45] VITALS: BMI 28.4
== END ==
PROVIDERS: PCP Internal Medicine; Visit Provider Family Medicine
DX: S81.802A Unspecified open wound, left lower leg, initial encounter (principal); D89.813 Graft-versus-host disease, unspecified
CPT/HCPCS: 11042; 87070; 87075; 87205

== ENCOUNTER → 2018-10-22 13:56 | Outpatient (CLI) | payer MEDICARE, OTHER, SELFPAY ==
[2018-07-15 14:30] VITALS: PULSE 81; RESP 31; O2SAT 98
[2018-09-28 22:45] VITALS: BMI 28.4
[2018-10-22 14:43] LABS: Hematocrit 28.9 % (41-53); Hemoglobin 9.7 g/dL (13.5-17.5); Mean Corpuscular HGB Conc 33.6 % (30-36); Mean Corpuscular Hemoglobin 34.2 PG (26-34); Mean Corpuscular Volume 101.7 fL (80-100); Platelet Count 163 X10^3/uL (150-400); Red Blood Cell Count 2.84 X10^6/uL (4.5-5.9); Red Cell Distribution Width 13.9 % (11.6-14.8)
[2018-10-22 14:47] LABS: Reticulocyte Count, Percent 2.2 % (0.87-2.60)
[2018-10-22 14:49] LABS: Albumin 4.2 g/dL (3.5-5.0); Albumin Globulin Ratio 1.5 (1.0-2.8); Alkaline Phosphatase 63 U/L (38-126); Aspartate Aminotransferase 20 IU/L (17-59); BUN Creatinine Ratio 18.3 (6-22); Bilirubin Total 0.6 mg/dL (0.2-1.3); Blood Urea Nitrogen 33 mg/dL (9-20); Calcium 9.4 mg/dL (8.4-10.2); Carbon Dioxide 32 mmol/L (22-32); Chloride 97 mmol/L (98-107); Estimated Glomerular Filt Rate 37.2 mL/min (>60); Globulin 2.8 g/dL (1.7-4.1); Glucose 148 mg/dL (80-110); HEMOLYSIS < 15 (0-50); Sodium 137 mmol/L (137-145)
[2018-10-22 14:55] LABS: HEMOLYSIS < 15 (0-50); Iron 74 ug/dL (49-181)
[2018-10-22 15:05] LABS: Percent Iron Saturation 25 % (20-50); Total Iron Binding Capacity 302 ug/dL (261-462); Transferrin 233 mg/dL (206-381)
[2018-10-22 15:13] LABS: B Type Natriuretic Peptide < 100 (<100)
[2018-10-22 15:23] LABS: Ferritin 37.8 ng/mL (17.9-464)
[2018-10-22 15:37] LABS: Vitamin B12 622 pg/mL (239-931)
[2018-10-22 15:39] LABS: Alanine Aminotransferase < 6 IU/L (21-72)
[2018-10-22 16:14] LABS: Neutrophils Absolute Manual 5530 /uL (3000-5900); Total Cells Counted 100
[2018-10-22 16:15] LABS: Macrocytosis 1+
[2018-10-22 16:28] LABS: Folate 10.6 ng/mL (2.76-20.0)
== END ==
PROVIDERS: PCP Internal Medicine; Visit Provider Internal Medicine
DX: D64.9 Anemia, unspecified (principal); R06.00 Dyspnea, unspecified; D89.813 Graft-versus-host disease, unspecified; Z87.448 Personal history of other diseases of urinary system
CPT/HCPCS: 36415; 80053; 82607; 82728; 82746; 83540; 83550; 83880; 85025; 85045

== ENCOUNTER → 2018-10-22 14:39 | Outpatient (CLI) | payer MEDICARE, OTHER, SELFPAY ==
[2018-07-15 14:30] VITALS: PULSE 81; RESP 31; O2SAT 98
[2018-09-28 22:45] VITALS: BMI 28.4
== END ==
PROVIDERS: PCP Internal Medicine; Visit Provider Family Medicine
DX: S81.802A Unspecified open wound, left lower leg, initial encounter (principal); D89.813 Graft-versus-host disease, unspecified; Z79.52 Long term (current) use of systemic steroids; G20 Parkinson's disease
CPT/HCPCS: 99213; 99214

== ENCOUNTER → 2018-10-29 14:16 | Outpatient (CLI) | payer MEDICARE, OTHER, SELFPAY ==
[2018-07-15 14:30] VITALS: PULSE 81; RESP 31; O2SAT 98
== END ==
PROVIDERS: PCP Internal Medicine; Visit Provider Family Medicine
DX: S81.802A Unspecified open wound, left lower leg, initial encounter (principal); D89.813 Graft-versus-host disease, unspecified; G20 Parkinson's disease; Z79.52 Long term (current) use of systemic steroids
CPT/HCPCS: 99213

== ENCOUNTER → 2018-11-04 14:41 | Outpatient (CLI) | payer MEDICARE, OTHER, SELFPAY ==
[2018-07-15 14:30] VITALS: PULSE 81; RESP 31; O2SAT 98
== END ==
PROVIDERS: PCP Internal Medicine; Visit Provider Family Medicine
DX: S81.802A Unspecified open wound, left lower leg, initial encounter (principal); D89.813 Graft-versus-host disease, unspecified; G20 Parkinson's disease; Z79.52 Long term (current) use of systemic steroids
CPT/HCPCS: 87070; 87075; 87077; 87186; 87205; 97597

== ENCOUNTER → 2018-11-18 10:03 | Outpatient (CLI) | payer MEDICARE, OTHER, SELFPAY ==
[2018-07-15 14:30] VITALS: PULSE 81; RESP 31; O2SAT 98
== END ==
PROVIDERS: PCP Internal Medicine; Visit Provider Family Medicine
DX: S81.802A Unspecified open wound, left lower leg, initial encounter (principal); D89.813 Graft-versus-host disease, unspecified; Z79.52 Long term (current) use of systemic steroids; G20 Parkinson's disease
CPT/HCPCS: 11042

== ENCOUNTER → 2018-11-25 13:10 | Outpatient (CLI) | payer MEDICARE, OTHER, SELFPAY ==
[2018-07-15 14:30] VITALS: PULSE 81; RESP 31; O2SAT 98
== END ==
PROVIDERS: PCP Internal Medicine; Visit Provider Family Medicine
DX: S81.802A Unspecified open wound, left lower leg, initial encounter (principal); D89.813 Graft-versus-host disease, unspecified; G20 Parkinson's disease; Z79.52 Long term (current) use of systemic steroids
CPT/HCPCS: 97597

== ENCOUNTER → 2018-12-02 13:11 | Outpatient (CLI) | payer MEDICARE, OTHER, SELFPAY ==
[2018-07-15 14:30] VITALS: PULSE 81; RESP 31; O2SAT 98
== END ==
PROVIDERS: PCP Internal Medicine; Visit Provider Family Medicine
DX: Z48.817 Encounter for surgical aftercare following surgery on the skin and subcutaneous tissue (principal)
CPT/HCPCS: 99212

== ENCOUNTER → 2018-12-07 16:34 | Outpatient (CLI) | payer MEDICARE, OTHER, SELFPAY ==
[2018-07-15 14:30] VITALS: PULSE 81; RESP 31; O2SAT 98
[2018-12-07 16:57] LABS: Reticulocyte Count, Percent 1.8 % (0.87-2.60)
[2018-12-07 17:14] LABS: Hematocrit 32.2 % (41-53); Hemoglobin 10.3 g/dL (13.5-17.5); Mean Corpuscular HGB Conc 32.1 % (30-36); Mean Corpuscular Hemoglobin 31.7 PG (26-34); Platelet Count 168 X10^3/uL (150-400); Red Blood Cell Count 3.25 X10^6/uL (4.5-5.9); Red Cell Distribution Width 13.9 % (11.6-14.8); White Blood Cell Count 8.2 X10^3/uL (4.5-11.0)
[2018-12-07 17:47] LABS: Neutrophils Absolute Manual 6642 /uL (3000-5900); Total Cells Counted 100
[2018-12-07 17:48] LABS: Macrocytosis 1+
[2018-12-07 18:34] LABS: Lactate Dehydrogenase 583 U/L (313-618)
[2018-12-09 15:04] LABS: Haptoglobin 160 mg/dL (43-212)
[2018-12-11 15:58] LABS: Erythropoietin 11.5 mIU/mL (2.6-18.5)
== END ==
PROVIDERS: PCP Internal Medicine; Visit Provider Internal Medicine
DX: N18.3 Chronic kidney disease, stage 3 (moderate) (principal); D63.1 Anemia in chronic kidney disease
CPT/HCPCS: 36415; 82668; 82728; 83010; 83615; 85025; 85045

== ENCOUNTER 2019-03-10 12:35 | Emergency (ER) | payer MEDICARE, OTHER, SELFPAY ==
[2018-07-15 14:30] VITALS: PULSE 81; RESP 31; O2SAT 98
[2019-03-10 12:42] VITALS: BP 118/55; PULSE 64; RESP 18; TEMP 36.2; O2SAT 92
--- NOTE | 2019-03-10 12:57 | DI.RAD.S_ITS ---
PROCEDURE: XR CHEST 2V INDICATIONS: URI, cough, h/o pneumonia, immune suppressed TECHNIQUE: 2 views of the chest were acquired. COMPARISON: [facility], CR, XR CHEST 1V, 09/28/2018, 20:09. FINDINGS: Surgical changes and devices: None. Lungs and pleura: Hilar prominence is identified bilaterally that is more prominent on the current study with perihilar interstitial thickening. No effusion or pneumothorax is evident. Mediastinum: Mediastinal contours are normal. The heart appears to be mildly enlarged. Bones and chest wall: No suspicious bony abnormalities. Soft tissues appear unremarkable. IMPRESSION: Bilateral hilar prominence is suspicious for pulmonary edema. However, pneumonia cannot be excluded and clinical correlation is recommended. Dictated by: Candelario Espitia M.D. on 03/10/2019 at 12:36 Approved by: Candelario Espitia M.D. on 03/10/2019 at 12:37
[2019-03-10 13:25] VITALS: BP 120/67; PULSE 59; RESP 20; O2SAT 94
--- NOTE | 2019-03-10 13:26 | ED.URI ---
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 He has subsequently had pulmonary fibrosis, fungal pneumonia, CMV pneumonia and cryptogenic organizing pneumonia. He sees a edge stainer down to [facility]. He states he was recently titrated off his dapsone. He denies any fevers nausea vomiting or diarrhea. He states he is taking prednisone. He notes that he has had a productive cough of clear sputum for the past 3 days. He denies any ear pain or sore throat. He is concerned that he has pneumonia again. He denies any fever chills or abnormal shakes. He states he does have a history of Parkinson's disease. He denies any chest pain. He states he is concerned about the possibility of pneumonia. Related Data Home Medications Medication Instructions Recorded Confirmed dapsone 50 mg PO BID #0 12/16/16 09/28/18 montelukast 10 mg PO QPM #0 12/16/16 09/28/18 pramipexole [Mirapex] 0.125 mg PO BEDTIME #0 12/16/16 09/28/18 sennosides [senna] 17.2 tab PO BEDTIME #0 12/16/16 09/28/18 tamsulosin [Flomax] 0.4 mg PO BEDTIME #0 12/16/16 09/28/18 calcitriol [Rocaltrol] 0.25 mcg PO DAILY #0 12/17/16 09/28/18 carbidopa-levodopa 1 - 2 tab PO TID #0 12/17/16 09/28/18 polyethylene glycol 3350 [Miralax] 17 gm PO DAILY PRN #0 12/17/16 09/28/18 Advair HFA 1 puff INH BID #0 12/19/16 09/28/18 albuterol sulfate 2 puff INHALATION Q4H PRN 01/19/18 09/28/18 fluorouracil [Efudex] 1 applic TOPICAL BID PRN 01/19/18 09/28/18 selegiline HCl 5 mg PO BID 01/19/18 09/28/18 azithromycin 250 mg PO MOWEFR 07/10/18 09/28/18 furosemide 40 mg PO QAM 07/10/18 09/28/18 loratadine 10 mg PO DAILY PRN 07/10/18 09/28/18 metoprolol succinate 50 mg PO BEDTIME 07/10/18 09/28/18 nifedipine 30 mg PO QAM 07/10/18 09/28/18 oxycodone 10 mg PO 1-2XD PRN MDD 20 mg 07/10/18 09/28/18 prednisone 15 mg PO DAILY 07/10/18 09/28/18 prochlorperazine maleate 10 mg PO QID PRN 07/10/18 09/28/18 valacyclovir 500 mg PO BEDTIME 07/10/18 09/28/18 fluoride (sodium) 1 applic DENTAL BEDTIME 07/15/18 09/28/18 ipratropium-albuterol 3 ml INHALATION Q6-8H PRN 09/28/18 09/28/18 pantoprazole 40 mg PO BID 09/29/18 09/29/18 Previous Rx's Medication Instructions Recorded amoxicillin 875 mg PO BID #10 tab 10/03/18 metronidazole 500 mg PO TID #15 tab 10/03/18 levofloxacin [Levaquin] 750 mg PO DAILY #7 tab 03/10/19 Allergies Allergy/AdvReac Type Severity Reaction Status Date / Time diltiazem Allergy Intermediate Hives Verified 03/10/19 12:47 bacitracin [BACITRACIN] Allergy Unknown SKIN Verified 03/10/19 12:47 IRRITATION chlorhexidine [CHLORHEXIDINE] Allergy Unknown SKIN Verified 03/10/19 12:47 IRRITATION rifampin [RIFAMPIN] Allergy Unknown HIVES Verified 03/10/19 12:47 acetaminophen [ACETAMINOPHEN] AdvReac Unknown ABD PAIN Verified 03/10/19 12:47 diphenhydramine AdvReac Unknown EXTREME Verified 03/10/19 12:47 [From BENADRYL] SEDATION Review of Systems <SIRI Denton-POLY - Last Filed: 03/10/19 16:20> Review of Systems Narrative: GENERAL: Denies chills, fatigue, malaise, fever, sweats. HEENT: Denies sinus pain, ear pain, sore throat, difficulty swallowing, dizziness. RESPIRATORY: See HPI CARDIOVASCULAR: Denies chest pain, palpitations, orthopnea, edema, GASTROINTESTINAL: Denies nausea, vomiting, abdominal pain, diarrhea, constipation, melena. : Denies dysuria, frequency, incontinence, hematuria, urinary retention. MUSCULOSKELETAL: denies weakness, joint pain, or bony pain SKIN: Denies rash, skin lesions, or other NEUROLOGIC: Denies weakness, headache, numbness, change in speech, confusion, seizures, incoordination. PSYCHIATRIC: No concerning psychosocial issues. 12 point review of systems is negative except for those stated above Patient History <WINSTON Denton - Last Filed: 03/10/19 16:20> Medical History Atrial fibrillation (Acute) Atrial flutter (Acute) Chronic ekuaf-nprzyn-phki disease (Chronic) Chronic kidney disease, stage III (moderate) (Acute) CLL (chronic lymphocytic leukemia) (Acute) CMV pneumonia (Acute) Cryptogenic organizing pneumonia (Resolved) Elevated PSA (Acute) Fungal pneumonia (Acute) Parkinson disease (Chronic) Skin cancer (Acute) Surgical History H/O stem cell transplant (Acute) History of partial colectomy (Acute) History of radiofrequency ablation procedure for cardiac arrhythmia (Acute) Social History household members: spouse Smoking Status: Former smoker alcohol intake: current alcohol intake frequency: a few times a month Substance Use Type: does not use Exam <WINSTON Denton - Last Filed: 03/10/19 16:20> Narrative Exam Narrative: GENERAL: This is a well-nourished, well-developed patient, in no acute distress HEAD: Atraumatic. Normocephalic. No temporal or scalp tenderness. EYES: Pupils equal round and reactive. Extraocular motions intact. No scleral icterus. No injection or drainage. ENT: Nose without bleeding, purulent drainage or septal hematoma. Throat without erythema, tonsillar hypertrophy or exudate. Uvula midline. Airway patent. NECK: Trachea midline. No JVD or lymphadenopathy. Supple, nontender, no meningeal signs. CARDIOVASCULAR: Regular rate and rhythm RESPIRATORY: Slight crackles at bases to auscultation. Breath sounds equal bilaterally. No wheezes, rales, or rhonchi. No cough on exam. No increased respiratory effort or accessory muscle use. Speaking full sentences. GASTROINTESTINAL: Abdomen soft, non-tender, nondistended. No hepato-splenomegaly, or palpable masses. No guarding. EXTREMITIES: No clubbing, cyanosis, or edema. No joint tenderness, effusion, or edema noted. BACK: Nontender without deformity or crepitance. No flank tenderness. NEURO: AOx3. SKIN: No rash or erythema. Initial Vital Signs Initial Vital Signs: Vital Signs Temperature 97.2 F L 03/10/19 12:42 Pulse Rate 64 03/10/19 12:42 Respiratory Rate 18 03/10/19 12:42 Blood Pressure 118/55 L 03/10/19 12:42 Pulse Oximetry 92 03/10/19 12:42 <Danelle Novoa MD - Last Filed: 03/10/19 17:04> Initial Vital Signs Initial Vital Signs: Vital Signs Temperature 97.2 F L 03/10/19 12:42 Pulse Rate 64 03/10/19 12:42 Respiratory Rate 18 03/10/19 12:42 Blood Pressure 118/55 L 03/10/19 12:42 Pulse Oximetry 92 03/10/19 12:42 Course <WINSTON Denton - Last Filed: 03/10/19 16:20> Orders Ordered: ED Orders 03/10/19 12:57 Chest [XR chest 2V] Stat 03/10/19 13:22 RT Consult Eval and Treat NOW 03/10/19 14:11 B Type Natriuretic Peptide Stat Complete Blood Count AUTO DIFF Stat Comprehensive Metabolic Panel Stat Lactate (Lactic Acid) Stat Procalcitonin Stat Vital Signs Vital signs: Vital Signs - 8 hr 03/10/19 12:42 03/10/19 13:25 03/10/19 15:30 Temperature 97.2 F L Pulse Rate 64 59 L 62 Respiratory Rate 18 20 16 Blood Pressure 118/55 L 130/63 Blood Pressure [Right Arm] 120/67 Pulse Oximetry 92 94 97 <Danelle Novoa MD - Last Filed: 03/10/19 17:04> Orders Ordered: ED Orders 03/10/19 12:57 Chest [XR chest 2V] Stat 03/10/19 13:22 RT Consult Eval and Treat NOW 03/10/19 14:11 B Type Natriuretic Peptide Stat Complete Blood Count AUTO DIFF Stat Comprehensive Metabolic Panel Stat Lactate (Lactic Acid) Stat Procalcitonin Stat Vital Signs Vital signs: Vital Signs - 8 hr 03/10/19 12:42 03/10/19 13:25 03/10/19 15:30 Temperature 97.2 F L Pulse Rate 64 59 L 62 Respiratory Rate 18 20 16 Blood Pressure 118/55 L 130/63 Blood Pressure [Right Arm] 120/67 Pulse Oximetry 92 94 97 MDM - URI/Sore Throat <SIRI Denton-POLY - Last Filed: 03/10/19 16:20> Lab Data Result diagrams: 03/10/19 14:11 03/10/19 14:11 Labs: Lab Results 03/10/19 03/10/19 03/10/19 Range/Units 14:11 14:11 14:11 WBC 7.7 (4.5-11.0) X10^3/uL RBC 2.95 L (4.5-5.9) X10^6/uL Hgb 9.7 L (13.5-17.5) g/dL Hct 29.0 L (41-53) % MCV 98.5 (80-100) fL MCH 32.9 (26-34) PG MCHC 33.4 (30-36) % RDW 13.8 (11.6-14.8) % Plt Count 157 (150-400) X10^3/uL Neut % (Auto) 80.7 H (50-75) % Lymph % (Auto) 10.2 L (25-40) % Whitman % (Auto) 6.7 (3-14) % Eos % (Auto) 1.9 L (2-4) % Baso % (Auto) 0.5 (0-2) % Neut # (Auto) 6200 (1068-2164) /uL Lymph # (Auto) 800 L (6340-3317) /uL Whitman # (Auto) 500 (0-900) /uL Eos # (Auto) 100 (0-450) /uL Baso # (Auto) 0 (0-100) /uL Sodium 139 (137-145) mmol/L Potassium 4.9 (3.4-5.1) mmol/L Chloride 102 (98-107) mmol/L Carbon Dioxide 28 (22-32) mmol/L BUN 23 H (9-20) mg/dL Creatinine 1.50 H (0.66-1.25) mg/dL Estimated GFR 45.7 L (>60) mL/min BUN/Creatinine Ratio 15.3 (6-22) Glucose 107 (80-110) mg/dL Lactate (0.7-2.1) mmol/L Calcium 9.3 (8.4-10.2) mg/dL Total Bilirubin 0.6 (0.2-1.3) mg/dL AST 22 (17-59) IU/L ALT 12 L (21-72) IU/L Alkaline Phosphatase 68 (38-126) U/L B-Natriuretic Peptide 153 H (<100) Total Protein 6.6 (6.3-8.2) g/dL Albumin 4.1 (3.5-5.0) g/dL Globulin 2.5 (1.7-4.1) g/dL Albumin/Globulin Ratio 1.6 (1.0-2.8) Procalcitonin < 0.05 (<0.5) ng/mL 03/10/19 Range/Units 14:11 WBC (4.5-11.0) X10^3/uL RBC (4.5-5.9) X10^6/uL Hgb (13.5-17.5) g/dL Hct (41-53) % MCV (80-100) fL MCH (26-34) PG MCHC (30-36) % RDW (11.6-14.8) % Plt Count (150-400) X10^3/uL Neut % (Auto) (50-75) % Lymph % (Auto) (25-40) % Whitman % (Auto) (3-14) % Eos % (Auto) (2-4) % Baso % (Auto) (0-2) % Neut # (Auto) (5870-8822) /uL Lymph # (Auto) (1480-4334) /uL Whitman # (Auto) (0-900) /uL Eos # (Auto) (0-450) /uL Baso # (Auto) (0-100) /uL Sodium (137-145) mmol/L Potassium (3.4-5.1) mmol/L Chloride (98-107) mmol/L Carbon Dioxide (22-32) mmol/L BUN (9-20) mg/dL Creatinine (0.66-1.25) mg/dL Estimated GFR (>60) mL/min BUN/Creatinine Ratio (6-22) Glucose (80-110) mg/dL Lactate 1.7 (0.7-2.1) mmol/L Calcium (8.4-10.2) mg/dL Total Bilirubin (0.2-1.3) mg/dL AST (17-59) IU/L ALT (21-72) IU/L Alkaline Phosphatase (38-126) U/L B-Natriuretic Peptide (<100) Total Protein (6.3-8.2) g/dL Albumin (3.5-5.0) g/dL Globulin (1.7-4.1) g/dL Albumin/Globulin Ratio (1.0-2.8) Procalcitonin (<0.5) ng/mL Imaging Data Chest x-ray: Radiologist's impression: [address] [address] XRay Report Signed Patient: Eleno Sol PETE#: [id number] : 5Acct:[id number] Age/Sex: 73 / MDate of Service: 03/10/19 Loc: ED Accession Number: [id number] Procedure: XR chest 2V Ordering Provider: Danelle Novoa MD PROCEDURE: XR CHEST 2V INDICATIONS: URI, cough, h/o pneumonia, immune suppressed TECHNIQUE: 2 views of the chest were acquired. COMPARISON: [facility], , XR CHEST 1V, 09/28/2018, 20:09. FINDINGS: Surgical changes and devices: None. Lungs and pleura: Hilar prominence is identified bilaterally that is more prominent on the current study with perihilar interstitial thickening. No effusion or pneumothorax is evident. Mediastinum: Mediastinal contours are normal. The heart appears to be mildly enlarged. Bones and chest wall: No suspicious bony abnormalities. Soft tissues appear unremarkable. IMPRESSION: Bilateral hilar prominence is suspicious for pulmonary edema. However, pneumonia cannot be excluded and clinical correlation is recommended. Dictated by: Candelario Espitia M.D. on 03/10/2019 at 12:36 Approved by: Candelario Espitia M.D. on 03/10/2019 at 12:37 [facility] Narrative Medical decision making narrative: The patient is a 73-year-old male with a significant medical history including hospitalization related to pneumonia who presents with a chief complaint. Of I think I might have pneumonia can. He states he has had a productive cough for the past 3 days after being exposed to a sick person. Given that x-ray is concerning for slight hilar prominence bilaterally that is suspicious for pulmonary edema versus pneumonia, I did obtain lab work. He has no leukocytosis, his lactate is not elevated, and his BNP is in the 150 range, which correlates with his previous labs. He has no overt signs of heart failure and his story is suspicious for pneumonia. His procalcitonin is less than 0.05, however given his story and exam combined with his history and his immunocompromised status, I have elected to treat him for pneumonia with Levaquin. Discussed the case with Dr Novoa given his complexity in history. The patient was unable to give a seen on culture while in the emergency department. I did discuss at length the importance of follow-up with primary care provider and outpatient team for re-evaluation. I discussed to not have any hesitancy to come back to the emergency department for any acute concerns. Patient is in accordance with plan of care and has no questions or concerns upon discharge. He has been afebrile, hemodynamically stable throughout his stay in the emergency department while resting on room air. He was evaluated by respiratory therapist during his stay. Patient have no questions or concerns and state understanding of return precautions as well as follow-up care. <Danelle Novoa MD - Last Filed: 03/10/19 17:04> Lab Data Labs: Lab Results 03/10/19 03/10/19 03/10/19 Range/Units 14:11 14:11 14:11 WBC 7.7 (4.5-11.0) X10^3/uL RBC 2.95 L (4.5-5.9) X10^6/uL Hgb 9.7 L (13.5-17.5) g/dL Hct 29.0 L (41-53) % MCV 98.5 (80-100) fL MCH 32.9 (26-34) PG MCHC 33.4 (30-36) % RDW 13.8 (11.6-14.8) % Plt Count 157 (150-400) X10^3/uL Neut % (Auto) 80.7 H (50-75) % Lymph % (Auto) 10.2 L (25-40) % Whitman % (Auto) 6.7 (3-14) % Eos % (Auto) 1.9 L (2-4) % Baso % (Auto) 0.5 (0-2) % Neut # (Auto) 6200 (4828-0599) /uL Lymph # (Auto) 800 L (6587-1760) /uL Whitman # (Auto) 500 (0-900) /uL Eos # (Auto) 100 (0-450) /uL Baso # (Auto) 0 (0-100) /uL Sodium 139 (137-145) mmol/L Potassium 4.9 (3.4-5.1) mmol/L Chloride 102 (98-107) mmol/L Carbon Dioxide 28 (22-32) mmol/L BUN 23 H (9-20) mg/dL Creatinine 1.50 H (0.66-1.25) mg/dL Estimated GFR 45.7 L (>60) mL/min BUN/Creatinine Ratio 15.3 (6-22) Glucose 107 (80-110) mg/dL Lactate (0.7-2.1) mmol/L Calcium 9.3 (8.4-10.2) mg/dL Total Bilirubin 0.6 (0.2-1.3) mg/dL AST 22 (17-59) IU/L ALT 12 L (21-72) IU/L Alkaline Phosphatase 68 (38-126) U/L B-Natriuretic Peptide 153 H (<100) Total Protein 6.6 (6.3-8.2) g/dL Albumin 4.1 (3.5-5.0) g/dL Globulin 2.5 (1.7-4.1) g/dL Albumin/Globulin Ratio 1.6 (1.0-2.8) Procalcitonin < 0.05 (<0.5) ng/mL 10/30/19 Range/Units 14:11 WBC (4.5-11.0) X10^3/uL RBC (4.5-5.9) X10^6/uL Hgb (13.5-17.5) g/dL Hct (41-53) % MCV (80-100) fL MCH (26-34) PG MCHC (30-36) % RDW (11.6-14.8) % Plt Count (150-400) X10^3/uL Neut % (Auto) (50-75) % Lymph % (Auto) (25-40) % Whitman % (Auto) (3-14) % Eos % (Auto) (2-4) % Baso % (Auto) (0-2) % Neut # (Auto) (5289-6953) /uL Lymph # (Auto) (7545-0456) /uL Whitman # (Auto) (0-900) /uL Eos # (Auto) (0-450) /uL Baso # (Auto) (0-100) /uL Sodium (137-145) mmol/L Potassium (3.4-5.1) mmol/L Chloride (98-107) mmol/L Carbon Dioxide (22-32) mmol/L BUN (9-20) mg/dL Creatinine (0.66-1.25) mg/dL Estimated GFR (>60) mL/min BUN/Creatinine Ratio (6-22) Glucose (80-110) mg/dL Lactate 1.7 (0.7-2.1) mmol/L Calcium (8.4-10.2) mg/dL Total Bilirubin (0.2-1.3) mg/dL AST (17-59) IU/L ALT (21-72) IU/L Alkaline Phosphatase (38-126) U/L B-Natriuretic Peptide (<100) Total Protein (6.3-8.2) g/dL Albumin (3.5-5.0) g/dL Globulin (1.7-4.1) g/dL Albumin/Globulin Ratio (1.0-2.8) Procalcitonin (<0.5) ng/mL Discharge Plan Departure Patient Disposition: Home Clinical Impression: Acute on chronic respiratory failure with hypoxia Community acquired pneumonia Qualifiers: Laterality: unspecified laterality Qualified Code(s): J18.9 - Pneumonia, unspecified organism Discharge Date/Time: 03/10/19 15:53 Instructions: DI for Pneumonia -- Adult Activity Restrictions/Additional Instructions: I sent a prescription of Levaquin to [facility] in [place]. As discussed, there is possible pneumonia on her x-ray, but your lab work is very reassuring. We have elected to treat you for pneumonia given her immunocompromised status and her history. Please follow up with primary care provider next few days for re-evaluation. Please do not hesitate to come back to emergency department for any acute concerns. Prescriptions: New levofloxacin [Levaquin] 750 mg tablet 750 mg PO DAILY Qty: 7 RF: 0 No Action dapsone 25 MG tablet 50 mg PO BID Qty: 0 RF: 0 montelukast 10 MG tablet 10 mg PO QPM Qty: 0 RF: 0 tamsulosin [Flomax] 0.4 MG capsule,extended release 24hr 0.4 mg PO BEDTIME Qty: 0 RF: 0 pramipexole [Mirapex] 0.125 MG tablet 0.125 mg PO BEDTIME Qty: 0 RF: 0 sennosides [senna] 8.6 MG tablet 17.2 tab PO BEDTIME Qty: 0 RF: 0 carbidopa-levodopa 25 MG/100 MG tablet extended release 1 - 2 tab PO TID Qty: 0 RF: 0 calcitriol [Rocaltrol] 0.25 MCG capsule 0.25 mcg PO DAILY Qty: 0 RF: 0 polyethylene glycol 3350 [Miralax] 119 GM powder 17 gm PO DAILY PRN (Reason: Constipation) Qty: 0 RF: 0 Advair HFA 230 MCG/21 MCG HFA aerosol inhaler 1 puff INH BID Qty: 0 RF: 0 fluorouracil [Efudex] 5 % Cream 1 applic TOPICAL BID PRN (Reason: skin changes) RF: 0 selegiline HCl 5 mg Tablet 5 mg PO BID RF: 0 albuterol sulfate 90 mcg/actuation Hfa Aerosol Inhaler 2 puff INHALATION Q4H PRN (Reason: Shortness Of Breath) RF: 0 fluoride (sodium) 1.1 % Gel 1 applic Dental BEDTIME RF: 0 metoprolol succinate 50 mg tablet extended release 24 hr 50 mg PO BEDTIME RF: 0 nifedipine 30 mg tablet extended release 30 mg PO QAM RF: 0 prochlorperazine maleate 10 mg tablet 10 mg PO QID PRN (Reason: Nausea And Vomiting) RF: 0 valacyclovir 500 mg tablet 500 mg PO BEDTIME RF: 0 furosemide 20 mg tablet 40 mg PO QAM RF: 0 oxycodone 10 mg tablet 10 mg PO 1-2XD MDD 20 mg PRN (Reason: chronic pain) RF: 0 azithromycin 250 mg tablet 250 mg PO MOWEFR RF: 0 prednisone 5 mg tablet 15 mg PO DAILY RF: 0 loratadine 10 mg Tablet 10 mg PO DAILY PRN (Reason: Allergy Symptoms) RF: 0 ipratropium-albuterol 0.5 mg-3 mg(2.5 mg base)/3 mL Solution For Nebulization 3 ml INHALATION Q6-8H PRN (Reason: SOB) RF: 0 pantoprazole 40 mg Tablet,Delayed Release (Dr/Ec) 40 mg PO BID RF: 0 metronidazole 500 mg tablet 500 mg PO TID Qty: 15 RF: 0 amoxicillin 875 mg tablet 875 mg PO BID Qty: 10 RF: 0 Referrals: Monica Sharpe MD [Primary Care Provider] -
[2019-03-10 14:29] LABS: Add Manual Diff / Slide Review NO; Basophils Absolute Auto 0 /uL (0-100); Basophils Percent Auto 0.5 % (0-2); Eosinophils Absolute Auto 100 /uL (0-450); Eosinophils Percent Auto 1.9 % (2-4); Hemoglobin 9.7 g/dL (13.5-17.5); Lymphocytes Absolute Auto 800 /uL (1100-4500); Lymphocytes Percent Auto 10.2 % (25-40); Mean Corpuscular HGB Conc 33.4 % (30-36); Mean Corpuscular Hemoglobin 32.9 PG (26-34); Mean Corpuscular Volume 98.5 fL (80-100); Monocytes Absolute Auto 500 /uL (0-900); Monocytes Percent Auto 6.7 % (3-14); Neutrophils Absolute Auto 6200 /uL (1500-7000); Neutrophils Percent Auto 80.7 % (50-75); Platelet Count 157 X10^3/uL (150-400); Red Blood Cell Count 2.95 X10^6/uL (4.5-5.9); Red Cell Distribution Width 13.8 % (11.6-14.8); White Blood Cell Count 7.7 X10^3/uL (4.5-11.0)
[2019-03-10 14:38] LABS: Alanine Aminotransferase 12 IU/L (21-72); Albumin 4.1 g/dL (3.5-5.0); Albumin Globulin Ratio 1.6 (1.0-2.8); Alkaline Phosphatase 68 U/L (38-126); Aspartate Aminotransferase 22 IU/L (17-59); BUN Creatinine Ratio 15.3 (6-22); Bilirubin Total 0.6 mg/dL (0.2-1.3); Blood Urea Nitrogen 23 mg/dL (9-20); Calcium 9.3 mg/dL (8.4-10.2); Carbon Dioxide 28 mmol/L (22-32); Chloride 102 mmol/L (98-107); Estimated Glomerular Filt Rate 45.7 mL/min (>60); Globulin 2.5 g/dL (1.7-4.1); Glucose 107 mg/dL (80-110); HEMOLYSIS < 15 (0-50); Lactate (Lactic Acid) 1.7 mmol/L (0.7-2.1); Potassium 4.9 mmol/L (3.4-5.1); Sodium 139 mmol/L (137-145); Total Protein 6.6 g/dL (6.3-8.2)
[2019-03-10 14:42] LABS: B Type Natriuretic Peptide 153 (<100)
[2019-03-10 14:55] LABS: Procalcitonin < 0.05 ng/mL (<0.5)
[2019-03-10 15:30] VITALS: BP 130/63; PULSE 62; RESP 16; O2SAT 97
== END 2019-03-10 15:53 | disposition home or self-care (01) ==
PROVIDERS: Emergency Provider Nurse Practitioner Family; PCP Internal Medicine
DX: J96.21 Acute and chronic respiratory failure with hypoxia (principal); J18.9 Pneumonia, unspecified organism; R79.89 Other specified abnormal findings of blood chemistry
CPT/HCPCS: 36415; 71046; 80053; 83605; 83880; 84145; 85025; 99282; 99284

== ENCOUNTER 2019-03-11 21:21 | Emergency (ER) | payer MEDICARE, OTHER, SELFPAY ==
[2018-07-15 14:30] VITALS: PULSE 81; RESP 31; O2SAT 98
[2019-03-11 21:31] VITALS: BP 142/46; PULSE 96; RESP 28; TEMP 36.8; O2SAT 100
--- NOTE | 2019-03-11 21:31 | DI.RAD.S_ITS ---
PROCEDURE: XR CHEST 1V INDICATIONS: SHORTNESS OF BREATH TECHNIQUE: One view of the chest was acquired. COMPARISON: [facility], CR, XR CHEST 1V, 09/28/2018, 20:09. FINDINGS: Surgical changes and devices: None. Lungs and pleura: Interstitial prominence in perihilar opacities concerning for pulmonary edema or atypical pneumonia. No pleural effusions or pneumothorax. Mediastinum: Mediastinal contours appear normal. Heart size is normal. Bones and chest wall: No suspicious bony lesions. Overlying soft tissues appear unremarkable. IMPRESSION: Pulmonary edema or atypical pneumonia. Dictated by: Pamela Martínez MD, PhD on 03/12/2019 at 8:29 Approved by: Pamela Martínez MD, PhD on 03/12/2019 at 8:30
--- NOTE | 2019-03-11 21:53 | ED_ITS ---
HPI - SOB/Dyspnea General Chief Complaint: Shortness of Breath/Dyspnea Stated Complaint: DIFFICULTY BREATHING Time Seen by Provider: 03/11/19 21:29 Source: patient Mode of arrival: Wheelchair Limitations: no limitations History of Present Illness HPI Narrative: Patient is a 73-year-old male with history of complicated history of pulmonary fibrosis, CLL ioxvz-wwrhyk-iphh disease chronic hypoxia respiratory failure and interstitial lung disease. He is presenting today with 3 days of increasing shortness of breath and green productive sputum. He was actually seen and evaluated here yesterday for the same he had workup all looked and felt okay is placed on Levaquin and discharged home. He says that he has taken 3 doses of Levaquin he does not feel any better in fact he feels like he is getting more short of breath. He is on home oxygen normally 3 L currently on 4 L feeling like he cannot breathe and take a deep breath. He is on bronchodilators as well who says that that does not help. He does get morphine for air hunger he took that at home prior to arrival he says that has not helped took oxycodone as well no relief. He actually is able to speak in full sentences and his O2 sat remains stable. states that they are tapering his prednisone. He is followed closely at [facility] [place] [facility] [employer] Home Medications Medication Instructions Recorded Confirmed dapsone 50 mg PO BID #0 12/16/16 09/28/18 montelukast 10 mg PO QPM #0 12/16/16 09/28/18 pramipexole [Mirapex] 0.125 mg PO BEDTIME #0 12/16/16 09/28/18 sennosides [senna] 17.2 tab PO BEDTIME #0 12/16/16 09/28/18 tamsulosin [Flomax] 0.4 mg PO BEDTIME #0 12/16/16 09/28/18 calcitriol [Rocaltrol] 0.25 mcg PO DAILY #0 12/17/16 09/28/18 carbidopa-levodopa 1 - 2 tab PO TID #0 12/17/16 09/28/18 polyethylene glycol 3350 [Miralax] 17 gm PO DAILY PRN #0 12/17/16 09/28/18 Advair HFA 1 puff INH BID #0 12/19/16 09/28/18 albuterol sulfate 2 puff INHALATION Q4H PRN 01/19/18 09/28/18 fluorouracil [Efudex] 1 applic TOPICAL BID PRN 01/19/18 09/28/18 selegiline HCl 5 mg PO BID 01/19/18 09/28/18 azithromycin 250 mg PO MOWEFR 07/10/18 09/28/18 furosemide 40 mg PO QAM 07/10/18 09/28/18 loratadine 10 mg PO DAILY PRN 07/10/18 09/28/18 metoprolol succinate 50 mg PO BEDTIME 07/10/18 09/28/18 nifedipine 30 mg PO QAM 07/10/18 09/28/18 oxycodone 10 mg PO 1-2XD PRN MDD 20 mg 07/10/18 09/28/18 prednisone 15 mg PO DAILY 07/10/18 09/28/18 prochlorperazine maleate 10 mg PO QID PRN 07/10/18 09/28/18 valacyclovir 500 mg PO BEDTIME 07/10/18 09/28/18 fluoride (sodium) 1 applic DENTAL BEDTIME 07/15/18 09/28/18 ipratropium-albuterol 3 ml INHALATION Q6-8H PRN 09/28/18 09/28/18 pantoprazole 40 mg PO BID 09/29/18 09/29/18 Previous Rx's Medication Instructions Recorded amoxicillin 875 mg PO BID #10 tab 10/03/18 metronidazole 500 mg PO TID #15 tab 10/03/18 levofloxacin [Levaquin] 750 mg PO DAILY #7 tab 03/10/19 Allergies Allergy/AdvReac Type Severity Reaction Status Date / Time diltiazem Allergy Intermediate Hives Verified 03/11/19 21:39 bacitracin [BACITRACIN] Allergy Unknown SKIN Verified 03/11/19 21:39 IRRITATION chlorhexidine [CHLORHEXIDINE] Allergy Unknown SKIN Verified 03/11/19 21:39 IRRITATION rifampin [RIFAMPIN] Allergy Unknown HIVES Verified 03/11/19 21:39 acetaminophen [ACETAMINOPHEN] AdvReac Unknown ABD PAIN Verified 03/11/19 21:39 diphenhydramine AdvReac Unknown EXTREME Verified 03/11/19 21:39 [From BENADRYL] SEDATION Review of Systems Review of Systems ROS Unobtainable: All systems reviewed & are unremarkable except as noted in HPI and below Constitutional Constitutional: Denies chills, Denies fatigue and Denies fever(s) Cardiovascular Cardiovascular: Reports dyspnea Respiratory Respiratory: Reports as per HPI, Reports cough, Reports excessive phlegm production and Reports dyspnea Gastrointestinal Gastrointestinal: Denies abdominal pain, Denies change in bowel habits, Denies diarrhea, Denies nausea and Denies vomiting Genitourinary Genitourinary: Denies hematuria, Denies flank pain, Denies urinary incontinence and Denies urinary urgency Musculoskeletal Musculoskeletal: Denies back pain, Denies muscle weakness, Denies numbness and Denies tingling Integumentary/Breasts Skin/Breast: Denies pruritus, Denies erythema, Denies rash and Denies wounds Neurologic Neurologic: Denies numbness and Denies tingling Endocrine Endocrine: Denies fatigue Patient History Medical History Atrial fibrillation (Acute) Atrial flutter (Acute) Chronic owzsv-vrkohr-jgep disease (Chronic) Chronic kidney disease, stage III (moderate) (Acute) CLL (chronic lymphocytic leukemia) (Acute) CMV pneumonia (Acute) Cryptogenic organizing pneumonia (Resolved) Elevated PSA (Acute) Fungal pneumonia (Acute) Parkinson disease (Chronic) Skin cancer (Acute) Surgical History H/O stem cell transplant (Acute) History of partial colectomy (Acute) History of radiofrequency ablation procedure for cardiac arrhythmia (Acute) Social History household members: spouse Smoking Status: Former smoker alcohol intake: current alcohol intake frequency: a few times a month Substance Use Type: does not use Exam Initial Vital Signs Initial Vital Signs: Vital Signs Temperature 98.3 F 03/11/19 21:31 Pulse Rate 96 H 03/11/19 21:31 Respiratory Rate 28 H 03/11/19 21:31 Blood Pressure 142/46 H 03/11/19 21:31 Pulse Oximetry 100 03/11/19 21:31 GENERAL: Alert male on standing at bedside complaining of shortness of breath, appear well HEENT: Head atraumatic,EOMI, pupils reactive, face symmetric, no JVD CARDIOVASCULAR: Regular rate and rhythm without murmurs, rubs or gallops. RESPIRATORY: Clear breath sounds bilaterally slightly decreased no wheezes rales rhonchi speaks in full sentences without difficulty standing no tachypnea no obvious respiratory distress ABDOMEN: Soft, nontender. Normoactive bowel sounds all 4 quadrants. No guarding or rebound. EXTREMITIES: Normal range of motion, no clubbing or edema. Neurovascularly intact NEUROLOGICAL: Alert and oriented x4.Normal gait and speech. Cranial nerves II through XII grossly intact. SKIN: Warm, dry, no laceration, no petechiae, no rashes or lesions. Course Orders Ordered: ED Orders 03/11/19 21:31 XR chest 1V Stat 03/11/19 22:04 Consult to Respiratory Therapy Evaluate & Treat 03/11/19 22:07 EKG-12 Lead Stat 03/11/19 22:10 B Type Natriuretic Peptide Stat Complete Blood Count AUTO DIFF Stat Comprehensive Metabolic Panel Stat Lactate (Lactic Acid) Stat Magnesium Stat Partial Thromboplastin Time Stat Procalcitonin Stat Prothrombin Time INR Stat Troponin & CK Cardiac Panel Stat 03/11/19 22:50 Blood Culture Stat 03/11/19 23:20 Arterial Blood Gas Stat 03/11/19 23:43 CT angio chest PE protocol Stat 03/11/19 23:45 Respiratory Panel (Film Array) Stat Discontinued Medications Albuterol/Ipratropium (Duoneb) 3 ml INH NOW ONE Stop: 03/11/19 22:05 Last Admin: 03/11/19 22:13 Dose: 3 ml Documented by: ALEJANDRA Ceftriaxone Sodium/Dextrose (Rocephin) 1 gm in 50 mls @ 100 mls/hr IV NOW ONE Stop: 03/12/19 00:12 Last Infusion: 03/12/19 00:44 Dose: 0 mls/hr Documented by: Infusion: 03/12/19 00:30 Dose: 100 mls/hr Documented by: Infusion: 03/12/19 00:10 Dose: 0 mls/hr Documented by: Admin: 03/11/19 23:50 Dose: 100 mls/hr Documented by: KWADWO Azithromycin 500 mg/ Dextrose 250 mls @ 250 mls/hr IV NOW ONE Stop: 03/12/19 01:13 Last Infusion: 03/12/19 02:52 Dose: 0 mls/hr Documented by: Infusion: 03/12/19 02:50 Dose: 250 mls/hr Documented by: Admin: 03/12/19 02:49 Dose: 250 mls/hr Documented by: GERALDINE Lorazepam (Ativan) 0.5 mg IV NOW ONE Stop: 03/12/19 00:09 Last Admin: 03/12/19 00:16 Dose: 0.5 mg Documented by: KWADWO Methylprednisolone (Solu-Medrol 125 Mg Vial) 125 mg IV NOW ONE Stop: 03/11/19 22:05 Last Admin: 03/11/19 22:11 Dose: 125 mg Documented by: KWADWO Morphine Sulfate (Morphine) 2 mg IV NOW ONE Stop: 03/11/19 22:09 Last Admin: 03/11/19 22:10 Dose: 2 mg Documented by: KWADWO Morphine Sulfate (Morphine) 2 mg IV NOW ONE Stop: 03/11/19 23:46 Last Admin: 03/11/19 23:52 Dose: 2 mg Documented by: KWADWO Consultations Consultation #1: Dr. Roman, bottle labeler at [facility] agrees that patient does need to be transferred request Rocephin for antibiotics. Also requests that patient be admitted the hospitalist service Time: 23:43 Consultation #2: Dr. Dewey, hospitalist at [facility] has been updated patient's symptoms and test results. Requests additional is a from ice and to be given. Time: 01:13 Vital Signs Vital signs: Vital Signs - 8 hr 03/11/19 21:31 03/11/19 22:17 03/11/19 22:41 Temperature 98.3 F Pulse Rate 96 H 97 H 120 H Respiratory Rate 28 H 30 H 36 H Blood Pressure 142/46 H Blood Pressure [Left Arm] 145/49 H Pulse Oximetry 100 100 99 03/12/19 00:00 03/12/19 00:47 03/12/19 02:09 Temperature Pulse Rate 118 H 88 93 H Respiratory Rate 38 H 12 17 Blood Pressure Blood Pressure [Left Arm] 161/62 H 185/78 H Pulse Oximetry 98 100 96 03/12/19 02:32 Temperature Pulse Rate 87 Respiratory Rate 12 Blood Pressure Blood Pressure [Left Arm] 152/54 H Pulse Oximetry 99 MDM - SOB/Dyspnea Lab Data Attestation: I reviewed the patient's lab results. Result diagrams: 03/11/19 22:10 03/11/19 22:10 Labs: Lab Results 03/11/19 03/11/19 03/11/19 Range/Units 22:10 22:10 22:10 WBC 8.7 (4.5-11.0) X10^3/uL RBC 2.82 L (4.5-5.9) X10^6/uL Hgb 9.3 L (13.5-17.5) g/dL Hct 27.9 L (41-53) % MCV 98.8 (80-100) fL MCH 33.0 (26-34) PG MCHC 33.4 (30-36) % RDW 13.9 (11.6-14.8) % Plt Count 151 (150-400) X10^3/uL Neut % (Auto) 88.5 H (50-75) % Lymph % (Auto) 4.2 L (25-40) % [place] % (Auto) 6.7 (3-14) % Eos % (Auto) 0.2 L (2-4) % Baso % (Auto) 0.4 (0-2) % Neut # (Auto) 7700 H (7413-1090) /uL Lymph # (Auto) 400 L (4174-1396) /uL [place] # (Auto) 600 (0-900) /uL Eos # (Auto) 0 (0-450) /uL Baso # (Auto) 0 (0-100) /uL PT 13.1 H (10.1-12.7) SECONDS INR 1.1 (0.9-1.3) APTT 34 D (26.4-36.2) SECONDS ABG pH (7.35-7.45) ABG pCO2 (35-45) mmHg ABG pO2 (80-100) mmHg ABG HCO3 (22-26) mmol/L ABG Total CO2 (21-31) mmol/L ABG O2 Saturation (95-100) % ABG Base Excess (-2-2) mmol/L FiO2 Sodium (137-145) mmol/L Potassium (3.4-5.1) mmol/L Chloride (98-107) mmol/L Carbon Dioxide (22-32) mmol/L BUN (9-20) mg/dL Creatinine (0.66-1.25) mg/dL Estimated GFR (>60) mL/min BUN/Creatinine Ratio (6-22) Glucose (80-110) mg/dL Lactate (0.7-2.1) mmol/L Calcium (8.4-10.2) mg/dL Magnesium 1.7 (1.6-2.3) mg/dL Total Bilirubin (0.2-1.3) mg/dL AST (17-59) IU/L ALT (<50) IU/L Alkaline Phosphatase (38-126) U/L Total Creatine Kinase 61 (55-170) U/L CK-MB (CK-2) TNP CK-MB (CK-2) Rel Index TNP Troponin I 0.020 (0.01-0.034) ng/mL B-Natriuretic Peptide < 100 (<100) Total Protein (6.3-8.2) g/dL Albumin (3.5-5.0) g/dL Globulin (1.7-4.1) g/dL Albumin/Globulin Ratio (1.0-2.8) Procalcitonin (<0.5) ng/mL Chlamy pneumoniae PCR (Not Detect) Adenovirus (PCR) (Not Detect) B.parapertussis DNA PCR (Not Detect) Coronavirus OC43 (PCR) (Not Detect) Coronavirus HKU1 (PCR) (Not Detect) Coronavirus 229E (PCR) (Not Detect) Coronavirus NL63 (PCR) (Not Detect) Human Metapneumovir PCR (Not Detect) Influenza Type A (PCR) (Not Detect) Influenza Type B (PCR) (Not Detect) M. pneumoniae (PCR) (Not Detect) Parainfluenza 1 (PCR) (Not Detect) Parainfluenza 2 (PCR) (Not Detect) Parainfluenza 3 (PCR) (Not Detect) Parainfluenza 4 (PCR) (Not Detect) RSV (PCR) (Not Detect) Entero/Rhino (PCR) (Not Detect) 03/11/19 03/11/19 03/11/19 Range/Units 22:10 22:10 22:10 WBC (4.5-11.0) X10^3/uL RBC (4.5-5.9) X10^6/uL Hgb (13.5-17.5) g/dL Hct (41-53) % MCV (80-100) fL MCH (26-34) PG MCHC (30-36) % RDW (11.6-14.8) % Plt Count (150-400) X10^3/uL Neut % (Auto) (50-75) % Lymph % (Auto) (25-40) % [place] % (Auto) (3-14) % Eos % (Auto) (2-4) % Baso % (Auto) (0-2) % Neut # (Auto) (6635-6952) /uL Lymph # (Auto) (0517-7849) /uL [place] # (Auto) (0-900) /uL Eos # (Auto) (0-450) /uL Baso # (Auto) (0-100) /uL PT (10.1-12.7) SECONDS INR (0.9-1.3) APTT (26.4-36.2) SECONDS ABG pH (7.35-7.45) ABG pCO2 (35-45) mmHg ABG pO2 (80-100) mmHg ABG HCO3 (22-26) mmol/L ABG Total CO2 (21-31) mmol/L ABG O2 Saturation (95-100) % ABG Base Excess (-2-2) mmol/L FiO2 Sodium 136 L (137-145) mmol/L Potassium 4.7 (3.4-5.1) mmol/L Chloride 98 (98-107) mmol/L Carbon Dioxide 28 (22-32) mmol/L BUN 25 H (9-20) mg/dL Creatinine 1.80 H (0.66-1.25) mg/dL Estimated GFR 37.1 L (>60) mL/min BUN/Creatinine Ratio 13.9 (6-22) Glucose 112 H (80-110) mg/dL Lactate 2.4 H (0.7-2.1) mmol/L Calcium 9.2 (8.4-10.2) mg/dL Magnesium (1.6-2.3) mg/dL Total Bilirubin 0.4 (0.2-1.3) mg/dL AST 21 (17-59) IU/L ALT 7 (<50) IU/L Alkaline Phosphatase 68 (38-126) U/L Total Creatine Kinase (55-170) U/L CK-MB (CK-2) CK-MB (CK-2) Rel Index Troponin I (0.01-0.034) ng/mL B-Natriuretic Peptide (<100) Total Protein 6.8 (6.3-8.2) g/dL Albumin 4.2 (3.5-5.0) g/dL Globulin 2.6 (1.7-4.1) g/dL Albumin/Globulin Ratio 1.6 (1.0-2.8) Procalcitonin < 0.05 (<0.5) ng/mL Chlamy pneumoniae PCR (Not Detect) Adenovirus (PCR) (Not Detect) B.parapertussis DNA PCR (Not Detect) Coronavirus OC43 (PCR) (Not Detect) Coronavirus HKU1 (PCR) (Not Detect) Coronavirus 229E (PCR) (Not Detect) Coronavirus NL63 (PCR) (Not Detect) Human Metapneumovir PCR (Not Detect) Influenza Type A (PCR) (Not Detect) Influenza Type B (PCR) (Not Detect) M. pneumoniae (PCR) (Not Detect) Parainfluenza 1 (PCR) (Not Detect) Parainfluenza 2 (PCR) (Not Detect) Parainfluenza 3 (PCR) (Not Detect) Parainfluenza 4 (PCR) (Not Detect) RSV (PCR) (Not Detect) Entero/Rhino (PCR) (Not Detect) 03/11/19 03/12/19 03/12/19 Range/Units 23:20 00:30 00:40 WBC (4.5-11.0) X10^3/uL RBC (4.5-5.9) X10^6/uL Hgb (13.5-17.5) g/dL Hct (41-53) % MCV (80-100) fL MCH (26-34) PG MCHC (30-36) % RDW (11.6-14.8) % Plt Count (150-400) X10^3/uL Neut % (Auto) (50-75) % Lymph % (Auto) (25-40) % [place] % (Auto) (3-14) % Eos % (Auto) (2-4) % Baso % (Auto) (0-2) % Neut # (Auto) (1986-6561) /uL Lymph # (Auto) (8193-1313) /uL [place] # (Auto) (0-900) /uL Eos # (Auto) (0-450) /uL Baso # (Auto) (0-100) /uL PT (10.1-12.7) SECONDS INR (0.9-1.3) APTT (26.4-36.2) SECONDS ABG pH 7.37 (7.35-7.45) ABG pCO2 45.4 H (35-45) mmHg ABG pO2 68 L (80-100) mmHg ABG HCO3 26 (22-26) mmol/L ABG Total CO2 27 (21-31) mmol/L ABG O2 Saturation 93 L (95-100) % ABG Base Excess 1.0 (-2-2) mmol/L FiO2 36 Sodium (137-145) mmol/L Potassium (3.4-5.1) mmol/L Chloride (98-107) mmol/L Carbon Dioxide (22-32) mmol/L BUN (9-20) mg/dL Creatinine (0.66-1.25) mg/dL Estimated GFR (>60) mL/min BUN/Creatinine Ratio (6-22) Glucose (80-110) mg/dL Lactate 2.0 (0.7-2.1) mmol/L Calcium (8.4-10.2) mg/dL Magnesium (1.6-2.3) mg/dL Total Bilirubin (0.2-1.3) mg/dL AST (17-59) IU/L ALT (<50) IU/L Alkaline Phosphatase (38-126) U/L Total Creatine Kinase (55-170) U/L CK-MB (CK-2) CK-MB (CK-2) Rel Index Troponin I (0.01-0.034) ng/mL B-Natriuretic Peptide (<100) Total Protein (6.3-8.2) g/dL Albumin (3.5-5.0) g/dL Globulin (1.7-4.1) g/dL Albumin/Globulin Ratio (1.0-2.8) Procalcitonin (<0.5) ng/mL Chlamy pneumoniae PCR Not detected (Not Detect) Adenovirus (PCR) Not detected (Not Detect) B.parapertussis DNA PCR Not detected (Not Detect) Coronavirus OC43 (PCR) Not detected (Not Detect) Coronavirus HKU1 (PCR) Not detected (Not Detect) Coronavirus 229E (PCR) Not detected (Not Detect) Coronavirus NL63 (PCR) Not detected (Not Detect) Human Metapneumovir PCR Not detected (Not Detect) Influenza Type A (PCR) Not detected (Not Detect) Influenza Type B (PCR) Not detected (Not Detect) M. pneumoniae (PCR) Not detected (Not Detect) Parainfluenza 1 (PCR) Not detected (Not Detect) Parainfluenza 2 (PCR) Not detected (Not Detect) Parainfluenza 3 (PCR) Not detected (Not Detect) Parainfluenza 4 (PCR) Not detected (Not Detect) RSV (PCR) Not detected (Not Detect) Entero/Rhino (PCR) Detected H (Not Detect) Urine Dip Bedside Urine Glucose Negative Bedside Urine Bilirubin - Negative Bedside Urine Ketone - Negative Urine Specific [place] 1.015 Bedside Urine Occult Blood - Negative Bedside Urine pH 6.0 Bedside Urine Protein +/- 15 Bedside Urine Urobilinogen - Negative Bedside Urine Nitrite - Negative Bedside Urine Leukocytes - Negative Esterase Imaging Data Chest x-ray: Attestation: I personally reviewed and interpreted this imaging study as follows: My impression: No acute cardiopulmonary process similar to yesterday CT scan - chest: Radiologist's impression: Preliminary report: No evidence of pulmonary embolus. Patchy right lower infiltrate possible pneumonia. Scattered right lung nodules with diffuse subpleural nodularity. Short term chest CT recommended. Age indeterminate mild T11 compression fracture ECG Data Attestation: I personally reviewed and interpreted this ECG as follows: Prior ECG tracings: available for review Interpretation: Sinus rhythm rate 93 p.r. interval [address] elevations depressions or T-wave inversions similar to previous EKG MDM Narrative Medical decision making narrative: Patient continues to complain of respiratory distress although he seems to be speaking without difficulty he says he can't get a deep breath and feels like things are getting worse. He is requesting morphine. He had albuterol and morphine without any relief. ABG does not show any significant hypoxia or CO2 retention. Concern for possible pulmonary embolism. The patient received Ativan which seemed to help calm him down a lot worked bett er than morphine. He was able lie flat for the CT. Did not show any pulmonary embolism but did confirm pneumonia. Patient has significant history of multiple cor morbidities and he deteriorations quite quickly. With his complaint of increasing shortness of breath with history of rapid deterioration. I have spoken with [facility] the bottle labeler and hospitalist. Patient has been accepted at the [facility]. Discharge Plan Departure Patient Disposition: [facility] Clinical Impression: Pneumonia Qualifiers: Pneumonia type: due to unspecified organism Laterality: right Lung location: lower lobe of lung Qualified Code(s): J18.1 - Lobar pneumonia, unspecified organism Prescriptions: No Action dapsone 25 MG tablet 50 mg PO BID Qty: 0 RF: 0 montelukast 10 MG tablet 10 mg PO QPM Qty: 0 RF: 0 tamsulosin [Flomax] 0.4 MG capsule,extended release 24hr 0.4 mg PO BEDTIME Qty: 0 RF: 0 pramipexole [Mirapex] 0.125 MG tablet 0.125 mg PO BEDTIME Qty: 0 RF: 0 sennosides [senna] 8.6 MG tablet 17.2 tab PO BEDTIME Qty: 0 RF: 0 carbidopa-levodopa 25 MG/100 MG tablet extended release 1 - 2 tab PO TID Qty: 0 RF: 0 calcitriol [Rocaltrol] 0.25 MCG capsule 0.25 mcg PO DAILY Qty: 0 RF: 0 polyethylene glycol 3350 [Miralax] 119 GM powder 17 gm PO DAILY PRN (Reason: Constipation) Qty: 0 RF: 0 Advair HFA 230 MCG/21 MCG HFA aerosol inhaler 1 puff INH BID Qty: 0 RF: 0 fluorouracil [Efudex] 5 % Cream 1 applic TOPICAL BID PRN (Reason: skin changes) RF: 0 selegiline HCl 5 mg Tablet 5 mg PO BID RF: 0 albuterol sulfate 90 mcg/actuation Hfa Aerosol Inhaler 2 puff INHALATION Q4H PRN (Reason: Shortness Of Breath) RF: 0 fluoride (sodium) 1.1 % Gel 1 applic Dental BEDTIME RF: 0 metoprolol succinate 50 mg tablet extended release 24 hr 50 mg PO BEDTIME RF: 0 nifedipine 30 mg tablet extended release 30 mg PO QAM RF: 0 prochlorperazine maleate 10 mg tablet 10 mg PO QID PRN (Reason: Nausea And Vomiting) RF: 0 valacyclovir 500 mg tablet 500 mg PO BEDTIME RF: 0 furosemide 20 mg tablet 40 mg PO QAM RF: 0 oxycodone 10 mg tablet 10 mg PO 1-2XD MDD 20 mg PRN (Reason: chronic pain) RF: 0 azithromycin 250 mg tablet 250 mg PO MOWEFR RF: 0 prednisone 5 mg tablet 15 mg PO DAILY RF: 0 loratadine 10 mg Tablet 10 mg PO DAILY PRN (Reason: Allergy Symptoms) RF: 0 ipratropium-albuterol 0.5 mg-3 mg(2.5 mg base)/3 mL Solution For Nebulization 3 ml INHALATION Q6-8H PRN (Reason: SOB) RF: 0 pantoprazole 40 mg Tablet,Delayed Release (Dr/Ec) 40 mg PO BID RF: 0 metronidazole 500 mg tablet 500 mg PO TID Qty: 15 RF: 0 amoxicillin 875 mg tablet 875 mg PO BID Qty: 10 RF: 0 levofloxacin [Levaquin] 750 mg tablet 750 mg PO DAILY Qty: 7 RF: 0 Referrals: Monica Sharpe MD [Primary Care Provider] -
[2019-03-11] MEDS: MORPHINE 2 MG/ML INJ IV ×2 (22:10→23:52)
[2019-03-11] MEDS: methylPREDNISolone 125 MG/2 ML VIAL IV (22:11)
[2019-03-11] MEDS: ALBUTEROL/IPRATROPIUM 3 ML AMPUL INH (22:13)
[2019-03-11 22:17] VITALS: PULSE 97; RESP 30; O2SAT 100
[2019-03-11 22:37] LABS: Add Manual Diff / Slide Review NO; Basophils Absolute Auto 0 /uL (0-100); Basophils Percent Auto 0.4 % (0-2); Eosinophils Absolute Auto 0 /uL (0-450); Eosinophils Percent Auto 0.2 % (2-4); Hematocrit 27.9 % (41-53); Hemoglobin 9.3 g/dL (13.5-17.5); Lymphocytes Absolute Auto 400 /uL (1100-4500); Lymphocytes Percent Auto 4.2 % (25-40); Mean Corpuscular HGB Conc 33.4 % (30-36); Mean Corpuscular Volume 98.8 fL (80-100); Monocytes Absolute Auto 600 /uL (0-900); Monocytes Percent Auto 6.7 % (3-14); Neutrophils Absolute Auto 7700 /uL (1500-7000); Neutrophils Percent Auto 88.5 % (50-75); Platelet Count 151 X10^3/uL (150-400); Red Blood Cell Count 2.82 X10^6/uL (4.5-5.9); Red Cell Distribution Width 13.9 % (11.6-14.8); White Blood Cell Count 8.7 X10^3/uL (4.5-11.0)
[2019-03-11 22:39] LABS: INR 1.1 (0.9-1.3); Prothrombin Time 13.1 SECONDS (10.1-12.7)
[2019-03-11 22:41] VITALS: BP 145/49; PULSE 120; RESP 36; O2SAT 99
[2019-03-11 22:41] LABS: PTT Partial Thromboplastin Tim 34 SECONDS (26.4-36.2)
[2019-03-11 22:43] LABS: Lactate (Lactic Acid) 2.4 mmol/L (0.7-2.1)
[2019-03-11 22:44] LABS: Creatine Kinase 61 U/L (55-170); Magnesium 1.7 mg/dL (1.6-2.3)
[2019-03-11 22:45] LABS: Alanine Aminotransferase 7 IU/L (<50); Albumin 4.2 g/dL (3.5-5.0); Albumin Globulin Ratio 1.6 (1.0-2.8); Alkaline Phosphatase 68 U/L (38-126); Aspartate Aminotransferase 21 IU/L (17-59); BUN Creatinine Ratio 13.9 (6-22); Bilirubin Total 0.4 mg/dL (0.2-1.3); Blood Urea Nitrogen 25 mg/dL (9-20); Calcium 9.2 mg/dL (8.4-10.2); Carbon Dioxide 28 mmol/L (22-32); Chloride 98 mmol/L (98-107); Estimated Glomerular Filt Rate 37.1 mL/min (>60); Globulin 2.6 g/dL (1.7-4.1); Glucose 112 mg/dL (80-110); HEMOLYSIS < 15 (0-50); Potassium 4.7 mmol/L (3.4-5.1); Sodium 136 mmol/L (137-145); Total Protein 6.8 g/dL (6.3-8.2)
[2019-03-11 23:06] LABS: B Type Natriuretic Peptide < 100 (<100)
[2019-03-11 23:15] LABS: Procalcitonin < 0.05 ng/mL (<0.5)
[2019-03-11 23:41] LABS: Fractionated Inspired Oxygen 36; HCO3 ABG 26 mmol/L (22-26); Oxygen Saturation ABG 93 % (95-100); PCO2 ABG 45.4 mmHg (35-45); PO2 ABG 68 mmHg (80-100); TCO2 ABG 27 mmol/L (21-31); pH ABG 7.37 (7.35-7.45)
--- NOTE | 2019-03-11 23:43 | DI.CT.S_ITS ---
PROCEDURE: CT ANGIO CHEST PE PROTOCOL INDICATIONS: Shortness of breath TECHNIQUE: After the administration of intravenous contrast, 2 mm thick sections acquired from the pulmonary apices to the posterior costophrenic angles. 3-dimensional maximum intensity projection (MIP) coronal and sagittal reformats were then acquired through the thorax. For radiation dose reduction, the following was used: automated exposure control, adjustment of mA and/or kV according to patient size. COMPARISON: [facility], CT, CT CHEST WO CON, 07/10/2018, 13:18. [facility], CR, XR CHEST 1V, 03/11/2019, 22:05. FINDINGS: Image quality: Excellent. Pulmonary arteries: Pulmonary arteries are normal in size, and demonstrate no intraluminal filling defects to suggest central pulmonary embolism. Mild increased pulmonary vascularity is present. Lungs and pleura: Previous areas of nodularity are unchanged. There is a new small focus of patchy infiltrate in the right lower lobe. No pleural effusions or pneumothorax. Central and peripheral airways are patent. Mediastinum: Heart size is normal, without pericardial effusion. No mediastinal or hilar adenopathy. Thoracic aorta is normal in caliber and enhancement. Esophagus is normal in caliber, without hiatal hernia. Bones and chest wall: No suspicious bony lesions. Ribs and thoracic spine appear intact throughout. Old T11 compression deformity. Thyroid gland is unremarkable. No axillary or supraclavicular adenopathy. Abdomen: Visualized upper abdominal solid organs appear normal in the early arterial phase of enhancement. IMPRESSION: 1. No pulmonary embolism. 2. Unchanged areas of pulmonary nodularity previously identified. 3. Small area of opacity in the right lower lobe. This could represent developing infiltrate. Short interval imaging followup is recommended to document resolution. Dictated by: Jyoti Tovar M.D. on 03/12/2019 at 12:15 Approved by: Jyoti Tovar M.D. on 03/12/2019 at 12:32
[2019-03-11] MEDS: CEFTRIAXONE 1 GM/50 ML FROZ.PIGGY IV (23:50)
--- NOTE | 2019-03-11 23:59 | PC.NURSE ---
Patient saying he is having a hard time breathing. States he can't sit down or stand or urinate. Asked him why he can't urinate. States he can actually urinate, but he is having hard time standing and peeing at the same time. Offered to assist him with urinal. Patient declines. States he is anxious. Requesting morphine to help him breathe. Administered second dose of 2mg IV morphine, per his request. Patient states the first dose did not help him at all. States he needs something right now. Patient is speaking in full sentences and voided 200 mL in urinal independently. Provider notified.
[2019-03-12] VITALS: PULSE 118; RESP 38; O2SAT 98
[2019-03-12] MEDS: LORazepam 2 MG/ML INJ 0.5 MG IV (00:16)
[2019-03-12 00:30] LABS: Reflexed Lactate in 2 Hours Y
--- NOTE | 2019-03-12 00:35 | PC.NURSE ---
Patient back from CT. Tolerated procedure well, per mineral technologist. Patient states he is feeling a little better. Set him up in a recliner to ease his back pain. States he is much more comfortable like this. He is leaning back in chair with his eyes closed.
[2019-03-12 00:47] VITALS: BP 161/62; PULSE 88; RESP 12; O2SAT 100
[2019-03-12 02:09] VITALS: BP 185/78; PULSE 93; RESP 17; O2SAT 96
[2019-03-12 02:09] LABS: Adenovirus Not Detected (Not Detect); Bordetella pertussis Not Detected (Not Detect); Chlamydophila pneumoniae Not Detected (Not Detect); Coronavirus 229E Not Detected (Not Detect); Coronavirus HKU1 Not Detected (Not Detect); Coronavirus NL 63 Not Detected (Not Detect); Coronavirus OC43 Not Detected (Not Detect); Human Metapneumovirus Not Detected (Not Detect); Human Rhinovirus/Enterovirus Detected (Not Detect); Influenza A Not Detected (Not Detect); Influenza B Not Detected (Not Detect); Mycoplasma pneumoniae Not Detected (Not Detect); Parainfluenza Virus 1 Not Detected (Not Detect); Parainfluenza Virus 2 Not Detected (Not Detect); Parainfluenza Virus 3 Not Detected (Not Detect); Parainfluenza Virus 4 Not Detected (Not Detect); Respiratory Syncytial Virus Not Detected (Not Detect)
[2019-03-12 02:32] VITALS: BP 152/54; PULSE 87; RESP 12; O2SAT 99
[2019-03-12] MEDS: AZITHROMYCIN 500 MG in DEXTROSE 5% IN WATER 250 ML IV (02:49)
--- NOTE | 2019-03-12 02:53 | PC.NURSE ---
the zithromax iv was started by transport crew as he left here.
== END 2019-03-12 02:55 | disposition short-term general hospital (02) ==
PROVIDERS: Emergency Provider Emergency Medicine; Family Provider Internal Medicine; PCP Internal Medicine
DX: J18.1 Lobar pneumonia, unspecified organism (principal); Z87.09 Personal history of other diseases of the respiratory system
CPT/HCPCS: 36415; 36600; 71045; 71275; 80053; 81003; 82550; 82805; 83605; 83735; 83880; 84145; 84484; 85025; 85610; 85730; 87040; 87633; 93005; 94640; 96365; 96375; 96376; 99285; J2060; J2270; J2930; Q9967

== ENCOUNTER 2019-07-15 10:00 | Outpatient (RCR) | payer MEDICARE, OTHER, SELFPAY ==
[2018-07-15 14:30] VITALS: PULSE 81; RESP 31; O2SAT 98
[2019-04-20 16:08] VITALS: BP 116/60; BP 118/60; RESP 16; O2SAT 95; BMI 29.6
--- NOTE | 2019-04-21 16:02 | PR.IEVALNOTE ---
Current Diagnoses Pneumonia, unspecified organism (04/21/19) Past Medical History (Last Reviewed 03/12/19 @ 01:35 by Lyssa Souza DO) Atrial fibrillation (Acute) Atrial flutter (Acute) Chronic atttf-fubeba-dbim disease (Chronic) Chronic kidney disease, stage III (moderate) (Acute) CLL (chronic lymphocytic leukemia) (Acute) CMV pneumonia (Acute) Cryptogenic organizing pneumonia (Resolved) Elevated PSA (Acute) Fungal pneumonia (Acute) Parkinson disease (Chronic) Skin cancer (Acute) Visit Care Team Role Provider Type Francisco Flores MD Other Providers Non-Staff Specialty: Internal Medicine Address: [address] [place] [address], [phone] Email: Monica Sharpe MD Attending Provider Non-Staff Family Provider Primary Care Provider Specialty: Internal Medicine Address: [address] [place] [address], [phone] Email: [email or web address] Initial Evaluation [place] Pulmonary Rehab Inital Assessment Start: 04/20/19 15:52 Freq: Status: Active Protocol: Document 04/20/19 16:08 BEENA (Rec: 04/20/19 16:21 BEENA [id number]) HI Exercise Assessment Dx: Bronchiolitis oblterans syndrome Comment Hx: cryptogenic organizing pnuemonia, Parkinson's, CLL/ SLL, nonmyeloablative peripheral stem cell transplant Primary Language WOLOF [place] Required No Hearing Ability Normal Visual Impairment No Limitations Visual Difficutly None Visual Assist None Musculoskeletal Symptoms Abnormal Gait,Deformity,Loss of Height,Muscle Spasms Body Alignment Posture Thoracic Kyphosis Assistive Devices None Comment patient states there are no barriers to exercise. He feels he will be able to exercise independently after completion of pulmonary rehab Comment [facility] [place] Vital Signs Pulse Oximetry (91-100 %) 95 Nasal Cannula No Respiratory Rate (12-24 breaths/min) 16 Respiratory Effort Non-Labored,Shallow Respiratory Depth Shallow Assessment clear but decreased breath sounds Right Arm Blood Pressure (90/60-140/90 mmHg) 118/60 Blood Pressure Method Manual Cuff/Auscultation Blood Pressure Position Sitting Left Arm Blood Pressure (90/60-140/90 mmHg) 116/60 Blood Pressure Method Manual Cuff/Auscultation Blood Pressure Position Sitting Bilateral Ankle Comment trace edema HI Six Minute Walk Test Oxygen Delivery Method Room Air Respiratory Rate (breaths/min) 16 Pulse Rate (beats/min) 63 O2 Saturation by Pulse Oximetry (%) 95 Pulse Rate (beats/min) 80 Ambulation Distance (feet) 200 O2 Saturation by Pulse Oximetry (%) 94 Pulse Rate (beats/min) 83 Ambulation Distance (feet) 250 O2 Saturation by Pulse Oximetry (%) 94 Pulse Rate (beats/min) 85 Ambulatory Distance (feet) 200 O2 Saturation by Pulse Oximetry (%) 93 Pulse Rate (beats/min) 87 Ambulation Distance (feet) 250 O2 Saturation by Pulse Oximetry (%) 93 Pulse Rate (beats/min) 86 Ambulation Distance (feet) 250 O2 Saturation by Pulse Oximetry (%) 92 PUlse Rate (beats/min) 88 Ambulation Distance (feet) 300 O2 Saturation by Pulse Oximetry (%) 92 Respiratory Rate (breaths/min) 18 Pulse Rate (beats/min) 60 O2 Saturation by Pulse Oximetry (%) 96 Activity Tolerance Fair Adverse Reactions Pulse Increase > 20 bpm Distance 1450 Sukh RPE Scale 14 Oriented to RPE Scale Yes Dyspnea 3 Oriented to Dyspnea Scale Yes HI Exercise Goals Exercise Goals Progression of exercise training volume will result from increases in time, intensity and frequency. Initial emphasis will be on increasing time Exercise Goals Demonstrate proper technique with pursed lip breathing Demonstrate proper breath sequencing with ADL's, stairs, etc DASI Number and Comment 6.00 METS HI Pulmonary Rehab Orientation Complete Complete Yes HI Education Pre-Test Score 79% Tobacco Use Former, Quit >6 Months Tobacco Product Used cigarettes Total Years Used 10 Packs Per Day 2 Use Yes Type wine Amount 1-2 glasses Frequency monthly Concerns None Education Topics Breathing Retraining Discussed Education Requirements on Yes Intake HI Psychosocial Initial Assess HADS Score 5 HADS Score 1 Marital Status , spouse in attendance Referral Needed No Physician Comment Ready for Pulmonary Rehabilitation Cooperative,Motivated
--- NOTE | 2019-04-22 10:04 | PR.IEVALNOTE ---
Current Diagnoses Pneumonia, unspecified organism (04/22/19) Past Medical History (Last Reviewed 03/12/19 @ 01:35 by Lyssa Souza DO) Atrial fibrillation (Acute) Atrial flutter (Acute) Chronic justz-wzngzs-lhio disease (Chronic) Chronic kidney disease, stage III (moderate) (Acute) CLL (chronic lymphocytic leukemia) (Acute) CMV pneumonia (Acute) Cryptogenic organizing pneumonia (Resolved) Elevated PSA (Acute) Fungal pneumonia (Acute) Parkinson disease (Chronic) Skin cancer (Acute) Visit Care Team Role Provider Type Francisco Flores MD Other Providers Non-Staff Specialty: Internal Medicine Address: [address] [place] [address], [phone] Email: Monica Sharpe MD Attending Provider Non-Staff Family Provider Primary Care Provider Specialty: Internal Medicine Address: [address] [place] [address], [phone] Email: [email or web address] Initial Evaluation HI Pulmonary Rehab Inital Assessment Start: 04/20/19 15:52 Freq: Status: Active Protocol: Document 04/20/19 16:08 BEENA (Rec: 04/20/19 16:21 BEENA [id number]) HI Exercise Assessment Dx: Bronchiolitis oblterans syndrome Comment Hx: cryptogenic organizing pnuemonia, Parkinson's, CLL/ SLL, nonmyeloablative peripheral stem cell transplant Primary Language LITHUANIAN Full Time Required No Hearing Ability Normal Visual Impairment No Limitations Visual Difficutly None Visual Assist None Musculoskeletal Symptoms Abnormal Gait,Deformity,Loss of Height,Muscle Spasms Body Alignment Posture Thoracic Kyphosis Assistive Devices None Comment patient states there are no barriers to exercise. He feels he will be able to exercise independently after completion of pulmonary rehab Comment [facility] [place] Vital Signs Pulse Oximetry (91-100 %) 95 Nasal Cannula No Respiratory Rate (12-24 breaths/min) 16 Respiratory Effort Non-Labored,Shallow Respiratory Depth Shallow Assessment clear but decreased breath sounds Right Arm Blood Pressure (90/60-140/90 mmHg) 118/60 Blood Pressure Method Manual Cuff/Auscultation Blood Pressure Position Sitting Left Arm Blood Pressure (90/60-140/90 mmHg) 116/60 Blood Pressure Method Manual Cuff/Auscultation Blood Pressure Position Sitting Bilateral Ankle Comment trace edema HI Six Minute Walk Test Oxygen Delivery Method Room Air Respiratory Rate (breaths/min) 16 Pulse Rate (beats/min) 63 O2 Saturation by Pulse Oximetry (%) 95 Pulse Rate (beats/min) 80 Ambulation Distance (feet) 200 O2 Saturation by Pulse Oximetry (%) 94 Pulse Rate (beats/min) 83 Ambulation Distance (feet) 250 O2 Saturation by Pulse Oximetry (%) 94 Pulse Rate (beats/min) 85 Ambulatory Distance (feet) 200 O2 Saturation by Pulse Oximetry (%) 93 Pulse Rate (beats/min) 87 Ambulation Distance (feet) 250 O2 Saturation by Pulse Oximetry (%) 93 Pulse Rate (beats/min) 86 Ambulation Distance (feet) 250 O2 Saturation by Pulse Oximetry (%) 92 PUlse Rate (beats/min) 88 Ambulation Distance (feet) 300 O2 Saturation by Pulse Oximetry (%) 92 Respiratory Rate (breaths/min) 18 Pulse Rate (beats/min) 60 O2 Saturation by Pulse Oximetry (%) 96 Activity Tolerance Fair Adverse Reactions Pulse Increase > 20 bpm Distance 1450 Sukh RPE Scale 14 Oriented to RPE Scale Yes Dyspnea 3 Oriented to Dyspnea Scale Yes HI Exercise Goals Exercise Goals Progression of exercise training volume will result from increases in time, intensity and frequency. Initial emphasis will be on increasing time Exercise Goals Demonstrate proper technique qidth pursed lip breathing Demonstrate proper breath sequencing with ADL's, stairs, etc DASI Number and Comment 6.00 METS HI Pulmonary Rehab Orientation Complete Complete Yes HI Nutrition Assessment PFT Date 07/03/18 Forced Vital Capacity (FVC) 2.35 66% Slow Vital Capacity (SVC) 2.35 66% Forced Exp. Volume/Forced Vital Cap 53 Ratio (FEV1/FVC Ratio) Forced Expiratory Volume in 1 sec. 1.24 45% Diffusing Capacity of the Lung (DLCO) 25.3 Admit Height 163 cm Admit Weight 78.7 kg Admit Body Mass Index (BMI) 29.6 HI Education Pre-Test Score 79% Tobacco Use Former, Quit >6 Months Tobacco Product Used cigarettes Total Years Used 10 Packs Per Day 2 Use Yes Type wine Amount 1-2 glasses Frequency monthly Concerns None Education Topics Breathing Retraining Discussed Education Requirements on Yes Intake HI Psychosocial Initial Assess HADS Score 5 HADS Score 1 Marital Status , spouse in attendance Referral Needed No Physician Comment Ready for Pulmonary Rehabilitation Cooperative,Motivated
--- NOTE | 2019-05-19 15:12 | PR.REVALNOTE ---
Current Diagnoses Pneumonia, unspecified organism (05/19/19) Past Medical History (Last Reviewed 03/12/19 @ 01:35 by Lyssa Souza DO) Atrial fibrillation (Acute) Atrial flutter (Acute) Chronic bhuxt-lslyel-qqld disease (Chronic) Chronic kidney disease, stage III (moderate) (Acute) CLL (chronic lymphocytic leukemia) (Acute) CMV pneumonia (Acute) Cryptogenic organizing pneumonia (Resolved) Elevated PSA (Acute) Fungal pneumonia (Acute) Parkinson disease (Chronic) Skin cancer (Acute) Visit Care Team Role Provider Type Francisco Flores MD Other Providers Non-Staff Specialty: Internal Medicine Address: [address] [place] [address], [phone] Email: Monica Sharpe MD Attending Provider Non-Staff Family Provider Primary Care Provider Specialty: Internal Medicine Address: [address] [place] [address], [phone] Email: [email or web address] [facility] Re-Evaluation [place] Pulmonary Rehab. Re-Assessment Start: 04/20/19 15:52 Freq: Status: Active Protocol: Document 05/19/19 15:04 BEENA (Rec: 05/19/19 15:12 BEENA [id number]) [place] Exercise Re-Assessment New Session Number 1-7 Type Treadmill,BioDex METs (resistance level) 3.59 TM 2.70 STRDR Interval Training No Shortness of Breath with Exercise Yes Desaturation with Exercise No Free Weight Yes: 6# 12R 2S Band Level Yes: #6 Toward Target Goals PATIENT INCREASED WEIGHTS AND BAND RESISTANCE LEVEL-SHOWING PROGRESS TOWARD IMPROVED MUSCLE STRENGTH AND STAMINA TN Education Re-Assessment Topics Medication,Benefits of Exercise,Eating Right Goals Pt will Master PLB and Diaphragmatic Breathing,Pt will Master Energy Conserving Techniques,Pt will learn exercise safety,Pt will continue ED topics until completion TN Psychosocial Re-Assessment Patient in Class Regularly No Progress Towards Goal PATIENT HAS HAD NUMEROUS MEDICAL APPOINTMENTS Referral Needed No Additional Comment PATIENT HAS AGREED TO MAKE APPOINTS OUTSIDE OF SESSIONS TIMES MUCH POSSIBLE Goals Pt will continue to attend classes 3x wk,Participate in social and educational discussion,Received emotional support from family/friends
--- NOTE | 2019-06-17 13:30 | PR.REVALNOTE ---
Current Diagnoses Pneumonia, unspecified organism (06/17/19) Past Medical History (Last Reviewed 03/12/19 @ 01:35 by Lyssa Souza DO) Atrial fibrillation (Acute) Atrial flutter (Acute) Chronic hmxgz-opcdqx-dpes disease (Chronic) Chronic kidney disease, stage III (moderate) (Acute) CLL (chronic lymphocytic leukemia) (Acute) CMV pneumonia (Acute) Cryptogenic organizing pneumonia (Resolved) Elevated PSA (Acute) Fungal pneumonia (Acute) Parkinson disease (Chronic) Skin cancer (Acute) Visit Care Team Role Provider Type Francisco Flores MD Other Providers Non-Staff Specialty: Internal Medicine Address: [address] [place] [address], [phone] Email: Monica Sharpe MD Attending Provider Non-Staff Family Provider Primary Care Provider Specialty: Internal Medicine Address: [address] [place] [address], [phone] Email: [email or web address] Pulmonary Rehab Re-Evaluation NE Education Start: 04/20/19 15:52 Freq: Status: Active Protocol: Document 05/31/19 15:34 Alia (Rec: 05/31/19 15:34 [facility] [id number]) NE Education Education Mets, importance of exercise and effects of deconditioning NE Pulmonary Rehab. Re-Assessment Start: 04/20/19 15:52 Freq: Status: Active Protocol: Document 05/19/19 15:04 BEENA (Rec: 05/19/19 15:12 [facility] [id number]) NE Exercise Re-Assessment New Session Number 1-7 Type Treadmill,BioDex METs (resistance level) 3.59 TM 2.70 STRDR Interval Training No Shortness of Breath with Exercise Yes Desaturation with Exercise No Free Weight Yes: 6# 12R 2S Band Level Yes: #6 Toward Target Goals PATIENT INCREASED WEIGHTS AND BAND RESISTANCE LEVEL-SHOWING PROGRESS TOWARD IMPROVED MUSCLE STRENGTH AND STAMINA NE Education Re-Assessment Topics Medication,Benefits of Exercise,Eating Right Goals Pt will Master PLB and Diaphragmatic Breathing,Pt will Master Energy Conserving Techniques,Pt will learn exercise safety,Pt will continue ED topics until completion NE Psychosocial Re-Assessment Patient in Class Regularly No Progress Towards Goal PATIENT HAS HAD NUMEROUS MEDICAL APPOINTMENTS Referral Needed No Additional Comment PATIENT HAS AGREED TO MAKE APPOINTS OUTSIDE OF SESSIONS TIMES MUCH POSSIBLE Goals Pt will continue to attend classes 3x wk,Participate in social and educational discussion,Received emotional support from family/friends Document 06/17/19 13:21 BEENA (Rec: 06/17/19 13:30 BEENA [id number]) NE Exercise Re-Assessment New Session Number 7-14 Type Treadmill,BioDex METs (resistance level) 4.74TM 3.88STRDR % Improvement 32%TM 43% strdr Interval Training Yes: 5.29TM 5.58STRDR Shortness of Breath with Exercise Yes Desaturation with Exercise No Free Weight Yes: 6# 12R 2S Band Level Yes: #4 Toward Target Goals Demonstrates proper technique with PLB-showing progress, requires reminders to initiate NE Education Re-Assessment Topics Normal Anatomy and Physiology, Chronic Lung Disease,Breathing Retraining,Bronchial Hygiene, Benefits of Exercise,Eating Right Goals Pt will Master PLB and Diaphragmatic Breathing,Pt will Master Energy Conserving Techniques,Pt will learn exercise safety,Pt will continue ED topics until completion NE Psychosocial Re-Assessment Patient in Class Regularly Yes Interventions Pt attending class regularly Referral Needed No Goals Pt will continue to attend classes 3x wk,Participate in social and educational discussion,Received emotional support from family/friends
--- NOTE | 2019-08-04 11:23 | PR.REVALNOTE ---
Current Diagnoses Pneumonia, unspecified organism (07/15/19) Past Medical History (Last Reviewed 03/12/19 @ 01:35 by Lyssa Souza DO) Atrial fibrillation (Acute) Atrial flutter (Acute) Chronic wrrsj-wcofil-thxc disease (Chronic) Chronic kidney disease, stage III (moderate) (Acute) CLL (chronic lymphocytic leukemia) (Acute) CMV pneumonia (Acute) Cryptogenic organizing pneumonia (Resolved) Elevated PSA (Acute) Fungal pneumonia (Acute) Parkinson disease (Chronic) Skin cancer (Acute) Visit Care Team Role Provider Type Francisco Flores MD Other Providers Non-Staff Specialty: Internal Medicine Address: [address] [place] [address], [phone] Email: Monica Sharpe MD Attending Provider Non-Staff Family Provider Primary Care Provider Specialty: Internal Medicine Address: [address] [place] [address], [phone] Email: [email or web address] Pulmonary Rehab Re-Evaluation [place] Education Start: 04/20/19 15:52 Freq: Status: Active Protocol: Document 05/31/19 15:34 Alia (Rec: 05/31/19 15:34 [facility] [id number]) [place] Education Education Mets, importance of exercise and effects of deconditioning [place] Pulmonary Rehab. Re-Assessment Start: 04/20/19 15:52 Freq: Status: Active Protocol: Document 05/19/19 15:04 BEENA (Rec: 05/19/19 15:12 [facility] [id number]) TN Exercise Re-Assessment New Session Number 1-7 Type Treadmill,BioDex METs (resistance level) 3.59 TM 2.70 STRDR Interval Training No Shortness of Breath with Exercise Yes Desaturation with Exercise No Free Weight Yes: 6# 12R 2S Band Level Yes: #6 Toward Target Goals PATIENT INCREASED WEIGHTS AND BAND RESISTANCE LEVEL-SHOWING PROGRESS TOWARD IMPROVED MUSCLE STRENGTH AND STAMINA TN Education Re-Assessment Topics Medication,Benefits of Exercise,Eating Right Goals Pt will Master PLB and Diaphragmatic Breating,Pt will Master Energy Conserving Techniques,Pt will learn exercise safety,Pt will continue ED topics until completion TN Psychosocial Re-Assessment Patient in Class Regularly No Progress Towards Goal PATIENT HAS HAD NUMEROUS MEDICAL APPOINTMENTS Referral Needed No Additional Comment PATIENT HAS AGREED TO MAKE APPOINTS OUTSIDE OF SESSIONS TIMES MUCH POSSIBLE Goals Pt will continue to attend classes 3x wk,Participate in social and educational discussion,Received emotional support from family/friends Document 06/17/19 13:21 BEENA (Rec: 06/17/19 13:30 [facility] [id number]) TN Exercise Re-Assessment New Session Number 7-14 Type Treadmill,BioDex METs (resistance level) 4.74TM 3.88STRDR % Improvement 32%TM 43% strdr Interval Training Yes: 5.29TM 5.58STRDR Shortness of Breath with Exercise Yes Desaturation with Exercise No Free Weight Yes: 6# 12R 2S Band Level Yes: #4 Toward Target Goals Demostrates proper technique with PLB-showing progress, requires reminders to initiate [place] Education Re-Assessment Topics Normal Anatomy and Physiology, Chronic Lung Disease,Breathing Retraining,Bronchial Hygiene, Benefits of Exercise,Eating Right Goals Pt will Master PLB and Diaphragmatic Breating,Pt will Master Energy Conserving Techniques,Pt will learn exercise safety,Pt will continue ED topics until completion TN Psychosocial Re-Assessment Patient in Class Regularly Yes Interventions Pt attending class regularly Referral Needed No Goals Pt will continue to attend classes 3x wk,Participate in social and educational discussion,Received emotional support from family/friends Document 08/04/19 11:22 BEENA (Rec: 08/04/19 11:23 [facility] [id number]) [place] Psychosocial Re-Assessment Additional Comment unable to reassess patient as a result of the closure of Pulmonary Rehabilitation due to Covid-19 pandemic
== END 2019-07-15 11:00 ==
LOC: PUL 10:00
PROVIDERS: Family Provider Internal Medicine; PCP Internal Medicine; Visit Provider Internal Medicine
DX: J18.9 Pneumonia, unspecified organism (principal)
CPT/HCPCS: G0237; G0238; G0424

== ENCOUNTER → 2020-04-24 16:19 | Outpatient (CLI) | payer MEDICARE, OTHER, SELFPAY ==
[2018-07-15 14:30] VITALS: PULSE 81; RESP 31; O2SAT 98
[2019-04-20 16:08] VITALS: BMI 29.6
--- NOTE | 2020-04-24 16:37 | DI.RAD.S_ITS ---
PROCEDURE: XR LUMBAR SPINE 2-3V INDICATIONS: ACUTE BACK PAIN TECHNIQUE: 3 views of the lumbar spine were acquired. COMPARISON: [facility], CR, XR CHEST 2V, 03/10/2019, 12:55. FINDINGS: Bones: L1 compression fracture with moderate to severe height loss. There is also mild compression fracture involving T11. Multilevel degenerative endplate sclerosis and spurring. Diffuse facet arthropathy. Grade 1 retrolisthesis of L1 on L2. Diffuse mild narrowing of the lumbar disc spaces. There is also thoracic spine disc space narrowing. Soft tissues: Overlying bowel gas pattern is normal. No suspicious soft tissue calcifications. IMPRESSION: T11 and L1 compression fractures as above. L1 compression fracture appears grossly unchanged since 03/10/19. T11 compression fracture is not well seen on the prior study therefore please correlate clinically to determine the acuity. Dictated by: Jhonny Ochoa M.D. on 04/24/2020 at 17:20 Approved by: Jhonny Ochoa M.D. on 04/24/2020 at 17:22
--- NOTE | 2020-04-24 16:43 | DI.RAD.S_ITS ---
PROCEDURE: XR THORACIC SPINE 3V INDICATIONS: BACK PAIN TECHNIQUE: 3 views of the thoracic spine were acquired. COMPARISON: [facility], CT, CT ANGIO CHEST PE PROTOCOL, 03/11/2019, 23:58. FINDINGS: Bones: Severe compression deformity at T12 is increased in extent when compared with the prior CT dated 03/11/19. A moderate compression deformity is now present at T10 which has a chronic appearance but is new when compared with the prior CT. Focal kyphosis is present in the lower thoracic spine. There are moderate to severe degenerative changes including intervertebral disc space narrowing and osteophytosis throughout the thoracic spine. There are 12 pairs of ribs. Soft tissues: No paravertebral stripe thickening. IMPRESSION: 1. Compression deformities at T10 and T12 either new or increased in extent when compared with the prior study dated March 11, 2019. No definite findings to suggest acute compression fracture; however if there is a history of recent trauma, acute injury could be suspected. If further characterization is warranted, noncontrast MRI of the thoracic spine could be used. 2. Moderate to severe degenerative change throughout the thoracic spine. Dictated by: Trisha Ford M.D. on 04/24/2020 at 17:21 Approved by: Trisha Ford M.D. on 04/24/2020 at 17:23
== END ==
PROVIDERS: Family Provider Internal Medicine; PCP Internal Medicine; Referring Provider Internal Medicine; Visit Provider Internal Medicine
DX: M54.9 Dorsalgia, unspecified (principal); M48.55XA Collapsed vertebra, not elsewhere classified, thoracolumbar region, initial encounter for fracture; M47.814 Spondylosis without myelopathy or radiculopathy, thoracic region
CPT/HCPCS: 72072; 72100

== ENCOUNTER → 2020-05-04 12:53 | Outpatient (CLI) | payer MEDICARE, OTHER, SELFPAY ==
[2018-07-15 14:30] VITALS: PULSE 81; RESP 31; O2SAT 98
[2019-04-20 16:08] VITALS: BMI 29.6
--- NOTE | 2020-05-04 12:54 | DI.MRI.S_ITS ---
PROCEDURE: MR LUMBAR SPINE WO CON INDICATIONS: RADICULOPATHY LUMBAR REGION TECHNIQUE: Noncontrast sagittal T1 spin echo and T2 fast echo, sagittal STIR, axial T1 and T2 fast spin echo through the lumbar spine. In cases with scoliosis, additional coronal T2 fast spin echo may be performed. COMPARISON: [facility], CT, CT ANGIO CHEST PE PROTOCOL, 03/11/2019, 23:58. Located [facility], CR, XR LUMBAR SPINE 2-3V, 04/24/2020, 16:43. FINDINGS: Image quality: Excellent. Alignment and Curvature: There is normal bony alignment. Bone Marrow: Marrow is of normal overall signal. The severe compression deformity at L1 is redemonstrated and appears similar to the plain film dated April 24, 2020. The moderate compression deformity at T11 is also unchanged from the prior plain film. No new compression deformities. A Schmorl's node is present at the superior L2 endplate. Spinal Cord: Conus medullaris terminates at the T12 level. Visualized cord demonstrates normal signal and size. Paraspinous Soft Tissues: No paravertebral masses. L1-L2: Severe compression deformity with approximately 70 sent vertebral body height loss. No canal stenosis. No neural foraminal narrowing. L2-L3: Disc desiccation and height loss. No canal stenosis. Mild right and moderate left foraminal stenosis. L3-L4: Mild disc desiccation and height loss. Broad-based disc bulge. No canal stenosis. No neural foraminal narrowing. L4-L5: Broad-based disc bulge and mild facet ligamentum flavum hypertrophy. Mild bilateral foraminal narrowing. L5-S1: Mild disc bulge. No canal stenosis. No neural foraminal stenosis. IMPRESSION: 1. Severe compression deformity at L1 and moderate compression deformity at T11 unchanged from the prior plain film dated April 24, 2020. No findings to suggest new compression deformity of the lumbar spine. 2. No canal stenosis of the lumbar spine. 3. Moderate left foraminal narrowing at L2-3 . Dictated by: Trisha Ford M.D. on 05/04/2020 at 13:55 Approved by: Trisha Ford M.D. on 05/04/2020 at 14:13
== END ==
PROVIDERS: Family Provider Internal Medicine; PCP Internal Medicine; Referring Provider Internal Medicine; Visit Provider Internal Medicine
DX: M54.16 Radiculopathy, lumbar region (principal); M48.061 Spinal stenosis, lumbar region without neurogenic claudication
CPT/HCPCS: 72148

== ENCOUNTER → 2021-03-09 11:25 | Outpatient (CLI) | payer MEDICARE, OTHER, SELFPAY ==
[2020-08-07 12:43] VITALS: PULSE 81; RESP 31; O2SAT 98; BMI 29.6
[2021-03-09 13:02] LABS: COVID-19 CEPHEID PCR (VTM/NP) Negative (Negative)
== END ==
PROVIDERS: Family Provider Internal Medicine; Visit Provider Physician Assistant
DX: Z20.822 Contact with and (suspected) exposure to COVID-19 (principal)
CPT/HCPCS: C9803; U0003

== ENCOUNTER 2021-05-18 13:19 | Emergency (ER) | payer MEDICARE, OTHER, SELFPAY ==
[2020-08-07 12:43] VITALS: PULSE 81; RESP 31; O2SAT 98; BMI 29.6
[2021-05-18] VITALS (17 sets, daily range): BP systolic 120–147; BP diastolic 58–89; PULSE 62–81; RESP 15–31; TEMP 36.7; O2SAT 95–100; BMI 21.6
--- NOTE | 2021-05-18 13:32 | DI.RAD.S_ITS ---
PROCEDURE: XR CHEST 1V INDICATIONS: shortness of breath TECHNIQUE: One view of the chest was acquired. COMPARISON: [facility], CR, XR CHEST 1V, 03/11/2019, 22:05. FINDINGS: Surgical changes and devices: Prosthetic heart valve is seen. Lungs and pleura: Mild pulmonary vascular congestion is seen. Chronic emphysematous changes are noted. No definite focal infiltrate. No pleural effusions or pneumothorax. Mediastinum: Mediastinal contours appear normal. Heart size is normal. Bones and chest wall: No suspicious bony lesions. Overlying soft tissues appear unremarkable. IMPRESSION: Mild pulmonary vascular congestion. No definite focal infiltrate or gross pneumothorax. No pleural effusion. Dictated by: Hermelindo Clay M.D. on 05/18/2021 at 14:55 Approved by: Hermelindo Clay M.D. on 05/18/2021 at 14:56
[2021-05-18 14:21] LABS: Add Manual Diff / Slide Review NO; Basophils Absolute Auto 100 /uL (0-100); Basophils Percent Auto 0.8 % (0-2); Eosinophils Absolute Auto 500 /uL (0-450); Eosinophils Percent Auto 6.4 % (2-4); Hematocrit 34.2 % (41-53); Hemoglobin 11.3 g/dL (13.5-17.5); Lymphocytes Absolute Auto 1000 /uL (1100-4500); Lymphocytes Percent Auto 14.2 % (25-40); Mean Corpuscular HGB Conc 33.2 % (30-36); Mean Corpuscular Hemoglobin 29.7 PG (26-34); Mean Corpuscular Volume 89.7 fL (80-100); Monocytes Absolute Auto 600 /uL (0-900); Monocytes Percent Auto 7.8 % (3-14); Neutrophils Absolute Auto 5200 /uL (1500-7000); Neutrophils Percent Auto 70.8 % (50-75); Platelet Count 201 X10^3/uL (150-400); Red Blood Cell Count 3.81 X10^6/uL (4.5-5.9); Red Cell Distribution Width 13.1 % (11.6-14.8); White Blood Cell Count 7.3 X10^3/uL (4.5-11.0)
--- NOTE | 2021-05-18 14:21 | PC.NURSE ---
Patient also reports that has not had a BM in 7 days, takes oxycodone daily.
[2021-05-18 14:55] LABS: Lactate (Lactic Acid) 1.6 mmol/L (0.7-2.1)
[2021-05-18 14:56] LABS: Alanine Aminotransferase 9 IU/L (<50); Albumin 4.5 g/dL (3.5-5.0); Albumin Globulin Ratio 1.3 (1.0-2.8); Alkaline Phosphatase 87 U/L (38-126); Aspartate Aminotransferase 44 IU/L (17-59); Bilirubin Total 0.7 mg/dL (0.2-1.3); Blood Urea Nitrogen 50 mg/dL (9-20); Calcium 9.2 mg/dL (8.4-10.2); Carbon Dioxide 32 mmol/L (22-32); Chloride 98 mmol/L (98-107); Estimated Glomerular Filt Rate 28.2 mL/min (>60); Globulin 3.5 g/dL (1.7-4.1); Glucose 96 mg/dL (80-110); HEMOLYSIS < 15 (0-50); Potassium 3.7 mmol/L (3.4-5.1); Sodium 138 mmol/L (137-145)
[2021-05-18 15:04] LABS: NT-proBNP (BNP-Adult 18+) 724 pg/mL (<450)
--- NOTE | 2021-05-18 15:19 | ED_ITS ---
HPI - SOB/Dyspnea General Chief Complaint: Shortness of Breath/Dyspnea Stated Complaint: SOB/Tired/Weightloss, Not Feeling Well Time Seen by Provider: 05/18/21 14:56 Source: patient Mode of arrival: Ambulatory Limitations: no limitations History of Present Illness HPI Narrative: The patient presents with dyspnea, fatigue, and poor appetite. He underwent TAVR March 2021. He underwent stem cell transplant for leukemia in 2007. He has Parkinson's. His and he feel like he is too tired. He is not drinking or eating well. He has mild headache. He has no fever, no sore throat, the no cough. He complains of difficulty breathing, the worried about pneumonia. He is not on diuretics, following the TAVR. He does not think he has had CHF. He does take Chlorthalidone. He has lower extremity edema that is improved with Chlorthalidone. Related Data Home Medications Medication Instructions Recorded Confirmed sennosides 8.6 mg tablet (senna) 17.2 tab PO BEDTIME #0 12/16/16 10/20/20 tamsulosin 0.4 mg capsule (Flomax) 0.4 mg PO BEDTIME #0 12/16/16 10/20/20 carbidopa ER 25 mg-levodopa 100 mg 1 - 2 tab PO TID #0 12/17/16 10/20/20 tablet,extended release polyethylene glycol 3350 17 17 gm PO DAILY PRN #0 12/17/16 10/20/20 gram/dose oral powder (Miralax) albuterol sulfate 90 mcg/actuation 2 puff INHALATION Q4H PRN 01/19/18 10/20/20 aerosol inhaler selegiline HCl 5 mg tablet 5 mg PO BID 01/19/18 10/20/20 azithromycin 250 mg tablet 250 mg PO MOWEFR 07/10/18 10/20/20 metoprolol succinate 50 mg 50 mg PO BEDTIME 07/10/18 10/20/20 tablet,extended release 24 hr nifedipine 30 mg tablet,extended 30 mg PO QAM 07/10/18 10/20/20 release oxycodone 10 mg tablet 10 mg PO 1-2XD PRN MDD 20 mg 07/10/18 10/20/20 valacyclovir 500 mg tablet 500 mg PO BEDTIME 07/10/18 10/20/20 fluoride (sodium) 1.1 % dental gel 1 applic DENTAL BEDTIME 07/15/18 10/20/20 ipratropium 0.5 mg-albuterol 3 mg 3 ml INHALATION Q6-8H PRN 09/28/18 10/20/20 (2.5 mg base)/3 mL nebulization soln pantoprazole 40 mg tablet,delayed 40 mg PO BID 09/29/18 10/20/20 release dexamethasone 0.5 mg/5 mL oral 1 mg PO BID ml 08/07/20 10/20/20 solution ondansetron HCl 4 mg tablet mg PO DAILY PRN tab 08/07/20 10/20/20 Previous Rx's Medication Instructions Recorded diclofenac epolamine 1.3 % 1 patch TOPICAL BID #30 ea 10/30/20 transdermal 12 hour patch (Flector) gabapentin 100 mg capsule 100 mg PO TID #90 cap 03/19/21 gabapentin 400 mg capsule 400 mg PO TID #90 cap 04/17/21 hydroxyzine HCl 10 mg tablet 10 mg PO Q8H PRN #60 tab 05/18/21 Allergies Allergy/AdvReac Type Severity Reaction Status Date / Time diltiazem Allergy Intermediate Hives Verified 05/18/21 13:28 bacitracin [BACITRACIN] Allergy Unknown SKIN Verified 05/18/21 13:28 IRRITATION chlorhexidine [CHLORHEXIDINE] Allergy Unknown SKIN Verified 05/18/21 13:28 IRRITATION rifampin [RIFAMPIN] Allergy Unknown HIVES Verified 05/18/21 13:28 acetaminophen [ACETAMINOPHEN] AdvReac Unknown ABD PAIN Verified 05/18/21 13:28 diphenhydramine AdvReac Unknown EXTREME Verified 05/18/21 13:28 [From BENADRYL] SEDATION Review of Systems Constitutional Constitutional: Denies anorexia, Denies chills, Denies fatigue, Denies fever(s) and Denies headache(s) Eyes Eyes: Denies change in vision ENT Ears, Nose, Mouth, and Throat: Denies vertigo, Denies dizziness, Denies dry mouth, Denies headache(s), Denies sinus pressure and Denies sore throat Cardiovascular Cardiovascular: Denies chest pain, Denies syncope, Denies irregular heart rhythm, Reports leg edema and Reports dyspnea Respiratory Respiratory: Denies chest congestion, Denies cough, Reports dyspnea and Reports other (No orthopnea) Gastrointestinal Gastrointestinal: Denies abdominal pain, Reports constipation (Likely associated with necrotic medications.) and Denies vomiting Genitourinary Comments: No issues with urine output. Musculoskeletal Musculoskeletal: Denies arthralgias, Denies back pain and Denies numbness Integumentary/Breasts Skin/Breast: Denies lesions and Denies rash Neurologic Neurologic: Reports confusion, Denies vertigo, Denies dizziness, Denies syncope, Denies headache(s) and Denies numbness Psychiatric Psychiatric: Reports anxiety, Reports confusion and Denies depression Endocrine Endocrine: Denies fatigue Hematologic/Lymphatic On Anticoagulants: No Patient History Medical History (Updated 05/18/21 @ 18:57 by Marcel Duncan MD) Atrial fibrillation Atrial flutter Chronic jhbdq-[id number]-rmbn disease Chronic kidney disease, stage III (moderate) CLL (chronic lymphocytic leukemia) CMV pneumonia Compression fracture of L1 lumbar vertebra Cryptogenic organizing pneumonia Elevated PSA Fungal pneumonia Parkinson disease Skin cancer Spinal stenosis T11 vertebral fracture Surgical History (Updated 05/18/21 @ 18:43 by Marcel Duncan MD) H/O stem cell transplant History of partial colectomy History of radiofrequency ablation procedure for cardiac arrhythmia S/P TAVR (transcatheter aortic valve replacement) Family History Father Cancer Mother C. difficile colitis Social History household members: spouse Smoking Status: Former smoker Tobacco: How many years used: 10 alcohol intake: current Smoking Status: Former smoker alcohol intake frequency: holidays/special occasions only Substance Use Type: does not use Exam Initial Vital Signs Initial Vital Signs: Vital Signs Temperature 98.1 F 05/18/21 13:28 Pulse Rate 70 05/18/21 13:28 Respiratory Rate 15 05/18/21 13:28 Blood Pressure 120/58 L 05/18/21 13:28 Pulse Oximetry 99 05/18/21 13:28 Const Other: Frail appearing. He seems to not frequently understand our conversation. He is quite anxious. He has Parkinson's tremor. His is assisting quite a bit with conversation. HENAR Head: normal to inspection, normocephalic and atraumatic Mouth: oral mucosae normal Throat: posterior oropharynx normal Eyes Pupils: PERRL EOM: EOM intact bilaterally Neck Neck: JVD (2 cm) Chest Chest: normal inspection of the chest Resp Auscultation: clear to auscultation bilaterally Cardio Rate: regular rate Rhythm: regular rhythm Heart Sounds: S1 normal, S2 normal and no murmurs GI Inspection: normal to inspection Palpation: soft and No tender Back/Spine/Pelvis Back: normal to inspection Skin General: no rashes or lesions noted Neuro General: patient alert, patient awake, no focal motor deficits and other (He is easily confused. Conversation is often repeated.) Cranial Nerves: CN's II-XI intact bilaterally Other: Parkinson's tremor. Extrem General: normal to inspection, full ROM, no pedal edema and no calf tenderness Psych Appearance: disheveled Speech and Movement: slurred speech Mood: anxious mood Course Course Course Narrative: The patient was found to be in CHF. He has no peripheral edema, he has no JVD chest x-ray suggests mild pulmonary edema. His BNP is slightly elevated. After receiving Lasix 4 mg IV, his O2 sats are 97-979% on room air. He is quite anxious. All the complaint of dyspnea, he is fixated on constipation, likely from his narcotic pain medications. He expressed fear about going home. He se ems to be quite clinically stable other than anxious. He has to be admitted. His asked for an anxiety medication, reviewed his extensive medication list, I offered hydroxyzine. 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 Orders Ordered: ED Orders 05/18/21 13:32 XR chest 1V Stat EKG-12 Lead Stat Measure peak expiratory flow ONCE RT Consult Eval and Treat Now 05/18/21 14:08 Complete Blood Count AUTO DIFF Stat Comprehensive Metabolic Panel Stat Lactate (Lactic Acid) Stat NT-proBNP (BNP-Adult 18+) Stat Discontinued Medications Furosemide (Furosemide 40 Mg/4 Ml Vial) 40 mg IV NOW ONE Stop: 05/18/21 15:25 Last Admin: 05/18/21 15:30 Dose: 40 mg Documented by: KEATON Vital Signs Vital signs: Vital Signs - 8 hr 05/18/21 13:28 05/18/21 14:03 05/18/21 14:04 Temperature 98.1 F Pulse Rate 70 71 69 Respiratory Rate 15 Blood Pressure 120/58 L 129/89 Pulse Oximetry 99 96 95 05/18/21 14:30 05/18/21 15:00 Temperature Pulse Rate 66 64 Respiratory Rate 20 Blood Pressure 133/61 133/62 Pulse Oximetry 100 99 MDM - SOB/Dyspnea Lab Data Result diagrams: 05/18/21 14:08 05/18/21 14:08 Labs: Lab Results 05/18/21 05/18/21 05/18/21 Range/Units 14:08 14:08 14:08 WBC 7.3 (4.5-11.0) X10^3/uL RBC 3.81 L (4.5-5.9) X10^6/uL Hgb 11.3 L (13.5-17.5) g/dL Hct 34.2 L (41-53) % MCV 89.7 (80-100) fL MCH 29.7 (26-34) PG MCHC 33.2 (30-36) % RDW 13.1 (11.6-14.8) % Plt Count 201 (150-400) X10^3/uL Neut % (Auto) 70.8 (50-75) % Lymph % (Auto) 14.2 L (25-40) % Bartholomew % (Auto) 7.8 (3-14) % Eos % (Auto) 6.4 H (2-4) % Baso % (Auto) 0.8 (0-2) % Neut # (Auto) 5200 (7389-8934) /uL Lymph # (Auto) 1000 L (5894-6664) /uL Bartholomew # (Auto) 600 (0-900) /uL Eos # (Auto) 500 H (0-450) /uL Baso # (Auto) 100 (0-100) /uL Sodium 138 (137-145) mmol/L Potassium 3.7 (3.4-5.1) mmol/L Chloride 98 (98-107) mmol/L Carbon Dioxide 32 (22-32) mmol/L BUN 50 H (9-20) mg/dL Creatinine 2.27 H (0.66-1.25) mg/dL Estimated GFR 28.2 L (>60) mL/min BUN/Creatinine Ratio 22.0 (6-22) Glucose 96 (80-110) mg/dL Lactate 1.6 (0.7-2.1) mmol/L Calcium 9.2 (8.4-10.2) mg/dL Total Bilirubin 0.7 (0.2-1.3) mg/dL AST 44 (17-59) IU/L ALT 9 (<50) IU/L Alkaline Phosphatase 87 (38-126) U/L NT-Pro-B Natriuret Pep 724 H (<450) pg/mL Total Protein 8.0 (6.3-8.2) g/dL Albumin 4.5 (3.5-5.0) g/dL Globulin 3.5 (1.7-4.1) g/dL Albumin/Globulin Ratio 1.3 (1.0-2.8) Imaging Data Chest x-ray: Radiologist's Impression: XRay Report Signed Patient: Eleno Sol MR#: [id number] : 1945 Acct:[id number] Age/Sex: 75 / M Date of Service: 05/18/21 Loc: ED Accession Number: [id number] ?? Procedure: XR chest 1V Ordering Provider: Marcel Duncan MD PROCEDURE:? XR CHEST 1V ? INDICATIONS:? shortness of breath ? TECHNIQUE:? One view of the chest was acquired.? ? COMPARISON:? [facility], , XR CHEST 1V, 03/11/2019, 22:05. ? FINDINGS:? ? Surgical changes and devices:? Prosthetic heart valve is seen. ? Lungs and pleura:? Mild pulmonary vascular congestion is seen.? Chronic emphysematous changes are noted.? No definite focal infiltrate.? No pleural effusions or pneumothorax.? ? ? Mediastinum:? Mediastinal contours appear normal.? Heart size is normal.? ? Bones and chest wall:? No suspicious bony lesions.? Overlying soft tissues appear unremarkable.? ? IMPRESSION:? Mild pulmonary vascular congestion.? No definite focal infiltrate or gross pneumothorax.? No pleural effusion. ? ? Dictated by: Hermelindo Clay M.D. on 05/18/2021 at 14:55 ? ? Approved by: Hermelindo Clay M.D. on 05/18/2021 at 14:56 ? ECG Data Attestation: I personally reviewed and interpreted this ECG as follows: (Normal sinus rhythm rate 75 beats per minute. PVCs. Incomplete RBBB. LAFB. Lungs ST T wave changes. No elevated ST segments.) Discharge Plan Departure Patient Disposition: Home Clinical Impression: CHF (congestive heart failure), Parkinson's disease, Renal failure, Anxiety, Constipation Instructions: Heart Failure Activity Restrictions/Additional Instructions: We use a lab test, BNP, to help guide us in treating heart failure. Your number is [phone]. Share this with your doctor. I gave you Lasix 40 mg IV, which is apparently helped. UR breathing quite well at the time of discharge. You take Chlorothiazide already. This is a diuretic blood pressure medication the also helps reduce the fluid content in your body. As of now continue your medications as prescribed. Contact your doctor Friday, discuss her symptoms and medications. If you develop significant chest pain, or significant occult breathing return here. Regarding your constipation, drink plenty of fluids. Take Milk of Magnesia 2 tbsp every 6 hours until you get relief from the constipation. The patient's requested a medication for anxiety. I prescribed hydroxyzine. Prescriptions: New hydroxyzine HCl 10 mg tablet 10 mg PO Q8H PRN (Reason: anxiety) Qty: 60 0RF No Action tamsulosin [Flomax] 0.4 MG capsule,extended release 24hr 0.4 mg PO BEDTIME Qty: 0 0RF sennosides [senna] 8.6 MG tablet 17.2 tab PO BEDTIME Qty: 0 0RF carbidopa-levodopa 25 MG/100 MG tablet extended release 1 - 2 tab PO TID Qty: 0 0RF Label Comments: generally takes at least tid, but may take up to 2 tabs tid polyethylene glycol 3350 [Miralax] 119 GM powder 17 gm PO DAILY PRN (Reason: Constipation) Qty: 0 0RF diclofenac epolamine [Flector] 1.3 % patch 12 hour 1 patch topical BID Qty: 30 1RF gabapentin 100 mg capsule 100 mg PO TID Qty: 90 1RF Rx Instructions: USE TO TITRATE DOSE TID. PT AWARE OF HOW TO ADD THIS TO HIS EXISTING 400MG TID. gabapentin 400 mg capsule 400 mg PO TID Qty: 90 2RF selegiline HCl 5 mg Tablet 5 mg PO BID 0RF albuterol sulfate 90 mcg/actuation Hfa Aerosol Inhaler 2 puff INHALATION Q4H PRN (Reason: Shortness Of Breath) 0RF fluoride (sodium) 1.1 % Gel 1 applic Dental BEDTIME 0RF Rx Instructions: leave on 3-4 minutes then spit out. do not rinse, eat or drink for 30 minutes metoprolol succinate 50 mg tablet extended release 24 hr 50 mg PO BEDTIME 0RF Label Comments: take 1 tablet by mouth daily nifedipine 30 mg tablet extended release 30 mg PO QAM 0RF Label Comments: take 1 tablet by mouth every morning valacyclovir 500 mg tablet 500 mg PO BEDTIME 0RF oxycodone 10 mg tablet 10 mg PO 1-2XD MDD 20 mg PRN (Reason: chronic pain) 0RF azithromycin 250 mg tablet 250 mg PO MOWEFR 0RF Label Comments: take 1 tablet by mouth EVERY Friday AND FRIDAY ipratropium-albuterol 0.5 mg-3 mg(2.5 mg base)/3 mL Solution For Nebulization 3 ml INHALATION Q6-8H PRN (Reason: SOB) 0RF pantoprazole 40 mg Tablet,Delayed Release (Dr/Ec) 40 mg PO BID 0RF ondansetron HCl 4 mg tablet PO DAILY PRN (Reason: nausea and vomiting) 0RF dexamethasone 0.5 mg/5 mL solution 1 mg PO BID 0RF
[2021-05-18] MEDS: FUROSEMIDE 40 MG/4 ML VIAL IV (15:30)
== END 2021-05-18 18:56 | disposition home or self-care (01) ==
PROVIDERS: Emergency Provider Emergency Medicine; Family Provider Internal Medicine
DX: I50.9 Heart failure, unspecified (principal); N19 Unspecified kidney failure; F41.9 Anxiety disorder, unspecified; G20 Parkinson's disease; I49.3 Ventricular premature depolarization; I45.10 Unspecified right bundle-branch block
CPT/HCPCS: 36415; 71045; 80053; 83605; 83880; 85025; 93005; 93010; 96374; 99284; J1940

== ENCOUNTER 2021-11-20 14:29 | Emergency (ER) | payer MEDICARE, OTHER, SELFPAY ==
[2020-08-07 12:43] VITALS: PULSE 81; RESP 31; O2SAT 98; BMI 29.6
[2021-11-20] VITALS (14 sets, daily range): BP systolic 108–148; BP diastolic 53–104; PULSE 80–98; RESP 22–34; TEMP 36.2; O2SAT 92–100; BMI 21.6
--- NOTE | 2021-11-20 15:25 | DI.RAD.S_ITS ---
PROCEDURE: XR CHEST 1V INDICATIONS: short of breath TECHNIQUE: One view of the chest was acquired. COMPARISON: [facility], CR, XR CHEST 1V, 05/18/2021, 14:03. FINDINGS: Surgical changes and devices: Prosthetic valve is noted. Lungs and pleura: Interval development of patchy right basilar opacity. Trace bilateral costophrenic angle blunting suggestive of minimal effusions. Mediastinum: Mediastinal contours appear normal. Heart size is normal. Bones and chest wall: No suspicious bony lesions. Overlying soft tissues appear unremarkable. IMPRESSION: Right basilar opacity most suggestive of pneumonia. Dictated by: Jyoti Tovar M.D. on 11/20/2021 at 15:57 Approved by: Jyoti oTvar M.D. on 11/20/2021 at 15:58
--- NOTE | 2021-11-20 15:49 | ED_ITS ---
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 He has had productive sputum no fevers or chills. He thinks this may have gotten worse over last couple of days. He denies any chest pain. He wears 2 L of oxygen at night but also has started wearing some oxygen during the day. He talked with the patient CP who has sent him to the ED for further evaluation. He is followed closely by [facility] and [facility]. He complains of being weak a difficulty walking around but does not get need a walker. He is quite careful. He also has a history of bronchiolitis obliterans syndrome and cryptogenic organizing pneumonia an Aspergillus pneumonia. He has had chronic chest conges tion using albuterol twice a day he continues to bring up a lot of sputum Related Data Home Medications Medication Instructions Recorded Confirmed sennosides 8.6 mg tablet (senna) 17.2 tab PO BEDTIME ##0 12/16/16 10/20/20 tamsulosin 0.4 mg capsule (Flomax) 0.4 mg PO BEDTIME ##0 12/16/16 10/20/20 carbidopa ER 25 mg-levodopa 100 mg 1 - 2 tab PO TID ##0 12/17/16 10/20/20 tablet,extended release polyethylene glycol 3350 17 17 gm PO DAILY PRN Constipation ##0 12/17/16 10/20/20 gram/dose oral powder (Miralax) albuterol sulfate 90 mcg/actuation 2 puff inhalation Q4H PRN 01/19/18 10/20/20 aerosol inhaler Shortness Of Breath selegiline HCl 5 mg tablet 5 mg PO BID 01/19/18 10/20/20 azithromycin 250 mg tablet 250 mg PO MOWEFR 07/10/18 10/20/20 metoprolol succinate 50 mg 50 mg PO BEDTIME 07/10/18 10/20/20 tablet,extended release 24 hr nifedipine 30 mg tablet,extended 30 mg PO QAM 07/10/18 10/20/20 release oxycodone 10 mg tablet 10 mg PO 1-2XD PRN chronic pain 07/10/18 10/20/20 valacyclovir 500 mg tablet 500 mg PO BEDTIME 07/10/18 10/20/20 fluoride (sodium) 1.1 % dental gel 1 applic dental BEDTIME 07/15/18 10/20/20 ipratropium 0.5 mg-albuterol 3 mg 3 ml inhalation Q6-8H PRN SOB 09/28/18 10/20/20 (2.5 mg base)/3 mL nebulization soln pantoprazole 40 mg tablet,delayed 40 mg PO BID 09/29/18 10/20/20 release dexamethasone 0.5 mg/5 mL oral 1 mg PO BID 08/07/20 10/20/20 solution ondansetron HCl 4 mg tablet mg PO DAILY PRN nausea and vomiting 08/07/20 10/20/20 Previous Rx's Medication Instructions Recorded diclofenac epolamine 1.3 % 1 patch topical BID #30 ea 10/30/20 transdermal 12 hour patch (Flector) gabapentin 100 mg capsule 100 mg PO TID #90 caps 03/19/21 gabapentin 400 mg capsule 400 mg PO TID #90 caps 04/17/21 hydroxyzine HCl 10 mg tablet 10 mg PO Q8H PRN anxiety #60 tabs 05/18/21 azithromycin 250 mg tablet 250 mg PO DAILY 4 months #4 tabs 11/20/21 Allergies Allergy/AdvReac Type Severity Reaction Status Date / Time diltiazem Allergy Intermediate Hives Verified 11/20/21 14:36 bacitracin [BACITRACIN] Allergy Unknown SKIN Verified 11/20/21 14:36 IRRITATION chlorhexidine [CHLORHEXIDINE] Allergy Unknown SKIN Verified 11/20/21 14:36 IRRITATION rifampin [RIFAMPIN] Allergy Unknown HIVES Verified 11/20/21 14:36 acetaminophen [ACETAMINOPHEN] AdvReac Unknown ABD PAIN Verified 11/20/21 14:36 diphenhydramine AdvReac Unknown EXTREME Verified 11/20/21 14:36 [From BENADRYL] SEDATION Review of Systems <Lyssa Souza, - Last Filed: 11/26/21 07:29> Review of Systems Narrative: GENERAL: Denies chills, fatigue, malaise, fever, sweats, travel HEENT: Denies sinus pain, ear pain, sore throat, difficulty swallowing, neck pain RESPIRATORY: Denies dyspnea, cough, wheezing, hemoptysis, sputum. CARDIOVASCULAR: Denies chest pain, palpitations, orthopnea, edema GASTROINTESTINAL: Denies nausea, vomiting, abdominal pain, diarrhea, constipation, melena. : Denies dysuria, frequency, incontinence, hematuria, urinary retention, flank pain. MUSCULOSKELETAL: Denies weakness, joint pain, or bony pain SKIN: No rash, no erythema, no pruritus NEUROLOGIC: Denies weakness, dizziness, headache, numbness, change in speech, confusion PSYCHIATRIC: No concerning psychosocial issues. 12 point review of systems is negative except for those stated above and HPI Patient History <Lyssa Souza DO - Last Filed: 11/26/21 07:29> Medical History (Updated 11/26/21 @ 00:00 by ) Atrial fibrillation Atrial flutter Chronic zshbx-oaqstt-vcjo disease Chronic kidney disease, stage III (moderate) CLL (chronic lymphocytic leukemia) CMV pneumonia Compression fracture of L1 lumbar vertebra Cryptogenic organizing pneumonia Elevated PSA Fungal pneumonia Parkinson disease Skin cancer Spinal stenosis T11 vertebral fracture Surgical History (Updated 05/18/21 @ 18:43 by Marcel Duncan MD) H/O stem cell transplant History of partial colectomy History of radiofrequency ablation procedure for cardiac arrhythmia S/P TAVR (transcatheter aortic valve replacement) Family History Father Cancer Mother C. difficile colitis Social History household members: spouse Smoking Status: Former smoker Tobacco: How many years used: 10 alcohol intake: current Smoking Status: Former smoker alcohol intake frequency: holidays/special occasions only Substance Use Type: does not use Exam <Lyssa Souza DO - Last Filed: 11/26/21 07:29> Initial Vital Signs Initial Vital Signs: Vital Signs Temperature 97.1 F L 11/20/21 14:36 Pulse Rate 96 H 11/20/21 14:36 Respiratory Rate 28 H 11/20/21 14:36 Blood Pressure 140/104 H 11/20/21 14:36 Pulse Oximetry 99 11/20/21 14:36 Oxygen Delivery Method 11/20/21 14:36 <DO Tonya Jang Last Filed: 11/21/21 01:42> Initial Vital Signs Initial Vital Signs: Vital Signs Temperature 97.1 F L 11/20/21 14:36 Pulse Rate 96 H 11/20/21 14:36 Respiratory Rate 28 H 11/20/21 14:36 Blood Pressure 140/104 H 11/20/21 14:36 Pulse Oximetry 99 11/20/21 14:36 Oxygen Delivery Method 11/20/21 14:36 Course <Lyssa Souza DO - Last Filed: 11/26/21 07:29> Orders Ordered: Discontinued Medications Azithromycin (Azithromycin 250 Mg Tablet) 500 mg PO NOW ONE Stop: 11/20/21 20:38 Last Admin: 11/20/21 20:43 Dose: 500 mg Documented By: VERONICA Oxymetazoline HCl (Oxymetazoline Nasal [place] 15 Ml) 2 sprays NASAL NOW ONE Stop: 11/20/21 17:47 Last Admin: 11/20/21 17:50 Dose: 2 sprays Documented By: NR Vital Signs Vital signs: Vital Signs - 8 hr 11/20/21 18:00 11/20/21 18:00 11/20/21 18:30 Pulse Rate 90 81 Respiratory Rate 34 H 22 Blood Pressure 139/68 Pulse Oximetry 92 95 11/20/21 19:00 11/20/21 19:30 Pulse Rate 87 97 H Respiratory Rate 24 30 H Blood Pressure Pulse Oximetry 95 <DO Tonya Jang Last Filed: 11/21/21 01:42> Orders Ordered: Discontinued Medications Azithromycin (Azithromycin 250 Mg Tablet) 500 mg PO NOW ONE Stop: 11/20/21 20:38 Last Admin: 11/20/21 20:43 Dose: 500 mg Documented By: VERONICA Oxymetazoline HCl (Oxymetazoline Nasal [place] 15 Ml) 2 sprays NASAL NOW ONE Stop: 11/20/21 17:47 Last Admin: 11/20/21 17:50 Dose: 2 sprays Documented By: NR Vital Signs Vital signs: Vital Signs - 8 hr 11/20/21 18:00 11/20/21 18:00 11/20/21 18:30 Pulse Rate 90 81 Respiratory Rate 34 H 22 Blood Pressure 139/68 Pulse Oximetry 92 95 11/20/21 19:00 11/20/21 19:30 Pulse Rate 87 97 H Respiratory Rate 24 30 H Blood Pressure Pulse Oximetry 95 MDM - SOB/Dyspnea <Lyssa Souza, - Last Filed: 11/26/21 07:29> Lab Data Result diagrams: 11/20/21 16:00 11/20/21 16:00 Labs: Lab Results 11/20/21 11/20/21 11/20/21 Range/Units 16:00 16:00 16:00 WBC 7.4 (4.5-11.0) X10^3/uL RBC 3.38 L (4.5-5.9) X10^6/uL Hgb 10.7 L (13.5-17.5) g/dL Hct 30.6 L (41-53) % MCV 90.6 (80-100) fL MCH 31.5 (26-34) PG MCHC 34.8 (30-36) % RDW 13.8 (11.6-14.8) % Plt Count 245 (150-400) X10^3/uL Neut % (Auto) 69.0 (50-75) % Lymph % (Auto) 15.9 L (25-40) % [place] % (Auto) 8.9 (3-14) % Eos % (Auto) 5.5 H (2-4) % Baso % (Auto) 0.7 (0-2) % Neut # (Auto) 5100 (9275-5921) /uL Lymph # (Auto) 1200 (5997-7660) /uL [place]ee # (Auto) 700 (0-900) /uL Eos # (Auto) 400 (0-450) /uL Baso # (Auto) 100 (0-100) /uL D-Dimer 686 H (<230) ng/mL Sodium 139 (137-145) mmol/L Potassium 3.6 (3.4-5.1) mmol/L Chloride 99 (98-107) mmol/L Carbon Dioxide 31 (22-32) mmol/L BUN 62 H (9-20) mg/dL Creatinine 1.81 H (0.66-1.25) mg/dL Estimated GFR 38 L (>60) mL/min BUN/Creatinine Ratio 34.3 H (6-22) Glucose 144 H (80-110) mg/dL Calcium 9.1 (8.4-10.2) mg/dL Total Bilirubin 0.5 (0.2-1.3) mg/dL AST 31 (17-59) IU/L ALT 7 (<50) IU/L Alkaline Phosphatase 87 (38-126) U/L Total Creatine Kinase 57 (55-170) U/L CK-MB (CK-2) TNP CK-MB (CK-2) Rel Index TNP Troponin I < 0.012 (0.01-0.034) ng/mL NT-Pro-B Natriuret Pep 594 H (<450) pg/mL Total Protein 7.9 (6.3-8.2) g/dL Albumin 4.0 (3.5-5.0) g/dL Globulin 3.9 (1.7-4.1) g/dL Albumin/Globulin Ratio 1.0 (1.0-2.8) Lipase 157 (23-300) U/L SARS-CoV-2 (PCR) (Negative) 11/20/21 Range/Units 16:00 WBC (4.5-11.0) X10^3/uL RBC (4.5-5.9) X10^6/uL Hgb (13.5-17.5) g/dL Hct (41-53) % MCV (80-100) fL MCH (26-34) PG MCHC (30-36) % RDW (11.6-14.8) % Plt Count (150-400) X10^3/uL Neut % (Auto) (50-75) % Lymph % (Auto) (25-40) % [place] % (Auto) (3-14) % Eos % (Auto) (2-4) % Baso % (Auto) (0-2) % Neut # (Auto) (3063-8053) /uL Lymph # (Auto) (9392-2034) /uL [place] # (Auto) (0-900) /uL Eos # (Auto) (0-450) /uL Baso # (Auto) (0-100) /uL D-Dimer (<230) ng/mL Sodium (137-145) mmol/L Potassium (3.4-5.1) mmol/L Chloride (98-107) mmol/L Carbon Dioxide (22-32) mmol/L BUN (9-20) mg/dL Creatinine (0.66-1.25) mg/dL Estimated GFR (>60) mL/min BUN/Creatinine Ratio (6-22) Glucose (80-110) mg/dL Calcium (8.4-10.2) mg/dL Total Bilirubin (0.2-1.3) mg/dL AST (17-59) IU/L ALT (<50) IU/L Alkaline Phosphatase (38-126) U/L Total Creatine Kinase (55-170) U/L CK-MB (CK-2) CK-MB (CK-2) Rel Index Troponin I (0.01-0.034) ng/mL NT-Pro-B Natriuret Pep (<450) pg/mL Total Protein (6.3-8.2) g/dL Albumin (3.5-5.0) g/dL Globulin (1.7-4.1) g/dL Albumin/Globulin Ratio (1.0-2.8) Lipase (23-300) U/L SARS-CoV-2 (PCR) Negative (Negative) Imaging Data Chest x-ray: Radiologist's Impression: [address] [place] [id number] XRay Report Signed Patient: Eleno Sol MR#: [id number] : 1945 Acct:[id number] Age/Sex: 75 / M Date of Service: 11/20/21 Loc: ED Accession Number: [id number] ?? Procedure: XR chest 1V Ordering Provider: Lyssa Suoza D.O. PROCEDURE:? XR CHEST 1V ? INDICATIONS:? short of breath ? TECHNIQUE:? One view of the chest was acquired.? ? COMPARISON:? [facility], CR, XR CHEST 1V, 05/18/2021, 14:03. ? FINDINGS:? ? Surgical changes and devices:? Prosthetic valve is noted. ? Lungs and pleura:? Interval development of patchy right basilar opacity.? Trace bilateral costophrenic angle blunting suggestive of minimal effusions. ? Mediastinum:? Mediastinal contours appear normal.? Heart size is normal.? ? Bones and chest wall:? No suspicious bony lesions.? Overlying soft tissues appear unremarkable.? ? IMPRESSION:? Right basilar opacity most suggestive of pneumonia. ? ? Dictated by: Jyoti Tovar M.D. on 11/20/2021 at 15:57 ECG Data Interpretation: Normal sinus rhythm rate 89 [place] interval 136 QRS [address] changes MDM Narrative Medical decision making narrative: Patient has chronic cough he sounds like he has sputum production frequently but may be worse over the last few days. He is not hypoxic. He does not have a fever he has no leukocytosis. X-ray concerning for pneumonia symptoms where may not be consistent with pneumonia it is difficult to tell what is chronic and what is new. D-dimer is slightly elevated at 600 he has multiple risk factors for a PE. He does have chronic kidney disease seems to be stable slightly improved from previous blood work. Discussed with him risks and benefits of doing contrast at this time he agrees to do contrast. Waiting for CT angio chest. <Eleno Juares, - Last Filed: 11/21/21 01:42> Lab Data Labs: Lab Results 11/20/21 11/20/21 11/20/21 Range/Units 16:00 16:00 16:00 WBC 7.4 (4.5-11.0) X10^3/uL RBC 3.38 L (4.5-5.9) X10^6/uL Hgb 10.7 L (13.5-17.5) g/dL Hct 30.6 L (41-53) % MCV 90.6 (80-100) fL MCH 31.5 (26-34) PG MCHC 34.8 (30-36) % RDW 13.8 (11.6-14.8) % Plt Count 245 (150-400) X10^3/uL Neut % (Auto) 69.0 (50-75) % Lymph % (Auto) 15.9 L (25-40) % [place] % (Auto) 8.9 (3-14) % Eos % (Auto) 5.5 H (2-4) % Baso % (Auto) 0.7 (0-2) % Neut # (Auto) 5100 (5622-1434) /uL Lymph # (Auto) 1200 (1029-9965) /uL [place] # (Auto) 700 (0-900) /uL Eos # (Auto) 400 (0-450) /uL Baso # (Auto) 100 (0-100) /uL D-Dimer 686 H (<230) ng/mL Sodium 139 (137-145) mmol/L Potassium 3.6 (3.4-5.1) mmol/L Chloride 99 (98-107) mmol/L Carbon Dioxide 31 (22-32) mmol/L BUN 62 H (9-20) mg/dL Creatinine 1.81 H (0.66-1.25) mg/dL Estimated GFR 38 L (>60) mL/min BUN/Creatinine Ratio 34.3 H (6-22) Glucose 144 H (80-110) mg/dL Calcium 9.1 (8.4-10.2) mg/dL Total Bilirubin 0.5 (0.2-1.3) mg/dL AST 31 (17-59) IU/L ALT 7 (<50) IU/L Alkaline Phosphatase 87 (38-126) U/L Total Creatine Kinase 57 (55-170) U/L CK-MB (CK-2) TNP CK-MB (CK-2) Rel Index TNP Troponin I < 0.012 (0.01-0.034) ng/mL NT-Pro-B Natriuret Pep 594 H (<450) pg/mL Total Protein 7.9 (6.3-8.2) g/dL Albumin 4.0 (3.5-5.0) g/dL Globulin 3.9 (1.7-4.1) g/dL Albumin/Globulin Ratio 1.0 (1.0-2.8) Lipase 157 (23-300) U/L SARS-CoV-2 (PCR) (Negative) 11/20/21 Range/Units 16:00 WBC (4.5-11.0) X10^3/uL RBC (4.5-5.9) X10^6/uL Hgb (13.5-17.5) g/dL Hct (41-53) % MCV (80-100) fL MCH (26-34) PG MCHC (30-36) % RDW (11.6-14.8) % Plt Count (150-400) X10^3/uL Neut % (Auto) (50-75) % Lymph % (Auto) (25-40) % [place] % (Auto) (3-14) % Eos % (Auto) (2-4) % Baso % (Auto) (0-2) % Neut # (Auto) (8665-4577) /uL Lymph # (Auto) (8305-7673) /uL [place] # (Auto) (0-900) /uL Eos # (Auto) (0-450) /uL Baso # (Auto) (0-100) /uL D-Dimer (<230) ng/mL Sodium (137-145) mmol/L Potassium (3.4-5.1) mmol/L Chloride (98-107) mmol/L Carbon Dioxide (22-32) mmol/L BUN (9-20) mg/dL Creatinine (0.66-1.25) mg/dL Estimated GFR (>60) mL/min BUN/Creatinine Ratio (6-22) Glucose (80-110) mg/dL Calcium (8.4-10.2) mg/dL Total Bilirubin (0.2-1.3) mg/dL AST (17-59) IU/L ALT (<50) IU/L Alkaline Phosphatase (38-126) U/L Total Creatine Kinase (55-170) U/L CK-MB (CK-2) CK-MB (CK-2) Rel Index Troponin I (0.01-0.034) ng/mL NT-Pro-B Natriuret Pep (<450) pg/mL Total Protein (6.3-8.2) g/dL Albumin (3.5-5.0) g/dL Globulin (1.7-4.1) g/dL Albumin/Globulin Ratio (1.0-2.8) Lipase (23-300) U/L SARS-CoV-2 (PCR) Negative (Negative) Imaging Data CT scan - chest: Radiologist's Impression: [address] [id number] [address] Scan Report Signed Patient: Eleno Sol MR#: [id number] : 1945 Acct:[id number] Age/Sex: 75 / M Date of Service: 11/20/21 Loc: Accession Number: [id number] ?? Procedure: CT angio chest PE protocol Ordering Provider: Lyssa Sozua D.O. PROCEDURE:? CT ANGIO CHEST PE PROTOCOL ? INDICATIONS:? +dimer RLL ? TECHNIQUE:? After the administration of intravenous contrast, 2 mm thick sections acquired from the pulmonary apices to the posterior costophrenic angles.? 3-dimensional maximum intensity projection (MIP) coronal and sagittal reformats were then acquired through the thorax.? For radiation dose reduction, the following was used:? automated exposure control, adjustment of mA and/or kV according to patient size.? ? COMPARISON:? [facility], CR, XR CHEST 1V, 11/20/2021, 15:31.? [facility], CT, CT ANGIO CHEST PE PROTOCOL, 03/11/2019, 23:58. ? FINDINGS:? Image quality:? Excellent.? ? Pulmonary arteries:? Pulmonary arteries are normal in size, and demonstrate no intraluminal filling defects to suggest central pulmonary embolism.? ? Lungs and pleura:? Bronchiectasis is present as before, overall moderate-severe severity, worsened since the previous exam.? There are patchy consolidative and ground- glass opacities predominantly in a bronchocentric distribution, with more confluent consolidation within the right lower lobe.? Mild bronchial wall thickening and peripheral airways mucous plugging also present.? No pleural effusion. ? Mediastinum:? No pericardial effusion.? Mediastinal lymphadenopathy is present, for example a 1.2 cm lower paratracheal lymph node (/51).? A TAVR is present.? Thoracic aorta is normal in caliber and enhancement. ? ? Bones and chest wall:? Multilevel degenerative change of the visualized spine.? Non- acute appearing fractures of T11 and L1.? T11 fracture consistent with wedge/impaction fracture, approximately 30% vertebral body height loss.? L1 fracture likely represents a complete burst fracture, up to 75% vertebral body height loss.? ? Abdomen:? Visualized upper abdominal solid organs appear unremarkable for in the early arterial phase of enhancement.? ? IMPRESSION:? 1. No pulmonary embolism demonstrated.? 2. Patchy consolidative and ground-glass opacities, most confluent in the right lower lobe, suspicious for pneumonia and/or aspiration. 3. Moderate-severe bronchiectasis, worsened since before.? Areas of bronchial wall thickening and mucous plugging are present, could indicate a component of bronchitis. 4. Nonspecific reticular and bronchocentric airspace opacities could suggest a component of interstitial lung disease.? 5. Nonspecific mediastinal lymphadenopathy, could be reactive.? ? Dictated by: Favio Danielson M.D. on 11/20/2021 at 18:39 ? ? Approved by: Favio Danielson M.D. on 11/20/2021 at 18:56?? [facility] Narrative Medical decision making narrative: Patient has chronic cough he sounds like he has sputum production frequently but may be worse over the last few days. He is not hypoxic. He does not have a fever he has no leukocytosis. X-ray concerning for pneumonia symptoms where may not be consistent with pneumonia it is difficult to tell what is chronic and what is new. D-dimer is slightly elevated at 600 he has multiple risk factors for a PE. He does have chronic kidney disease seems to be stable slightly improved from previous blood work. Discussed with him risks and benefits of doing contrast at this time he agrees to do contrast. Waiting for CT angio chest. Dr Juares: Received turned over. Review patient's history and physical exam. We were waiting the results of the CT angiogram. This showed no signs of pulmonary embolism. There were some findings on the CT scan that could potentially be pneumonia however the patient is afebrile and has no leukocytosis. He has been feeling worse over the past couple days. Has had an increase in his sputum production. Because of his other medical issues and his underlying lung pathology we will treat him presumptively for pneumonia. Patient is agreeable to this. He was given a 1st dose of antibiotics here in the emergency department and a prescription was sent to the pharmacy of his choice. Patient is eager to be discharged home. No indication for admission the hospital. He was given return precautions. He expressed understanding and agreement. Discharge Plan Departure Patient Disposition: Home Clinical Impression: Pneumonia Instructions: DI for Pneumonia -- Adult Activity Restrictions/Additional Instructions: [facility] [place]. Please take it as directed. It is the same medication that you take every Friday and Friday but it will be on a daily basis for the next 4 days. After that you can go back and start taking it 3 days a week. Contact your continuity reader for a follow-up. Return to the emergency department for any new or worsening symptoms. Prescriptions: New azithromycin 250 mg tablet 250 mg PO DAILY 120 Days Qty: 4 0RF No Action tamsulosin [Flomax] 0.4 MG capsule,extended release 24hr 0.4 mg PO BEDTIME Qty: 0 sennosides [senna] 8.6 MG tablet 17.2 tab PO BEDTIME Qty: 0 carbidopa-levodopa 25 MG/100 MG tablet extended release 1 - 2 tab PO TID Qty: 0 Label Comments: generally takes at least tid, but may take up to 2 tabs tid polyethylene glycol 3350 [Miralax] 119 GM powder 17 gm PO DAILY PRN (Reason: Constipation) Qty: 0 diclofenac epolamine [Flector] 1.3 % patch 12 hour 1 patch topical BID Qty: 30 1RF gabapentin 100 mg capsule 100 mg PO TID Qty: 90 1RF Rx Instructions: USE TO TITRATE DOSE TID. PT AWARE OF HOW TO ADD THIS TO HIS EXISTING 400MG TID. gabapentin 400 mg capsule 400 mg PO TID Qty: 90 2RF selegiline HCl 5 mg Tablet 5 mg PO BID albuterol sulfate 90 mcg/actuation Hfa Aerosol Inhaler 2 puff INHALATION Q4H PRN (Reason: Shortness Of Breath) fluoride (sodium) 1.1 % Gel 1 applic Dental BEDTIME Rx Instructions: leave on 3-4 minutes then spit out. do not rinse, eat or drink for 30 minutes metoprolol succinate 50 mg tablet extended release 24 hr 50 mg PO BEDTIME Label Comments: take 1 tablet by mouth daily nifedipine 30 mg tablet extended release 30 mg PO QAM Label Comments: take 1 tablet by mouth every morning valacyclovir 500 mg tablet 500 mg PO BEDTIME oxycodone 10 mg tablet 10 mg PO 1-2XD MDD 20 mg PRN (Reason: chronic pain) azithromycin 250 mg tablet 250 mg PO Label Comments: take 1 tablet by mouth EVERY Friday AND FRIDAY ipratropium-albuterol 0.5 mg-3 mg(2.5 mg base)/3 mL Solution For Nebulization 3 ml INHALATION Q6-8H PRN (Reason: SOB) pantoprazole 40 mg Tablet,Delayed Release (Dr/Ec) 40 mg PO BID hydroxyzine HCl 10 mg tablet 10 mg PO Q8H PRN (Reason: anxiety) Qty: 60 0RF ondansetron HCl 4 mg tablet PO DAILY PRN (Reason: nausea and vomiting) dexamethasone 0.5 mg/5 mL solution 1 mg PO BID Referrals: *Temp,ED* [Primary Care Provider] - Visit Report Forms: Patient Portal/API
[2021-11-20 16:08] LABS: Add Manual Diff / Slide Review NO; Basophils Absolute Auto 100 /uL (0-100); Basophils Percent Auto 0.7 % (0-2); Eosinophils Absolute Auto 400 /uL (0-450); Eosinophils Percent Auto 5.5 % (2-4); Hematocrit 30.6 % (41-53); Hemoglobin 10.7 g/dL (13.5-17.5); Lymphocytes Absolute Auto 1200 /uL (1100-4500); Lymphocytes Percent Auto 15.9 % (25-40); Mean Corpuscular HGB Conc 34.8 % (30-36); Mean Corpuscular Hemoglobin 31.5 PG (26-34); Mean Corpuscular Volume 90.6 fL (80-100); Monocytes Absolute Auto 700 /uL (0-900); Monocytes Percent Auto 8.9 % (3-14); Neutrophils Absolute Auto 5100 /uL (1500-7000); Platelet Count 245 X10^3/uL (150-400); Red Blood Cell Count 3.38 X10^6/uL (4.5-5.9); Red Cell Distribution Width 13.8 % (11.6-14.8); White Blood Cell Count 7.4 X10^3/uL (4.5-11.0)
[2021-11-20 16:22] LABS: Alanine Aminotransferase 7 IU/L (<50); Alkaline Phosphatase 87 U/L (38-126); Aspartate Aminotransferase 31 IU/L (17-59); BUN Creatinine Ratio 34.3 (6-22); Bilirubin Total 0.5 mg/dL (0.2-1.3); Blood Urea Nitrogen 62 mg/dL (9-20); Calcium 9.1 mg/dL (8.4-10.2); Carbon Dioxide 31 mmol/L (22-32); Chloride 99 mmol/L (98-107); Creatine Kinase 57 U/L (55-170); Estimated Glomerular Filt Rate 38 mL/min (>60); Globulin 3.9 g/dL (1.7-4.1); Glucose 144 mg/dL (80-110); HEMOLYSIS < 15 (0-50); Lipase 157 U/L (23-300); Potassium 3.6 mmol/L (3.4-5.1); Sodium 139 mmol/L (137-145); Total Protein 7.9 g/dL (6.3-8.2)
[2021-11-20 16:28] LABS: COVID19 -Nasal RAPID Negative (Negative)
[2021-11-20 16:33] LABS: NT-proBNP (BNP-Adult 18+) 594 pg/mL (<450); Troponin I < 0.012 ng/mL (0.01-0.034)
[2021-11-20 16:45] LABS: D Dimer 686 ng/mL (<230)
--- NOTE | 2021-11-20 17:38 | DI.CT.S_ITS ---
PROCEDURE: CT ANGIO CHEST PE PROTOCOL INDICATIONS: +dimer RLL TECHNIQUE: After the administration of intravenous contrast, 2 mm thick sections acquired from the pulmonary apices to the posterior costophrenic angles. 3-dimensional maximum intensity projection (MIP) coronal and sagittal reformats were then acquired through the thorax. For radiation dose reduction, the following was used: automated exposure control, adjustment of mA and/or kV according to patient size. COMPARISON: [facility], CR, XR CHEST 1V, 11/20/2021, 15:31. [facility], CT, CT ANGIO CHEST PE PROTOCOL, 03/11/2019, 23:58. FINDINGS: Image quality: Excellent. Pulmonary arteries: Pulmonary arteries are normal in size, and demonstrate no intraluminal filling defects to suggest central pulmonary embolism. Lungs and pleura: Bronchiectasis is present as before, overall moderate-severe severity, worsened since the previous exam. There are patchy consolidative and ground-glass opacities predominantly in a bronchocentric distribution, with more confluent consolidation within the right lower lobe. Mild bronchial wall thickening and peripheral airways mucous plugging also present. No pleural effusion. Mediastinum: No pericardial effusion. Mediastinal lymphadenopathy is present, for example a 1.2 cm lower paratracheal lymph node (4/51). A TAVR is present. Thoracic aorta is normal in caliber and enhancement. Bones and chest wall: Multilevel degenerative change of the visualized spine. Non- acute appearing fractures of T11 and L1. T11 fracture consistent with wedge/impaction fracture, approximately 30% vertebral body height loss. L1 fracture likely represents a complete burst fracture, up to 75% vertebral body height loss. Abdomen: Visualized upper abdominal solid organs appear unremarkable for in the early arterial phase of enhancement. IMPRESSION: 1. No pulmonary embolism demonstrated. 2. Patchy consolidative and ground-glass opacities, most confluent in the right lower lobe, suspicious for pneumonia and/or aspiration. 3. Moderate-severe bronchiectasis, worsened since before. Areas of bronchial wall thickening and mucous plugging are present, could indicate a component of bronchitis. 4. Nonspecific reticular and bronchocentric airspace opacities could suggest a component of interstitial lung disease. 5. Nonspecific mediastinal lymphadenopathy, could be reactive. Dictated by: Favio Danielson M.D. on 11/20/2021 at 18:39 Approved by: Favio Danielson M.D. on 11/20/2021 at 18:56
[2021-11-20] MEDS: OXYMETAZOLINE NASAL SPRAY 15 ML 2 SPRAYS NASAL (17:50)
[2021-11-20] MEDS: AZITHROMYCIN 250 MG TABLET 500 MG PO (20:43)
== END 2021-11-20 20:50 | disposition home or self-care (01) ==
PROVIDERS: Emergency Medicine; Emergency Provider Emergency Medicine; Family Provider Internal Medicine
DX: J18.9 Pneumonia, unspecified organism (principal); G20 Parkinson's disease; Z20.822 Contact with and (suspected) exposure to COVID-19
CPT/HCPCS: 36415; 71045; 71275; 80053; 82550; 83690; 83880; 84484; 85025; 85379; 87635; 93005; 93010; 99284; C9803; A9270; Q9967